=== PATIENT | female | born 1945 | race Caucasian/White ===

== ENCOUNTER 2022-03-13 13:02 | Inpatient (IN) | payer MEDICARE, SELFPAY ==
[2022-03-13] VITALS (13 sets, daily range): BP systolic 101–172; BP diastolic 55–98; PULSE 59–100; RESP 16–18; TEMP 36.7–37.2; O2SAT 86–100; BMI 34.3
--- NOTE | ~2022-03-13 | XR_ITS ---
XR ankle LT min 3V 03/13/2022 14:41 Indication: Post reduction film. Procedure: 4 views left ankle Comparison: 03/13/2022 Findings: Stable position to mildly displaced bimalleolar fracture. No significant alteration of alig nment allowing for differences of technique. Osteopenia. There is a degenerative calcaneal enthesophy te. Impression: 1: Stable alignment of bimalleolar fracture allowing for differences of technique. Reviewed, dictated and finalized at location A. Impression: 1: Stable alignment of bimalleolar fracture allowing for differences of techniq ue.
--- NOTE | ~2022-03-13 | XR_ITS ---
XR ankle LT min 3V DATE: 03/13/2022 13:11 INDICATION: Injury. Ankle deformity. TECHNIQUE: 3 more views COMPARISON: None FINDINGS: There are are transverse fractures of the medial malleolus and lateral malleolus, with appr oximate 3.5 mm lateral displacement at the fracture sites and associated lateral tibiotalar subluxati on. There is prominent widening of the tibiotalar joint space anteriorly. Plantar calcaneal enthesopathy. IMPRESSION: Bimalleolar fracture/lateral tibiotalar subluxation Reviewed, dictated and finalized at location A.
--- NOTE | ~2022-03-13 | XR_ITS ---
EXAMINATION: XR surgery orthopedic DATE: 03/16/2022 16:54 INDICATION: Left ankle fracture TECHNIQUE: 3 fluoroscopic images of the left ankle were obtained during procedure performed by Dr. Kelvin sarkar. Radiologist was not present for the imaging or procedure. The amount of fluoroscopy time used dur ing this procedure was 0.3 minutes. COMPARISON: 03/13/2022 FINDINGS: Interval open reduction internal fixation of the previous noted bimalleolar fracture at the left ankl e which is now in near anatomic alignment. The medial malleolar fractures fixed with a pair of cannul ated lag screws with washers. The lateral malleolar fracture is fixed with a lateral protocol plate a nd screws with overlying skin esequiel. No other fractures identified. Ankle mortise is congruent with normal joint space. IMPRESSION: 1. Near-anatomic alignment post internal fixation of a bimalleolar fracture of the left ankle. Reviewed, dictated and finalized at location B.
--- NOTE | ~2022-03-13 | CT_ITS ---
EXAMINATION: CT cervical spine wo con DATE: 03/13/2022 13:48 INDICATION: Patient fell today and struck posterior aspect of the head TECHNIQUE: Computed tomography (CT) of the cervical spine was performed without intravenous contrast. Automated exposure control and iterative reconstruction technique were employed. Exam dose: 387.93 mGy-cm total exam DLP. COMPARISON: None FINDINGS: C1 and C2 are normally aligned and the odontoid process is intact. No fracture or dislocati on or locked facet or prevertebral soft tissue swelling. There is minimal retrolisthesis at C3-4. There is 1.4 mm anterolisthesis at C5-6 and 2 mm anterolisthesis at C6-7. 1.4 mm anterolisthesis at C7-T1. There is moderately severe degenerative disc disease at C4-5 and moderate degenerative disc disease a t C5-6 and C6-7. There is degenerative change at the apophyseal joints throughout the cervical spine. There is uncovertebral joint spurring IMPRESSION: Cervical spondylosis No fracture or dislocation or locked facet Reviewed, dictated and finalized at Location A. Reviewed, dictated and finalized at location A.
--- NOTE | ~2022-03-13 | CT_ITS ---
EXAMINATION: CT brain wo con DATE: 03/13/2022 13:47 INDICATION: Patient fell and struck posterior aspect of head today TECHNIQUE: Computed tomography (CT) of the head was performed without intravenous contrast. The mA wa s adjusted according to patient size. Iterative reconstruction technique was employed. Exam dose: 60 5.33 mGy-cm total exam DLP. COMPARISON: None FINDINGS: There is moderately prominent central and cortical cerebral and cerebellar atrophy. Bilateral carotid siphon internal carotid artery left vertebral artery calcifications. There is nonsp ecific diminished attenuation of the cerebral white matter, likely due to chronic small vessel ischem ic changes. No intracranial mass lesion or hemorrhage or cerebrovascular accident is evident. No midline shift or mass effect effect. No subdural or epidural hematoma is noted. No fracture or bone destruction of the cranial vault. Mastoid air cells and included paranasal sinuses are unremarkable. IMPRESSION: No skull fracture or acute intracranial finding Cerebral atherosclerosis and chronic small vessel ischemic changes of the cerebral white matter Cerebral and cerebellar volume loss Reviewed, dictated and finalized at Location A. Reviewed, dictated and finalized at location A. IMPRESSION: No skull fracture or acute intracranial finding Cerebral atherosclerosis and chronic small vessel ischemic changes of the cereb ral white matter Cerebral and cerebellar volume loss
--- NOTE | ~2022-03-13 | XR_ITS ---
CORRECTED REPORT ORDER # CHANGED, TITLE CHANGE 03/15/22 PK XR SURGERY ORTHOPEDIC 03/13/2022 left ankle DATE: 03/14/2022 09:20 INDICATION: Bimalleolar ankle fracture TECHNIQUE: 2 spot C-arm images of the left ankle 1.8 seconds fluoroscopy time 0.10 mGy COMPARISON: 03/13/2022 left ankle FINDINGS: Again noted is mildly laterally displaced bimalleolar fracture and minimal lateral tibiotalar subluxation. IMPRESSION: Mildly laterally displaced bimalleolar fracture/minimal lateral tibiotalar subluxation Reviewed, dictated and finalized at Location A. Reviewed, dictated and finalized at location A. NEYT ROXIE
[2022-03-13 13:32] LABS: Basophils Absolute Auto 0.1 K/mm3 (0.0-0.1); Basophils Percent Auto 0.9 % (0.2-1.2); Eosinophils Absolute Auto 0.1 K/mm3 (0-0.3); Eosinophils Percent Auto 2.4 % (0-4.4); Hematocrit 37.2 % (37.0-47.0); Hemoglobin 12.2 g/dL (12.0-15.0); Immature Granulocyte Absolute 0.02 K/mm3 (0.00-0.031); Immature Granulocyte Percent A 0.3 % (0-0.5); Lymphocytes Absolute Auto 2.09 K/mm3 (0.9-3.2); Lymphocytes Percent Auto 36.3 % (18.3-44.2); Mean Corpuscular HGB Conc 32.8 g/dl (32-36); Mean Corpuscular Hemoglobin 29.8 pg (26-34); Mean Platelet Volume 10.6 fl (7.4-10.4); Monocytes Absolute Auto 0.5 K/mm3 (0.1-0.6); Monocytes Percent Auto 8.9 % (2.6-8.5); Neutrophils Absolute Auto 2.9 K/mm3 (1.3-6.7); Neutrophils Percent Auto 51.2 % (45.5-73.1); Platelet Count Result 160 k/mm3 (150-375); Red Blood Count 4.09 M/mm3 (4.2-5.4); Red Cell Distribution Width 12.9 % (11.5-14.5); White Blood Count 5.8 K/mm3 (4.5-10.0)
[2022-03-13 13:43] LABS: Prothrombin Time 12.7 Seconds (11.1-14.7)
[2022-03-13 13:44] LABS: Partial Thromboplastin Time 23.6 SECONDS (22.3-36.8)
[2022-03-13 13:45] LABS: Anion Gap 6 mmol/L (8-16); Blood Urea Nitrogen 25 mg/dL (7-17); Calcium 8.5 mg/dL (8.4-10.2); Carbon Dioxide 25 mmol/L (22-30); Chloride 108 mmol/L (98-107); Estimated CRCL calculation 45 ml/min; Estimated Glomerular Filt Rate 54; Glucose 106 mg/dL (65-110); Potassium 3.6 mmol/L (3.4-5.0); Sodium 139 mmol/L (137-145)
--- NOTE | 2022-03-13 14:08 | PC.NURSE ---
Pt prepared for moderate sedation. ETC02 on , ambu bag inflated and ready crash cart in room. Pt is on cardiac, respiratory, and NIBP cuff. Pt understands risks and benefits. Daughter, michi renteria, at bedside and understands procedure. All questions addressed.
[2022-03-13] MEDS: PROPOFOL IV EMULSION 200 MG/20 ML VIAL 50 MG IV PUSH (14:23)
[2022-03-13] MEDS: KETAMINE HCL (*CRX) 500 MG/10 ML VIAL 50 MG IV PUSH (14:23)
[2022-03-13] MEDS: MORPHINE SULFATE (*CRX) 4 MG/ML INJ IV PUSH (14:24)
--- NOTE | 2022-03-13 14:30 | ED.LOWEXIN ---
HPI - Extremity Injury (Lower) General Chief Complaint: Extremity Injury, Lower <Jazz Buchanan MD - Last Filed: 03/13/22 15:43> Stated Complaint: L ankle injury/deformity <Jazz Buchanan MD - Last Filed: 03/13/22 15:43> Time Seen by Provider: 03/13/22 13:04 <Jazz Buchanan MD - Last Filed: 03/13/22 15:43> History of Present Illness HPI Narrative: 77-year-old female presenting after she fell while at her daughter's house hanging curtains, her daughter tried to catch her but wasn't able to, she did also hit her head. No loss of consciousness. Denies any pain except her left ankle, states it drooped when she tried to lift it. <Jazz Buchanan MD - Last Filed: 03/13/22 15:43> Related Data Home Medications: Home Medications Medication Instructions Recorded Confirmed hydrochlorothiazide 25 mg tablet 25 tablet PO DAILY 03/13/22 03/13/22 lisinopril 5 mg tablet 5 tablet PO DAILY 03/13/22 03/13/22 metoprolol succinate 25 mg 25 tablet PO DAILY 03/13/22 03/13/22 tablet,extended release 24 hr <Jazz Buchanan MD - Last Filed: 03/13/22 15:43> Allergies/Adverse Reactions: Allergies Allergy/AdvReac Type Severity Reaction Status Date / Time shellfish derived Allergy Hives Verified 03/13/22 13:26 <Jazz Buchanan MD - Last Filed: 03/13/22 15:43> Review of Systems Review of Systems: CONST: No fever. HEENT: Head trauma C/V: No chest pain RESP: No cough GI: No vomiting BACK: No back pain M/S: Left ankle pain SKIN: No rash. NEURO: [No headache or focal numbness or weakness] PSYCH: [No depression] <Jazz Buchanan MD - Last Filed: 03/13/22 15:43> PMFSH Past Medical History Medical History: Medical History (Updated 03/13/22 @ 20:12 by Gloria Mac APRN) Hypertension <Jazz Buchanan MD - Last Filed: 03/13/22 15:43> Social History Social History: Social History (Updated 03/13/22 @ 15:40 by Jazz Buchanan MD) Smoking status: Never smoker Alcohol intake: never Substance use: never Spiritual care concerns: No <Jazz Buchanan MD - Last Filed: 03/13/22 15:43> Exam Narrative: EXAMINATION OF ORGAN SYSTEMS/BODY AREAS: Constitutional: Vital signs per nursing GENERAL:[No acute distress, non-toxic appearing.] HEAD: Contusion head EYES: EOMI, conjunctiva normal ENT: Hearing grossly intact LUNGS: Nonlabored breathing. HEART: [Regular rate and rhythm] ABD: [Soft], [nontender to palpation] EXT: Obvious deformity left ankle, neurovascularly intact SKIN: [No rashes or lesions.] NEURO: [Alert and oriented x 3.] PSYCH: Normal affect <Jazz Buchanan MD - Last Filed: 03/13/22 15:43> Course Vital Signs Vital signs: Vital Signs Temperature 98.1 F 03/13/22 12:59 Pulse Rate 68 03/13/22 12:59 Respiratory Rate 18 03/13/22 12:59 Blood Pressure 148/69 H 03/13/22 12:59 Pulse Oximetry 100 03/13/22 12:59 Oxygen Delivery Room Air 03/13/22 12:59 Temperature 98.4 F 03/13/22 20:18 Pulse Rate 100 03/13/22 20:18 Respiratory Rate 16 03/13/22 20:18 Blood Pressure 130/88 03/13/22 20:18 Pulse Oximetry 97 03/13/22 20:18 Oxygen Delivery Room Air 03/13/22 20:00 Oxygen Flow Rate 2 03/13/22 14:35 <Jazz Buchanan MD - Last Filed: 03/13/22 15:43> Vital Signs Temperature 98.1 F 03/13/22 12:59 Pulse Rate 68 03/13/22 12:59 Respiratory Rate 18 03/13/22 12:59 Blood Pressure 148/69 H 03/13/22 12:59 Pulse Oximetry 100 03/13/22 12:59 Oxygen Delivery Room Air 03/13/22 12:59 Temperature 98.4 F 03/13/22 20:18 Pulse Rate 100 03/13/22 20:18 Respiratory Rate 16 03/13/22 20:18 Blood Pressure 130/88 03/13/22 20:18 Pulse Oximetry 97 03/13/22 20:18 Oxygen Delivery Room Air 03/13/22 20:00 Oxygen Flow Rate 2 03/13/22 14:35 <Dejan Marley MD - Last Filed: 03/13/22 22:05> Procedures Orthopedic Fracture Reduction Fracture #1: Fracture Reduction date: 03/13/22 <Jazz Buchanan MD - Last File
--- NOTE | 2022-03-13 16:17 | PC.NURSE ---
This patient, Vika Duke, was admitted to Medical Room 254-01. Patient/family oriented to hospital policies and general routines including ID bracelet, bed and alarms, visiting hours, pain management, procedures, bathroom and other care routines, personal items, smoking policy, room service/diet, and visiting hours. Information on how to activate the Rapid Response Team has been discussed. Patient/Family are encouraged to report perceived risks to care and to ask questions if they do not understand what they are told or what they should do.
--- NOTE | 2022-03-13 19:57 | PM.IMCN ---
Assessment and Plan Assessment and plan (1) Ankle fracture, bimalleolar, closed: Code(s): S82.843A - Displaced bimalleolar fracture of unspecified lower leg, initial encounter for closed fracture Status: Acute Assessment and Plan: Patient did have reduction emergency room and OCL place. Orthopedic surgery is admitting patient and plans to take patient to the operating room early in the morning. Patient has good circulation noted by capillary refill less than 3 seconds. Will defer pain regimen and VTE prophylaxis to Orthopedic surgery. (2) Hypertension: Code(s): I10 - Essential (primary) hypertension Status: Acute Assessment and Plan: Will resume patient's home medications once verified home medication list and adjust medications accordingly for optimal blood pressure control. HPI Data of Consult Consult date: 03/13/22 Requesting Physician: Truman Banerjee MD Primary Care Provider: Oren Noriega, Consult Narrative Narrative: Vika Duke is a 77 year old female Who presented the emergency room after falling while helping her daughter Victor rate and having deformity to her left ankle. Patient states that she was assisting her daughter putting up cartons and was on a bed and was trying to walk across the bed and the patient's foot slipped and went between the head of the bed and the wall and the patient fell off the bed backwards and hit her head on the floor. Patient states that she thought her ankle hurts slightly and she went to lift her leg and her ankle then became deformity she knew she had broken it. Patient states she is having mild pain to her ankle. Patient denies any lightheadedness, dizziness, syncopal, near syncopal episodes, or palpitations prior to falling. Patient states that she simply slipped and fell. Patient denies any chest pain or shortness of breath. Patient has a known history of hypertension. Patient states she has been taking all of her home medications without any difficulty. Review of Systems Review of Systems: A 12 point review of systems was completed patient all pertinent positive and negative per HPI the remainder are unremarkable. [facility] Past Medical History Medical History (Updated 03/13/22 @ 20:12 by Gloria Mac APRN) Hypertension Social History Social History (Updated 03/13/22 @ 15:40 by Jazz Buchanan MD) Smoking status: Never smoker Alcohol intake: never Substance use: never Spiritual care concerns: No Meds Home Medications and Allergies Home Medications Medication Instructions Recorded Confirmed Type hydrochlorothiazide 25 mg tablet 25 tablet PO DAILY 03/13/22 03/13/22 History lisinopril 5 mg tablet 5 tablet PO DAILY 03/13/22 03/13/22 History metoprolol succinate 25 mg 25 tablet PO DAILY 03/13/22 03/13/22 History tablet,extended release 24 hr Allergies Allergy/AdvReac Type Severity Reaction Status Date / Time shellfish derived Allergy Hives Verified 03/13/22 13:26 Vital Signs Vital Signs - 24 hr 03/13/22 12:59 03/13/22 14:09 03/13/22 14:21 Temperature 36.7 C 36.8 C Pulse Rate 68 66 Pulse Rate [Monitor] 66 Respiratory Rate 18 18 18 Blood Pressure 148/69 H 139/60 Blood Pressure [Left Arm] Pulse Oximetry 100 100 100 Oxygen Delivery Room Air Room Air Oxygen Flow Rate 03/13/22 14:26 03/13/22 14:31 03/13/22 14:44 Temperature 37.2 C 36.8 C Pulse Rate 60 Pulse Rate [Monitor] 71 72 Respiratory Rate 16 18 18 Blood Pressure 151/98 H Blood Pressure [Left Arm] 143/55 H 101/80 Pulse Oximetry 86 L 100 99 Oxygen Delivery Nasal Cannula Nasal Cannula Oxygen Flow Rate 4 2 03/13/22 14:20 03/13/22 14:35 03/13/22 15:02 Temperature Pulse Rate 59 L Pulse Rate [Monitor] Respiratory Rate 18 18 18 Blood Pressure 167/69 H Blood Pressure [Left Arm] Pulse Oximetry 99 Oxygen Delivery Oxygen Flow Rate 2 03/13/22 15:40 03/13/22 17:54 [place]
[2022-03-14] VITALS (20 sets, daily range): BP systolic 100–148; BP diastolic 61–85; PULSE 92–133; RESP 16–20; TEMP 36.4–37.3; O2SAT 94–100
--- NOTE | 2022-03-14 06:48 | PM.IMHP ---
H&P: HPI History of Present Illness Date/Time: 03/14/22 06:48 Chief Complaint: Left ankle injury Narrative: 77-year-old female who slipped and fell off of a chair or bed yesterday. She suffered an unstable bimalleolar fracture. She was reduced and splinted, and then re-reduced and resplinted in the ER yesterday. She was admitted for further management of this issue. No other injuries with this occurrence. She is retired. She has a grandson that lives with her and is able to help her. Review of Systems Constitutional: Constitutional: Reports no additional constitutional complaints, Denies excessive sweating and Denies fatigue Eyes: Eyes: Reports no additional eye complaints ENT: Reports system reviewed and no additional complaints, except as documented Cardiovascular: Cardiovascular: Denies chest pain at rest and Denies dyspnea Respiratory: Respiratory: Reports no additional respiratory complaints and Denies dyspnea Gastrointestinal: Gastrointestinal: Reports no additional gastrointestinal complaints Musculoskeletal: Musculoskeletal: Reports as per HPI Integumentary/Breasts: Skin/Breast: Reports system reviewed and no additional complaints, except as docu Neurologic: Reports as per HPI Endocrine: Endocrine: Denies excessive sweating and Denies fatigue Hematologic/Lymphatic: Hematologic/Lymphatic: Denies easy bleeding and Denies easy bruising PMFSH Past Medical History Medical History (Updated 03/14/22 @ 06:52 by Truman Banerjee MD) Hypertension Surgical History Surgical History (Updated 03/14/22 @ 06:52 by Truman Banerjee MD) Ankle fracture, bimalleolar, closed left ankle ORIF March 14, 2022 History of Social History Social History (Updated 03/14/22 @ 06:53 by Truman Banerjee MD) Smoking status: Former smoker Alcohol intake: never Substance use: never Spiritual care concerns: No Meds Home Medications and Allergies Home Medications Medication Instructions Recorded Confirmed Type hydrochlorothiazide 25 mg tablet 25 tablet PO DAILY 03/13/22 03/13/22 History lisinopril 5 mg tablet 5 tablet PO DAILY 03/13/22 03/13/22 History metoprolol succinate 25 mg 25 tablet PO DAILY 03/13/22 03/13/22 History tablet,extended release 24 hr Allergies Allergy/AdvReac Type Severity Reaction Status Date / Time shellfish derived Allergy Hives Verified 03/13/22 13:26 Vital Signs Vital Signs - 24 hr 03/13/22 12:59 03/13/22 14:09 03/13/22 14:21 Temperature 98.1 F 98.2 F Pulse Rate 68 66 Pulse Rate [Monitor] 66 Respiratory Rate 18 18 18 Blood Pressure 148/69 H 139/60 Blood Pressure [Left Arm] Pulse Oximetry 100 100 100 Oxygen Delivery Room Air Room Air Oxygen Flow Rate 03/13/22 14:26 03/13/22 14:31 03/13/22 14:44 Temperature 98.9 F 98.2 F Pulse Rate 60 Pulse Rate [Monitor] 71 72 Respiratory Rate 16 18 18 Blood Pressure 151/98 H Blood Pressure [Left Arm] 143/55 H 101/80 Pulse Oximetry 86 L 100 99 Oxygen Delivery Nasal Cannula Nasal Cannula Oxygen Flow Rate 4 2 03/13/22 14:20 03/13/22 14:35 03/13/22 15:02 Temperature Pulse Rate 59 L Pulse Rate [Monitor] Respiratory Rate 18 18 18 Blood Pressure 167/69 H Blood Pressure [Left Arm] Pulse Oximetry 99 Oxygen Delivery Oxygen Flow Rate 2 03/13/22 15:40 03/13/22 17:54 03/13/22 20:00 Temperature Pulse Rate 61 61 Pulse Rate [Monitor] Respiratory Rate 16 16 Blood Pressure 172/65 H 113/55 L Blood Pressure [Left Arm] Pulse Oximetry 98 98 Oxygen Delivery Room Air Oxygen Flow Rate 03/13/22 20:18 Temperature 98.4 F Pulse Rate 100 Pulse Rate [Monitor] Respiratory Rate 16 Blood Pressure 130/88 Blood Pressure [Left Arm] Pulse Oximetry 97 Oxygen Delivery Oxygen Flow Rate Exam Const: General: alert and awake; No acute distress Orientation/consciousness: patient oriented x3 HENMT: Head: normal to inspection Ears: hearing grossly
--- NOTE | 2022-03-14 07:42 | ECG_ITS ---
Measurements Intervals [place] Rate: 129 P: SC: 0 QRS: 9 QRSD: 93 T: 0 QT: 277 QTc: 407 Interpretive Statements ATRIAL FIBRILLATION WITH RAPID VENTRICULAR RESPONSE EARLY PRECORDIAL R/S TRANSITION NONSPECIFIC ST & T-WAVE ABNORMALITY- DIFFUSE LEADS BASELINE ARTIFACT- I, III, AVL ABNORMAL ECG Electronically Signed On 03-14-2022 14:05:45 CDT by Max Malin D.O.
--- NOTE | 2022-03-14 08:02 | PCOTNOTE ---
Addendum entered by Nunu Vu, OT 03/14/22 12:20: suggested to begin services with OT/PT today. Per nursing, HOLD pt. for today due to elevated heart rate and abnormal rhythm Original Note: Pt. scheduled for surgery for unstable bimalleolar fracture tomorrow. Pt. unable to be seen today due to need for orthopedic surgery prior to evaluation.
--- NOTE | 2022-03-14 08:03 | PCPTNOTE ---
Patient scheduled for Ortho surgery 03/15/22. Will see once appropriate.
--- NOTE | 2022-03-14 08:11 | P.PNAN_ITS ---
Anes - Eval Final PreProcedure Day of Procedure 03/14/22 08:11 Patient weight: obese Heart: irregular rhythm and tachycardia Lungs: clear to auscultation Neurological: alert and oriented Last oral intake: >/= 8 hours Anesthetic plan: delay Other findings: Patient was found to be in new onset A fib RVR (120-150s), sx canceled Results Review: All pre-operative results and documents have been reviewed as part of the pre- operative evaluation. Informed Consent: The patient's anesthetic plan and its attendant risks and benefits were discussed with the patient/family/POA. Questions were solicited and answers provided to the satisfaction of the patient/family/POA.
--- NOTE | 2022-03-14 08:14 | SUR.OPER ---
During pre-op evaluation with anesthesia team an elevated heart rate and abnormal rhythm was noted on monitor. EKG ordered and Dr. Banerjee made aware. EKG showed new onset afib with rvr. Surgery cancelled. Patient had xrays done and additonal delta lite padding added to splint per Dr. Banerjee. No anesthesia received. Recovery nurse gave report to floor nurse. Patient returned to room.
--- NOTE | 2022-03-14 08:47 | P.OP_ITS ---
Procedure Note - Detailed Date of Procedure 03/14/22 Pre-op Diagnosis Left bimalleolar ankle fracture Post-op Diagnosis Same Procedure Performed Radiographic assessment and splint modification Surgeon Truman Banerjee MD [employer] Machine Operator Laney Franco Anesthesia None Description of Procedure The patient was identified and proper site identified. In the preoperative area she is noted to have an elevated heart rate. EKG was performed showing atrial fibrillation. No documented history so this is new onset with and will need to be worked up. We did jackman into the operating room leaving her on the patient bed to allow for examination of the ankle under fluoro. The reduction was noted to be satisfactory, much better than when had originally been achieved in the ER. The splint was removed some more padding could be added and then reapplied. Patient tolerated this without any difficulty. She was then taken back to recovery area in stable condition. Estimated Blood Loss 0 Urine Output 1,600 Complications No immediate complications Condition Stable Disposition PACU
[2022-03-14 09:02] LABS: Anion Gap 6 mmol/L (8-16); Blood Urea Nitrogen 23 mg/dL (7-17); Calcium 8.4 mg/dL (8.4-10.2); Carbon Dioxide 22 mmol/L (22-30); Chloride 109 mmol/L (98-107); Estimated CRCL calculation 50 ml/min; Estimated Glomerular Filt Rate > 60; Glucose 121 mg/dL (65-110); Magnesium 2.1 mg/dL (1.6-2.3); Potassium 3.7 mmol/L (3.4-5.0); Sodium 137 mmol/L (137-145)
[2022-03-14] MEDS: SODIUM CHLORIDE 0.9% IV 500 ML 250 ML IV CONT (09:29)
[2022-03-14] MEDS: METOPROLOL TARTRATE INJ 5 MG/5 ML VIAL IV PUSH (09:37)
[2022-03-14] MEDS: SENNA/DOCUSATE SODIUM TABLET 2 TAB PO ×2 (09:45→16:15)
[2022-03-14] MEDS: polyethylene glycoL 3350 17 GM POWD.PACK PO (09:45)
--- NOTE | 2022-03-14 12:18 | PCPTNOTE ---
Attempted PT evaluation, Per RN hold today due to Increase HR. Will follow.
[2022-03-14] MEDS: METOPROLOL TARTRATE 25 MG TABLET PO ×2 (12:26→20:11)
--- NOTE | 2022-03-14 13:20 | PC.NURSE ---
This patient, Vika Duke, was transferred to IMU on 03/14/22 at 1320. Personal belongings sent with patient. Report given to JOHN PAUL Ontiveros. Appropriate documentation sent with patient.
--- NOTE | 2022-03-14 14:01 | PM.IMPN ---
Progress Note: A&P Assessment and Plan (1) Fall: Code(s): W19.XXXA - Unspecified fall, initial encounter Status: Acute Assessment and Plan: Fell off a bed while hanging curtains. Twisted her ankle then hit her head. No LOC. Sustained ankle fracture Head CT no acute findings (2) Ankle fracture, bimalleolar, closed: Code(s): S82.843A - Displaced bimalleolar fracture of unspecified lower leg, initial encounter for closed fracture Status: Acute Assessment and Plan: Secondary to fall. Appreciate orthopedic surgery consultation Fracture has been reduced XR performed under fluorocopy showed mildly laterally displaced bimalleolar fracture Planning for surgical repair following resolution of Afib. Surgery possibly 03/16 Analgesics available as needed Management per orthopedic surgery (3) Atrial fibrillation with rapid ventricular response: Code(s): I48.91 - Unspecified atrial fibrillation Status: Acute Assessment and Plan: Patient found to be in Afib with RVR in OR Appreciate cardiology consultation Transitioned to IMU and started on diltiazem drip Metoprolol tartrate 25 mg BID Holding anticoagulation preoperatively. Chads2-Vasc score is 4 (age, female, HTN history). Will plan to initiate systemic anticoagulation postoperatively Monitor on telemetry Echo pending (4) Hypertension: Code(s): I10 - Essential (primary) hypertension Status: Acute Assessment and Plan: Blood pressures have been well controlled on low end of normal PO antihypertensives on hold Monitor BP trends Subjective Date/time seen: 03/14/22 14:01 Interval history: Date of service: 03/14/2022 Vika Duke is a 77-year-old female with a history of hypertension who is seen in follow-up for left ankle fracture. Today she went down for surgery but was found to be in AFib with RVR, therefore surgery was not started. She is feeling very well. She has no pain in her ankle at this time. She has been very comfortable. She states she is able to get up and pivot to the bedside commode with her good leg. She denies palpitations, shortness of breath, dizziness, lightheadedness, fatigue, or weakness. When asked if she has had any similar episodes to this she states in the past a couple of time she is felt her heart racing but she thought this was due to nerves. She also felt that this episode she had this morning while heading to the OR was due to nerves. She denies abdominal pain, fever, chills. Reports regular bowel movements and denies any urinary symptoms. Review of Systems Review of Systems: All systems reviewed & are unremarkable except as noted in HPI and below Exam Narrative: General: Well-nourished well-appearing 77-year-old female, sitting up in bed, comfortable, NARD Neuro: awake, alert and oriented x4, speech clear, no focal neuro deficits noted HEENMT: normocephalic, atraumatic, EOMI, sclerae anicteric Respiratory: clear to auscultation bilaterally, nonlabored breathing Cardio: tachycardic, irregularly irregular rhythm Abdomen: nondistended, normoactive bowel sounds, soft, nontender to palpation Extremities: LLE propped on pillow wrapped in split. Able to wiggle toes. Brisk capillary refill. Unable to palpate pulses due to splint. Trace edema of the visible forefoot. RLE no edema, erythema, or tenderness to palpation Skin: no rashes or lesions, warm and dry Psych: appropriate mood and affect, judgment and insight intact Objective Data Vital Signs Vital Signs: Vital Signs - 24 hr 03/13/22 14:09 03/13/22 14:21 03/13/22 14:26 Temperature 98.2 F 98.9 F Pulse Rate 66 Pulse Rate [Monitor] 66 71 Respiratory Rate 18 18 16 Blood Pressure 139/60 Blood Pressure [Left Arm] 143/55 H Pulse Oximetry 100 100 86 L Oxygen Delivery Room Air Nasal Cannula Oxygen Flow Rate 4 03/13/22 14:31 03/13/22 14:44 03/13/22 14:20 Temperature 98.2 F
[2022-03-14] MEDS: dilTIAZem 100 MG/100 ML 100 MG/100 ML BAG IV CONT (14:02)
[2022-03-14] MEDS: SODIUM CHLORIDE 0.9% IV 1,000 ML 125 ML IV CONT (14:06)
--- NOTE | 2022-03-14 14:26 | PM.CNCAR ---
Assessment and Plan Assessment and plan (1) Atrial fibrillation with rapid ventricular response: Code(s): I48.91 - Unspecified atrial fibrillation Status: Acute Assessment and Plan: Chronicity unknown. New diagnosis uncontrolled ventricular response currently asymptomatic. Blood pressure marginal intermittently improved with IV fluids. With peak surgery has requested be hold off on systemic anticoagulation as they intend to take her to the operating room if possible tomorrow morning. I discussed at great length pathophysiology, management strategies, concept of rate versus rhythm control, bleeding versus embolic stroke risk in need for systemic anticoagulation given her risk profile. BP permitting initiate diltiazem 5 milligrams/hour along with metoprolol 25 mg p.o. b.i.d.. Up titrate diltiazem infusion for heart rate control. Hold antihypertensives with lisinopril and hydrochlorothiazide. DVT prophylaxis. CHADS2 Vasc score 4, systemic anticoagulation advised. Discussed management options including heart rate versus rhythm control strategy. At this time rate control strategy preoperatively will need to be pursued to avoid systemic anticoagulation at this time. If sustained and or tachycardic ISAIAH guided cardioversion with systemic anticoagulation yet this will need to be coordinated with reviewed surgery postoperatively when full anticoagulation can be administered. All questions answered to patient and her daughter satisfaction. Patient verbalized understanding and agreed with plan of care. Patient will be transferred to IMU. -2D echocardiogram to assess LV size/function, valve pathology pulmonary pressures when heart rate better controlled. -TSH -Telemetry -monitor electrolytes closely. Statin stable, given additional 20 mEq p.o. x1. -systemic anticoagulation when okay with Orthopedic surgery. Xarelto 20 mg at bedtime or Eliquis 5 mg b.i.d. preferred. (2) Hypertension: Code(s): I10 - Essential (primary) hypertension Status: Acute Assessment and Plan: Relative hypotension earlier this morning status post IV fluids. Hold antihypertensives. Will need to monitor tolerance for rate 20 agents closely. (3) Fall: Code(s): W19.XXXA - Unspecified fall, initial encounter Status: Acute Assessment and Plan: As above resulting in bimalleolar fracture of the left ankle with recommendations for surgical repair by Orthopedic surgery. CT head without superficial hematoma, fracture or CVA or bleed. (4) Ankle fracture, bimalleolar, closed: Code(s): S82.843A - Displaced bimalleolar fracture of unspecified lower leg, initial encounter for closed fracture Status: Acute Assessment and Plan: Management per Orthopedic surgery. History of Present Illness History of Present Illness Consult date/time: Date of service: 03/14/22 14:26 Cardiology consultation at the request of Stella Owens of the [facility] service for opinion regarding atrial fibrillation with rapid ventricular response Requesting physician: Stella Owens PA-C Reason For Visit: Ankle fx Narrative: Patient is a very pleasant 77-year-old female with a past medical history significant for hypertension who was in her usual state of health when she was a cyst in her daughter continue place objects on the bed and while walking across the bed slipped between the wall and the bed causing her to fall backwards hitting her head on the floor. No loss of consciousness. Due to the deformity noted thereafter upon standing she presented for further evaluation found to have an unstable by malleolar fracture of the left ankle. Upon taking patient to the operating room is noted she was in atrial fibrillation with rapid ventricle response which is a new diagnosis. Her ankle was reduced but surgery was deferred for evaluation of her atrial fibrillation. Patient is relatively asymptomatic in this regard. She has has n
--- NOTE | 2022-03-14 15:04 | PC.NURSE ---
This patient, Vika Duke, was received from [[id number] ] on 03/14/22 at 1315. Report from Amisha COKER. Patient/family oriented to unit policies and routines
[2022-03-14 15:59] LABS: Thyroid Stimulating Hormone Reflex 0.382 uIU/mL (0.465-4.68)
[2022-03-15] VITALS (17 sets, daily range): BP systolic 93–129; BP diastolic 49–93; PULSE 66–136; RESP 16–20; TEMP 36.3–37.4; O2SAT 94–100
[2022-03-15] MEDS: dilTIAZem 100 MG/100 ML 100 MG/100 ML BAG IV CONT (05:34)
--- NOTE | 2022-03-15 08:15 | PCPTNOTE ---
Attempted PT evaluation, per RN hold therapy for today due to Increase HR at rest. Will follow.
--- NOTE | 2022-03-15 08:16 | PCOTNOTE ---
Attempted to see pt for OT evaluation. Per nursing, HOLD pt. for today as pt. continues to display elevated heart rate and abnormal rhythm
[2022-03-15] MEDS: METOPROLOL TARTRATE 25 MG TABLET PO ×2 (08:57→20:24)
[2022-03-15] MEDS: SENNA/DOCUSATE SODIUM TABLET 2 TAB PO (08:58)
[2022-03-15 09:12] LABS: Hematocrit 39.1 % (37.0-47.0); Hemoglobin 12.7 g/dL (12.0-15.0); Mean Corpuscular HGB Conc 32.5 g/dl (32-36); Mean Corpuscular Volume 92.4 fl (80-100); Mean Platelet Volume 10.8 fl (7.4-10.4); Platelet Count Result 148 k/mm3 (150-375); Red Blood Count 4.23 M/mm3 (4.2-5.4); Red Cell Distribution Width 13.3 % (11.5-14.5); White Blood Count 8.7 K/mm3 (4.5-10.0)
[2022-03-15 09:13] LABS: Anion Gap 6 mmol/L (8-16); Blood Urea Nitrogen 21 mg/dL (7-17); Calcium 8.2 mg/dL (8.4-10.2); Carbon Dioxide 25 mmol/L (22-30); Chloride 110 mmol/L (98-107); Estimated CRCL calculation 50 ml/min; Estimated Glomerular Filt Rate > 60; Glucose 117 mg/dL (65-110); Potassium 3.6 mmol/L (3.4-5.0); Sodium 141 mmol/L (137-145)
--- NOTE | 2022-03-15 09:18 | PM.PNCARD ---
Progress Note: A&P Assessment and Plan (1) Atrial fibrillation with rapid ventricular response: Code(s): I48.91 - Unspecified atrial fibrillation Status: Acute Assessment and Plan: Chronicity unknown. New diagnosis uncontrolled ventricular response currently asymptomatic. Blood pressure marginal intermittently improved with IV fluids. Currently not anticoagulated per orthopedic surgery. Plan to pursue rate control strategy preoperatively with possible ISAIAH guided DCCV postoperatively if necessary. Was initiated on diltiazem 5 milligrams/hour along with metoprolol 25 mg p.o. b.i.d. Adequate rate control at times but bursts of RVR with rate in the 120's-140's. Hesitant to up titrate diltiazem due to hypotension despite holding all other antihypertensives. BP rechecked, SBP 130 this a.m. Increase Diltiazem drip to 10mg/hr. Continue metoprolol 25mg b.i.d. Monitor BP very closely 2D echocardiogram to assess LV size/function, valve pathology pulmonary pressures when heart rate better controlled. TSH .382, T4 pending. Will order Thyroglobulin and antibody. Will defer further w/u and treatment to primary service. Monitor electrolytes closely Systemic s/c when okay with Orthopedic surgery in the form of either Xarelto 20mg at bedtime or Eliquis 5mg b.i.d. (2) Hypertension: Code(s): I10 - Essential (primary) hypertension Status: Acute Assessment and Plan: Relative hypotension earlier this morning status post IV fluids. Hold antihypertensives. Will need to monitor tolerance for rate 20 agents closely. (3) Fall: Code(s): W19.XXXA - Unspecified fall, initial encounter Status: Acute Assessment and Plan: As above resulting in bimalleolar fracture of the left ankle with recommendations for surgical repair by Orthopedic surgery. CT head without superficial hematoma, fracture or CVA or bleed. (4) Ankle fracture, bimalleolar, closed: Code(s): S82.843A - Displaced bimalleolar fracture of unspecified lower leg, initial encounter for closed fracture Status: Acute Assessment and Plan: Management per Orthopedic surgery. Subjective Date/time seen: 03/15/22 09:19 Cardiology follow up for atrial fibrillation Interval history: Feeling okay this morning. Some pain in ankle. No shortness of breath, chest pain, palpitations. Discussed plan of care at length with patient and daughter. Review of Systems Review of Systems: All systems reviewed & are unremarkable except as noted in HPI and below Constitutional: Constitutional: Reports as per HPI and Reports no additional constitutional complaints Eyes: Eyes: Reports as per HPI and Reports no additional eye complaints ENT: Reports system reviewed and no additional complaints, except as documented and Reports as per HPI Cardiovascular: Cardiovascular: Reports as per HPI and Reports no additional cardiovascular complaints Respiratory: Respiratory: Reports as per HPI and Reports no additional respiratory complaints Gastrointestinal: Gastrointestinal: Reports as per HPI and Reports no additional gastrointestinal complaints Genitourinary: Genitourinary: Reports as per HPI Musculoskeletal: Musculoskeletal: Reports no additional musculoskeletal complaints and Reports as per HPI Integumentary/Breasts: Skin/Breast: Reports system reviewed and no additional complaints, except as docu and Reports as per HPI Neurologic: Reports system reviewed and no additional complaints, except as documented and Reports as per HPI Psychiatric: Psychiatric: Reports no additional psychiatric complaints and Reports as per HPI Endocrine: Endocrine: Reports no additional endocrine complaints and Reports as per HPI Hematologic/Lymphatic: Hematologic/Lymphatic: Reports no additional hematologic/lymphatic complaints and Reports as per HPI Allergic/Immunologic: Allergic/Immunologic: Reports no additional allergic/immunologic complaints and Report
--- NOTE | 2022-03-15 11:24 | PM.IMPN ---
Progress Note: A&P Assessment and Plan (1) Fall: Code(s): W19.XXXA - Unspecified fall, initial encounter Status: Acute Assessment and Plan: Fell off a bed while hanging curtains. Twisted her ankle then hit her head. No LOC. Sustained ankle fracture Head CT no acute findings (2) Ankle fracture, bimalleolar, closed: Code(s): S82.843A - Displaced bimalleolar fracture of unspecified lower leg, initial encounter for closed fracture Status: Acute Assessment and Plan: Secondary to fall. Appreciate orthopedic surgery consultation Fracture has been reduced XR performed under fluoroscopy showed mildly laterally displaced bimalleolar fracture Planning for surgical repair following resolution of Afib. Possibly proceed with surgery tomorrow. Analgesics available as needed Management per orthopedic surgery (3) Atrial fibrillation with rapid ventricular response: Code(s): I48.91 - Unspecified atrial fibrillation Status: Acute Assessment and Plan: Patient found to be in Afib with RVR in OR Appreciate cardiology consultation Continue diltiazem drip, increased to 10 mg/hr Metoprolol tartrate 25 mg BID Holding anticoagulation preoperatively. Chads2-Vasc score is 4 (age, female, HTN history). Will plan to initiate systemic anticoagulation postoperatively Monitor on telemetry Echo pending TSH is slightly decreased, T4 pending (4) Hypertension: Code(s): I10 - Essential (primary) hypertension Status: Acute Assessment and Plan: Blood pressures have actually been somewhat soft. Last BP 100/57. Pt asymptomatic PO antihypertensives on hold Received 500 cc IV fluid bolus 03/14. Patient adequately rehydrated and tolerating PO intake Monitor BP closely while on diltiazem Subjective Date/time seen: 03/15/22 11:24 Interval history: Date of service: 03/15/2022 Vika Duke is a 77-year-old female with a history of hypertension who is seen in follow-up for left ankle fracture in atrial fibrillation with rapid ventricular response. She feels very well today. She has no ankle pain. denies palpitations. No shortness of breath. No dizziness or lightheadedness. Denies weakness. States she is her usual sassy self and could run laps in the parking lot. denies nausea or vomiting. Denies abdominal pain, fever, chills. no chest pain. No urinary symptoms. Review of Systems Review of Systems: All systems reviewed & are unremarkable except as noted in HPI and below Exam Narrative: General: Well-nourished well-appearing 77-year-old female, sitting up in bed, comfortable, NARD Neuro: awake, alert and oriented x4, speech clear, no focal neuro deficits noted HEENMT: normocephalic, atraumatic, EOMI, sclerae anicteric Respiratory: clear to auscultation bilaterally, nonlabored breathing Cardio: tachycardic, irregularly irregular rhythm Abdomen: nondistended, normoactive bowel sounds, soft, nontender to palpation Extremities: LLE propped on pillow wrapped in split extending to just below the knee. Able to wiggle toes. Brisk capillary refill. Unable to palpate pulses due to splint. Trace edema of the visible forefoot and toes. RLE no edema, erythema, or tenderness to palpation Skin: no rashes or lesions, warm and dry Psych: appropriate mood and affect, judgment and insight intact Objective Data Vital Signs Vital Signs: Vital Signs - 24 hr 03/14/22 12:00 03/14/22 12:26 03/14/22 12:00 Temperature Pulse Rate 126 H 121 H Respiratory Rate Blood Pressure 118/76 Pulse Oximetry Oxygen Delivery Fraction of Inspired Oxygen 03/14/22 13:22 03/14/22 14:02 03/14/22 16:03 Temperature 98.5 F 98.7 F Pulse Rate 102 H 105 H 96 Respiratory Rate 18 16 Blood Pressure 102/84 127/85 Pulse Oximetry 100 98 Oxygen Delivery Fraction of Inspired Oxygen 03/14/22 16:00 03/14/22 16:00 03/14/22 18:00 Temperature P
--- NOTE | 2022-03-15 12:01 | PM.PNORT ---
Progress Note: A&P Assessment and Plan (1) Ankle fracture, bimalleolar, closed: Code(s): S82.843A - Displaced bimalleolar fracture of unspecified lower leg, initial encounter for closed fracture Status: Acute (2) Atrial fibrillation with rapid ventricular response: Code(s): I48.91 - Unspecified atrial fibrillation Status: Acute Plan Awaiting discussion between Cardiology and Anesthesia. We have essentially two options from the orthopedic standpoint. First would be brief sedation to allow for a better reduction and splint application versus full ORIF. Potentially can do this tomorrow. Discussed with patient. Time Spent With Patient Time with patient: 15 - 25 minutes Subjective Subjective Date/Time Seen: 03/15/22 12:01 Interval history: This document created with [id number] technology and is subject to powdered sugar supervisor irregularities. 77-year-old female with a left bimalleolar ankle fracture. Prior to surgery she noted to have atrial fibrillation with RVR. She was moved to the IMU to work on rate control. The rate has been bouncing around a bit yet. Exam Const: General: cooperative, no acute distress and alert Nutritional Appearance: other Orientation/consciousness: patient oriented x3 Neuro: General: patient oriented x3 Cognition (Neuro): normal cognition Speech: normal speech Extrem: Other: Exam of left ankle shows intact sensation and good capillary refill to the toes. Calves negative. Psych: Appearance: grossly normal Mental Status: mental status grossly normal Objective Data Vital Signs Vital Signs: Vital Signs - 24 hr 03/14/22 12:26 03/14/22 13:22 03/14/22 14:02 Temperature 98.5 F Pulse Rate 126 H 102 H 105 H Respiratory Rate 18 Blood Pressure 102/84 Pulse Oximetry 100 Oxygen Delivery Fraction of Inspired Oxygen 03/14/22 16:03 03/14/22 16:00 03/14/22 16:00 Temperature 98.7 F Pulse Rate 96 112 H Respiratory Rate 16 Blood Pressure 127/85 Pulse Oximetry 98 Oxygen Delivery Room Air Fraction of Inspired Oxygen 03/14/22 18:00 03/14/22 19:58 03/14/22 20:11 Temperature 99.1 F Pulse Rate 115 H 129 H 104 H Respiratory Rate 20 Blood Pressure 148/61 H Pulse Oximetry 98 Oxygen Delivery Fraction of Inspired Oxygen 03/14/22 20:00 03/14/22 20:00 03/14/22 21:16 Temperature Pulse Rate 114 H 114 H 112 H Respiratory Rate 20 Blood Pressure Pulse Oximetry 98 Oxygen Delivery Room Air Fraction of Inspired Oxygen 03/14/22 23:05 03/14/22 22:50 03/14/22 23:52 Temperature 97.7 F Pulse Rate 93 92 96 Respiratory Rate 20 Blood Pressure 122/81 Pulse Oximetry 94 97 Oxygen Delivery Room Air Fraction of Inspired Oxygen 03/14/22 23:52 03/15/22 02:00 03/15/22 04:00 Temperature Pulse Rate 96 104 H 95 Respiratory Rate 20 Blood Pressure Pulse Oximetry 94 Oxygen Delivery Room Air Fraction of Inspired Oxygen 21 03/15/22 04:00 03/15/22 05:34 03/15/22 05:47 Temperature Pulse Rate 95 94 98 Respiratory Rate 20 Blood Pressure Pulse Oximetry 94 Oxygen Delivery Room Air Fraction of Inspired Oxygen 03/15/22 04:00 03/15/22 08:00 03/15/22 08:57 Temperature 97.4 F L 98.2 F Pulse Rate 100 136 H 124 H Respiratory Rate 20 19 Blood Pressure 93/70 L 100/57 L Pulse Oximetry 100 100 Oxygen Delivery Fraction of Inspired Oxygen 03/15/22 08:00 03/15/22 08:00 03/15/22 10:00 Temperature Pulse Rate 120 H 136 H 112 H Respiratory Rate 19 Blood Pressure Pulse Oximetry 100 Oxygen Delivery Room Air Fraction of Inspired Oxygen 03/15/22 11:59 Temperature 99.3 F Pulse Rate 106 H Respiratory Rate 18 Blood Pressure 108/86 Pulse Oximetry 98 Oxygen Delivery Fraction of Inspired Oxygen Intake/Output Intake/Output: Intake & Output 03/12/22 03/13/22 03/14/22 03/15/22 23:59 23:59 23:59 23:59 Intake Total 240 / 240 1590 / 1590
--- NOTE | 2022-03-15 14:34 | ECHO_ITS ---
Patient Info Name: Vika Duke Age: 77 years : 1945 Gender: Female Ht: 63 in Wt: 194 lbs BSA: 2.02 m2 HR: 98 bpm BP: 93 / 70 mmHg Heart Rhythm: Atrial Fibrillation Technical Quality: Fair Exam Date: 03/15/2022 7:32 AM Exam Location: [facility] Patient Status: Inpatient Admit Date: 03/14/2022 Staff Ordering Physician: Yohan Acosta MD Heat And Frost Insulator: Francesca Phelps RDCS Attending Provider: Truman Banerjee MD Referring Physician: Dave SWIFT; Exam Type: CA echo doppler color flow Study Info Indications - Afib with RVR Complete two-dimensional, color flow and Doppler transthoracic echocardiogram is performed. Summary 1. Complete two-dimensional, color flow and Doppler transthoracic echocardiogram is performed. 2. Suboptimal image quality. Normal LV size and wall thickness. Hyperdynamic LV systolic function, ejection fraction more than 70%. Indeterminate diastolic function. Mitral valve leaflets appear mildly thickened, trace MR. Aortic valve is not well visualized, appears sclerotic. No hemodynamically significant stenosis by Doppler. Mild TR, mild pulmonary hypertension, RVSP 45 mmHg. Left Ventricle Left ventricular chamber dimension is normal. Left ventricular systolic function is hyperdynamic, estimated at >70%. There is no increased left ventricular wall thickness. Right Ventricle Right ventricular chamber dimension is normal. Right ventricular systolic function is normal. Left Atria Left atrial chamber dimension is normal. Right Atria Right atrial chamber dimension is normal. Aortic Valve The aortic valve is not well visualized. There is mild aortic valve sclerosis. There is no aortic valve stenosis. Pulmonic Valve The pulmonic valve is normal. There is trace pulmonic regurgitation. Mitral Valve The mitral valve has thickened leaflets. There is trace mitral valve regurgitation. Tricuspid Valve The tricuspid valve leaflets are normal. There is mild tricuspid valve regurgitation. Mild pulmonary hypertension, estimated pulmonary arterial systolic pressure is 45 mmHg. Inferior Vena Cava Normal inferior vena cava with >50% collapse upon inspiration consistent with normal right atrial pressure, 10 mmHg. Aorta The aortic root size at the sinus of Valsalva is normal. Left Ventricular Outflow Tract Name Value Normal LVOT 2D LVOT Diameter 2.0 cm LVOT Doppler LVOT Peak Gradient 2 mmHg LVOT Mean Gradient 1 mmHg LVOT VTI 14 cm LVOT VTI/AV VTI Ratio 0.8 LVOT Stroke Volume 45 ml LVOT CO 3.3 l/min LVOT CI 1.7 l/min/m2 Pulmonic Valve Name Value Normal RVOT Doppler RVOT Peak Gradient
--- NOTE | 2022-03-15 15:51 | PM.PNORT ---
Progress Note: A&P Assessment and Plan (1) Ankle fracture, bimalleolar, closed: Code(s): S82.843A - Displaced bimalleolar fracture of unspecified lower leg, initial encounter for closed fracture Status: Acute (2) Atrial fibrillation with rapid ventricular response: Code(s): I48.91 - Unspecified atrial fibrillation Status: Acute Time Spent With Patient Time with patient: 15 - 25 minutes Subjective Subjective Date/Time Seen: 03/15/22 15:51 Interval history: This document created with [id number] technology and is subject to limehouse worker irregularities. 77-year-old female with unstable bimalleolar left ankle fracture. Cardiology events noted. Exam Extrem: General: normal to inspection and other Other: Exam of The left foot and ankle shows good capillary refill to the toes. Splint fitting well. Objective Data Vital Signs Vital Signs: Vital Signs - 24 hr 03/14/22 16:03 03/14/22 16:00 03/14/22 16:00 Temperature 98.7 F Pulse Rate 96 112 H Respiratory Rate 16 Blood Pressure 127/85 Pulse Oximetry 98 Oxygen Delivery Room Air Fraction of Inspired Oxygen 03/14/22 18:00 03/14/22 19:58 03/14/22 20:11 Temperature 99.1 F Pulse Rate 115 H 129 H 104 H Respiratory Rate 20 Blood Pressure 148/61 H Pulse Oximetry 98 Oxygen Delivery Fraction of Inspired Oxygen 03/14/22 20:00 03/14/22 20:00 03/14/22 21:16 Temperature Pulse Rate 114 H 114 H 112 H Respiratory Rate 20 Blood Pressure Pulse Oximetry 98 Oxygen Delivery Room Air Fraction of Inspired Oxygen 03/14/22 23:05 03/14/22 22:50 03/14/22 23:52 Temperature 97.7 F Pulse Rate 93 92 96 Respiratory Rate 20 Blood Pressure 122/81 Pulse Oximetry 94 97 Oxygen Delivery Room Air Fraction of Inspired Oxygen 03/14/22 23:52 03/15/22 02:00 03/15/22 04:00 Temperature Pulse Rate 96 104 H 95 Respiratory Rate 20 Blood Pressure Pulse Oximetry 94 Oxygen Delivery Room Air Fraction of Inspired Oxygen 03/15/22 04:00 03/15/22 05:34 03/15/22 05:47 Temperature Pulse Rate 95 94 98 Respiratory Rate 20 Blood Pressure Pulse Oximetry 94 Oxygen Delivery Room Air Fraction of Inspired Oxygen 03/15/22 04:00 03/15/22 08:00 03/15/22 08:57 Temperature 97.4 F L 98.2 F Pulse Rate 100 136 H 124 H Respiratory Rate 20 19 Blood Pressure 93/70 L 100/57 L Pulse Oximetry 100 100 Oxygen Delivery Fraction of Inspired Oxygen 03/15/22 08:00 03/15/22 08:00 03/15/22 10:00 Temperature Pulse Rate 120 H 136 H 112 H Respiratory Rate 19 Blood Pressure Pulse Oximetry 100 Oxygen Delivery Room Air Fraction of Inspired Oxygen 21 03/15/22 11:59 03/15/22 12:00 03/15/22 12:00 Temperature 99.3 F Pulse Rate 106 H 97 106 H Respiratory Rate 18 18 Blood Pressure 108/86 Pulse Oximetry 98 98 Oxygen Delivery Room Air Fraction of Inspired Oxygen Intake/Output Intake/Output: Intake & Output 03/12/22 03/13/22 03/14/22 03/15/22 23:59 23:59 23:59 23:59 Intake Total 240 / 240 1590 / 1590 250 / 250 Output Total 3600 / 3600 1000 / 1000 Balance 240 / 240 -2009 / -2009 -750 / -750 Meds/Results Medications: Active Medications Generic Name Dose Route Start Last Admin Trade Name Freq PRN Reason Stop Dose Admin Acetaminophen 650 mg 03/14/22 09:10 Acetaminophen 325 Mg Tablet PO Q6H PRN Pain Rated 1-3 Hydrocodone Bitart/Acetaminophen 1 tab 03/14/22 09:10 Hydrocodone/Acetaminophen (*Crx) 5-325 Mg Tablet PO Q3H PRN Pain Rated 4-6 Hydrocodone Bitart/Acetaminophen 2 tab 03/14/22 09:10 Hydrocodone/Acetaminophen (*Crx) 5-325 Mg Tablet PO Q6H PRN Pain Rated 7-10 Hydrochlorothiazide 25 mg 03/15/22 09:00 Hydrochlorothiazide 25 Mg Tablet PO DAILY YOAN Diltiazem HCl 100 mg in 100 mls @ 10 mls/hr 03/15/22 10:45 Cardizem 100 Mg/100 Ml IV CONT .Q10H YOAN
[2022-03-15 16:14] LABS: Total Triiodothyronine (T3) 1.51 NG/ML (0.97-1.69)
[2022-03-15] MEDS: dilTIAZem 100 MG/100 ML 100 MG/100 ML BAG 10 MG IV CONT (17:01)
--- NOTE | 2022-03-15 19:35 | ECG_ITS ---
Measurements Intervals [facility] Rate: 75 P: 65 MI: 145 QRS: -6 QRSD: 96 T: 7 QT: 397 QTc: 445 Interpretive Statements SINUS RHYTHM WITH SINUS ARRHYTHMIA LOW QRS VOLTAGE IN PRECORDIAL LEADS [QRS DEFLECTION < 1.0 mV IN CHEST LEADS] NONSPECIFIC ST & T-WAVE ABNORMALITY BORDERLINE ECG COMPARED TO ECG 03/14/2022 07:50:44 SINUS RHYTHM HAS REPLACED ATRIAL FIBRILLATION Electronically Signed On 03-16-2022 11:28:57 CDT by Yohan Acosta M.D.
[2022-03-16] VITALS (20 sets, daily range): BP systolic 104–150; BP diastolic 48–79; PULSE 61–93; RESP 10–20; TEMP 36.1–37.2; O2SAT 93–100
[2022-03-16 05:11] LABS: Anion Gap 3 mmol/L (8-16); Blood Urea Nitrogen 26 mg/dL (7-17); Calcium 7.7 mg/dL (8.4-10.2); Carbon Dioxide 24 mmol/L (22-30); Chloride 109 mmol/L (98-107); Estimated CRCL calculation 50 ml/min; Estimated Glomerular Filt Rate > 60; Glucose 111 mg/dL (65-110); Magnesium 2.1 mg/dL (1.6-2.3); Potassium 3.7 mmol/L (3.4-5.0); Sodium 136 mmol/L (137-145)
[2022-03-16] MEDS: METOPROLOL TARTRATE 25 MG TABLET PO ×2 (08:27→21:08)
--- NOTE | 2022-03-16 09:42 | PM.PNCARD ---
Progress Note: A&P Assessment and Plan (1) Atrial fibrillation with rapid ventricular response: Code(s): I48.91 - Unspecified atrial fibrillation Status: Acute Assessment and Plan: Chronicity unknown. New diagnosis uncontrolled ventricular response asymptomatic at presentation. Blood pressure marginal intermittently improved with IV fluids. Currently not anticoagulated in anticipation of orthopedic surgery. Diltiazem discontinued last night upon conversion to sinus rhythm after receiving IV amiodarone yesterday. Would like to increase metoprolol changing to Toprol XL 50 mg once daily upon discharge per patient request. Monitor BP very closely 2D echocardiogram Personally reviewed and discussed EF 70% no significant valve pathology, RVSP 45 mm Hg mild pulmonary hypertension. TSH .382, unlikely primary contributor to AFib onset Systemic A/C advised to begin when okay with Orthopedic surgery in the form of Xarelto 20mg qhs DVT prophylaxis. (2) Hypertension: Code(s): I10 - Essential (primary) hypertension Status: Acute Assessment and Plan: BP stable although relatively hypotensive as she has been maintained off antihypertensive therapy. continue monitor closely She will tolerate increase in metoprolol. (3) KASSANDRA (obstructive sleep apnea): Code(s): G47.33 - Obstructive sleep apnea (adult) (pediatric) Status: Acute Assessment and Plan: Apnea link quite abnormal AHI 21 suggestive of clinically significant obstructive sleep apnea. Outpatient evaluation and formal sleep study strongly advised. (4) Fall: Code(s): W19.XXXA - Unspecified fall, initial encounter Status: Acute Assessment and Plan: As above resulting in bimalleolar fracture of the left ankle with recommendations for surgical repair by Orthopedic surgery. CT head without superficial hematoma, fracture or CVA or bleed. (5) Ankle fracture, bimalleolar, closed: Code(s): S82.843A - Displaced bimalleolar fracture of unspecified lower leg, initial encounter for closed fracture Status: Acute Assessment and Plan: Management per Orthopedic surgery. Okay for OR per cardiology perspective if recommended by Orthopedic surgery. (6) Hypothyroidism: Code(s): E03.9 - Hypothyroidism, unspecified Status: Acute Assessment and Plan: management and workup per primary service. Mild reduction in TSH. Subjective Date/time seen: date of service:03/16/22 09:42 Follow-up for atrial fibrillation with rapid ventricular response. Patient reverted to sinus rhythm 5:30 p.m. last night after having received IV amiodarone yesterday. Diltiazem discontinued. Patient remains unaware of her atrial fibrillation or return to sinus rhythm. Patient feels well has no complaints. Anticipating OR if recommended by Orthopedic surgery. No shortness of breath, palpitation, chest pain. Apnea link performed AHI 21. Review of Systems Review of Systems: All systems reviewed & are unremarkable except as noted in HPI and below Constitutional: Constitutional: Reports as per HPI and Reports no additional constitutional complaints Eyes: Eyes: Reports as per HPI and Reports no additional eye complaints ENT: Reports system reviewed and no additional complaints, except as documented and Reports as per HPI Cardiovascular: Cardiovascular: Reports as per HPI and Reports no additional cardiovascular complaints Respiratory: Respiratory: Reports as per HPI and Reports no additional respiratory complaints Gastrointestinal: Gastrointestinal: Reports as per HPI and Reports no additional gastrointestinal complaints Genitourinary: Genitourinary: Reports as per HPI Musculoskeletal: Musculoskeletal: Reports no additional musculoskeletal complaints and Reports as per HPI Integumentary/Breasts: Skin/Breast: Reports system reviewed and no additional complaints, except as docu and Reports as per HPI Neuro
--- NOTE | 2022-03-16 09:51 | PM.IMPN ---
Progress Note: A&P Assessment and Plan (1) Fall: Code(s): W19.XXXA - Unspecified fall, initial encounter Status: Acute Assessment and Plan: Fell off a bed while hanging curtains. Twisted her ankle then hit her head. No LOC. Sustained ankle fracture Head CT no acute findings (2) Ankle fracture, bimalleolar, closed: Code(s): S82.843A - Displaced bimalleolar fracture of unspecified lower leg, initial encounter for closed fracture Status: Acute Assessment and Plan: Secondary to fall. Appreciate orthopedic surgery consultation Fracture has been reduced XR performed under fluoroscopy showed mildly laterally displaced bimalleolar fracture Planning for ORIF this afternoon. Postoperative wound care and DVT prophylaxis per Orthopedic surgery She will need postoperative PT/OT Analgesics available as needed Management per orthopedic surgery (3) Atrial fibrillation with rapid ventricular response: Code(s): I48.91 - Unspecified atrial fibrillation Status: Acute Assessment and Plan: Patient found to be in Afib with RVR when taken to the OR on 03/14 Appreciate cardiology consultation Patient has converted to sinus rhythm following diltiazem drip which has now been discontinued Continue metoprolol tartrate 25 mg BID Holding anticoagulation preoperatively. Chads2-Vasc score is 4 (age, female, HTN history). Will plan to initiate systemic anticoagulation postoperatively. Cardiology recommends Xarelto 20 mg qHS Monitor on telemetry Echo revealed hyperdynamic LV systolic function with EF >70% and indeterminate diastolic dysfunction, trace MR (4) Hypertension: Code(s): I10 - Essential (primary) hypertension Status: Acute Assessment and Plan: Blood pressures have been slightly soft. Last BP 117/55. Pt asymptomatic PO antihypertensives on hold Received 500 cc IV fluid bolus 03/14. Patient adequately rehydrated and tolerating PO intake (5) Abnormal TSH: Code(s): R79.89 - Other specified abnormal findings of blood chemistry Status: Acute Assessment and Plan: TSH slightly decreased at 0.382. Total T3 and free T4 within normal limits Thyroglobulin and free T3 pending She will need repeat reflex TSH as an outpatient Subjective Date/time seen: 03/16/22 09:51 Interval history: Date of service: 03/16/22 Vika Duke is a 77-year-old female with a history of hypertension who is seen in follow-up for left ankle fracture and atrial fibrillation with rapid ventricular response. She feels very well today. She has no pain in her ankle. She denies palpitations. No shortness of breath or chest pain. She had a bowel movement yesterday. Denies urinary symptoms. She is able to transfer from the bed to the commode independently. She will be having surgery on her ankle this afternoon. She denies dizziness, lightheadedness, weakness. She has no additional concerns at this time. Review of Systems Review of Systems: All systems reviewed & are unremarkable except as noted in HPI and below Exam Narrative: General: Well-nourished well-appearing 77-year-old female, sitting up in bed, comfortable, NARD Neuro: awake, alert and oriented x4, speech clear, no focal neuro deficits noted HEENMT: normocephalic, atraumatic, EOMI, sclerae anicteric Respiratory: clear to auscultation bilaterally, nonlabored breathing Cardio: Regular rate, regular rhythm Abdomen: nondistended, normoactive bowel sounds, soft, nontender to palpation Extremities: LLE propped on pillow wrapped in splint extending to just below the knee. Able to wiggle toes. Brisk capillary refill. Unable to palpate pulses due to splint. Trace edema of the visible forefoot and toes. RLE no edema, erythema, or tenderness to palpation Skin: no rashes or lesions, warm and dry Psych: appropriate mood and affect, judgment and insight intact Objective Data Vital Signs Vital Si
--- NOTE | 2022-03-16 14:05 | PC.NURSE ---
Addendum entered by Rashida Hassan RN 03/16/22 14:06: Pt to OR at 1340 Original Note: To OR per bed, IV saline locked. Report given to JOHN PAUL Gonzalez @ 1641.
--- NOTE | 2022-03-16 14:29 | WPDANESEPPF ---
Anes - Initial Pre Proc Eval Procedure: Operation Date: 03/14/22 07:30 Proposed Procedures p ORIF Ankle Fracture(Left) - Truman Banerjee MD Operation Date: 03/16/22 15:30 Proposed Procedures p Open Reduction Internal Fixation Left Ankle - Truman Banerjee MD Date/Time: 03/16/22 14:29 Surgeon: Truman Banerjee MD Pre Op Diagnosis: Ankle fx Patient Data Age: 77 Gender: F Height: 1.6 m Weight: 88 kg Last Vital Signs Temp 98.0 F 03/16/22 13:59 Pulse 68 03/16/22 13:59 Resp 20 03/16/22 13:59 BP 138/79 03/16/22 13:59 Pulse Ox 100 03/16/22 13:59 O2 Del Method Room Air 03/16/22 13:59 O2 Flow Rate 2 03/13/22 14:35 FiO2 21 03/16/22 04:00 Allergies Allergy/AdvReac Type Severity Reaction Status Date / Time shellfish derived Allergy Hives Verified 03/13/22 13:26 Home Medications Medication Instructions Recorded Confirmed Type hydrochlorothiazide 25 mg tablet 25 tablet PO DAILY 03/13/22 03/13/22 History lisinopril 5 mg tablet 5 tablet PO DAILY 03/13/22 03/13/22 History metoprolol succinate 25 mg 25 tablet PO DAILY 03/13/22 03/13/22 History tablet,extended release 24 hr Laboratory Tests 03/14/22 03/14/22 03/16/22 14:47 14:47 04:44 Sodium 136 mmol/L L mmol/L (137-145) Potassium 3.7 mmol/L mmol/L (3.4-5.0) Chloride 109 mmol/L H mmol/L (98-107) Carbon Dioxide 24 mmol/L mmol/L (22-30) Anion Gap 3 mmol/L L mmol/L (8-16) BUN 26 mg/dL H mg/dL (7-17) Creatinine 0.90 mg/dL mg/dL (0.7-1.0) Estim Creat Clear Calc 50 ml/min ml/min Estimated GFR > 60 (59 - ) Glucose 111 mg/dL H mg/dL (65-110) Calcium 7.7 mg/dL L mg/dL (8.4-10.2) Magnesium 2.1 mg/dL mg/dL (1.6-2.3) Free T4 1.40 ng/dL ng/dL (0.78-2.19) Total T3 1.51 NG/ML NG/ML (0.97-1.69) Patient hx anesthesia problems: none Family hx anesthesia problems: none Results Review: All pre-operative results and documents have been reviewed as part of the pre-operative evaluation. [facility] Past Medical History Medical History Hypertension Surgical History Surgical History Ankle fracture, bimalleolar, closed left ankle ORIF March 14, 2022 History of Family History Family History Other Acute myocardial infarction Social History Social History Smoking status: Former smoker Alcohol intake: never Substance use: never Spiritual care concerns: No Anes - Eval Final PreProcedure Day of Procedure 03/16/22 14:29 Patient weight: obese Heart: regular rate and rhythm (was in AF but converted medically with metoprolol and cardiazem; EF 70 per cent) Lungs: clear to auscultation Airway: Mallampati scale class II Neurological: alert and oriented Last oral intake: >/= 8 hours ASA classification: III Emergent: no Anesthetic plan: proceed Anesthesia type and monitoring: general LMA and standard monitoring Results Review: All pre-operative results and documents have been reviewed as part of the pre-operative evaluation. Informed Consent: The patient's anesthetic plan and its attendant risks and benefits were discussed with the patient/family/POA. Questions were solicited and answers provided to the satisfaction of the patient/family/POA.
--- NOTE | 2022-03-16 15:13 | WPDHPUPDATE1 ---
History and Physical Update Update Date/Time: 03/16/22 15:13 History and Physical has been reviewed, including an updated exam of the patient. There are NO changes in the patient's condition. Risks, benefits, and alternatives have been discussed and questions answered. Patient agrees to proceed with procedure.
[2022-03-16] MEDS: LACTATED RINGERS 1,000 ML 30 ML IV CONT (15:35)
[2022-03-16] MEDS: ceFAZolin 2 GM/D5W 50 ML 2 GM/50 ML BAG IVPB ×2 (15:44→23:55)
[2022-03-16] MEDS: CHLORHEXIDINE GLUCONATE 4% SOL 120 ML BTL 1 APPLIC TOPICAL (16:00)
--- NOTE | 2022-03-16 18:07 | PC.NURSE ---
Returned from OR per bed. Report received from JOHN PAUL Meadows @ 0134
[2022-03-16] MEDS: FAMOTIDINE 20 MG TABLET PO (21:09)
[2022-03-17] VITALS (9 sets, daily range): BP systolic 120–131; BP diastolic 50–79; PULSE 65–85; RESP 16–18; TEMP 36.1–37.1; O2SAT 96–100
[2022-03-17 04:54] LABS: Hematocrit 33.5 % (37.0-47.0); Hemoglobin 10.9 g/dL (12.0-15.0); Mean Corpuscular HGB Conc 32.5 g/dl (32-36); Mean Corpuscular Hemoglobin 29.8 pg (26-34); Mean Corpuscular Volume 91.5 fl (80-100); Mean Platelet Volume 10.9 fl (7.4-10.4); Platelet Count Result 136 k/mm3 (150-375); Red Blood Count 3.66 M/mm3 (4.2-5.4); Red Cell Distribution Width 12.9 % (11.5-14.5); White Blood Count 9.1 K/mm3 (4.5-10.0)
[2022-03-17 05:06] LABS: Anion Gap 6 mmol/L (8-16); Blood Urea Nitrogen 24 mg/dL (7-17); Calcium 7.9 mg/dL (8.4-10.2); Carbon Dioxide 23 mmol/L (22-30); Chloride 108 mmol/L (98-107); Estimated CRCL calculation 56 ml/min; Estimated Glomerular Filt Rate > 60; Glucose 133 mg/dL (65-110); Potassium 4.2 mmol/L (3.4-5.0); Sodium 137 mmol/L (137-145)
[2022-03-17] MEDS: polyethylene glycoL 3350 17 GM POWD.PACK PO (09:07)
[2022-03-17] MEDS: ceFAZolin 2 GM/D5W 50 ML 2 GM/50 ML BAG IVPB ×2 (09:07→17:59)
[2022-03-17] MEDS: SENNA/DOCUSATE SODIUM TABLET 2 TAB PO ×2 (09:07→17:59)
[2022-03-17] MEDS: FAMOTIDINE 20 MG TABLET PO ×2 (09:08→21:24)
[2022-03-17] MEDS: METOPROLOL TARTRATE 25 MG TABLET PO ×2 (09:08→21:23)
--- NOTE | 2022-03-17 09:08 | PM.IMPN ---
Progress Note: A&P Assessment and Plan (1) Fall: Code(s): W19.XXXA - Unspecified fall, initial encounter Status: Acute Assessment and Plan: Fell off a bed while hanging curtains. Twisted her ankle then hit her head. No LOC. Sustained ankle fracture Head CT no acute findings (2) Ankle fracture, bimalleolar, closed: Code(s): S82.843A - Displaced bimalleolar fracture of unspecified lower leg, initial encounter for closed fracture Status: Acute Assessment and Plan: Secondary to fall. Appreciate orthopedic surgery consultation Fracture has been reduced XR performed under fluoroscopy showed mildly laterally displaced bimalleolar fracture ORIF performed on 03/16/2022. Postoperative wound care and DVT prophylaxis per Orthopedic surgery She will need postoperative PT/OT Analgesics available as needed Management per orthopedic surgery (3) Atrial fibrillation with rapid ventricular response: Code(s): I48.91 - Unspecified atrial fibrillation Status: Acute Assessment and Plan: Patient found to be in Afib with RVR when taken to the OR on 03/14 Appreciate cardiology consultation Patient has converted to sinus rhythm following diltiazem drip which has now been discontinued Continue metoprolol tartrate 25 mg BID Holding anticoagulation preoperatively. Chads2-Vasc score is 4 (age, female, HTN history). Will plan to initiate systemic anticoagulation postoperatively. Cardiology recommends Xarelto 20 mg qHS Monitor on telemetry+ Patient will need follow-up with Cardiology as an outpatient setting for further evaluation of paroxysmal AFib and continue treatment. Echo revealed hyperdynamic LV systolic function with EF >70% and indeterminate diastolic dysfunction, trace MR (4) Hypertension: Code(s): I10 - Essential (primary) hypertension Status: Acute Assessment and Plan: Blood pressures have been slightly soft. Last BP 117/55. Pt asymptomatic PO antihypertensives on hold Received 500 cc IV fluid bolus 03/14. Patient adequately rehydrated and tolerating PO intake (5) Abnormal TSH: Code(s): R79.89 - Other specified abnormal findings of blood chemistry Status: Acute Assessment and Plan: TSH slightly decreased at 0.382. Total T3 and free T4 within normal limits Thyroglobulin and free T3 pending She will need repeat reflex TSH as an outpatient Subjective Date/time seen: 03/17/22 09:08 Interval history: Patient is very conversational this morning. She denies any acute pain to her ankle. She was able to eat breakfast without difficulty. Patient continues to be in sinus rhythm, continue oral medications per Cardiology. Patient will resume Xarelto when orthopedic is ready to resume this medication. Patient continues to work with physical therapy and occupational therapy. Review of Systems Review of Systems: All systems reviewed & are unremarkable except as noted in HPI and below Exam Narrative: General: Well-nourished well-appearing 77-year-old female, sitting up in bed, comfortable, NARD Neuro: awake, alert and oriented x4, speech clear, no focal neuro deficits noted HEENMT: normocephalic, atraumatic, EOMI, sclerae anicteric Respiratory: clear to auscultation bilaterally, nonlabored breathing Cardio: Regular rate, regular rhythm Abdomen: nondistended, normoactive bowel sounds, soft, nontender to palpation Extremities: LLE propped on pillow wrapped in splint extending to just below the knee. Able to wiggle toes. Brisk capillary refill. Unable to palpate pulses due to splint. Trace edema of the visible forefoot and toes. RLE no edema, erythema, or tenderness to palpation Skin: no rashes or lesions, warm and dry Psych: appropriate mood and affect, judgment and insight intact Objective Data Vital Signs Vital Signs: Vital Signs - 24 hr 03/16/22 10:00 03/16/22 12:00 03/16/22 13:59 Temperature 98.0 F Pulse R
--- NOTE | 2022-03-17 12:52 | PM.PNORT ---
Progress Note: A&P Assessment and Plan (1) Ankle fracture, bimalleolar, closed: Code(s): S82.843A - Displaced bimalleolar fracture of unspecified lower leg, initial encounter for closed fracture Status: Acute Plan Surgery discussed. Plan discharge home tomorrow if medically stable. Will need to follow up with us in two weeks. Going to be on Xarelto anticoagulation for AFib and that starts this evening. Appreciate the hospitalist and Cardiology input. Time Spent With Patient Time with patient: 15 - 25 minutes Subjective Subjective Date/Time Seen: 03/17/22 12:52 Interval history: This document created with [id number] technology and is subject to asset analyst irregularities. 77-year-old female postop day one ORIF left ankle fracture. Doing very well. Having no real pain in her left ankle. Not experiencing any cardiac symptoms. Review of Systems Constitutional: Constitutional: Reports as per HPI Eyes: Eyes: Reports no additional eye complaints ENT: Reports system reviewed and no additional complaints, except as documented Cardiovascular: Cardiovascular: Denies chest pain and Denies dyspnea on exertion Respiratory: Respiratory: Reports no additional respiratory complaints and Denies dyspnea on exertion Gastrointestinal: Gastrointestinal: Denies abdominal pain and Denies bloating Exam Const: General: cooperative, no acute distress and alert Nutritional Appearance: other Orientation/consciousness: patient oriented x3 Limitations: no limitations HENMT: Head: normal to inspection Chest: Chest palpation & inspection: normal inspection of the chest Resp: Effort & Inspection: normal respiratory effort and able to speak in complete sentences GI: Inspection: other Neuro: General: patient oriented x3 Cognition (Neuro): normal cognition Speech: normal speech Extrem: Other: Exam of the left lower extremity shows nicely fitting splint. Intact sensation to the toes. Brisk capillary refill to the toes. Calves negative. Psych: Appearance: grossly normal Mental Status: mental status grossly normal Radiology Reports: Comments: EXAMINATION: XR surgery orthopedic DATE: 03/16/2022 16:54 INDICATION: Left ankle fracture TECHNIQUE: 3 fluoroscopic images of the left ankle were obtained during procedure performed by Dr. Banerjee. Radiologist was not present for the imaging or procedure. The amount of fluoroscopy time used during this procedure was 0.3 minutes.? COMPARISON: 03/13/2022 FINDINGS: Interval open reduction internal fixation of the previous noted bimalleolar fracture at the left ankle which is now in near anatomic alignment. The medial malleolar fractures fixed with a pair of cannulated lag screws with washers. The lateral malleolar fracture is fixed with a lateral protocol plate and screws with overlying skin esequiel. No other fractures identified. Ankle mortise is congruent with normal joint space. IMPRESSION: 1. Near-anatomic alignment post internal fixation of a bimalleolar fracture of the left ankle. Reviewed, dictated and finalized at location B. Objective Data Vital Signs Vital Signs: Vital Signs - 24 hr 03/16/22 13:59 03/16/22 17:06 03/16/22 17:20 Temperature 98.0 F 98.9 F Pulse Rate 68 73 79 Respiratory Rate 20 11 L 10 L Blood Pressure 138/79 112/60 137/79 Pulse Oximetry 100 99 100 Oxygen Delivery Room Air Simple Face Mask Simple Face Mask Oxygen Flow Rate 6 6 Fraction of Inspired Oxygen 03/16/22 17:35 03/16/22 17:50 03/16/22 18:07 Temperature Pulse Rate 81 74 Respiratory Rate 15 12 Blood Pressure 150/76 H 136/71 Pulse Oximetry 100 98 98 Oxygen Delivery Room Air Nasal Cannula Nasal Cannula Oxygen Flow Rate 2 2 Fraction of Inspired Oxygen 03/16/22 18:30 03/16/22 18:15 03/16/22 18:30 Temperature 97 F L 97.5 F L Pulse Rat
[2022-03-17 15:53] LABS: Triiodothyronine T3 Free 2.9 pg/mL (2.3-4.2)
[2022-03-17] MEDS: RIVAROXABAN 20 MG TABLET PO (17:59)
[2022-03-18] VITALS: BP 134/49; PULSE 59; RESP 18; TEMP 36.4; O2SAT 97
[2022-03-18 04:00] VITALS: BP 123/63; PULSE 51; PULSE 57; RESP 20; TEMP 36.6; O2SAT 98
[2022-03-18 05:23] LABS: Thyroglobulin 24.6 ng/mL (2.8-40.9); Thyroglobulin Antibodies <1 IU/mL (<=1)
--- NOTE | 2022-03-18 07:49 | PCPTNOTE ---
Patient had surgery on 03/16/2022 and no orders received for PT/OT following surgery. All previous orders were cancelled by provider. PT will await further orders.
[2022-03-18 07:59] VITALS: BP 113/51; PULSE 60; RESP 20; TEMP 37.7; O2SAT 97
[2022-03-18 08:00] VITALS: PULSE 62
--- NOTE | 2022-03-18 08:15 | PM.IMPN ---
Progress Note: A&P Assessment and Plan (1) Fall: Code(s): W19.XXXA - Unspecified fall, initial encounter Status: Acute Assessment and Plan: Fell off a bed while hanging curtains. Twisted her ankle then hit her head. No LOC. Sustained ankle fracture Head CT no acute findings (2) Ankle fracture, bimalleolar, closed: Code(s): S82.843A - Displaced bimalleolar fracture of unspecified lower leg, initial encounter for closed fracture Status: Acute Assessment and Plan: Secondary to fall. Appreciate orthopedic surgery consultation Fracture has been reduced XR performed under fluoroscopy showed mildly laterally displaced bimalleolar fracture ORIF performed on 03/16/2022. Postoperative wound care and DVT prophylaxis per Orthopedic surgery She will need postoperative PT/OT Analgesics available as needed Management per orthopedic surgery (3) Atrial fibrillation with rapid ventricular response: Code(s): I48.91 - Unspecified atrial fibrillation Status: Acute Assessment and Plan: Patient found to be in Afib with RVR when taken to the OR on 03/14 Appreciate cardiology consultation Patient has converted to sinus rhythm following diltiazem drip which has now been discontinued Continue metoprolol tartrate 25 mg BID Holding anticoagulation preoperatively. Chads2-Vasc score is 4 (age, female, HTN history). Will plan to initiate systemic anticoagulation postoperatively. Cardiology recommends Xarelto 20 mg qHS Monitor on telemetry+ Patient will need follow-up with Cardiology as an outpatient setting for further evaluation of paroxysmal AFib and continue treatment. Echo revealed hyperdynamic LV systolic function with EF >70% and indeterminate diastolic dysfunction, trace MR (4) Hypertension: Code(s): I10 - Essential (primary) hypertension Status: Acute Assessment and Plan: Blood pressures have been slightly soft. Last BP 117/55. Pt asymptomatic PO antihypertensives on hold Received 500 cc IV fluid bolus 03/14. Patient adequately rehydrated and tolerating PO intake (5) Abnormal TSH: Code(s): R79.89 - Other specified abnormal findings of blood chemistry Status: Acute Assessment and Plan: TSH slightly decreased at 0.382. Total T3 and free T4 within normal limits Thyroglobulin and free T3 pending She will need repeat reflex TSH as an outpatient Subjective Date/time seen: 03/18/22 08:15 Interval history: Patient has been doing well. Pain is well controlled and HR is controlled with metoprolol. Suggest the patient follow up with Cardiology upon discharge. Patient appears stable from the medical stand-point. Review of Systems Review of Systems: All systems reviewed & are unremarkable except as noted in HPI and below Exam Narrative: General: Well-nourished well-appearing 77-year-old female, sitting up in bed, comfortable, NARD Neuro: awake, alert and oriented x4, speech clear, no focal neuro deficits noted HEENMT: normocephalic, atraumatic, EOMI, sclerae anicteric Respiratory: clear to auscultation bilaterally, nonlabored breathing Cardio: Regular rate, regular rhythm Abdomen: nondistended, normoactive bowel sounds, soft, nontender to palpation Extremities: LLE propped on pillow wrapped in splint extending to just below the knee. Able to wiggle toes. Brisk capillary refill. Unable to palpate pulses due to splint. Trace edema of the visible forefoot and toes. RLE no edema, erythema, or tenderness to palpation Skin: no rashes or lesions, warm and dry Psych: appropriate mood and affect, judgment and insight intact Objective Data Vital Signs Vital Signs: Vital Signs - 24 hr 03/17/22 09:08 03/17/22 12:00 03/17/22 12:00 Temperature 98.4 F Pulse Rate 78 69 65 Respiratory Rate 18 Blood Pressure 120/72 Pulse Oximetry 98 Oxygen Delivery 03/17/22 16:00 03/17/22 14:03 03/17/22 16:00 Temperature 9
[2022-03-18 08:38] VITALS: PULSE 65
[2022-03-18] MEDS: FAMOTIDINE 20 MG TABLET PO (08:38)
[2022-03-18] MEDS: METOPROLOL TARTRATE 25 MG TABLET PO (08:38)
--- NOTE | 2022-03-18 10:25 | PM.DS ---
DS: Admitting Diagnosis Discharge Date 03/18/2022 Admitting Diagnosis Left bimalleolar ankle fx, htn, A fib with RVR DS: Discharge Diagnosis Discharge Diagnosis (1) Ankle fracture, bimalleolar, closed: Code(s): S82.843A - Displaced bimalleolar fracture of unspecified lower leg, initial encounter for closed fracture Status: Acute Assessment and Plan: 77 year old female post op day 2 after orif of left ankle fracture. Overall doing very well. Not much pain. She will be given tramadol to take for break through pain while at home. She is on xarelto 20mg qhs from cardiology and this will be used for our DVT prohylaxis. She is to remain non weightbearing on the left lower extremity. Will plan to see her in 2 weeks for wound check and new xray. (2) Abnormal TSH: Code(s): R79.89 - Other specified abnormal findings of blood chemistry Status: Acute Assessment and Plan: TSH slightly decreased at 0.382.? Total T3 and free T4 within normal limits Thyroglobulin and free T3 pending She will need repeat reflex TSH as an outpatient (3) Atrial fibrillation with rapid ventricular response: Code(s): I48.91 - Unspecified atrial fibrillation Status: Acute Assessment and Plan: Patient found to be in Afib with RVR when taken to the OR on 03/14 Appreciate cardiology consultation Patient has converted to sinus rhythm following diltiazem drip which has now been discontinued Continue metoprolol tartrate 25 mg BID Cardiology recommends Xarelto 20 mg qHS Patient will need follow-up with Cardiology as an outpatient setting for further evaluation of paroxysmal AFib and continue treatment. Echo revealed hyperdynamic LV systolic function with EF >70% and indeterminate diastolic dysfunction, trace MR (4) Hypertension: Code(s): I10 - Essential (primary) hypertension Status: Acute Assessment and Plan: Blood pressures have been slightly soft. Last BP 117/55. Pt asymptomatic PO antihypertensives on hold Received 500 cc IV fluid bolus 03/14. Patient adequately rehydrated and tolerating PO intake DS: Summary Hospital Course Reason for hospitalization: fall, a fib RVR, observation after orif of left ankle fracture Hospital Course: Patient was admitted to the hospital after a fall while at home. She sustained a left ankle which was fixed with ORIF on 03/16/2022. She was found to be in a fib with RVR on 03/14/2022 which delayed her surgery. Cardiology was consulted and she was eventually converted with a diltiazem drip. She is now rate controlled with metoprolol 25 mg BID. She is also being seen by therapy for help with moving around with a walker and maintaining her weight bearing status. She is to be discharged home with follow up to cardiology, PCP, and ortho. Status at Discharge Functional status at discharge: uses cane/walker (non weight bearing left lower extremity) Overall status at discharge: patient is progressing back to baseline Time Spent with Patient Time attestation: Total time spent providing and/or coordinating discharge services: Time spent: Less than 30 minutes Exam Const: General: comfortable and no acute distress Eyes: General: appearance normal, both eyes and all related structures Resp: Effort & Inspection: normal respiratory effort Cardio: Rate: regular rate Rhythm: regular rhythm Skin: General skin exam: normal color Neuro: Sensory Exam: normal sensation Extrem: Other: Exam of the left lower extremity reveals an intact splint. No drainage noted. Capillary refill is less than 2 seconds. Calves negative. Psych: Mental Status: mental status grossly normal DS: Data Data Completed and Pending Labs on day of discharge: Labs from last 24 hours 03/15/22 03/14/22 10:34 14:44 Free T3 2.9 Thyroglobulin 24.6 Thyroglobulin Antibody <1 Procedures/Treatments: ORIF left bimalleolar ankle fx Discharge Plan Discharge Attending physician on discha
--- NOTE | 2022-03-23 12:15 | W.PM.PROC2 ---
Procedure Note - Detailed Date of Procedure 03/23/22 Pre-op Diagnosis Left bimalleolar Ankle fx Post-op Diagnosis Same Procedure Performed ORIF left bimalleolar ankle fracture Surgeon Truman Banerjee MD Anesthesia General and Regional Description of Procedure The patient was identified and proper site identified. In the preop area anesthesia team performed a left lower extremity block. She has taken the operating room and transferred to the OR table. After general anesthetic induction and intubation a nonsterile tourniquet was placed high on the left thigh. Left lower extremity was prepped and draped in usual sterile fashion. Extremity was exsanguinated and tourniquet inflated to 300 millimeters of mercury. Longitudinal incision was made over the distal fibula. Subcutaneous tissue sharply dissected down to the fracture site. It was cleared of debris reduced and then stabilized with a five hole lateral hook plate under fluoroscopic visualization to avoid joint penetration. This gave an anatomic reduction. 3-0 strata fix and esequiel. Next the medial side was accessed through a longitudinal incision over the medial malleolus. Subcutaneous tissue were sharply dissected protecting neurovascular structures. Fracture site was cleared of debris and reduced and stabilized with 24.0 cannulated screws under fluoroscopic visualization. Medial wound was irrigated. Skin edges were reapproximated with three 0 V lock and esequiel. Overall reduction hardware placement was assessed fluoroscopically and noted to be satisfactory. The wounds were dressed sterilely and then a well-padded stirrup type ankle splint was applied with the ankle in a neutral position. Tourniquet was released. Patient tolerated the procedure well. She was awakened, extubated and taken to recovery area in stable condition. There were no known intraoperative complications. She received perioperative antibiotics. Estimated Blood Loss 0 Urine Output 300 Pathology None sent Complications No immediate complications Condition Stable Disposition PACU
== END 2022-03-18 14:10 | disposition home health service (06) | DRG 494 ==
LOC: ANHED 15:32 → ANH2MED 15:42 → ANHIMU 03-14 21:03 → ANH2MED 03-21 10:18 → ANHIMU 03-21 10:18
PROVIDERS: Internal Medicine Cardiovascular Disease; Nurse Practitioner; Physician Assistant; Admitting Provider Orthopaedic Surgery; Emergency Provider Emergency Medicine; PCP Internal Medicine; Visit Provider Nurse Practitioner
PROC: 0QSK04Z Reposition Left Fibula with Internal Fixation Device, Open Approach (ICD-10-PCS; principal; 2022-03-16 15:30)
DX: S82.842A Displaced bimalleolar fracture of left lower leg, initial encounter for closed fracture (principal); W06.XXXA Fall from bed, initial encounter; Y93.E9 Activity, other interior property and clothing maintenance; I10 Essential (primary) hypertension; R09.02 Hypoxemia; I48.91 Unspecified atrial fibrillation; G47.33 Obstructive sleep apnea (adult) (pediatric); R79.89 Other specified abnormal findings of blood chemistry; Z79.899 Other long term (current) drug therapy
CPT/HCPCS: 36415; 70450; 72125; 73610; 80048; 83735; 84432; 84439; 84443; 84480; 84481; 85025; 85027; 85055; 85610; 85730; 86800; 86850; 86900; 86901; 93005; 93306; 94762; 96374; 96375; 97161; 97165; 99285; A9270; C1713; C1769; G0378; J0690; J1100; J1170; J2270; J2405; J2704; J3010; J7030; J7040; J7120

== ENCOUNTER 2022-05-13 11:02 | Outpatient (RCR) | payer MEDICARE, SELFPAY | END 2022-07-21 10:51 | disposition home or self-care (01) | LOC: ANHGOSHPT 11:02 | PROVIDERS: PCP Internal Medicine; Visit Provider Orthopaedic Surgery | DX: S82.843D Displaced bimalleolar fracture of unspecified lower leg, subsequent encounter for closed fracture with routine healing (principal) | CPT/HCPCS: 99199 ==

== ENCOUNTER 2022-07-20 13:30 | Outpatient (RCR) | payer MEDICARE, SELFPAY ==
--- NOTE | 2022-05-13 15:53 | PTOPEVAL ---
PHYSICAL THERAPY INITIAL EVALUATION. Thank you for referring Vika Duke to [facility].? The patient is scheduled to be seen for therapy? 2x/week for 4 weeks. Please review, sign, date and return this plan of care ALEKSANDR. I agree with and certify that the following plan of care is medically necessary. Referring Physician Date Attending Provider: Truman Banerjee MD *PT Outpatient Evaluation Start: 05/13/22 Evaluation Information Diagnosis L ankle fx s/p ORIF Onset 03/16 Subjective Information Pt states she fell and had Query Text:As Reported By Patient/ surgery on 03/16/22. Pt states Family she has been WBAT since 04/27 but she has not attempted this yet. Prior to the fall she states she was very active and did not use an AD. She had HH nursing why she was non weight bearing. Pain Assessment Self Report Pain Assessment Left Ankle(s) Reported Pain Level 0 Lowest Pain Intensity 0 Greatest Pain Intensity 0 Lower Extremity Range of Motion Left Ankle Dorsiflexion With Knee Extension -7 active Ankle Dorsiflexion With Knee Extension -5 passive Ankle Dorsiflexion With Knee Flexed -4 active Ankle Dorsiflexion With Knee Flexed 0 passive Ankle Eversion Range of Motion - Passive 5 Ankle Inversion Range of Motion - 15 Foot/Toe Range of Motion Comments R ankle dorsiflexion with knee bend active/passive: 10, 15deg R ankle dorsiflexion with knee straight active/passive: 0,10 deg R ankle passive inversion/ eversion: 15, 15 Lower Extremity Muscle Strength Testing Gross Lower Extremity Strength R ankle grossly 5/5 except plantarflexion L ankle grossly 4/5 except plantarflexion unable to single leg heel raise mango Palpation Assessment Palpation no tenderness reports. Skin is scaly and dry Gait Assessment Ambulation Assistive Devices Walker, Wheeled Weight Bearing Status - Left As Tolerated Weight Bearing Status - Right Full Maintains Weight Bearing Status Yes Ambulation Distance 100 Gait Pattern Antalgic Gait,Narrow Based Gait,Step-to Gait Gait Pattern Observed Decreased Stride Length - Left ,Decreased Stride Length - Right,Decreased Weight Shift -
--- NOTE | 2022-06-24 14:48 | PTOPPROG ---
Evaluation Information Assessment Status Progress Diagnosis L ankle fx s/p ORIF Onset 03/16 Subjective Information Pt states overall she is doing good. She ambulates into the clinic today with her wheeled walker. She has been limiting the amount of time she is spending in her wheelchair. Pt reports about 50% improvement in overall symptoms and function. Pt states exercises are going great at home. Pt states she was able to stand and make a meal last night for the first time. Assessment PT Clinical Summary Vika presents to therapy today for her progress report following 8 visits of skilled therapy to treat her L ankle fracture on 03/16/22. Today she demonstrates significantly improved gait speed, ankle strength, and ankle ROM. She continues to require a wheeled walker for ambulation but states she has taken 1-2 steps without it. Her L ankle still has decreased ROM and strength when compared to her uninvolved side. She also reports pain when descending stairs d/t ankle tightness. Continuation of skilled physical therapy services are indicated to address deficits noted above, to wean off walker, and to return to baseline function. Plan of Care Interventions Gait Training,Hot Pack/Cold Pack,Manual Therapy, Neuro Re-education,Patient/Caregiver Educati, Therapeutic Activities,Therapeutic Exercise PT Services Indicated Yes Treatment Frequency and continue 2x/wk for 4 wks Duration These treatments will address the objective and functional deficits as defined above. The patient will be advanced safely and appropriately in order for the patient to progress towards his/her prior level of function. Additional exercises will be introduced and as well as a comprehensive home exercise program upon discharge, if needed, ?to ensure carryover of functional gains achieved in the clinic. This treatment plan has been reviewed and agreement upon by the patient.
--- NOTE | 2022-07-20 14:25 | PTOPDC ---
Assessment and note entered by Belem Pride, PT, DPT Evaluation Information Assessment Status Discharge Diagnosis L ankle fx s/p ORIF Onset 03/16 Subjective Information Pt states this week has been the time to try new things. She did her own grocery shopping, drove her car, and was able to let her dogs out, all without an increase in pain. She states she woke up with no pain and no stiffness this morning after grocery shopping yesterday. Pt reports a 85% return to baseline function. Reported Pain Level Pain Score 0: Self Report Assessment PT Clinical Summary Vika presents to therapy today for her progress report following 15 visits of skilled therapy to treat her post/op L ankle fracture. Today she demonstrates near equal ankle ROM mango and near equal strength mango. She demonstrates below average times to complete the TUG as well as the 5xSTS, she also has a good gait speed. She does demonstrate increased gait deviations with increased gait speed, but when cued to slow down she has a normalized gait pattern. She has met or progressed well towards all of her therapy goals, the pt would like to be discharged at this time and continue progressing through daily activity. PT is agreeable with this POC. Plan of Care PT Services Indicated No Treatment Frequency and to be discharged Duration
== END 2022-07-21 10:51 | disposition home or self-care (01) ==
LOC: ANHGOSHPT 13:30
PROVIDERS: PCP Internal Medicine; Visit Provider Orthopaedic Surgery
DX: S82.843D Displaced bimalleolar fracture of unspecified lower leg, subsequent encounter for closed fracture with routine healing (principal)
CPT/HCPCS: 97110; 97112; 97116; 97140; 97161; 97530

== ENCOUNTER 2023-03-05 09:06 | Inpatient (IN) | payer MEDICARE, SELFPAY ==
[2023-03-05] VITALS (29 sets, daily range): BP systolic 102–176; BP diastolic 58–124; PULSE 79–138; RESP 15–31; TEMP 36.1–36.5; O2SAT 91–98; BMI 33.6
--- NOTE | ~2023-03-05 | XR_ITS ---
EXAMINATION: XR chest 2V DATE: 03/05/2023 09:45 INDICATION: Shortness of breath TECHNIQUE: PA and lateral views of the chest are obtained. COMPARISON: None available FINDINGS: There are airspace opacities of the mid and lower lung zones. There is a mild diffuse inter stitial pattern. There are small pleural effusions. No pneumothorax is identified. The cardiomediasti nal silhouette is normal. There is moderate thoracic spondylosis. Calcified atherosclerosis of the ao rta is noted. A left upper quadrant calcification likely relates to prior trauma or old granulomatous disease of the spleen. IMPRESSION: 1. Mild diffuse interstitial pattern which could reflect mild pulmonary edema. 2. Small pleural effusions and airspace opacities of the mid and lower lung zones, consistent with at electasis versus pneumonia. Reviewed, dictated and finalized at location A. IMPRESSION: 1. Mild diffuse interstitial pattern which could reflect mild pulmonary edema. 2. Small pleural effusions and airspace opacities of the mid and lower lung zon es, consistent with atelectasis versus pneumonia.
--- NOTE | ~2023-03-05 | CT_ITS ---
EXAMINATION: CTA chest PE protocol DATE: 03/05/2023 10:40 INDICATION: Shortness of breath TECHNIQUE: Computed tomography angiography (CTA) of the chest was performed with 100 mL Omnipaque-350 intravenous contrast timed to evaluate the pulmonary arteries. Coronal maximum intensity projection 3D-reconstructions were created by the technologist. The dose-length product (DLP) was 504.44 mGy-cm. Automated exposure control and iterative reconstruction technique were employed. COMPARISON: None. FINDINGS: The pulmonary arteries are well-opacified. No pulmonary embolism is identified. There are s mall pleural effusions. There is smooth interlobular septal thickening in the lungs. There are mild d ependent airspace opacities in the lungs. No pneumothorax is identified. The heart size is normal. Th ere is mild bilateral hilar lymphadenopathy, likely reactive. A rim calcification of the spleen likel y reflects prior trauma. There appears to be a parapelvic cyst of the right kidney. There is severe t horacic spondylosis. IMPRESSION: 1. No pulmonary embolus. 2. Moderate pulmonary edema. 3. Small pleural effusions. 4. Minimal airspace opacities of the lungs, likely combination of atelectasis and pulmonary edema. Reviewed, dictated and finalized at location A. IMPRESSION: 1. No pulmonary embolus. 2. Moderate pulmonary edema. 3. Small pleural effusions. 4. Minimal airspace opacities of the lungs, likely combination of atelectasis a nd pulmonary edema.
--- NOTE | 2023-03-05 09:09 | ECG_ITS ---
Measurements Intervals [place] Rate: 132 P: OK: 364 QRS: 14 QRSD: 83 T: -14 QT: 334 QTc: 496 Interpretive Statements ATRIAL FIBRILLATION WITH RAPID VENTRICULAR RESPONSE BORDERLINE ST-T WAVE ABNORMALITY- ANTEROLAT/INF LEADS BASELINE ARTIFACT- II, III, AVF, V3 ABNORMAL ECG COMPARED TO ECG 03/15/2022 18:49:56 ATRIAL FIBRILLATION NO PRESENT Electronically Signed On 03-05-2023 13:00:56 CDT by Max Malin D.O.
[2023-03-05 09:19] LABS: Basophils Absolute Auto 0.1 K/mm3 (0.0-0.1); Basophils Percent Auto 0.7 % (0.2-1.2); Eosinophils Absolute Auto 0.1 K/mm3 (0-0.3); Hematocrit 40.7 % (37.0-47.0); Hemoglobin 13.3 g/dL (12.0-15.0); Immature Granulocyte Absolute 0.02 K/mm3 (0.00-0.031); Immature Granulocyte Percent A 0.3 % (0-0.5); Lymphocytes Absolute Auto 2.18 K/mm3 (0.9-3.2); Lymphocytes Percent Auto 30.7 % (18.3-44.2); Mean Corpuscular HGB Conc 32.7 g/dl (32-36); Mean Corpuscular Hemoglobin 30.1 pg (26-34); Mean Corpuscular Volume 92.1 fl (80-100); Mean Platelet Volume 10.9 fl (7.4-10.4); Monocytes Absolute Auto 0.6 K/mm3 (0.1-0.6); Neutrophils Absolute Auto 4.2 K/mm3 (1.3-6.7); Neutrophils Percent Auto 59.3 % (45.5-73.1); Platelet Count Result 177 k/mm3 (150-375); Red Blood Count 4.42 M/mm3 (4.2-5.4); Red Cell Distribution Width 14.5 % (11.5-14.5); White Blood Count 7.1 K/mm3 (4.5-10.0)
[2023-03-05 09:29] LABS: Alanine Aminotransferase 37 U/L (6-35); Albumin Level 4.3 g/dL (3.5-5.1); Alkaline Phosphatase 75 U/L (38-126); Anion Gap 11 mmol/L (8-16); Aspartate Amino Transferase 36 U/L (14-36); Bilirubin,Total 0.9 mg/dL (0.2-1.3); Blood Urea Nitrogen 22 mg/dL (7-17); Calcium 8.7 mg/dL (8.4-10.2); Carbon Dioxide 23 mmol/L (22-30); Chloride 109 mmol/L (98-107); Estimated CRCL calculation 50 ml/min; Estimated Glomerular Filt Rate > 60; Glucose 112 mg/dL (65-110); Potassium 3.3 mmol/L (3.4-5.0); Sodium 143 mmol/L (137-145)
--- NOTE | 2023-03-05 09:36 | ED.SOB ---
HPI - SOB/Dyspnea General Chief Complaint: Shortness of Breath/Dyspnea Stated Complaint: sob Time Seen by Provider: 03/05/23 09:07 Source: patient, RN notes reviewed and old records reviewed Mode of arrival: wheelchair Limitations: no limitations History of Present Illness HPI Narrative: This is a 78 year old female with history of atrial fibrillation who presents for evaluation of shortness of breath for 4-5 days. Patient is states she developed shortness of breath on Monday and it has gradually worsened. She drove to help a friend that lives 4 hours away on Monday. Her friend noticed that her breathing was different, so they drove her back home this morning. She reports shortness of breath with exertion. She reports having midsternal chest heaviness on Monday but it resolved and hasn't returned. She reports intermittent sinus draining causing a cough. She denies fever, chills, nausea, vomiting. She denies leg swelling but she reports history of left ankle fracture last year. 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 She takes metoprolol 12.5 mg BID and Xarelto 20 mg daily. She took her medications at 5 am this morning. She denies feeling heart racing or beating irregular Related Data Home Medications Medication Instructions Recorded Confirmed metoprolol tartrate 25 mg tablet 12.5 mg PO Q12H 04/27/22 03/05/23 Allergies Allergy/AdvReac Type Severity Reaction Status Date / Time shellfish derived Allergy Hives Verified 03/05/23 09:14 Review of Systems Constitutional: Constitutional: Denies weakness ENT: Reports post nasal drip Cardiovascular: Cardiovascular: Reports chest pain, Denies syncope, Denies rapid heart rate, Denies irregular heart rhythm, Denies leg edema and Reports dyspnea Respiratory: Respiratory: Denies chest congestion, Reports cough, Denies hemoptysis, Denies excessive phlegm production, Reports dyspnea and Reports wheezing Gastrointestinal: Gastrointestinal: Denies abdominal pain, Denies hematochezia, Denies diarrhea and Denies vomiting Genitourinary: Genitourinary: Denies hematuria and Denies dysuria Musculoskeletal: Musculoskeletal: Denies joint swelling, Denies loss of height and Denies muscle weakness Neurologic: Denies syncope, Denies focal weakness and Denies weakness PMFSH Past Medical History Medical History (Updated 03/05/23 @ 20:08 by Kenzie Rosales MD) Chronic anticoagulation History of cervical cancer Hypertension Hypothyroidism Paroxysmal atrial fibrillation Surgical History Surgical History (Updated 03/05/23 @ 13:32 by Antonia Velasquez PA-C) History of History of open reduction and internal fixation (ORIF) procedure (03/16/22) Repair of left ankle fracture per Dr. Banerjee. History of partial hysterectomy Family History Family History Father Cancer Hypertension Mother Diabetes mellitus Hypertension Heart disease Sibling Heart disease Other Acute myocardial infarction Social History Social History (Updated 03/05/23 @ 13:32 by Antonia Velasquez PA-C) Social History: Surrogate medical decision maker: Code status: Smoking status: Former smoker Tobacco type: cigarettes Alcohol intake: former Substance use: never Lack of Transportation: No Lack of Food: Never True Current Housing: I Have Housing Concerned About Future Housing: No Difficulty Paying Gas/Electric Bills: No Difficulty Paying for Meds: No Currently Unemployed: No Education: High School Diploma/GED Difficulty w/ Childcare or Family Care: No Living arrangements: alone Additional living arrangements comments: [place]. Occupation/Education: retired Spiritual care concerns: No Exam Const: General: no acute distress and alert Nutritional Appearance: well nourished Orientation/consciousness: patient oriented x3 HENMT:
[2023-03-05 09:38] LABS: Magnesium 2.1 mg/dL (1.6-2.3)
[2023-03-05 09:45] LABS: INR 2.3; Partial Thromboplastin Time 40.3 SECONDS (22.3-36.8); Prothrombin Time 27.5 Seconds (11.1-14.7)
[2023-03-05] MEDS: dilTIAZem 100 MG/100 ML 100 MG/100 ML BAG 10 MG IV CONT ×2 (09:47→20:44)
[2023-03-05] MEDS: POTASSIUM CHLORIDE 20 MEQ TABLET 40 MEQ PO (09:48)
[2023-03-05] MEDS: dilTIAZem HCl INJ 25 MG/5 ML VIAL 10 MG IV PUSH (09:48)
[2023-03-05 09:50] LABS: NT Pro B Type Natriuretic Pept 3670 pg/mL (19.9-100); Troponin I < 0.012 ng/mL (0.000-0.034)
[2023-03-05 09:51] LABS: D Dimer 1.03 ug/mL (<0.48)
[2023-03-05 10:14] LABS: Thyroid Stimulating Hormone Reflex 0.973 uIU/mL (0.465-4.68)
[2023-03-05] MEDS: NITROGLYCERIN OINTMENT 1 INCH DOSE TRANSDERM (10:43)
[2023-03-05] MEDS: FUROSEMIDE INJ 40 MG/4 ML VIAL IV PUSH ×2 (10:44→20:52)
--- NOTE | 2023-03-05 13:12 | PM.IMHP ---
H&P: HPI History of Present Illness Date/Time: 03/05/23 13:45 Chief Complaint: Shortness of breath. Narrative: This is a very pleasant 78-year-old female with hypertension and paroxysmal atrial fibrillation who presented to the emergency department via private vehicle from home for evaluation of shortness of breath. Earlier this week she drove to visit a friend who lives 4 hours away to help her pack for an upcoming move. They were busy packing for couple of days and she was feeling okay until Monday when she developed a pressure-like sensation in the mid chest region. It was self-limiting but did last for upwards of 2 hours. The discomfort did not radiate and she denies associated symptoms with that however she did start feeling short of breath not long thereafter. The shortness of breath has gotten worse with lesser and lesser exertion and last night she told her friend that she needed to come back home as she thought she probably need to be seen by a doctor. They got home at around 04:00 this morning, she rested for several hours, and she came in for evaluation. She denies edema, orthopnea and paroxysmal nocturnal dyspnea. She also denies pleuritic pain, fever, chills, sweats, nausea, vomiting, and diarrhea. She has no sensations of racing heart or palpitations although she was in atrial fibrillation with rapid ventricular response on arrival today. Blood pressure has been as high as 176/124; she reports taking her morning medications. SpO2 has been in the mid to upper 90s on room air. Labs were significant for a D-dimer 1.03, troponin < 0.012, proBNP 3670, TSH 0.973, INR 2.3, and a potassium of 3.3. LFTs and CBC were unremarkable. EKG showed atrial fibrillation with rapid ventricular response and borderline ST T-wave abnormalities in the anterolateral/inferior leads. She was given a diltiazem bolus and was started on a diltiazem drip. She was also given furosemide 40 mg IV. She is being admitted in this setting for further treatment and evaluation of AFib/RVR and what appears to be new onset congestive heart failure. Review of Systems Review of Systems: Twelve systems were reviewed. No fever, chills, or sweats. She has had some mild sinus drainage which causes her to cough occasionally but it is not productive. She denies sick contacts. No calf pain or tenderness. No history of venous thromboembolism. Except as documented, all other systems were reviewed and are negative. [facility] Past Medical History Medical History (Updated 03/05/23 @ 22:06 by Antonia Velasquez PA-C) Chronic anticoagulation History of cervical cancer Hypertension Hypothyroidism Paroxysmal atrial fibrillation Surgical History Surgical History (Updated 03/05/23 @ 22:00 by Antonia Velasquez PA-C) History of History of colonoscopy with polypectomy History of open reduction and internal fixation (ORIF) procedure (03/16/22) Repair of left ankle fracture per Dr. Banerjee. History of partial hysterectomy For cervical cancer. Family History Family History Father Cancer Hypertension Mother Diabetes mellitus Hypertension Heart disease Sibling Heart disease Other Acute myocardial infarction Social History Social History (Updated 03/05/23 @ 22:01 by Antonia Velasquez PA-C) Social History: Surrogate medical decision maker: Alejandra Parish, daughter. Code status: Full code. Smoking status: Former smoker Tobacco type: cigarettes Alcohol intake: former Substance use: never Lack of Transportation: No Lack of Food: Never True Current Housing: I Have Housing Concerned About Future Housing: No Difficulty Paying Gas/Electric Bills: No Difficulty Paying for Meds: No Currently Unemployed: No Education: High School Diploma/GED Difficulty w/ Childcare or Family Care: No Living arrangements: alone Additional living arrangements comments: [place]. Occupation
--- NOTE | 2023-03-05 15:25 | ADMGEN ---
This patient, Vika Duke, was admitted to IMU Room 212-01. Patient/family oriented to hospital policies and general routines including ID bracelet, bed and alarms, visiting hours, pain management, procedures, bathroom and other care routines, personal items, smoking policy, room service/diet, and visiting hours. Information on how to activate the Rapid Response Team has been discussed. Patient/Family are encouraged to report perceived risks to care and to ask questions if they do not understand what they are told or what they should do.
[2023-03-05] MEDS: METOPROLOL TARTRATE 12.5 MG TABLET PO (22:25)
[2023-03-05] MEDS: RIVAROXABAN 20 MG TABLET PO (22:26)
[2023-03-06] VITALS (19 sets, daily range): BP systolic 97–139; BP diastolic 49–97; PULSE 61–116; RESP 16–20; TEMP 36.2–36.9; O2SAT 93–98
[2023-03-06 05:05] LABS: Basophils Percent Auto 0.6 % (0.2-1.2); Eosinophils Absolute Auto 0.2 K/mm3 (0-0.3); Eosinophils Percent Auto 3.3 % (0-4.4); Hematocrit 37.5 % (37.0-47.0); Hemoglobin 12.4 g/dL (12.0-15.0); Immature Granulocyte Absolute 0.02 K/mm3 (0.00-0.031); Immature Granulocyte Percent A 0.3 % (0-0.5); Lymphocytes Absolute Auto 1.97 K/mm3 (0.9-3.2); Lymphocytes Percent Auto 29.5 % (18.3-44.2); Mean Corpuscular HGB Conc 33.1 g/dl (32-36); Mean Corpuscular Hemoglobin 30.6 pg (26-34); Mean Corpuscular Volume 92.6 fl (80-100); Mean Platelet Volume 10.8 fl (7.4-10.4); Monocytes Absolute Auto 0.6 K/mm3 (0.1-0.6); Monocytes Percent Auto 9.1 % (2.6-8.5); Neutrophils Absolute Auto 3.8 K/mm3 (1.3-6.7); Neutrophils Percent Auto 57.2 % (45.5-73.1); Platelet Count Result 161 k/mm3 (150-375); Red Blood Count 4.05 M/mm3 (4.2-5.4); Red Cell Distribution Width 14.9 % (11.5-14.5); White Blood Count 6.7 K/mm3 (4.5-10.0)
[2023-03-06 05:24] LABS: Anion Gap 4 mmol/L (8-16); Blood Urea Nitrogen 21 mg/dL (7-17); Calcium 8.1 mg/dL (8.4-10.2); Carbon Dioxide 30 mmol/L (22-30); Chloride 105 mmol/L (98-107); Estimated CRCL calculation 40 ml/min; Estimated Glomerular Filt Rate 48; Glucose 103 mg/dL (65-110); Magnesium 2.1 mg/dL (1.6-2.3); Potassium 3.4 mmol/L (3.4-5.0); Sodium 139 mmol/L (137-145)
[2023-03-06] MEDS: dilTIAZem 100 MG/100 ML 100 MG/100 ML BAG 10 MG IV CONT (05:56)
[2023-03-06] MEDS: POTASSIUM CHLORIDE 20 MEQ TABLET.ER 40 MEQ PO (08:43)
[2023-03-06] MEDS: METOPROLOL TARTRATE 12.5 MG TABLET PO (08:43)
[2023-03-06] MEDS: FUROSEMIDE INJ 40 MG/4 ML VIAL IV PUSH ×2 (08:43→20:58)
--- NOTE | 2023-03-06 09:18 | ECHO_ITS ---
Patient Info Name: Vika Duke Age: 78 years : 1945 Gender: Female Ht: 63 in Wt: 189 lbs BSA: 1.99 m2 HR: 84 bpm BP: 128 / 50 mmHg Heart Rhythm: Atrial Fibrillation Technical Quality: Fair Exam Date: 03/06/2023 10:30 AM Exam Location: [facility] Pulmonary Exam Room: 212 Patient Status: Inpatient Admit Date: 03/05/2023 Staff Ordering Physician: Antonia Velasquez PA-C Advertising Photographer: Gisell Watts RDCS Attending Provider: Pasqulae Cage MD Referring Physician: Eva REYNOSO; Exam Type: CA echo doppler color flow Study Info Indications - afib rvr chf Complete two-dimensional, color flow and Doppler transthoracic echocardiogram is performed. Summary 1. Complete two-dimensional, color flow and Doppler transthoracic echocardiogram is performed. 2. Technically difficult study with limited views. 3. Left ventricular chamber dimension is normal. 4. Left ventricular systolic function is normal, estimated at 60-65%. 5. There is no increased left ventricular wall thickness. 6. The left ventricular diastolic function is indeterminate. 7. There is moderate mitral valve regurgitation. 8. There is moderate tricuspid valve regurgitation. 9. Mild pulmonary hypertension, estimated pulmonary arterial systolic pressure is 36 mmHg. Left Ventricle Left ventricular chamber dimension is normal. Left ventricular systolic function is normal, estimated at 60-65%. There is no increased left ventricular wall thickness. The left ventricular diastolic function is indeterminate. Technically difficult study with limited views. Right Ventricle Right ventricular chamber dimension is normal. Right ventricular systolic function is normal. Left Atria Left atrial chamber dimension is mildly enlarged. Right Atria Right atrial chamber dimension is mildly enlarged. Aortic Valve The aortic valve is probable trileaflet. There is no aortic valve stenosis. There is no aortic valve regurgitation. Pulmonic Valve The pulmonic valve is not well visualized. There is trace pulmonic regurgitation. Mitral Valve The mitral valve has normal leaflets. There is moderate mitral valve regurgitation. The mitral valve annulus is mildly calcified. Tricuspid Valve The tricuspid valve leaflets are normal. There is moderate tricuspid valve regurgitation. Mild pulmonary hypertension, estimated pulmonary arterial systolic pressure is 36 mmHg. Pericardium/Pleural The pericardium appears normal. There is no pericardial effusion. Inferior Vena Cava Normal inferior vena cava with >50% collapse upon inspiration consistent with normal right atrial pressure, 5 mmHg. Aorta The aortic root size at the sinus of Valsalva is normal. There is mild aortic atherosclerosis. Left Ventricular Outflow Tract Name Value Normal LVOT 2D LVOT Diameter 2.0 cm LVOT Doppler LVOT Peak Gradient 6 mmHg LVOT Mean Gradient 4 mmHg LVOT VTI 24 cm LVOT VTI/AV VTI Ratio 1.1 LVOT Stroke Volume 73 ml LVOT CO 17.0 l/min LVOT CI
--- NOTE | 2023-03-06 10:55 | PM.CNCAR ---
Assessment and Plan Assessment and plan (1) Congestive heart failure: Code(s): I50.9 - Heart failure, unspecified Status: Acute Assessment and Plan: New onset heart failure with preserved ejection fraction from 02/2022 echo. Repeat echo pending. Will review when available. Patient appears mildly volume overloaded at this time although improving clinically. Continue IV Lasix. Transition to oral regimen in the next 24 hours. Exacerbated secondary to AFib with RVR most likely. No evidence of acute myocardial ischemia or known underlying CAD, however, given associated chest pain can not exclude underlying CAD. Discussed ischemic evaluation on an outpatient basis. (2) Atrial fibrillation with rapid ventricular response: Code(s): I48.91 - Unspecified atrial fibrillation Status: Acute Assessment and Plan: Heart rate better controlled with IV diltiazem. Transition to oral regimen. We will increase oral metoprolol and down titrate diltiazem. Discussed multiple options to establish sinus rhythm and or heart rate control. Patient was very reluctant to consider elective cardioversion to restore sinus rhythm and she states she would only agree to that as a last resort. She wishes to pursue medications at this time. I advised my strong preference she restore sinus rhythm given her presentation with decompensated heart failure. All she agrees she did not commit necessarily. We discussed sotalol risks and benefits of the fact that she would require hospital admission for 5 total doses while loading monitoring QT interval. We discussed risks, benefits and alternatives including risk for ventricular arrhythmias such as torsades if QT prolonged. If she agrees will discontinue diltiazem and metoprolol and initiate sotalol 80 mg twice daily to begin this evening with subsequent EKGs after each dose per protocol. Continue Xarelto 20 mg at bedtime without interruption. If she does not agree to sotalol will increase metoprolol as much as tolerated although we discussed the likely benefit of antiarrhythmic therapy given her complicated presentation at this time. Patient indicates she previously tolerate AFib well while she was not aware of palpitations or elevated heart rate she did not feel well with complaints of shortness of breath, fatigue which progressed and now understands response secondary to AFib been associated heart failure. TSH stable 0.937. (3) KASSANDRA (obstructive sleep apnea): Code(s): G47.33 - Obstructive sleep apnea (adult) (pediatric) Status: Acute Assessment and Plan: Implored her to follow through with formal sleep study and CPAP management. Explained risk for decompensated heart failure, recurrent atrial fibrillation ring other complications untreated KASSANDRA. Patient verbalized understanding and agrees. (4) Hypertension: Qualifiers: Hypertension type: primary hypertension Qualified Code(s): I10 - Essential (primary) hypertension Code(s): I10 - Essential (primary) hypertension Status: Acute Assessment and Plan: BP reasonably controlled, hypertensive at presentation. Recommendations based on tolerance medications and control of AFib. 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 Monitor for bleeding. Follow H&H. (6) Hypokalemia: Code(s): E87.6 - Hypokalemia Status: Acute Assessment and Plan: She received 40 mEq potassium this morning with Lasix. Recheck BMP. Keep potassium around 4.0. History of Present Illness History of Present Illness Consult date/time: Date of service: 03/06/23 10:55 Requesting physician: Antonia Velasquez PA-C Consult reason: atrial fibrillation and congestive heart failure Reason For Visit: Afib w RVR, CHF with pulmonary Edema Narrative: Patient is a 78-year-old
[2023-03-06] MEDS: METOPROLOL TARTRATE 25 MG TABLET PO (14:21)
--- NOTE | 2023-03-06 15:49 | PM.IMPN ---
Progress Note: A&P Assessment and Plan (1) Atrial fibrillation with rapid ventricular response: Code(s): I48.91 - Unspecified atrial fibrillation Status: Acute Assessment and Plan: Unclear why she went into AFib/RVR. CTA of the chest was negative for pulmonary embolism. She had an episode of chest discomfort on Monday and perhaps she had a cardiac event. Apnea link in February 2022 showed an AHI of 21, suspected pathological breathing disorder. She may very well have sleep apnea and needs a formal outpatient polysomnogram. TSH is within normal limits. She is on metoprolol tartrate at home 12.5 mg b.i.d. for rate control and she is currently on a diltiazem drip with improvement in rate. rate control with diltiazem drip. Cardiology has been consulted and plan to initiate sotalol treatment If agreeable by the patient. currently being re-initiated with metoprolol (2) New onset of congestive heart failure: Code(s): I50.9 - Heart failure, unspecified Status: Acute Assessment and Plan: Patient appears to have new onset congestive heart with pulmonary edema and elevated proBNP. May be related to high output from above. Continue diuresis with furosemide 40 mg IV b.i.d.. Echocardiogram ordered. Cardiology consulted. well compensated currently. Due to AFib with RVR. Currently on IV Lasix may transition to oral (3) Hypokalemia: Code(s): E87.6 - Hypokalemia Status: Acute Assessment and Plan: Potassium will be replaced and monitored closely while diuresing. (4) Suspected sleep apnea: Code(s): R29.818 - Other symptoms and signs involving the nervous system Status: Acute Assessment and Plan: Apnea link in February 2022 showed an AHI of 21, suspicious for pathologic breathing breathing disorder. She will need a formal patient polysomnogram. (5) Chronic anticoagulation: Code(s): Z79.01 - custodial (current) use of anticoagulants Status: Acute Assessment and Plan: Continue rivaroxaban for stroke prophylaxis. (6) Hypertension: Code(s): I10 - Essential (primary) hypertension Status: Acute Assessment and Plan: Blood pressure was as high as 176/124 in the ED, in part due to anxiety from shortness of breath. It has improved with diuresis and on the Cardizem drip. Continue to monitor closely and consider initiation of other antihypertensives depending on how she trends. Subjective Date/time seen: 03/06/23 15:49 Interval history: no overnight events. Rate controlled on Cardizem drip. Cardiology has been consulted. No shortness of breath or chest pain. Review of Systems Review of Systems: All systems reviewed & are unremarkable except as noted in HPI and below Exam Narrative: General: Well-developed, nontoxic-appearing female sitting up in bed in no distress. HEENT: PERRL, EOMI. Sclera anicteric. Oral mucosa moist. Oropharynx clear. Neck: Supple. No JVD. Respiratory: Lungs are clear to auscultation bilaterally. No respiratory distress Cardiovascular: Irregularly irregular rate and rhythm. rate controlled Gastrointestinal: Abdomen is soft, nontender, and nondistended with positive bowel sounds. Skin: Warm and dry. No rash or lesions on limited exam. Extremities: No cyanosis or clubbing. Trace rusty ankle edema bilaterally. Radial and pedal pulses intact. No palpable knots or cords. Negative Starla sign bilaterally. Neurological: Alert. Cranial nerves 2-12 are grossly intact. No gross focal deficits to casual conversation. Psychiatric: Pleasant and cooperative with normal mood and affect. Judgment and insight intact. She is in good spirits. Objective Data Vital Signs Vital Signs: Vital Signs - 24 hr 03/05/23 16:00 03/05/23 16:00 03/05/23 16:00 Temperature Pulse Rate 100 108 H Respiratory Rate Blood Pressure Pulse Oximetry Oxygen Delivery Room Air 03/05/23 20:00 03/05/23 20:44
[2023-03-06] MEDS: RIVAROXABAN 20 MG TABLET PO (18:27)
[2023-03-06] MEDS: SOTALOL HCL 80 MG TABLET PO (20:59)
--- NOTE | 2023-03-06 23:00 | ECG_ITS ---
Measurements Intervals [place] Rate: 94 P: NE: 0 QRS: 0 QRSD: 93 T: -3 QT: 372 QTc: 466 Interpretive Statements ATRIAL FIBRILLATION NONSPECIFIC T-WAVE ABNORMALITY- ANTEROLAT/INF LEADS BASELINE ARTIFACT- II, III, AVF, V6 ABNORMAL ECG COMPARED TO ECG 03/05/2023 09:13:03 HEART RATE HAS DECREASED Electronically Signed On 03-07-2023 11:26:41 CDT by Max Malin D.O.
[2023-03-07] VITALS (18 sets, daily range): BP systolic 113–134; BP diastolic 52–90; PULSE 54–112; RESP 16–20; TEMP 36.2–36.6; O2SAT 94–100
[2023-03-07 05:02] LABS: Basophils Absolute Auto 0.1 K/mm3 (0.0-0.1); Basophils Percent Auto 0.9 % (0.2-1.2); Eosinophils Absolute Auto 0.3 K/mm3 (0-0.3); Eosinophils Percent Auto 3.6 % (0-4.4); Hemoglobin 13.2 g/dL (12.0-15.0); Immature Granulocyte Absolute 0.01 K/mm3 (0.00-0.031); Immature Granulocyte Percent A 0.1 % (0-0.5); Lymphocytes Absolute Auto 2.58 K/mm3 (0.9-3.2); Lymphocytes Percent Auto 34.8 % (18.3-44.2); Mean Corpuscular Hemoglobin 30.9 pg (26-34); Mean Corpuscular Volume 93.7 fl (80-100); Mean Platelet Volume 10.9 fl (7.4-10.4); Monocytes Absolute Auto 0.8 K/mm3 (0.1-0.6); Monocytes Percent Auto 10.2 % (2.6-8.5); Neutrophils Absolute Auto 3.7 K/mm3 (1.3-6.7); Neutrophils Percent Auto 50.4 % (45.5-73.1); Platelet Count Result 165 k/mm3 (150-375); Red Blood Count 4.27 M/mm3 (4.2-5.4); Red Cell Distribution Width 14.6 % (11.5-14.5); White Blood Count 7.4 K/mm3 (4.5-10.0)
[2023-03-07 05:27] LABS: Alanine Aminotransferase 30 U/L (6-35); Albumin Level 4.1 g/dL (3.5-5.1); Alkaline Phosphatase 58 U/L (38-126); Anion Gap 8 mmol/L (8-16); Aspartate Amino Transferase 36 U/L (14-36); Bilirubin,Total 0.9 mg/dL (0.2-1.3); Blood Urea Nitrogen 22 mg/dL (7-17); Calcium 8.4 mg/dL (8.4-10.2); Carbon Dioxide 26 mmol/L (22-30); Chloride 104 mmol/L (98-107); Estimated CRCL calculation 44 ml/min; Estimated Glomerular Filt Rate 54; Glucose 109 mg/dL (65-110); Magnesium 2.1 mg/dL (1.6-2.3); Potassium 3.9 mmol/L (3.4-5.0); Sodium 138 mmol/L (137-145)
[2023-03-07] MEDS: POTASSIUM CHLORIDE 20 MEQ TABLET.ER 40 MEQ PO (08:45)
[2023-03-07] MEDS: FUROSEMIDE INJ 40 MG/4 ML VIAL IV PUSH (08:45)
[2023-03-07] MEDS: SOTALOL HCL 80 MG TABLET PO ×2 (08:46→20:41)
--- NOTE | 2023-03-07 10:47 | ECG_ITS ---
Measurements Intervals [place] Rate: 94 P: [place]: 0 QRS: 0 QRSD: 92 T: -29 QT: 370 QTc: 465 Interpretive Statements ATRIAL FIBRILLATION NONSPECIFIC T-WAVE ABNORMALITY- ANTEROLAT/INF LEADS BASELINE ARTIFACT- I, III, AVL, AVF, V2 ABNORMAL ECG COMPARED TO ECG 03/06/2023 23:13:13 NO SIGNIFICANT CHANGES Electronically Signed On 03-07-2023 12:45:11 CDT by Max Malin D.O.
--- NOTE | 2023-03-07 12:22 | PM.PNCARD ---
Progress Note: A&P Assessment and Plan (1) New onset of congestive heart failure: Code(s): I50.9 - Heart failure, unspecified Status: Acute Assessment and Plan: New onset heart failure with preserved ejection fraction from 02/2022 echo. Exacerbated secondary to AFib with RVR most likely.? Repeat echo pending.? Will review when available. Stop IV Lasix and transition to PO. No evidence of acute myocardial ischemia or known underlying CAD, however, given associated chest pain can not exclude underlying CAD.? Discussed ischemic evaluation on an outpatient basis. (2) Atrial fibrillation with rapid ventricular response: Code(s): I48.91 - Unspecified atrial fibrillation Status: Acute Assessment and Plan: Sotalol started evening of 03/06. Received dose #2 this AM. Her fifth dose will be evening 03/08. Patient will remain in the hospital at least until 03/09. Check EKGs after each Sotalol dose. Thus far, QTc is acceptable. Continue Xarelto for anticoagulation. (3) KASSANDRA (obstructive sleep apnea): Code(s): G47.33 - Obstructive sleep apnea (adult) (pediatric) Status: Acute Assessment and Plan: Implored her to follow through with formal sleep study and CPAP management.? Explained risk for decompensated heart failure, recurrent atrial fibrillation ring other complications untreated KASSANDRA.? Patient verbalized understanding and agrees. (4) Hypertension: Qualifiers: Hypertension type: primary hypertension Qualified Code(s): I10 - Essential (primary) hypertension Code(s): I10 - Essential (primary) hypertension Status: Acute Assessment and Plan: BP reasonably controlled, hypertensive at presentation.? Recommendations based on tolerance medications and control of AFib. 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 Monitor for bleeding.? Follow H&H. (6) Hypokalemia: Code(s): E87.6 - Hypokalemia Status: Acute Assessment and Plan: Keep potassium around 4.0. Subjective Date/time seen: 03/07/23 12:22 Interval history: Reason for visit: Atrial fibrillation with RVR HPI: Patient is a 78-year-old female known to me who I follow in the office with a history of paroxysmal atrial fibrillation with 1 isolated episode documented February of 2022, history of hypertension, history of untreated KASSANDRA presents emergency department who states she was originally in her usual state of health when she had driven down several hours away to visit a friend and help them pack.? She states she was feeling well at her baseline with on Monday she began to experience some fatigue and mild shortness of breath along with intermittent episodes of a substernal upper epigastric heaviness which would last a few minutes and on 1 occasion lasted over an hour.? This stent resolved and she fell well.? She states over the ensuing to 3 days she began to feel progressively more short of breath and fatigued but decided she would return back home driven by her friend.? She states it was then noted by her grandson her heart rate was elevated she did not feel well at all she should go the emergency room around 4:00 a.m. this morning.? She was then found to be in AFib with RVR, hypertensive with systolic blood pressure 70s.? Troponin negative proBNP 3670 and she was mildly hypokalemic potassium 3.3.? She was then started on diltiazem infusion given IV Lasix in the ER.? She states she feels notably better but not quite to her baseline.? Heart rate 80s to 100 is in AFib she is on diltiazem 10 milligram/hour.? She has been compliant with Xarelto without any or eruption once she was previously on metoprolol tartrate 12.5 mg twice daily and has been compliant with her regimen.? She denies recent illnesses or significant lower extremity edema.? She denies near-syncope
--- NOTE | 2023-03-07 12:29 | PM.IMPN ---
Progress Note: A&P Assessment and Plan (1) Atrial fibrillation with rapid ventricular response: Code(s): I48.91 - Unspecified atrial fibrillation Status: Acute Assessment and Plan: Unclear why she went into AFib/RVR. CTA of the chest was negative for pulmonary embolism. She had an episode of chest discomfort on Monday and perhaps she had a cardiac event. Apnea link in February 2022 showed an AHI of 21, suspected pathological breathing disorder. She may very well have sleep apnea and needs a formal outpatient polysomnogram. TSH is within normal limits. She is on metoprolol tartrate at home 12.5 mg b.i.d. for rate control and she is currently on a diltiazem drip with improvement in rate. rate control with diltiazem drip. Cardiology has been consulted and started on sotalol load. (2) New onset of congestive heart failure: Code(s): I50.9 - Heart failure, unspecified Status: Acute Assessment and Plan: Patient appears to have new onset congestive heart with pulmonary edema and elevated proBNP. May be related to high output from above. Continue diuresis with furosemide 40 mg IV b.i.d.. Echocardiogram ordered and pending. Cardiology consulted. well compensated currently. Due to AFib with RVR. Currently on IV Lasix which has been transitioned to oral. (3) Hypokalemia: Code(s): E87.6 - Hypokalemia Status: Acute Assessment and Plan: Potassium will be replaced and monitored closely while diuresing. (4) Suspected sleep apnea: Code(s): R29.818 - Other symptoms and signs involving the nervous system Status: Acute Assessment and Plan: Apnea link in February 2022 showed an AHI of 21, suspicious for pathologic breathing breathing disorder. She will need a formal patient polysomnogram. (5) Chronic anticoagulation: Code(s): Z79.01 - FPC (current) use of anticoagulants Status: Acute Assessment and Plan: Continue rivaroxaban for stroke prophylaxis. (6) Hypertension: Qualifiers: Hypertension type: primary hypertension Qualified Code(s): I10 - Essential (primary) hypertension Code(s): I10 - Essential (primary) hypertension Status: Acute Assessment and Plan: Blood pressure was as high as 176/124 in the ED, in part due to anxiety from shortness of breath. It has improved with diuresis and on the Cardizem drip. Improved Subjective Date/time seen: 03/07/23 12:29 Interval history: no overnight events. Patient loaded with sotalol since last night. Telemetry reviewed. Remains on AFib. Denies any chest pain or shortness of breath Review of Systems Review of Systems: All systems reviewed & are unremarkable except as noted in HPI and below Exam Narrative: General: Well-developed, nontoxic-appearing female sitting up in bed in no distress. HEENT: PERRL, EOMI. Sclera anicteric. Oral mucosa moist. Neck: Supple. No JVD. Respiratory: Lungs are clear to auscultation bilaterally. No respiratory distress Cardiovascular: Irregularly irregular rate and rhythm. rate controlled Gastrointestinal: Abdomen is soft, nontender, and nondistended with positive bowel sounds. Skin: Warm and dry. No rash or lesions on limited exam. Extremities: No cyanosis or clubbing. Trace rusty ankle edema bilaterally. Radial and pedal pulses intact. No palpable knots or cords. Negative Starla sign bilaterally. Neurological: Alert. Cranial nerves 2-12 are grossly intact. No gross focal deficits to casual conversation. Psychiatric: Pleasant and cooperative with normal mood and affect. Judgment and insight intact. She is in good spirits. Objective Data Vital Signs Vital Signs: Vital Signs - 24 hr 03/06/23 14:21 03/06/23 16:00 03/06/23 14:00 Temperature 98.1 F Pulse Rate 70 61 72 Respiratory Rate 18 Blood Pressure 127/83 Pulse Oximetry 93 Oxygen Delivery 03/06/23 16:00 03/06/23 16:00 03/06/23 18:00 Tem
--- NOTE | 2023-03-07 14:34 | ECG_ITS ---
Measurements Intervals [place] Rate: 54 P: 70 AR: 162 QRS: -2 QRSD: 90 T: 1 QT: 435 QTc: 413 Interpretive Statements SINUS BRADYCARDIA NONSPECIFIC T-WAVE ABNORMALITY- ANT/INF LEADS BASELINE ARTIFACT- I, II, III, AVR, AVL, AVF, V3, V6 BORDERLINE ECG COMPARED TO ECG 03/07/2023 15:21:39 NO SIGNIFICANT CHANGES Electronically Signed On 03-08-2023 6:45:42 CDT by Max Malin D.O.
[2023-03-07] MEDS: RIVAROXABAN 20 MG TABLET PO (18:24)
--- NOTE | 2023-03-07 22:00 | ECG_ITS ---
Measurements Intervals [place] Rate: 57 P: 85 VA: 156 QRS: 0 QRSD: 90 T: -30 QT: 427 QTc: 416 Interpretive Statements SINUS BRADYCARDIA DELAYED PRECORDIAL R/S TRANSITION NONSPECIFIC T-WAVE ABNORMALITY- ANTEROLAT/INF LEADS BASELINE WANDER- I, II, AVR, AVF BORDERLINE ECG COMPARED TO ECG 03/07/2023 10:40:50 SINUS BRADYCARDIA NOW PRESENT Electronically Signed On 03-07-2023 15:29:04 CDT by Max Malin D.O.
[2023-03-08] VITALS (17 sets, daily range): BP systolic 126–145; BP diastolic 68–76; PULSE 46–72; RESP 18–20; TEMP 36.2–36.7; O2SAT 96–100
[2023-03-08 05:13] LABS: Basophils Absolute Auto 0.1 K/mm3 (0.0-0.1); Basophils Percent Auto 1.1 % (0.2-1.2); Eosinophils Absolute Auto 0.3 K/mm3 (0-0.3); Eosinophils Percent Auto 3.8 % (0-4.4); Hematocrit 39.8 % (37.0-47.0); Immature Granulocyte Absolute 0.02 K/mm3 (0.00-0.031); Immature Granulocyte Percent A 0.3 % (0-0.5); Lymphocytes Absolute Auto 2.34 K/mm3 (0.9-3.2); Lymphocytes Percent Auto 35.9 % (18.3-44.2); Mean Corpuscular HGB Conc 32.7 g/dl (32-36); Mean Corpuscular Hemoglobin 30.3 pg (26-34); Mean Corpuscular Volume 92.8 fl (80-100); Monocytes Absolute Auto 0.7 K/mm3 (0.1-0.6); Monocytes Percent Auto 10.3 % (2.6-8.5); Neutrophils Absolute Auto 3.2 K/mm3 (1.3-6.7); Neutrophils Percent Auto 48.6 % (45.5-73.1); Platelet Count Result 160 k/mm3 (150-375); Red Blood Count 4.29 M/mm3 (4.2-5.4); Red Cell Distribution Width 14.5 % (11.5-14.5); White Blood Count 6.5 K/mm3 (4.5-10.0)
[2023-03-08 05:27] LABS: Alanine Aminotransferase 27 U/L (6-35); Albumin Level 3.6 g/dL (3.5-5.1); Alkaline Phosphatase 57 U/L (38-126); Anion Gap 7 mmol/L (8-16); Aspartate Amino Transferase 29 U/L (14-36); Bilirubin,Total 0.8 mg/dL (0.2-1.3); Blood Urea Nitrogen 29 mg/dL (7-17); Calcium 8.5 mg/dL (8.4-10.2); Carbon Dioxide 28 mmol/L (22-30); Chloride 103 mmol/L (98-107); Estimated CRCL calculation 40 ml/min; Estimated Glomerular Filt Rate 48; Glucose 97 mg/dL (65-110); Magnesium 2.2 mg/dL (1.6-2.3); Potassium 3.7 mmol/L (3.4-5.0); Sodium 138 mmol/L (137-145)
[2023-03-08] MEDS: POTASSIUM CHLORIDE 20 MEQ TABLET.ER 40 MEQ PO (09:13)
[2023-03-08] MEDS: SOTALOL HCL 80 MG TABLET PO ×2 (09:14→20:56)
[2023-03-08] MEDS: FUROSEMIDE 40 MG TABLET PO (09:14)
--- NOTE | 2023-03-08 09:21 | P.CDI_ITS ---
CDI Query Clarification Request CHF noted on the assessment and plan. Elevated BNP on 03/05/23 lab work. Pulmonary edema noted on the 03/[address] chest [address] chest CT. Patient presented with shortness of breath. Patient receiving Lasix. Please specify type and acuity of heart failure if known. * Acute * Chronic * Acute on Chronic * Unknown * Systolic * Diastolic * Combined Systolic and Diastolic * Unknown <Dulce Ng RN - Last Filed: 03/08/23 09:25> Unknown severity of CHF CHF noted on the assessment and plan. Elevated BNP on 03/05/23 lab work. Pulmonary edema noted on the 03/[address] chest CT. Patient presented with shortness of breath. Patient receiving Lasix. Please specify type and acuity of heart failure if known. * Acute * Chronic * Acute on Chronic * Unknown * Systolic * Diastolic * Combined Systolic and Diastolic * Unknown <Stefan Pollack MD - Last Filed: 03/08/23 11:24>
--- NOTE | 2023-03-08 09:21 | WPDCDIQUERY2 ---
CDI Query Clarification Request CHF noted on the assessment and plan. Elevated BNP on 03/05/23 lab work. Pulmonary edema noted on the 03/05 chest xray and chest CT. Patient presented with shortness of breath. Patient receiving Lasix. Please specify type and acuity of heart failure if known. Acute Chronic Acute on Chronic Unknown Systolic Diastolic Combined Systolic and Diastolic Unknown <Dulce Ng RN - Last Filed: 03/08/23 09:25> Unknown severity of CHF CHF noted on the assessment and plan. Elevated BNP on 03/05/23 lab work. Pulmonary edema noted on the 03/05 chest xray and chest CT. Patient presented with shortness of breath. Patient receiving Lasix. Please specify type and acuity of heart failure if known. Acute Chronic Acute on Chronic Unknown Systolic Diastolic Combined Systolic and Diastolic Unknown <Stefan Pollack MD - Last Filed: 03/08/23 11:24>
--- NOTE | 2023-03-08 10:00 | ECG_ITS ---
Measurements Intervals [place] Rate: 57 P: 76 [place]: 163 QRS: -2 QRSD: 106 T: -47 QT: 442 QTc: 432 Interpretive Statements SINUS BRADYCARDIA WITH SINUS ARRHYTHMIA NONSPECIFIC T-WAVE ABNORMALITY- INFERIOR LEADS BASELINE WANDER- V2 BORDERLINE ECG COMPARED TO ECG 03/07/2023 22:33:19 SINUS ARRHYTHMIA NOW PRESENT Electronically Signed On 03-08-2023 11:05:40 CDT by Max Malin D.O.
--- NOTE | 2023-03-08 12:49 | PM.IMPN ---
Progress Note: A&P Assessment and Plan (1) Atrial fibrillation with rapid ventricular response: Code(s): I48.91 - Unspecified atrial fibrillation Status: Acute Assessment and Plan: controlled. TSH is within normal limits. Cardiology has been consulted and started on sotalol load. (2) New onset of congestive heart failure: Code(s): I50.9 - Heart failure, unspecified Status: Acute Assessment and Plan: Patient appears to have new onset congestive heart with pulmonary edema and elevated proBNP. May be related to high output from above. Continue diuresis with furosemide. well compensated. Echocardiogram suggests heart failure with preserved ejection fraction. Cardiology consulted. (3) Suspected sleep apnea: Code(s): R29.818 - Other symptoms and signs involving the nervous system Status: Acute Assessment and Plan: Apnea link in February 2022 showed an AHI of 21, suspicious for pathologic breathing breathing disorder. She will need a formal patient polysomnogram. (4) Chronic anticoagulation: Code(s): Z79.01 - half-way (current) use of anticoagulants Status: Acute Assessment and Plan: Continue rivaroxaban for stroke prophylaxis. (5) Hypertension: Qualifiers: Hypertension type: primary hypertension Qualified Code(s): I10 - Essential (primary) hypertension Code(s): I10 - Essential (primary) hypertension Status: Acute Assessment and Plan: Improved Subjective Date/time seen: 03/08/23 12:49 Interval history: patient asymptomatic at this time Review of Systems Review of Systems: All systems reviewed & are unremarkable except as noted in HPI and below Exam Narrative: General: Well-developed, nontoxic-appearing female sitting up in bed in no distress. HEENT: PERRL, EOMI. Sclera anicteric. Oral mucosa moist. Neck: Supple. No JVD. Respiratory: Lungs are clear to auscultation bilaterally. No respiratory distress Cardiovascular: Irregularly irregular rate and rhythm. rate controlled Gastrointestinal: Abdomen is soft, nontender, and nondistended with positive bowel sounds. Skin: Warm and dry. No rash or lesions on limited exam. Extremities: No cyanosis or clubbing. Trace rusty ankle edema bilaterally. Radial and pedal pulses intact. No palpable knots or cords. Negative Starla sign bilaterally. Neurological: Alert. Cranial nerves 2-12 are grossly intact. No gross focal deficits to casual conversation. Psychiatric: Pleasant and cooperative with normal mood and affect. Judgment and insight intact. She is in good spirits. Objective Data Vital Signs Vital Signs: Vital Signs - 24 hr 03/07/23 14:00 03/07/23 16:00 03/07/23 16:00 Temperature 97.8 F Pulse Rate 57 L 63 61 Respiratory Rate 18 Blood Pressure 131/88 Pulse Oximetry 100 Oxygen Delivery 03/07/23 18:00 03/07/23 18:00 03/07/23 19:48 Temperature 97.2 F L Pulse Rate 70 60 Respiratory Rate 20 Blood Pressure 117/52 L 131/69 Pulse Oximetry 98 Oxygen Delivery 03/07/23 20:41 03/07/23 23:07 03/07/23 20:00 Temperature 97.4 F L Pulse Rate 60 54 L Respiratory Rate 20 Blood Pressure 131/60 Pulse Oximetry 97 Oxygen Delivery Room Air 03/07/23 20:00 03/07/23 22:00 03/08/23 00:00 Temperature Pulse Rate 56 L 58 L 53 L Respiratory Rate Blood Pressure Pulse Oximetry Oxygen Delivery 03/08/23 00:00 03/08/23 02:00 03/08/23 04:00 Temperature Pulse Rate 52 L Respiratory Rate Blood Pressure Pulse Oximetry Oxygen Delivery Room Air Room Air 03/08/23 04:00 03/08/23 04:00 03/08/23 06:00 Temperature 97.5 F L Pulse Rate 46 L 46 L 54 L Respiratory Rate 20 Blood Pressure 145/68 H Pulse Oximetry 99 Oxygen Delivery 03/08/23 07:47 03/08/23 09:14 Temperature 97.5 F L Pulse Rate 55 L 61 Respiratory Rate 18 Blood Pressure 126/70 Pulse Oximetry 96 Oxy
--- NOTE | 2023-03-08 15:37 | PM.PNCARD ---
Progress Note: A&P Assessment and Plan (1) New onset of congestive heart failure: Code(s): I50.9 - Heart failure, unspecified Status: Acute Assessment and Plan: New onset heart failure with preserved ejection fraction from 02/2022 echo. Exacerbated secondary to AFib with RVR most likely.? Patient appears to be clinically euvolemic at this time. Monitor volume status. CHF counseling performed. EF preserved 60 65% moderate MR/TR. Continue furosemide for heart failure management. May transition to 20 mg daily prior to discharge tomorrow. No evidence of acute myocardial ischemia or known underlying CAD, however, given associated chest pain can not exclude underlying CAD.? Discussed ischemic evaluation on an outpatient basis. 03/07/2023 2D echo: Personally reviewed and discussed Summary ? 1. Complete two-dimensional, color flow and Doppler transthoracic echocardiogram is performed. ? 2. Technically difficult study with limited views. ? 3. Left ventricular chamber dimension is normal. ? 4. Left ventricular systolic function is normal, estimated at 60-65%. ? 5. There is no increased left ventricular wall thickness. ? 6. The left ventricular diastolic function is indeterminate. ? 7. There is moderate mitral valve regurgitation. ? 8. There is moderate tricuspid valve regurgitation. ? 9. Mild pulmonary hypertension, estimated pulmonary arterial systolic pressure is 36 mmHg. (2) Atrial fibrillation with rapid ventricular response: Code(s): I48.91 - Unspecified atrial fibrillation Status: Acute Assessment and Plan: Sotalol started evening of 03/06, last dose this evening. QT corrected interval acceptable thus far. Repeat ECG post sotalol dosing see evening. Her fifth dose will be evening 03/08. Anticipate discharge home tomorrow provided no new issues overnight. Check EKGs after each Sotalol dose. Thus far, QTc is acceptable. Continue Xarelto 20 mg at bedtime for anticoagulation for embolic stroke risk reduction. She will keep her follow-up appointment with me as scheduled March 22 as an outpatient. Continue telemetry and ECG monitoring to assess for sotalol toxicity while loading. Recommendation follow as clinically appropriate. (3) KASSANDRA (obstructive sleep apnea): Code(s): G47.33 - Obstructive sleep apnea (adult) (pediatric) Status: Acute Assessment and Plan: Formal sleep study as an outpatient for titration assessment for CPAP. Explained risk for decompensated heart failure, recurrent atrial fibrillation ring other complications untreated KASSANDRA.? Patient verbalized understanding and agrees. (4) Hypertension: Qualifiers: Hypertension type: primary hypertension Qualified Code(s): I10 - Essential (primary) hypertension Code(s): I10 - Essential (primary) hypertension Status: Acute Assessment and Plan: BP better controlled, hypertensive at presentation.? Recommendations based on tolerance medications and control of AFib. Continue sotalol 80 mg twice daily, Lasix. 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 Monitor for bleeding.? Follow H&H. Stable no acute issues. (6) Hypokalemia: Code(s): E87.6 - Hypokalemia Status: Acute Assessment and Plan: Keep potassium around 4.0. Stable no issues. Continue potassium chloride supplementation. If reduce Lasix to 20 mg daily prior to discharge will reduce potassium chloride to 20 mEq daily with a BMP in 2 weeks. Subjective Date/time seen: Date of service: 03/08/23 15:37 Interval history: Reason for visit: Atrial fibrillation with RVR, CHF Date of service 03/07: Sotalol initiated last night. Received dose #2 this morning. EKG last night and this morning with acceptable QTc. Still in atrial fibrillation this morning, but heart rates in the 100s. Patient states
--- NOTE | 2023-03-08 15:54 | PCCCNOTE ---
On 03/08/23, the student, [Mary Cline ], provided care and completed [facility] documentation on this patient. I have reviewed the student's documentation and agree with the findings.
[2023-03-08] MEDS: RIVAROXABAN 20 MG TABLET PO (17:32)
--- NOTE | 2023-03-08 22:33 | ECG_ITS ---
Measurements Intervals [place] Rate: 58 P: 76 [place]: 166 QRS: 1 QRSD: 86 T: 0 QT: 419 QTc: 413 Interpretive Statements SINUS BRADYCARDIA NONSPECIFIC T-WAVE ABNORMALITY- ANT/INF LEADS BASELINE ARTIFACT- I, II, III, AVR, AVL, AVF, V1-V6 BORDERLINE ECG COMPARED TO ECG 03/08/2023 10:43:41 NO SIGNIFICANT CHANGES Electronically Signed On 03-10-2023 12:25:53 CDT by Max Malin D.O.
[2023-03-09] VITALS (8 sets, daily range): BP systolic 119–141; BP diastolic 61–65; PULSE 49–70; RESP 18–30; TEMP 35.8–36.6; O2SAT 94–99
[2023-03-09] MEDS: SOTALOL HCL 80 MG TABLET PO (08:45)
[2023-03-09] MEDS: POTASSIUM CHLORIDE 20 MEQ TABLET.ER 40 MEQ PO (08:45)
[2023-03-09] MEDS: FUROSEMIDE 40 MG TABLET PO (08:45)
--- NOTE | 2023-03-09 10:13 | ECG_ITS ---
Measurements Intervals [place] Rate: 56 P: 36 [place]: 170 QRS: -8 QRSD: 85 T: -31 QT: 425 QTc: 410 Interpretive Statements SINUS BRADYCARDIA T WAVE ABNORMALITY IN INFERIOR LEADS- CONSIDER ISCHEMIA ABNORMAL ECG COMPARED TO ECG 03/08/2023 10:43:41 T-WAVE ABNORMALITY IS MORE PRONOUNCED Electronically Signed On 03-09-2023 10:55:22 CDT by Max Malin D.O.
--- NOTE | 2023-03-09 11:36 | PM.DS ---
DS: Admitting Diagnosis Discharge Date 03/09/2023 Admitting Diagnosis AFib with RVR CHF DS: Discharge Diagnosis Discharge Diagnosis (1) Congestive heart failure: Code(s): I50.9 - Heart failure, unspecified Status: Acute (2) Chronic anticoagulation: Code(s): Z79.01 - custodial (current) use of anticoagulants Status: Acute (3) Paroxysmal atrial fibrillation: Code(s): I48.0 - Paroxysmal atrial fibrillation Status: Acute DS: Summary Hospital Course Hospital Course: (1) New onset of congestive heart failure: New onset heart failure with preserved ejection fraction from 02/2022 echo. Exacerbated secondary to AFib with RVR most likely.? Patient appears to be clinically euvolemic at this time.? Monitor volume status.? CHF counseling performed. EF preserved 60 65% moderate MR/TR. Continue furosemide for heart failure management.? May transition to 20 mg daily prior to discharge. No evidence of acute myocardial ischemia or known underlying CAD, however, given associated chest pain can not exclude underlying CAD.? Discussed ischemic evaluation on an outpatient basis. 03/07/2023 2D echo:? Summary ? 1. Complete two-dimensional, color flow and Doppler transthoracic echocardiogram is performed. ? 2. Technically difficult study with limited views. ? 3. Left ventricular chamber dimension is normal. ? 4. Left ventricular systolic function is normal, estimated at 60-65%. ? 5. There is no increased left ventricular wall thickness. ? 6. The left ventricular diastolic function is indeterminate. ? 7. There is moderate mitral valve regurgitation. ? 8. There is moderate tricuspid valve regurgitation. ? 9. Mild pulmonary hypertension, estimated pulmonary arterial systolic pressure is 36 mmHg. (2) Atrial fibrillation with rapid ventricular response: Sotalol started evening of 03/06, last dose this evening.? QT corrected interval acceptable thus far.? Repeat ECG post sotalol dosing see evening. Her fifth dose will be evening 03/08. Anticipate discharge home tomorrow provided no new issues overnight. Check EKGs after each Sotalol dose. Thus far, QTc is acceptable. Continue Xarelto 20 mg at bedtime for anticoagulation for embolic stroke risk reduction. She will keep her follow-up appointment with Dr. Acosta, Cardiology, as scheduled March 22 as an outpatient. Continue telemetry and ECG monitoring to assess for sotalol toxicity while loading.? Recommendation follow as clinically appropriate. (3) KASSANDRA (obstructive sleep apnea): Formal sleep study as an outpatient for titration assessment for CPAP.? Explained risk for decompensated heart failure, recurrent atrial fibrillation ring other complications untreated KASSANDRA.? Patient verbalized understanding and agrees. (4) Hypertension: BP better controlled, hypertensive at presentation.? Recommendations based on tolerance medications and control of AFib.? Lasix. (5) Chronic anticoagulation: Continue Xarelto 20 mg at bedtime.? Monitor for bleeding.? Follow H&H.? Stable no acute issues. (6) Hypokalemia: Keep potassium around 4.0.? Stable no issues.? Continue potassium chloride supplementation.? If reduce Lasix to 20 mg daily prior to discharge will reduce potassium chloride to 20 mEq daily with a BMP in 2 weeks. Time Spent with Patient Time attestation: Total time spent providing and/or coordinating discharge services: Exam Narrative: General: Well-developed, nontoxic-appearing female sitting up in bed in no distress. HEENT: PERRL, EOMI. Sclera anicteric. Oral mucosa moist. Neck: Supple. No JVD. Respiratory: Lungs are clear to auscultation bilaterally. No respiratory distress Cardiovascular: Irregularly irregular rate and rhythm. rate controlled Gastrointestinal: Abdomen is soft, nontender, and nondistended with positive bowel sounds. Skin: Warm and dry. No rash or lesions on limited exam. Extremities: No cyanosis or clubbing. Trace rusty ankle edema bilaterally. Radial
--- NOTE | 2023-03-09 11:43 | PM.PNCARD ---
Progress Note: A&P Assessment and Plan (1) New onset of congestive heart failure: Code(s): I50.9 - Heart failure, unspecified <ALISON Romero - Last Filed: 03/09/23 11:50> Status: Acute <ALISON Romero - Last Filed: 03/09/23 11:50> Assessment and Plan: New onset heart failure with preserved ejection fraction from 02/2022 echo. Exacerbated secondary to AFib with RVR most likely.? Patient appears to be clinically euvolemic at this time. Monitor volume status. CHF counseling performed. EF preserved 60 65% moderate MR/TR. Continue furosemide - Transition to 20 mg daily at discharge. No evidence of acute myocardial ischemia or known underlying CAD, however, given associated chest pain can not exclude underlying CAD.? Discussed ischemic evaluation on an outpatient basis. 03/07/2023 2D echo: Personally reviewed and discussed Summary ? 1. Complete two-dimensional, color flow and Doppler transthoracic echocardiogram is performed. ? 2. Technically difficult study with limited views. ? 3. Left ventricular chamber dimension is normal. ? 4. Left ventricular systolic function is normal, estimated at 60-65%. ? 5. There is no increased left ventricular wall thickness. ? 6. The left ventricular diastolic function is indeterminate. ? 7. There is moderate mitral valve regurgitation. ? 8. There is moderate tricuspid valve regurgitation. ? 9. Mild pulmonary hypertension, estimated pulmonary arterial systolic pressure is 36 mmHg. <ALISON Romero - Last Filed: 03/09/23 11:50> (2) Atrial fibrillation with rapid ventricular response: Code(s): I48.91 - Unspecified atrial fibrillation <ALISON Romero - Last Filed: 03/09/23 11:50> Status: Acute <ALISON Romero - Last Filed: 03/09/23 11:50> Assessment and Plan: Sotalol started evening of 03/06, last dose yesterday evening. QT corrected interval acceptable thus far - 410msec this a.m. Continue Xarelto 20 mg at bedtime for anticoagulation for embolic stroke risk reduction. OK for discharge home today. She will keep her follow-up appointment with Dr. Acosta as scheduled March 22 as an outpatient. <ALISON Romero - Last Filed: 03/09/23 11:50> (3) KASSANDRA (obstructive sleep apnea): Code(s): G47.33 - Obstructive sleep apnea (adult) (pediatric) <ALISON Romero - Last Filed: 03/09/23 11:50> Status: Acute <ALISON Romero - Last Filed: 03/09/23 11:50> Assessment and Plan: Formal sleep study as an outpatient for titration assessment for CPAP. <ALISON Romero - Last Filed: 03/09/23 11:50> (4) Hypertension: Qualifiers: Hypertension type: primary hypertension Qualified Code(s): I10 - Essential (primary) hypertension <ALISON Romero - Last Filed: 03/09/23 11:50> Code(s): I10 - Essential (primary) hypertension <ALISON Romero - Last Filed: 03/09/23 11:50> Status: Acute <ALISON Romero - Last Filed: 03/09/23 11:50> Assessment and Plan: BP better controlled, hypertensive at presentation.? <ALISON Romero - Last Filed: 03/09/23 11:50> (5) Chronic anticoagulation: Code(s): Z79.01 - correction (current) use of anticoagulants <ALISON Romero - Last Filed: 03/09/23 11:50> Status: Acute <ALISON Romero - Last Filed: 03/09/23 11:50> Assessment and Plan: Continue Xarelto 20 mg at bedtime.? Monitor for bleeding.? <ALISON Romero - Last Filed: 03/09/23 11:50> (6) Hypokalemia: Code(s): E87.6 - Hypokalemia <ALISON Romero - Last Filed: 03/09/23 11:50> Status: Acute <ALISON Romero - Last Filed: 03/09/23 11:50> Assessment and Plan: Keep potassium around 4.0. Stable no issues. Continue potassium chloride supplementation. Reduce potassium chloride to 20 mEq daily with a BMP in 2 weeks. <ALISON Romero - L
--- NOTE | 2023-03-09 14:07 | PC.NURSE ---
1246 patient signed DC paperwork. All questions were answered at this time. IV taken out.
== END 2023-03-09 13:30 | disposition home or self-care (01) | DRG 308 ==
LOC: ANHED 13:24 → ANHIMU 14:08
PROVIDERS: Physician Assistant; Admitting Provider Internal Medicine; Emergency Provider General Practice; PCP Internal Medicine; Visit Provider Hospitalist
DX: I48.0 Paroxysmal atrial fibrillation (principal); I50.31 Acute diastolic (congestive) heart failure; I11.0 Hypertensive heart disease with heart failure; E03.9 Hypothyroidism, unspecified; E87.6 Hypokalemia; G47.33 Obstructive sleep apnea (adult) (pediatric); Z90.710 Acquired absence of both cervix and uterus; Z79.01 Long term (current) use of anticoagulants; Z85.41 Personal history of malignant neoplasm of cervix uteri; Z87.891 Personal history of nicotine dependence
CPT/HCPCS: 36415; 71046; 71275; 80048; 80053; 83735; 83880; 84443; 84484; 85025; 85380; 85610; 85730; 93005; 93306; 96365; 96366; 96375; 96376; 99285; A9270; G0378; J1940; Q9967

== ENCOUNTER 2023-03-16 15:49 | Outpatient (CLI) | payer MEDICARE, SELFPAY ==
[2023-03-16 16:38] LABS: Anion Gap 12 mmol/L (8-16); Blood Urea Nitrogen 28 mg/dL (7-17); Calcium 9.1 mg/dL (8.4-10.2); Carbon Dioxide 22 mmol/L (22-30); Chloride 106 mmol/L (98-107); Estimated Glomerular Filt Rate 44; Glucose 118 mg/dL (65-110); Potassium 4.6 mmol/L (3.4-5.0); Sodium 140 mmol/L (137-145)
== END 2023-03-16 15:50 | disposition home or self-care (01) ==
PROVIDERS: PCP Internal Medicine; Visit Provider Nurse Practitioner
DX: I50.9 Heart failure, unspecified (principal)
CPT/HCPCS: 36415; 80048

== ENCOUNTER 2023-04-20 13:35 | Inpatient (IN) | payer MEDICARE, SELFPAY ==
[2023-04-20] VITALS (74 sets, daily range): BP systolic 69–176; BP diastolic 38–142; PULSE 44–107; RESP 7–30; TEMP 35.8–37.9; O2SAT 54–100; BMI 30.9
--- NOTE | ~2023-04-20 | MR_ITS ---
MRI of the brain Clinical History: Confusion Technique: Axial and sagittal T1-weighted images were acquired. These were followed by axial T2-weigh abby, diffusion weighted, gradient, and FLAIR images. Findings: There is no acute infarct, intracranial hemorrhage, or mass lesion. There are moderate pr manager abrahan white matter changes in the periventricular white matter bilaterally. Ventricles and subarachnoid spaces are unremarkable. Orbits are unremarkable. Paranasal sinuses and m astoid air cells are clear. Major intracranial flow voids appear intact. Sagittal midline structures are intact. IMPRESSION: No acute infarct, intracranial hemorrhage or mass lesion. Moderate chronic microvascular ischemic changes. Reviewed, dictated and finalized at location M.
--- NOTE | ~2023-04-20 | XR_ITS ---
EXAMINATION: XR chest port-a-cath/central DATE: 04/20/2023 16:37 INDICATION: Central line placement. TECHNIQUE: A single frontal view of the chest was obtained. COMPARISON: Chest single view at 1:49 PM, chest CT 03/05/2023 FINDINGS: There is a diffuse interstitial pattern, consistent with mild pulmonary edema. No pleural e ffusion or pneumothorax. The heart size is normal. The endotracheal tube tip is 2.4 cm above the avni na. A left internal jugular central venous catheter is seen with tip in the superior vena cava. A chr onic peripherally calcified mass in the spleen most likely an old hematoma or old infection. The naso gastric tube tip is in the stomach. IMPRESSION: 1. Central line tip in superior vena cava. 2. Worsened mild pulmonary edema. Reviewed, dictated and finalized at location A.
--- NOTE | ~2023-04-20 | XR_ITS ---
Portable chest x-ray Comparison: 04/24/2023 Clinical History: Respiratory failure Findings: Endotracheal tube, NG tube, and left-sided central venous line are in satisfactory positio ns. There are small bilateral pleural effusions with mild pulmonary edema pattern. Cardiomediastinal silhouette is stable. Bones and soft tissues are unremarkable. Impression: Mild pulmonary edema with small bilateral pleural effusions. Support tubes, as above. Reviewed, dictated and finalized at location . Impression: Mild pulmonary edema with small bilateral pleural effusions. Support tubes, as above.
--- NOTE | ~2023-04-20 | XR_ITS ---
EXAMINATION: XR chest 1V portable DATE: 04/22/2023 06:13 INDICATION: Respiratory failure. TECHNIQUE: A single frontal view of the chest was obtained. COMPARISON: Chest single view 04/21/23, chest CT 03/05/2023 FINDINGS: There are small pleural effusions. There is a diffuse interstitial pattern in the lungs, co nsistent with pulmonary edema. There are airspace opacities in right lower lung zone and left mid and lower lung zones. No pneumothorax. Cardiomegaly is noted. The endotracheal tube tip is 2.0 cm above the alfredo. A left internal jugular central venous catheter is seen with tip in the superior vena cav a. The nasogastric tube tip is in the stomach. There is a right internal jugular pacer with lead in r ight ventricle. There is a peripherally calcified mass in the spleen, likely an old hematoma or old i nfection. IMPRESSION: 1. Mild pulmonary edema. 2. Airspace opacities in right lower lung zone and left mid and lower lung zones, consistent with ate lectasis versus pneumonia. 3. Stable small pleural effusions. 4. Cardiomegaly. Reviewed, dictated and finalized at location A. IMPRESSION: 1. Mild pulmonary edema. 2. Airspace opacities in right lower lung zone and left mid and lower lung zone s, consistent with atelectasis versus pneumonia. 3. Stable small pleural effusions. 4. Cardiomegaly.
--- NOTE | ~2023-04-20 | CT_ITS ---
EXAMINATION: CT brain wo con DATE: 04/20/2023 15:13 INDICATION: Cardiac arrest. Unresponsive. TECHNIQUE: Computed tomography (CT) of the head was performed without intravenous contrast. Sagittal and coronal reconstructions were performed. The mA was adjusted according to patient size. Iterative reconstruction technique was employed. The dose-length product was 756.67 mGy-cm. COMPARISON: head CT dated 03/13/22 FINDINGS: No acute intracranial hemorrhage, acute infarction or abnormal extra axial fluid collection. There is mild scattered white matter hypoattenuation consistent with chronic small vessel ischemic disease. S ymmetric prominence of the sulci consistent with mild to moderate age-appropriate diffuse cerebral vo lume loss. Ventricles are normal and symmetric. No mass/mass effect. Chronic opacification of a coupl e posterior right mastoid air cells. Changes of bilateral intraocular lens replacement. The orbits an d paranasal sinuses are normal. IMPRESSION: 1. No acute intracranial process. 2. Age-related changes including mild to moderate diffuse volume loss and mild scattered white matter hypoattenuation consistent with chronic small vessel ischemic disease. Reviewed, dictated and finalized at location L. IMPRESSION: 1. No acute intracranial process. 2. Age-related changes including mild to moderate diffuse volume loss and mild scattered white matter hypoattenuation consistent with chronic small vessel isc hemic disease.
--- NOTE | ~2023-04-20 | CT_ITS ---
EXAMINATION: CT abdomen pelvis wo con DATE: 04/23/2023 00:26 INDICATION: Decreased bowel sounds. Respiratory failure. TECHNIQUE: Computed tomography (CT) of the abdomen and pelvis was performed without intravenous contr ast. Automated exposure control and iterative reconstruction technique were employed. The dose-length product was 1354.65 mGy-cm. COMPARISON: Chest CT 03/05/2023 FINDINGS: The visualized portions of the lung bases demonstrate small pleural effusions. There is dep endent atelectasis bilaterally. There is smooth septal thickening in the lungs, consistent with pulmo nary edema. The heart size is normal. No pericardial effusion. There is a pacer wire in right ventric le. The nasogastric tube tip is in the stomach. The liver is normal. The gallbladder is distended, li deedee secondary to fasting. There is a 2.7 cm peripherally calcified mass in the spleen, likely an old hematoma or old infection. The pancreas and adrenal glands are normal. There is a 6.3 cm cyst in rig ht kidney. There are 5 stones in right kidney measuring up to 4 mm. There is a 10 mm hemorrhagic cyst of left kidney. There is calcified atherosclerosis of the aorta and many of the other arteries. Ther e is a small volume of ascites. A rectal tube is noted. There is a Hall catheter in expected positio n. The appendix is normal. There are no pathologically enlarged lymph nodes. There is severe thoracic and lumbar spondylosis. There is mild chronic height loss of multiple thoracic vertebral bodies. IMPRESSION: 1. Small pleural effusions. 2. Mild pulmonary edema. 3. Small volume of ascites. Reviewed, dictated and finalized at location A.
--- NOTE | ~2023-04-20 | XR_ITS ---
EXAMINATION: XR chest 1V portable DATE: 04/23/2023 05:34 INDICATION: Respiratory failure. TECHNIQUE: A single frontal view of the chest was obtained. COMPARISON: Chest single view 04/22/2023, CT abdomen and pelvis 04/23/2023 FINDINGS: There are small pleural effusions. There are airspace opacities in the mid and lower lung z ones. No pneumothorax. Cardiomegaly is noted. The endotracheal tube tip is 2.6 cm above the alfredo. T he nasogastric tube tip is beyond the inferior margin of the radiograph, but at least to the stomach. There is a right internal jugular pacer with tip in right ventricle. A rim-calcified mass in the spl een is likely an old hematoma or old infection. IMPRESSION: 1. Stable small pleural effusions. 2. Stable airspace opacities in the mid and lower lung zones, consistent with atelectasis or less lik oralia pneumonia. 3. Cardiomegaly. Reviewed, dictated and finalized at location A. IMPRESSION: 1. Stable small pleural effusions. 2. Stable airspace opacities in the mid and lower lung zones, consistent with a telectasis or less likely pneumonia. 3. Cardiomegaly.
--- NOTE | ~2023-04-20 | XR_ITS ---
EXAMINATION: XR abdomen NG/feed tube insert DATE: 04/20/2023 14:07 INDICATION: Nasogastric tube placement TECHNIQUE: A supine view of the abdomen and lower chest was obtained for evaluation of feeding tube placement. COMPARISON: Chest CT dated 03/05/2023 and chest radiograph dated 04/20/2023 FINDINGS: Endotracheal tube tip extends into the origin of the right mainstem bronchus. Nasogastric tube tip in proximal side port in the body of the stomach. Defibrillator pad lead projects over the right chest wall. 3.1 cm rim calcified splenic cyst projects over the left upper quadrant. No dilated loops of ga s-filled bowel in the visualized abdomen. Mild perihilar interstitial pattern consistent with mild pu lmonary edema. No pleural effusion or pneumothorax. Heart size is normal IMPRESSION: 1. Nasogastric tube in the stomach 2. Endotracheal tube tip in the right main stem bronchus Reviewed, dictated and finalized at location L.
--- NOTE | ~2023-04-20 | XR_ITS ---
Portable chest x-ray Comparison: 04/25/2023 Clinical History: Respiratory failure Findings: Endotracheal tube, NG tube, and left-sided central venous line are in satisfactory positio ns. There are small bilateral pleural effusions with mild to moderate pulmonary edema pattern. There is left lower lobe atelectasis. Cardiomediastinal silhouette is stable. Bones and soft tissues are u nremarkable. Impression: Mild to moderate pulmonary edema pattern with small bilateral pleural effusions and left lower lobe a telectasis. Support tubes, as above. Reviewed, dictated and finalized at location . Impression: Mild to moderate pulmonary edema pattern with small bilateral pleural effusions and left lower lobe atelectasis. Support tubes, as above.
--- NOTE | ~2023-04-20 | XR_ITS ---
EXAMINATION: XR chest ET placement DATE: 04/20/2023 14:07 INDICATION: Intubated. TECHNIQUE: A single frontal view of the chest was obtained. COMPARISON: Chest 2 views 03/05/2023, chest CT 03/05/2023 FINDINGS: There is a diffuse interstitial pattern, consistent mild pulmonary edema. There is no pneum onia, pleural effusion, of pneumothorax. The heart size is normal. The endotracheal tube tip is in th e right mainstem bronchus. The nasogastric tube tip is in the stomach. There is a peripherally calcif ied mass in the spleen, likely an old hematoma or old infection. IMPRESSION: 1. Endotracheal tube tip in the right mainstem bronchus. I called this result to Dr. Rosales. 2. Mild pulmonary edema. Reviewed, dictated and finalized at location A. IMPRESSION: 1. Endotracheal tube tip in the right mainstem bronchus. I called this result t o Dr. Rosales. 2. Mild pulmonary edema.
--- NOTE | ~2023-04-20 | XR_ITS ---
EXAMINATION: XR abdomen/kub 1V DATE: 04/26/2023 15:21 INDICATION: Nasogastric tube placement TECHNIQUE: A supine view of the abdomen was obtained. COMPARISON: CT dated 04/23/2023 FINDINGS: Nasogastric tube tip in proximal side port in the body the stomach. Gas within a few scattered nondil ated loops of bowel in the abdomen and visualized pelvis. Opacities at the bilateral lower lung zones consistent with small bilateral pleural effusions and associated atelectasis, pulmonary edema and/or pneumonia. Heart size is normal. Rim calcified splenic lesion at the left upper quadrant. Mild lumba r dextroscoliosis with moderate severe lumbar and lower thoracic spondylosis. IMPRESSION: 1. Nasogastric tube in the stomach. 2. Small bilateral pleural effusions with associated bibasilar atelectasis, pulmonary edema, pneumoni a or some combination thereof. Reviewed, dictated and finalized at location A. IMPRESSION: 1. Nasogastric tube in the stomach. 2. Small bilateral pleural effusions with associated bibasilar atelectasis, pul monary edema, pneumonia or some combination thereof.
--- NOTE | ~2023-04-20 | XR_ITS ---
Portable chest x-ray Comparison: 04/26/2023 Clinical History: Pulmonary edema Findings: NG tube and left-sided central venous line are in satisfactory positions. There are small bilateral pleural effusions with bibasilar atelectasis and mild pulmonary edema. Cardiomediastinal s ilhouette is stable. Bones and soft tissues are unremarkable. Impression: Small bilateral pleural effusions with bibasilar atelectasis and mild pulmonary edema. Support tubes, as above. Reviewed, dictated and finalized at location M. Impression: Small bilateral pleural effusions with bibasilar atelectasis and mild pulmonary edema. Support tubes, as above.
--- NOTE | ~2023-04-20 | XR_ITS ---
Portable chest x-ray Comparison: 04/20/2023 Clinical History: Status post cardiac arrest Findings: Endotracheal tube, NG tube, and left-sided central venous line are in satisfactory positio ns. Small left pleural effusion present with left basilar atelectasis. Probable mild central congesti ve change/pulmonary edema. Cardiomediastinal silhouette is stable. Bones and soft tissues are unrema rkable. Impression: Small left pleural effusion with left lower lobe atelectatic change. Mild central congestive change/pulmonary edema. Support tubes, as above. Reviewed, dictated and finalized at location . Impression: Small left pleural effusion with left lower lobe atelectatic change. Mild central congestive change/pulmonary edema. Support tubes, as above.
--- NOTE | ~2023-04-20 | XR_ITS ---
Portable chest x-ray Comparison: 04/23/2023 Clinical History: Respiratory failure Findings: Endotracheal tube, NG tube, and left-sided central venous line are in satisfactory positio ns. Small bilateral pleural effusions are present with mild to moderate pulmonary edema pattern. Car diomediastinal silhouette is stable. Bones and soft tissues are unremarkable. Impression: Small bilateral pleural effusions with mild to moderate pulmonary edema pattern. Support tubes, as above. Reviewed, dictated and finalized at location . Impression: Small bilateral pleural effusions with mild to moderate pulmonary edema pattern . Support tubes, as above.
--- NOTE | ~2023-04-20 | CT_ITS ---
EXAMINATION: CT brain wo con DATE: 04/23/2023 00:26 INDICATION: Mental status change. TECHNIQUE: Computed tomography (CT) of the head was performed without intravenous contrast. The mA wa s adjusted according to patient size. Iterative reconstruction technique was employed. The dose-lengt h product was 681.00 mGy-cm. COMPARISON: Head CT 04/20/2023, 03/13/2022 FINDINGS: There is a small old infarct in right cerebellum. There are scattered areas of low attenuat ion in the cerebral white matter, which is within normal limits for the patient's age. There is no in tracranial hemorrhage, acute infarction, or abnormal intracranial mass lesion. The ventricles are nor mal in size. There are likely changes of ocular lens replacement surgeries. The paranasal sinuses are clear. There are trace bilateral mastoid effusions. There is cerumen in right external auditory everett l. IMPRESSION: 1. Small old infarct in right cerebellum. Reviewed, dictated and finalized at location A.
--- NOTE | ~2023-04-20 | XR_ITS ---
MODIFIED ESOPHAGRAM HISTORY: Recent intubation. Difficulty swallowing. TECHNIQUE: Modified barium esophagram was performed by speech pathologist under radiologist fluorosco pic guidance. This was recorded on tape. The exam was reviewed on 05/02/2023 11:34 CDT. The DAP for this procedure was XXXXDAP#.#XXX Gycm2. Fluoroscopy time is . FINDINGS: Lateral projection of the cervical spine demonstrates normal alignment. There is excessiv e mastication time. Laryngeal penetration is identified with thin liquids. No definite aspiration see n. The remainder of the examination is unremarkable. IMPRESSION: 1: Trace laryngeal penetration with thin liquids without definite aspiration. 2: Please refer to speech pathologist report for additional detail. Reviewed, dictated and finalized at location A.
--- NOTE | 2023-04-20 13:41 | ECG_ITS ---
Measurements Intervals [place] Rate: 55 P: [place]: 0 QRS: 4 QRSD: 133 T: 0 QT: 307 QTc: 294 Interpretive Statements JUNCTIONAL RHYTHM RIGHT BUNDLE BRANCH BLOCK BASELINE WANDER- I, II, III, AVR, AVL, AVF, V1 ABNORMAL ECG COMPARED TO ECG 03/09/2023 10:46:29 JUNCTIONAL RHYTHM NOW PRESENT RIGHT BUNDLE-BRANCH BLOCK NOW PRESENT Electronically Signed On 04-20-2023 14:18:35 CDT by Max Malin D.O.
--- NOTE | 2023-04-20 14:01 | ED.CPR ---
HPI - CPR General Chief Complaint: Cardiac Arrest/CPR Stated Complaint: cardiac arrest Time Seen by Provider: 04/20/23 13:40 Source: family, EMS, RN notes reviewed and old records reviewed Mode of arrival: EMS Limitations: clinical condition History of Present Illness HPI narrative: This is a 78 year old female with history of CHF, atrial fibrillation who presents for evaluation after cardiac arrest. Patient's son states he heard a thud and he found his mother in law unresponsive and pulseless. He started CPR after calling 911. EMS found patient to be VFib arrest. Patient was shocked 3 times and received 3 dose of EPI. They report patient regained pulse just as they were about to given Amiodarone so patient had 150 mg IV infusion of Amiodarone in Route. She was intubated in the field. Daugher and son in law state patient has been doing well since leaving hospital in February. She was admitted during that visit for new onset afib and CHF. Related Data Home Medications Medication Instructions Recorded Confirmed sotalol 80 mg tablet 80 mg PO BID 04/20/23 04/20/23 Allergies Allergy/AdvReac Type Severity Reaction Status Date / Time shellfish derived Allergy Hives Verified 03/05/23 09:14 Review of Systems Review of Systems: ROS unobtainable: Yes unobtainable due to medical condition PMFSH Past Medical History Medical History Chronic anticoagulation History of cervical cancer Hypertension Hypothyroidism Paroxysmal atrial fibrillation Surgical History Surgical History History of History of colonoscopy with polypectomy History of open reduction and internal fixation (ORIF) procedure (03/16/22) Repair of left ankle fracture per Dr. Banerjee. History of partial hysterectomy For cervical cancer. Family History Family History Father Cancer Hypertension Mother Diabetes mellitus Hypertension Heart disease Sibling Heart disease Other Acute myocardial infarction Social History Social History Social History: Surrogate medical decision maker: Alejandra Parish, daughter. Code status: Full code. Smoking status: Former smoker Tobacco type: cigarettes Alcohol intake: former Substance use: never Lack of Transportation: No Lack of Food: Never True Current Housing: I Have Housing Concerned About Future Housing: No Difficulty Paying Gas/Electric Bills: No Difficulty Paying for Meds: No Currently Unemployed: No Education: High School Diploma/GED Difficulty w/ Childcare or Family Care: No Living arrangements: alone Additional living arrangements comments: [place]. Occupation/Education: retired Spiritual care concerns: No Exam Const: General: ill appearing Limitations: altered mental status Other: unresponsive HENMT: Head: normal to inspection Mouth: Yes Normal oral and palatal mucosa present and Yes lip normal Other: ETT in place 27 at teeth Eyes: Other: unable to assess EOMI, pupils 3 mm minimal reactive Neck: Neck: normal visual inspection Chest: Other: abrasion to mid chest likely from katie Resp: Auscultation: clear to auscultation bilaterally Other: assisted ventilations with BVM Cardio: Rate: bradycardic Rhythm: abnormal rhythm Heart sounds: Murmur heart sound present GI: GI Palp: Yes Soft to palpation, No Firmness to palpation present (GI), No Guarding due to palpation present (GI) and No Rigid due to palpation Auscultation: normal bowel sounds Skin: General skin exam: pallor Neuro: Other: unable to assess Extrem: General: no pedal edema Course Reevaluation(s) Reevaluation #1: Patient loss pulse and was in PEA. CPR started and epi x 2 given. Patient had ROSC. Date:
--- NOTE | 2023-04-20 14:13 | PC.NURSE ---
1402: No pulse at this time, CPR restarted, manually ventilation started. Code Blue called over head. 1407: ROSC obtained
[2023-04-20 14:22] LABS: Alveolar/Arterial O2 Gradient 497.4 mmHg; Base Excess ABG -4.7 mEq/l (+/-2.0); Carboxyhemoglobin 0.7 % THb (0-2.0); Fractional Inspired Oxygen 100 %; HCO3 ABG 20.5 mEq/l (22.0-26.0); Methemoglobin ABG 0.4 %THb (0-1.5); Oxygen Content ABG 20.3 %vol (16.0-22.0); Oxygen Saturation ABG 99.1 % (95.0-100.0); Oxyhemoglobin 97.5 % THb (90.0-100.0); PCO2 ABG 38.3 mmHg (35.0-45.0); PO2 ABG 177.3 mmHg (80.0-100.0); PO2 FiO2 Ratio Arterial Blood 1.77 %; Reduced Hemoglobin 1.4 %THb (0-5.0); Total Hemoglobin 14.6 g/dL (12.0-18.0); pH ABG 7.346 (7.350-7.450)
[2023-04-20 14:23] LABS: Device VENTILATOR; Site Drawn RIGHT BRACHIAL
[2023-04-20 14:25] LABS: Arterial Blood Gas PEEP 5 cmH2O; Arterial Blood Gas Tidal Volume 450 ml; Arterial Blood Gas Vent Mode CMV; Arterial Blood Gas Ventilator rate 14 /MIN
[2023-04-20] MEDS: NOREPINEPHRINE 8 MG/D5W 250 ML 8 MG/250 ML BAG 9.38 MG IV CONT (14:27)
[2023-04-20 14:35] LABS: Basophils Absolute Auto 0.1 K/mm3 (0.0-0.1); Basophils Percent Auto 0.6 % (0.2-1.2); Eosinophils Absolute Auto 0.2 K/mm3 (0-0.3); Eosinophils Percent Auto 1.1 % (0-4.4); Hematocrit 49.3 % (37.0-47.0); Hemoglobin 15.4 g/dL (12.0-15.0); Immature Granulocyte Absolute 0.63 K/mm3 (0.00-0.031); Immature Granulocyte Percent A 4.2 % (0-0.5); Lymphocytes Absolute Auto 5.23 K/mm3 (0.9-3.2); Lymphocytes Percent Auto 35.1 % (18.3-44.2); Mean Corpuscular HGB Conc 31.2 g/dl (32-36); Mean Corpuscular Volume 96.1 fl (80-100); Mean Platelet Volume 11.1 fl (7.4-10.4); Monocytes Absolute Auto 0.6 K/mm3 (0.1-0.6); Monocytes Percent Auto 4.1 % (2.6-8.5); Neutrophils Absolute Auto 8.2 K/mm3 (1.3-6.7); Neutrophils Percent Auto 54.9 % (45.5-73.1); Platelet Count Result 147 k/mm3 (150-375); Red Blood Count 5.13 M/mm3 (4.2-5.4); White Blood Count 14.9 K/mm3 (4.5-10.0)
[2023-04-20 14:45] LABS: Alanine Aminotransferase 354 U/L (6-35); Alkaline Phosphatase 98 U/L (38-126); Anion Gap 12 mmol/L (8-16); Aspartate Amino Transferase 497 U/L (14-36); Bilirubin,Total 1.1 mg/dL (0.2-1.3); Blood Urea Nitrogen 23 mg/dL (7-17); Calcium 8.6 mg/dL (8.4-10.2); Carbon Dioxide 19 mmol/L (22-30); Chloride 109 mmol/L (98-107); Estimated CRCL calculation 40 ml/min; Estimated Glomerular Filt Rate 44; Glucose 170 mg/dL (65-110); INR 1.7; Lipase 189 U/L (23-300); Magnesium 2.3 mg/dL (1.6-2.3); Potassium 4.1 mmol/L (3.4-5.0); Prothrombin Time 21.1 Seconds (11.1-14.7); Sodium 140 mmol/L (137-145)
[2023-04-20 14:46] LABS: Partial Thromboplastin Time 33.5 SECONDS (22.3-36.8)
[2023-04-20 14:48] LABS: Lactic Acid Reflex 5.8 mmol/L (0.7-2.0)
[2023-04-20] MEDS: fentaNYL CITRATE INJ (*CRX) 100 MCG/2 ML VIAL 50 MCG IV PUSH (14:49)
[2023-04-20 14:52] LABS: Glucose Point of Care 177 mg/dl (65-105)
[2023-04-20 15:10] LABS: NT Pro B Type Natriuretic Pept 1840 pg/mL (19.9-100); Troponin I 0.047 ng/mL (0.000-0.034)
--- NOTE | 2023-04-20 15:25 | PC.NURSE ---
Ice packs placed on pt at this time
[2023-04-20] MEDS: MIDAZOLAM HCL (*CRX) 2 MG/2 ML VIAL IV PUSH (15:28)
[2023-04-20] MEDS: LACTATED RINGERS 1,000 ML 999 ML IV CONT (15:29)
[2023-04-20 15:31] LABS: Appearance Urine Cloudy (Clear); Bacteria Urine 2+ /hpf; Bilirubin Urine Negative (Negative); Blood Urine 2+ (Negative); Color Urine Yellow (Yellow); Glucose Urine UA Trace mg/dL (Negative); Granular Casts Urine Present /lpf; Ketones Urine Trace mg/dL (Negative); Leukocyte Esterase Ur 1+ LEU/UL (Negative); Need Manual Microscopic Reviewed; Nitrate Urine Negative (Negative); Non Pathogenic Casts >20; Protein Urine 3+ mg/dL (Negative); RBC Urine 21-50 /hpf (0-2); Specific Grav Ur 1.021 (1.001-1.035); Squamous Epithelial Cell Urine Moderate /hpf (Few); WBC Urine 51-100 /hpf; pH Urine 5.5 (5.0-9.0)
[2023-04-20 15:35] LABS: Add Urine Microscopic? YES
--- NOTE | 2023-04-20 15:42 | ECG_ITS ---
Measurements Intervals [place] Rate: 26 P: 66 [place]: 145 QRS: -8 QRSD: 86 T: 267 QT: 592 QTc: 396 Interpretive Statements SINUS BRADYCARDIA WITH SECOND DEGREE AV BLOCK, TYPE II NONSPECIFIC ST & T-WAVE ABNORMALITY- DIFFUSE LEADS BASELINE ARTIFACT- AVR, AVL, AVF ABNORMAL ECG COMPARED TO ECG 04/20/2023 13:39:22 SECOND DEGREE AV BLOCK, TYPE II NOW PRESENT ST-T WAVE ABNORMALITY NOW PRESENT Electronically Signed On 04-20-2023 20:18:56 CDT by Max Malin D.O.
[2023-04-20] MEDS: PROPOFOL IV EMULSION 100 ML 2.63 MG IV CONT (15:49)
[2023-04-20] MEDS: SODIUM CHLORIDE 0.9% IV 1,000 ML 125 ML IV CONT (15:51)
--- NOTE | 2023-04-20 16:08 | ECG_ITS ---
Measurements Intervals [place] Rate: 101 P: [place]: 0 QRS: -37 QRSD: 168 T: 147 QT: 484 QTc: 629 Interpretive Statements ELECTRONIC VENTRICULAR PACEMAKER UNDERLYING PROBABLY ATRIAL TACHYCARDIA NO FURTHER INTERPRETATION IS POSSIBLE ABNORMAL ECG COMPARED TO ECG 04/21/2023 09:46:07 VENTRICULAR PACEMAKER NOW PRESENT UNDERLYING PROBABLY ATRIAL TACHYCARDIA NOW PRESENT Electronically Signed On 04-22-2023 16:28:58 CDT by Max Malin D.O.
--- NOTE | 2023-04-20 16:32 | PM.CNCAR ---
Assessment and Plan Assessment and plan (1) Cardiac arrest with ventricular fibrillation: Code(s): I46.9 - Cardiac arrest, cause unspecified; I49.01 - Ventricular fibrillation Status: Acute Assessment and Plan: Initial arresting rhythm VFIB per the EMS. Had 2 PEA arrests while in the ED. Unclear etiology at this time for her cardiac arrest. No reports of chest pain or other symptoms earlier today per the family. No ischemic changes on the EKG here in the ED. On Sotalol at home -- possibly prolonged QT resulting in Torsades?? Manually measured QT on the first EKG shows QT of 515msec. On tele, when patient first arrived and was hooked up to tele, manual measurements of QT about 600msec. QT on tele around 3PM then around 500msec. Second EKG with QT at 480msec. At this time, no emergent indication for cardiac catheterization. Will start hypothermia protocol. Heparin drip. Will hold off on additional doses of Amio given HR in the 60s. Obtain echo. Continue supportive care. (2) Shock: Code(s): R57.9 - Shock, unspecified Status: Acute Assessment and Plan: On Levophed. (3) Elevated troponin: Code(s): R77.8 - Other specified abnormalities of plasma proteins Status: Acute Assessment and Plan: Initial troponin of 0.047. Continue to trend. (4) Paroxysmal atrial fibrillation: Code(s): I48.0 - Paroxysmal atrial fibrillation Status: Acute Assessment and Plan: Currently in sinus rhythm. Hold Sotalol. Hold Xarelto. History of Present Illness History of Present Illness Consult date/time: 04/20/23 16:32 Requesting physician: Kenzie Rosales MD Consult reason: Other (Cardiac arrest) Reason For Visit: cardiac arrest Narrative: We are consulted for cardiac arrest. Patient unable to provide any history as she is intubated and nonresponsive, therefore, all history obtained from the patient's chart, medical team, and family at bedside. This is a 78 year old female who follows with Dr. Acosta in the clinic. She has atrial fibrillation, hypertension, history of untreated KASSANDRA. Patient started on Sotalol 80mg BID in February 2023 for atrial fibrillation and had converted to sinus rhythm with Sotalol. She followed up with Dr. Acosta in March and had been doing well at that time. Family reports she had been feeling fine without any symptoms and doing well. Patient's son-in-law heard a thud and found patient on the floor unresponsive and pulseless. He started CPR after calling 911. EMS found patient to be in VFIB. Patient was shocked 3 times and received 3 doses of Epi. Given Amiodarone 150mg x 1 en rouse. Intubated in the field. In the ER, she had PEA arrest x 2, received CPR for a few minutes each time. At the time of my evaluation, she is in sinus rhythm with heart rates in the 60s. Per the ER, with her initial arrest, it may have been 7-10 minutes before they obtained ROSC. Her initial EKG on arrival to the ED shows junctional rhythm with heart rate of 55bpm with RBBB. However, no ST elevations or ST depressions. Repeat EKG about 2 hours later shows sinus rhythm, no longer has RBBB, nonspecific STTW abnormality. CT Head without acute findings. Patient started on Levophed for hypotension. Review of Systems Review of Systems: ROS unobtainable: Yes unobtainable due to endotracheal tube and unobtainable due to medical condition PMFSH Past Medical History Medical History Chronic anticoagulation History of cervical cancer Hypertension Hypothyroidism Paroxysmal atrial fibrillation Surgical History Surgical History History of History of colonoscopy with polypectomy History of open reduction and internal fixation (ORIF) procedure (03/16/22) Repair of left ankle fracture per Dr. Banerjee. History of partial hysterectomy For cervical cancer. Family History Family History (Re
[2023-04-20] MEDS: PIPERACILLN/TAZ 3.375GM/NS50ML 3.375 GM/50 ML BAG IVPB ×2 (16:51→23:30)
[2023-04-20] MEDS: HEPARIN SOD/D5W 100 UNITS/ML 25,000 UNITS/250 ML BAG 8 UNITS IV CONT (16:52)
[2023-04-20] MEDS: HEPARIN SODIUM 5,000 UNITS/ML VIAL 4000 UNITS IV PUSH (16:58)
[2023-04-20 17:01] LABS: Lactic Acid Reflex 2.6 mmol/L (0.7-2.0)
[2023-04-20 17:09] LABS: Glucose Point of Care 140 mg/dl (65-105)
[2023-04-20 17:09] LABS: Amphetamine Screen Urine Negative (Negative); Barbiturate Screen Urine Negative (Negative); Benzodiazepines Screen Urine Positive (Negative); Cannabinoid Screen Urine Negative (Negative); Cocaine Screen Urine Negative (Negative); Methadone Screen Urine Negative (Negative); Opiate Screen Urine Negative (Negative); Phencyclidine Screen Urine Negative (Negative)
[2023-04-20 17:33] LABS: Reflex Lactic Acid Yes or No Add Lactic
--- NOTE | 2023-04-20 17:59 | ADMGEN ---
This patient, Vika Duke, was admitted to Intensive Care Unit-5. Patient/family oriented to hospital policies and general routines including ID bracelet, bed and alarms, visiting hours, pain management, procedures, bathroom and other care routines, personal items, smoking policy, room service/diet, and visiting hours. Information on how to activate the Rapid Response Team has been discussed. Patient/Family are encouraged to report perceived risks to care and to ask questions if they do not understand what they are told or what they should do.
[2023-04-20 18:20] LABS: Glucose Point of Care 183 mg/dl (65-105)
[2023-04-20 18:27] LABS: Hematocrit 39.4 % (37.0-47.0); Hemoglobin 12.7 g/dL (12.0-15.0)
[2023-04-20 18:37] LABS: Lactic Acid Reflex 2.3 mmol/L (0.7-2.0)
[2023-04-20 18:37] LABS: Alanine Aminotransferase 345 U/L (6-35); Albumin Level 3.3 g/dL (3.5-5.1); Alkaline Phosphatase 84 U/L (38-126); Anion Gap 5 mmol/L (8-16); Aspartate Amino Transferase 548 U/L (14-36); Blood Urea Nitrogen 27 mg/dL (7-17); Calcium 7.9 mg/dL (8.4-10.2); Carbon Dioxide 24 mmol/L (22-30); Chloride 109 mmol/L (98-107); Creatine Kinase 117 U/L (30-135); Estimated CRCL calculation 37 ml/min; Estimated Glomerular Filt Rate 40; Glucose 204 mg/dL (65-110); Magnesium 1.8 mg/dL (1.6-2.3); Potassium 4.2 mmol/L (3.4-5.0); Sodium 138 mmol/L (137-145)
[2023-04-20 18:44] LABS: INR 2.4; Prothrombin Time 27.7 Seconds (11.1-14.7)
[2023-04-20 18:53] LABS: Troponin I 0.491 ng/mL (0.000-0.034)
[2023-04-20 19:01] LABS: Partial Thromboplastin Time > 200.0 SECONDS (22.3-36.8)
[2023-04-20 19:01] LABS: Glucose Point of Care 172 mg/dl (65-105)
[2023-04-20 19:32] LABS: Alveolar/Arterial O2 Gradient 356.3 mmHg; Base Excess ABG -4.6 mEq/l (+/-2.0); Carboxyhemoglobin 0.3 % THb (0-2.0); Fractional Inspired Oxygen 100 %; HCO3 ABG 19.4 mEq/l (22.0-26.0); Methemoglobin ABG 0.4 %THb (0-1.5); Oxygen Content ABG 20.1 %vol (16.0-22.0); Oxygen Saturation ABG 99.7 % (95.0-100.0); Oxyhemoglobin 98.3 % THb (90.0-100.0); PCO2 ABG 32.8 mmHg (35.0-45.0); PO2 ABG 323.9 mmHg (80.0-100.0); PO2 FiO2 Ratio Arterial Blood 3.24 %
[2023-04-20 19:33] LABS: Device VENTILATOR; Modified Allen's Test Pass; Site Drawn RIGHT RADIAL
[2023-04-20 19:34] LABS: Arterial Blood Gas PEEP 5 cmH2O; Arterial Blood Gas Tidal Volume 450 ml; Arterial Blood Gas Vent Mode CMV; Arterial Blood Gas Ventilator rate 14 /MIN
[2023-04-20 20:17] LABS: Glucose Point of Care 162 mg/dl (65-105)
[2023-04-20] MEDS: PANTOPRAZOLE SODIUM IV 40 MG VIAL IV PUSH (20:35)
[2023-04-20] MEDS: levETIRAcetam 1000MG/NACL100ML 1,000 MG/100 ML BAG 400 MG IVPB (20:35)
[2023-04-20] MEDS: MINERAL OIL/WHITE PETROLATUM OINTMENT 1 APPLIC EACH EYE (20:35)
[2023-04-20] MEDS: MAGNESIUM SULF 1 GM/D5W 100 ML 1 GM/100 ML BAG IVPB (20:35)
[2023-04-20 21:45] LABS: Glucose Point of Care 166 mg/dl (65-105)
--- NOTE | 2023-04-20 22:05 | PM.IMHP ---
H&P: HPI History of Present Illness Date/Time: 04/20/232004 Chief Complaint: Cardiac arrest Narrative: This is a 78-year-old female patient who has a history of CHF and atrial fibrillation. The patient came to the emergency room after cardiac arrest. The patient's son heard a thud and he found his mother unresponsive and pulseless. He started CPR after calling 911. EMS found the patient to be in VFib arrest. The patient was shocked 3 times and received 3 doses of epi. The patient regained a pulse just as they were about to give amiodarone. Therefore the patient had 150 mg IV infusion of amiodarone and route. The patient was intubated in the field. Patient's last admission was here in February when she was diagnosed with new onset of AFib and congestive heart failure. The patient was coded in the emergency least 2 more times and her rhythm was PEa arrest for those 2 events.. The patient received CPR for few minutes each time. A central line was placed in the left IJ. the patient also had a fecal containment system placed in the emergency room. She had a Hall catheter placed. Her fecal containment system was draining dark brown stool. Radiology called and stated that the ET tube need to be pulled back 3 and respiratory therapy was notified of this and the ET tube reportedly was reposition. Cardiology was consulted as well as the front end software engineer. The patient had an IO in the left lower extremity which was later removed in ICU. The ER physician noted that she did speak with the family concerning the 3 code that the patient has gone through. Is reported that the family wanted to continue with the full code status. Her white count is 14.9. H and H was 15.4 and 49.3. Now 12.7 and 39.4. Creatinine 1.3. Blood sugar 172 and 166. Lactic was 5.8 now 2.3. AST is 548 and ALT is 345. Troponin 0.047 and 0.491. Cardiology was consulted and decided that an emergent cardiac catheterization was not necessary at this time. Her BNP is 1840. Her urine was positive for UTI. She was positive for benzodiazepines. The patient was given LR, fentanyl, Versed, Zosyn, normal saline, sodium bicarb, magnesium, Keppra, and heparin drip was started. The patient is being admitted to inpatient status on the date of service of 04/20/2023. Review of Systems Review of Systems: All systems reviewed & are unremarkable except as noted in HPI and below Constitutional: Constitutional: Reports as per HPI and Reports no additional constitutional complaints Eyes: Eyes: Reports as per HPI and Reports no additional eye complaints ENT: Reports system reviewed and no additional complaints, except as documented and Reports Normal hearing present Cardiovascular: Cardiovascular: Reports no additional cardiovascular complaints Respiratory: Respiratory: Reports no additional respiratory complaints and Reports no additional respiratory complaints Gastrointestinal: Gastrointestinal: Reports as per HPI and Reports no additional gastrointestinal complaints Musculoskeletal: Musculoskeletal: Reports no additional musculoskeletal complaints Integumentary/Breasts: Skin/Breast: Reports system reviewed and no additional complaints, except as docu and Reports as per HPI Neurologic: Reports system reviewed and no additional complaints, except as documented, Reports as per HPI and Reports Normal hearing present Psychiatric: Psychiatric: Reports no additional psychiatric complaints and Reports as per HPI Endocrine: Endocrine: Reports no additional endocrine complaints Hematologic/Lymphatic: Hematologic/Lymphatic: Reports no additional hematologic/lymphatic complaints Allergic/Immunologic: Allergic/Immunologic: Reports no additional allergic/immunologic complaints [facility] Past Medical History Medical History (Updated 04/20/23 @ 22:50 by Erinn Drake NP) Chronic anticoagulation History of cervical cancer Hypertension Hypothyroidism KASSANDRA (obstructive sleep apnea) Paroxysmal atrial fibr
[2023-04-20] MEDS: MIDAZOLAM 100MG/NS 100ML(*CRX) 100 MG/100 ML BAG IV CONT (22:09)
[2023-04-20] MEDS: CENTRAL LINE FLUSH 10 ML IV PUSH (22:10)
[2023-04-20] MEDS: HYDROCORTISONE SODIUM SUCCINATE 100 MG/2 ML VIAL IV PUSH (22:10)
[2023-04-20] MEDS: FENTANYL 2,500MCG/NS250ML(*CRX 2,500 MCG/250 ML BAG IV CONT (22:10)
[2023-04-20 22:31] LABS: Lactic Acid Reflex 3.4 mmol/L (0.7-2.0)
[2023-04-20 22:57] LABS: Troponin I 0.736 ng/mL (0.000-0.034)
[2023-04-21] VITALS (78 sets, daily range): BP systolic 94–159; BP diastolic 42–84; PULSE 34–103; RESP 11–18; TEMP 33.2–37.9; O2SAT 95–100; BMI 32.4
--- NOTE | 2023-04-21 00:15 | ECG_ITS ---
Measurements Intervals [place] Rate: 40 P: 16 WV: 150 QRS: -11 QRSD: 91 T: 268 QT: 487 QTc: 402 Interpretive Statements SLOW SINUS BRADYCARDIA BORDERLINE ST-T WAVE ABNORMALITY- DIFFUSE LEADS BASELINE WANDER- II, III ABNORMAL ECG COMPARED TO ECG 04/21/2023 03:41:56 NO SIGNIFICANT CHANGES Electronically Signed On 04-21-2023 9:58:13 CDT by Max Malin D.O.
[2023-04-21] MEDS: SODIUM CHLORIDE 0.9% IV 1,000 ML 125 ML IV CONT ×2 (00:26→05:33)
[2023-04-21] MEDS: SODIUM CHLORIDE 0.9% IV 500 ML IV CONT ×2 (00:26→04:30)
--- NOTE | 2023-04-21 00:27 | P.PCNBED_ITS ---
Procedures Arterial Line Arterial Line Date: 04/20/23 Arterial Line Time: 23:00 Discussed with the patient/family/POA, the placement of an arterial catheter, including its clinical necessity/indication and associated potential risks, benefits and alternatives.: Yes Patient Position: other Machine Heel Seat Fitter Prep: sterile gown, sterile gloves, mask and hat Site: left Site Prep: chlorhexidine and sterile drape Technique used: ultrasound-guided Size (Gauge): 20 Length: 12 cm Closure/Dressing: suture, transparent dressing and securement product Patient tolerated procedure: well Complications: other (Hematoma) Additional comments: The patient already had a hematoma present on her right radius where respiratory therapy had performed prior ABG. I tried to go proximal to this area to avoid hematoma and tried a right radial arterial approach. I got blood return on 2 attempts and the guidewire did feed but no blood return when guidewire was removed. There is a small area of hematoma after the 2nd attempt. Pressure dressing was applied. Pressure was held. Subsequently I transition to a left radial arterial approach with success after 1st attempt. Small hematoma insertion site. Standard technique used with arrow in line guidewire kit.
[2023-04-21 00:41] LABS: Glucose Point of Care 154 mg/dl (65-105)
[2023-04-21 00:41] LABS: Glucose Point of Care 154 mg/dl (65-105)
[2023-04-21 00:43] LABS: Hematocrit 37.4 % (37.0-47.0); Hemoglobin 12.3 g/dL (12.0-15.0)
[2023-04-21 00:56] LABS: Partial Thromboplastin Time 159.7 SECONDS (22.3-36.8)
[2023-04-21] MEDS: EPINEPHrine INJ 1 MG in DEXTROSE 5% IN WATER 250 ML 15.06 MG IV CONT (01:59)
[2023-04-21 02:34] LABS: Glucose Point of Care 159 mg/dl (65-105)
[2023-04-21 02:34] LABS: Glucose Point of Care 141 mg/dl (65-105)
[2023-04-21 02:54] LABS: IFOB Positive Control Positive; Immunochemical Fecal Occult Bl Positive (N)
[2023-04-21] MEDS: CISATRACURIUM BESYLATE 200 MG in DEXTROSE 5% 80 ML 7.82 ML IV CONT (03:06)
[2023-04-21 03:16] LABS: Glucose Point of Care 145 mg/dl (65-105)
--- NOTE | 2023-04-21 03:38 | ECG_ITS ---
Measurements Intervals [place] Rate: 39 P: 172 CT: 144 QRS: 196 QRSD: 96 T: -89 QT: 515 QTc: 419 Interpretive Statements SLOW SINUS BRADYCARDIA VENTRICULAR PREMATURE COMPLEXES BORDERLINE ST-T WAVE ABNORMALITY- ANTEROLATERAL LEADS BASELINE WANDER- I, II, III, AVR, AVL, AVF, V1-V6 ABNORMAL ECG COMPARED TO ECG 04/20/2023 15:50:13 SLOW SINUS BRADYCARDIA NOW PRESENT Electronically Signed On 04-21-2023 6:51:25 CDT by Max Malin D.O.
[2023-04-21 03:48] LABS: Basophils Percent Auto 0.2 % (0.2-1.2); Eosinophils Percent Auto 0.1 % (0-4.4); Hematocrit 37.6 % (37.0-47.0); Hemoglobin 12.2 g/dL (12.0-15.0); Immature Granulocyte Percent A 0.7 % (0-0.5); Lymphocytes Absolute Auto 1.58 K/mm3 (0.9-3.2); Lymphocytes Percent Auto 10.3 % (18.3-44.2); Mean Corpuscular HGB Conc 32.4 g/dl (32-36); Mean Corpuscular Hemoglobin 29.8 pg (26-34); Mean Corpuscular Volume 91.9 fl (80-100); Mean Platelet Volume 11.4 fl (7.4-10.4); Monocytes Absolute Auto 0.9 K/mm3 (0.1-0.6); Monocytes Percent Auto 5.7 % (2.6-8.5); Neutrophils Absolute Auto 12.8 K/mm3 (1.3-6.7); Platelet Count Result 151 k/mm3 (150-375); Red Blood Count 4.09 M/mm3 (4.2-5.4); White Blood Count 15.4 K/mm3 (4.5-10.0)
[2023-04-21 03:50] LABS: Hemoglobin A1C 5.7 % (<5.7)
[2023-04-21 03:53] LABS: Alanine Aminotransferase 289 U/L (6-35); Albumin Level 3.1 g/dL (3.5-5.1); Alkaline Phosphatase 67 U/L (38-126); Anion Gap 7 mmol/L (8-16); Aspartate Amino Transferase 348 U/L (14-36); Bilirubin,Total 1.1 mg/dL (0.2-1.3); Blood Urea Nitrogen 26 mg/dL (7-17); Calcium 7.2 mg/dL (8.4-10.2); Carbon Dioxide 20 mmol/L (22-30); Chloride 110 mmol/L (98-107); Creatine Kinase 262 U/L (30-135); Estimated CRCL calculation 43 ml/min; Estimated Glomerular Filt Rate 48; Glucose 210 mg/dL (65-110); INR 1.7; Magnesium 2.1 mg/dL (1.6-2.3); Potassium 4.4 mmol/L (3.4-5.0); Prothrombin Time 20.7 Seconds (11.1-14.7); Sodium 137 mmol/L (137-145)
[2023-04-21 03:56] LABS: Lactic Acid Reflex 1.8 mmol/L (0.7-2.0)
[2023-04-21 04:13] LABS: Phosphorus 4.6 mg/dL (2.5-4.5)
[2023-04-21 04:34] LABS: Glucose Point of Care 173 mg/dl (65-105)
[2023-04-21 04:46] LABS: Thyroid Stimulating Hormone Reflex 0.355 uIU/mL (0.465-4.68)
--- NOTE | 2023-04-21 05:00 | PM.EVENT ---
Event Note Event Note Event Note: The patient has been admitted for targeted temperature therapy following cardiac arrest home. The patient does respond to painful stimuli. Nursing staff called me to evaluate the patient as they were unsure if the patient was having shivering verses seizures verses posturing. I evaluated the patient the patient was noted to be having shivering and was withdrawing to painful stimuli. The patient was initially on sedation with propofol but this had been switched to fentanyl and Versed due to cardiac rhythm issues including bradycardia. The patient was also placed on Nimbex by the acute care nurse due to shivering. When the patient's temperature got down to 34.3 the patient was having frequent ectopy on telemetry and heart rate was in the upper 20s and low 30s. Patient was also having episodes of nonconducted beats noted multiple times. The patient is blood pressures had stabilized. Nursing staff again asked me to evaluate the patient. Patient's pupils were equal. The patient's blood pressure had improved and she is actually mildly hypertensive on 4 of Levophed and for of epinephrine. I gave orders to discontinue Levophed. Given the patient's profound bradycardia with heart rates in the 20s I did the given order to increase the patient's epinephrine but the patient became markedly hypertensive. Epinephrine was decreased back down to 4. I did contact the acute care nurse as as ordered about the patient's cardiac rhythm given the frequency of the ectopy. They targeted temperature therapy goal was down to 33?. Given the patient's ectopy is concerned that the patient very well may go into cardiac arrest as her other could episodes of cardiac arrest or due to PEA and asystole. The acute care nurse recommended to change the patient's goal temperature to 36?. Patient is still having episodes of ectopy but not to the same extent. We did discuss the potential placing the patient on dobutamine but this was not done as we were concerned that the patient may go into on stable ventricular rate. Electrolytes have been ordered the be monitored for a.m. labs. Blood pressure cuff and radial oral INR correlating. Patient's family was contacted and the family was updated as to the patient's condition by nursing staff folic acid called away to another patient's room. The patient's heart rate is remained for the most part in the upper 30s since these changes have been made. Nursing staff had inquires as to whether continue the patient's heparin drip as she is already on Xarelto at home. The patient's stool in the rectal to/fecal management device was positive for occult blood. However patient hemoglobin remains stable. Will continue heparin until morning and will defer whether not to continue the drip to the acute care nurse and for Cardiology. Overall the patient's labs are improving. AST ALT and alk-phos all coming down. Troponin is still mildly climbing from 0.047 up to 0.491 and 0.736. EKG was reviewed by my self and was relatively unchanged compared to prior. 65 minutes was spent in critical care activities in exclusion of procedures. Due to a high probability of clinically significant, life threatening deterioration, the patient required my highest level of preparedness to intervene emergently and I personally spent this critical care time directly and personally managing the patient. This critical care time included obtaining a history; examining the patient; pulse oximetry; ordering and review of studies; arranging urgent treatment with development of a management plan; evaluation of patient's response to treatment; frequent reassessment; and discussions with other providers. It was exclusive of separately billable procedures and treating other patients and teaching time. Please see Assessment and Plan section and the rest of the note for further information on patient assessment and treatment.
[2023-04-21 05:19] LABS: Alveolar/Arterial O2 Gradient 91.9 mmHg; Base Excess ABG -8.7 mEq/l (+/-2.0); Carboxyhemoglobin 0.3 % THb (0-2.0); Fractional Inspired Oxygen 50 %; HCO3 ABG 15.7 mEq/l (22.0-26.0); Methemoglobin ABG 0.5 %THb (0-1.5); Oxygen Content ABG 17.7 %vol (16.0-22.0); Oxygen Saturation ABG 99.5 % (95.0-100.0); Oxyhemoglobin 97.8 % THb (90.0-100.0); PCO2 ABG 29.6 mmHg (35.0-45.0); PO2 ABG 231.3 mmHg (80.0-100.0); PO2 FiO2 Ratio Arterial Blood 4.63 %; Reduced Hemoglobin 1.4 %THb (0-5.0); Total Hemoglobin 12.5 g/dL (12.0-18.0); pH ABG 7.343 (7.350-7.450)
[2023-04-21 05:21] LABS: Arterial Blood Gas Vent Mode CMV; Arterial Blood Gas Ventilator rate 14 /MIN; Device VENTILATOR; Modified Allen's Test Pass; Site Drawn ARTLINE
[2023-04-21 05:22] LABS: Arterial Blood Gas PEEP 5 cmH2O; Arterial Blood Gas Tidal Volume 450 ml
[2023-04-21] MEDS: PIPERACILLN/TAZ 3.375GM/NS50ML 3.375 GM/50 ML BAG IVPB ×4 (05:30→23:15)
[2023-04-21] MEDS: CENTRAL LINE FLUSH 10 ML IV PUSH ×4 (05:33→21:09)
[2023-04-21] MEDS: HYDROCORTISONE SODIUM SUCCINATE 100 MG/2 ML VIAL IV PUSH ×3 (05:35→21:01)
[2023-04-21 05:37] LABS: Glucose Point of Care 199 mg/dl (65-105)
[2023-04-21 05:59] LABS: Glucose Point of Care 181 mg/dl (65-105)
[2023-04-21 06:29] LABS: Free T4 Free Thyroxine Reflex 1.95 ng/dL (0.78-2.19)
[2023-04-21] MEDS: EPINEPHrine INJ 1 MG in DEXTROSE 5% IN WATER 250 ML 60.24 MG IV CONT (06:43)
[2023-04-21 07:00] LABS: Glucose Point of Care 212 mg/dl (65-105)
[2023-04-21 07:47] LABS: Partial Thromboplastin Time 78.4 SECONDS (22.3-36.8)
[2023-04-21 08:10] LABS: Glucose Point of Care 192 mg/dl (65-105)
[2023-04-21] MEDS: levETIRAcetam 500MG/NACL 100ML 500 MG/100 ML BAG 400 MG IVPB ×2 (08:10→21:01)
[2023-04-21] MEDS: PANTOPRAZOLE SODIUM IV 40 MG VIAL IV PUSH ×2 (08:11→21:01)
[2023-04-21] MEDS: MINERAL OIL/WHITE PETROLATUM OINTMENT 1 APPLIC EACH EYE ×2 (08:11→21:02)
--- NOTE | 2023-04-21 08:55 | WPDCNINT ---
Assessment and Plan Assessment and plan (1) Cardiac arrest: Code(s): I46.9 - Cardiac arrest, cause unspecified Status: Acute Assessment and Plan: Patient with initial VFib arrest at home upon arrival of the EMS, did she had PEA arrest x2 in the ER. Intubated in the field. Patient did receive amiodarone infusion Enroute to the hospital. - No ischemic changes on the EKG. -patient is on sotalol at home, this could be a arrhythmogenic event with possible prolonged QT resulting and torsades. As the 1st EKG showed QT of 515 milliseconds and a 2nd EKG with QT of 480 millisecond. A manual measurement of the QT by beck tender was about 600 milliseconds. -no clear indication for angiogram/cardiac catheterization at this time -continue hypothermia protocol -troponins mildly elevated -continue heparin infusion -continue Keppra (2) Acute respiratory failure: Code(s): J96.00 - Acute respiratory failure, unspecified whether with hypoxia or hypercapnia Status: Acute Assessment and Plan: Acute respiratory respiratory failure likely related to cardiac arrest -chest x-ray showed pulmonary edema -patient intubated in the field with a size 7 ET tube on 04/20/2023 -continue CMV mode of ventilation, peep of 5, 30% FiO2. -chest x-ray and ABGs reviewed -add bronchodilators -sedated with fentanyl and Versed infusion, -patient also on Nimbex infusion for shivering (3) Shock: Code(s): R57.9 - Shock, unspecified Status: Acute Assessment and Plan: Patient was in shock with low blood pressures, elevated lactic acid of 5.8. Patient did receive 2 L IV fluid bolus in the ER, repeat lactic acid is 1.8 this morning -patient was initially started on Levophed, was then bradycardic in the upper 20s and 30s so Levophed was switched to epinephrine -blood and urine cultures have been obtained, -patient currently on Zosyn (04/20) for possible aspiration pneumonia and UTI -maintain mean arterial pressures > 65 mmHg -patient was started on stress dose steroids 03/06/2023: Echocardiogram -showed EF of 60-65%, LV diastolic function is indeterminate, moderate mitral valve regurg, moderate tricuspid valve regurg, mild pulmonary hypertension with RVSP of 36 mmHg (4) Elevated LFTs: Code(s): R79.89 - Other specified abnormal findings of blood chemistry Status: Acute Assessment and Plan: Likely related to hypotension, shock -LFTs improving, will continue to monitor (5) Congestive heart failure: Code(s): I50.9 - Heart failure, unspecified Status: Acute Assessment and Plan: Chest x-ray shows pulmonary edema, could be related to arrhythmias causing pulmonary edema -currently on mechanical ventilator -patient also in shock on epinephrine infusion, will hold off any diuretics at this time -echocardiogram as above -cardiology following (6) Paroxysmal atrial fibrillation: Code(s): I48.0 - Paroxysmal atrial fibrillation Status: Acute Assessment and Plan: Patient has a history of paroxysmal AFib on sotalol and Xarelto at home, currently holding both these medications -patient currently sinus bradycardia -continue to monitor (7) UTI (urinary tract infection): Code(s): N39.0 - Urinary tract infection, site not specified Status: Acute Assessment and Plan: UA reflective of a UTI, cultures have been obtained, continue Zosyn (8) Hypertension: Qualifiers: Hypertension type: primary hypertension Qualified Code(s): I10 - Essential (primary) hypertension Code(s): I10 - Essential (primary) hypertension Status: Acute Assessment and Plan: Patient with history of essential hypertension (at home on Lasix and sotalol), currently in shock on epinephrine infusion -hold all antihypertensives (9) Hypothyroidism: Code(s): E03.9 - Hypothyroidism, unspecified Status: Acute Assessment and Plan: TSH level was low -p
[2023-04-21 09:10] LABS: Glucose Point of Care 227 mg/dl (65-105)
[2023-04-21 09:15] LABS: Total Triiodothyronine (T3) 0.69 NG/ML (0.97-1.69)
[2023-04-21 10:02] LABS: Glucose Point of Care 217 mg/dl (65-105)
[2023-04-21] MEDS: EPINEPHrine INJ 1 MG in DEXTROSE 5% IN WATER 250 ML 75.3 MG IV CONT (10:46)
[2023-04-21 10:55] LABS: Hematocrit 34.5 % (37.0-47.0); Hemoglobin 11.4 g/dL (12.0-15.0)
[2023-04-21] MEDS: INSULIN GLARGINE (*BKC) 100 UNITS/ML SUB-Q (10:56)
[2023-04-21 11:06] LABS: Lactic Acid Reflex 2.2 mmol/L (0.7-2.0)
[2023-04-21 11:16] LABS: Glucose Point of Care 194 mg/dl (65-105)
[2023-04-21 12:25] LABS: Glucose Point of Care 213 mg/dl (65-105)
[2023-04-21] MEDS: INSULIN ASPART (*BKC) 100 UNITS/ML SUB-Q (12:29)
[2023-04-21 13:52] LABS: Reflex Lactic Acid Yes or No Add Lactic
--- NOTE | 2023-04-21 14:01 | WPDPN ---
Progress Note: A&P Assessment and Plan (1) Cardiac arrest: Code(s): I46.9 - Cardiac arrest, cause unspecified Status: Acute Assessment and Plan: Hypothermic protocol initiated. The patient has a central line and an arterial line is planned as well. Cardiology has been consulted and heparin drip was started. Patient has elevated cardiac enzymes. Also the patient could possibly be septic from UTI. The building equipment inspector was consulted the patient was placed in the ICU. The patient had been coded x3. It was reported that the patient only coded for a brief moment while she was in the emergency room x2. The 1st code was initiated in the field. The patient is intubated and on a ventilator. Further recommendation per Cardiology and building equipment inspector. Her lactic is 3.4. The patient is currently on epinephrine drip. She is also on hydrocortisone drip. 04/21/2023 interval history: patient Ventricular fibrillation cardiac arrest at home, CPR was started and EMS was called and again in ER patient coded twice and had ROSC, patient was intubated and admitted into ICU, patient was started on Amiodorane, building equipment inspector suspect prolong qt interval may caused cardiac arrest, and patient will be seen by shrinking machine operator and further recommnentdation to follow. (2) Elevated troponin: Code(s): R77.8 - Other specified abnormalities of plasma proteins Status: Acute Assessment and Plan: An echo has been ordered. Cardiology has evaluated the patient. Initial troponin 0.047 and repeat was 0.491. Is reported that the patient was evaluated by Cardiology and it was felt that emergent cardiac catheterization was not necessary at this time. Patient is currently on heparin drip. The patient has dark stools and I ordered H&H every 6 hours with his stool for occult blood. (3) Congestive heart failure: Code(s): I50.9 - Heart failure, unspecified Status: Acute Assessment and Plan: Echo on 03/06/2023?1. Complete two-dimensional, color flow and Doppler transthoracic echocardiogram is performed. ? 2. Technically difficult study with limited views. ? 3. Left ventricular chamber dimension is normal. ? 4. Left ventricular systolic function is normal, estimated at 60-65%. ? 5. There is no increased left ventricular wall thickness. ? 6. The left ventricular diastolic function is indeterminate. ? 7. There is moderate mitral valve regurgitation. ? 8. There is moderate tricuspid valve regurgitation. ? 9. Mild pulmonary hypertension, estimated pulmonary arterial systolic pressure is 36 mmHg. (4) Hypothyroidism: Code(s): E03.9 - Hypothyroidism, unspecified Status: Acute Assessment and Plan: Check thyroid levels. (5) Paroxysmal atrial fibrillation: Code(s): I48.0 - Paroxysmal atrial fibrillation Status: Acute Assessment and Plan: The patient is currently on a heparin drip and the patient was found to be in sinus rhythm after she had coded the last time. (6) Hypertension: Qualifiers: Hypertension type: primary hypertension Qualified Code(s): I10 - Essential (primary) hypertension Code(s): I10 - Essential (primary) hypertension Status: Acute Assessment and Plan: The patient's blood pressure is 88/78. The patient is on a norepinephrine drip as well as hydrocortisone drip (7) Elevated blood sugar: Code(s): R73.9 - Hyperglycemia, unspecified Status: Acute Assessment and Plan: Continue with Accu-Cheks and check A1c. Sliding scale insulin. (8) UTI (urinary tract infection): Code(s): N39.0 - Urinary tract infection, site not specified Status: Acute Assessment and Plan: The patient was started on Zosyn. The patient may be septic. Blood pressure is soft although her heart rate is less than 60. She is afebrile. Blood cultures and urine cultures are pending Subjective Date/time seen: 04/21/23 14:01 Interval history: Cardia
--- NOTE | 2023-04-21 14:33 | PM.PNCARD ---
Progress Note: A&P Assessment and Plan (1) Prolonged QT interval: Code(s): R94.31 - Abnormal electrocardiogram [ECG] [EKG] Status: Acute Assessment and Plan: Telemetry and EKG this morning show significantly prolonged QT interval of 0.95 seconds up to 1 seconds. High risk for Torsades and cardiac arrest given the prolonged QT. Already on Epinephrine drip, which should help with the QT, however, given the bradycardia and significantly prolonged QT and high risk of recurrent cardiac arrest, will place temporary transvenous pacer to help shorten QT. Avoid QT prolonging medications if possible. (2) Cardiac arrest with ventricular fibrillation: Code(s): I46.9 - Cardiac arrest, cause unspecified; I49.01 - Ventricular fibrillation Status: Acute Assessment and Plan: Initial arresting rhythm VFIB per the EMS. Had 2 PEA arrests while in the ED. Unclear etiology at this time for her cardiac arrest. No reports of chest pain or other symptoms earlier today per the family. No ischemic changes on the EKG here in the ED. On Sotalol at home -- possibly prolonged QT resulting in Torsades?? Manually measured QT on the first EKG shows QT of 515msec. On tele, when patient first arrived and was hooked up to tele, manual measurements of QT about 600msec. QT on tele around 3PM then around 500msec. Second EKG with QT at 480msec. At this time, no emergent indication for cardiac catheterization. On Hypothermia protocol. Heparin drip. Obtain echo. Continue supportive care. (3) Shock: Code(s): R57.9 - Shock, unspecified Status: Acute Assessment and Plan: Continue pressor support as needed. (4) Elevated troponin: Code(s): R77.8 - Other specified abnormalities of plasma proteins Status: Acute Assessment and Plan: Troponin of 0.047, 0.491, 0.736. EKG without ischemic changes. Continue Heparin drip, echo pending. (5) Paroxysmal atrial fibrillation: Code(s): I48.0 - Paroxysmal atrial fibrillation Status: Acute Assessment and Plan: Currently in sinus bradycardia. Holding Sotalol and all rate controlling agents due to bradycardia, pressor requirement. Subjective Date/time seen: 04/21/23 14:33 Interval history: Reason For Visit: Cardiac arrest. HPI: We are consulted for cardiac arrest. Patient unable to provide any history as she is intubated and nonresponsive, therefore, all history obtained from the patient's chart, medical team, and family at bedside. This is a 78 year old female who follows with Dr. Acosta in the clinic. She has atrial fibrillation, hypertension, history of untreated KASSANDRA. Patient started on Sotalol 80mg BID in February 2023 for atrial fibrillation and had converted to sinus rhythm with Sotalol. She followed up with Dr. Acosta in March and had been doing well at that time. Family reports she had been feeling fine without any symptoms and doing well. Patient's son-in-law heard a thud and found patient on the floor unresponsive and pulseless. He started CPR after calling 911. EMS found patient to be in VFIB. Patient was shocked 3 times and received 3 doses of Epi. Given Amiodarone 150mg x 1 en rouse. Intubated in the field. In the ER, she had PEA arrest x 2, received CPR for a few minutes each time. At the time of my evaluation, she is in sinus rhythm with heart rates in the 60s. Per the ER, with her initial arrest, it may have been 7-10 minutes before they obtained ROSC. Her initial EKG on arrival to the ED shows junctional rhythm with heart rate of 55bpm with RBBB. However, no ST elevations or ST depressions. Repeat EKG about 2 hours later shows sinus rhythm, no longer has RBBB, nonspecific STTW abnormality. CT Head without acute findings. Patient started on Levophed for hypotension. Date of service 04/21/2023: Overnight events reviewed. Telemetry and EKG this morning show significantly prolonged QT interval. Review of Systems Review of Systems: ROS unobtainable: Yes u
--- NOTE | 2023-04-21 14:48 | P.PCNCC_ITS ---
Cardiac Cath Procedure Note Date of procedure:: 04/21/23 Performing physician:: CATHETERIZATION LABORATORY REPORT Procedure Date: 04/21/2023 Ict Business Development Manager: Ita Garner M.D., [facility]? Referring Physician: Ita Garner M.D. ? Anesthesia: IV sedation was not administered for this procedure. Pre-op Diagnosis: Significantly prolonged QT interval Post-op Diagnosis: Successful placement of temporary transvenous pacer via RIJ Procedure(s): 1. Ultrasound-guided access of the right femoral vein 2. Ultrasound-guided access of the right internal jugular vein 3. Placement of temporary transvenous pacer via RIJ Access Site: Right femoral vein Right internal jugular vein Brief History and Clinical Indications: Patient is a 78 year old female s/p cardiac arrest who is referred for temporary transvenous pacer for significantly prolonged QT interval. All risks, benefits and alternatives to temporary transvenous pacer was discussed at length with the patient's daughter. Risk of complications including but not limited to bleeding, infection, arrhythmia, blood loss, groin hematoma, emergency surgery, and even were discussed with the patient's daughter and all questions were answered. The patient's daughter understood and wished to proceed. Time out called, patient name, date of , medical record number, allergies, procedure performed, identify Ict Business Development Manager, patient and staff member concurred with accurate data, procedure carried on. Description of Procedure: Informed consent signed and placed in the chart. Patient transferred to laboratory inspector room. Prepped and draped in usual sterile fashion. 2% lidocaine injected subcutaneously in right groin area. Right femoral vein was accessed using micropuncture technique under ultrasound guidance. 6 FR sheath placed. Pacer catheter advanced but despite multiple attempts, could not obtain a satisfactory position in the RV. Therefore, we obtained RIJ access. Right IJ vein was accessed using micropuncture technique under ultrasound guidance. 6 FR sheath placed. Pacer catheter advanced and successfully placed in RV. Appropriate capture obtained. Pacer loses capture at 0.5mA. Both venous sheaths were sutured in place. ? Assessment: Successful placement of temporary transvenous pacer via RIJ. Pacing at 100bpm, with threshold set at 3mA. Post Operative Condition: Stable No significant blood loss Disposition: ICU Plan: Transfer back to the ICU. Obtain daily CXR to confirm position of pacer. ? Ita Garner M.D. Interventional Cardiology
[2023-04-21] MEDS: ALBUTEROL SULFATE NEB 2.5 MG/3 ML INH INHALATION ×2 (15:08→20:17)
[2023-04-21] MEDS: IPRATROPIUM BR 0.02% INH SOLN 0.5 MG/2.5 ML VIAL INHALATION ×2 (15:08→20:17)
[2023-04-21] MEDS: EPINEPHrine INJ 1 MG in DEXTROSE 5% IN WATER 250 ML 45.18 MG IV CONT (15:15)
[2023-04-21 15:35] LABS: Glucose Point of Care 187 mg/dl (65-105)
[2023-04-21 15:57] LABS: Lactic Acid 2.3 mmol/L (0.7-2.0)
[2023-04-21 16:10] LABS: INR 1.4; Partial Thromboplastin Time 35.9 SECONDS (22.3-36.8); Prothrombin Time 17.4 Seconds (11.1-14.7)
[2023-04-21 16:22] LABS: Glucose Point of Care 194 mg/dl (65-105)
--- NOTE | 2023-04-21 16:24 | ECG_ITS ---
Rate IA QRSd QT QTc P QRS T Severity 101 0 168 484 629 -37 147 No Severity Defined ELECTRONIC VENTRICULAR PACEMAKER UNDERLYING PROBABLY ATRIAL TACHYCARDIA NO FURTHER INTERPRETATION IS POSSIBLE ABNORMAL ECG Electronically Signed On 04-22-2023 16:28:58 CDT by Max Malin D.O. COMPARED TO ECG 04/21/2023 09:46:07 NO SIGNIFICANT CHANGES MTDD
[2023-04-21] MEDS: NOREPINEPHRINE 8 MG/D5W 250 ML 8 MG/250 ML BAG 9.38 MG IV CONT (17:05)
[2023-04-21 17:12] LABS: Glucose Point of Care 185 mg/dl (65-105)
[2023-04-21 17:28] LABS: Alveolar/Arterial O2 Gradient 119.1 mmHg; Fractional Inspired Oxygen 30 %; HCO3 ABG 18.7 mEq/l (22.0-26.0); Oxygen Saturation ABG 93.3 % (95.0-100.0); Oxyhemoglobin 91.6 % THb (90.0-100.0); PCO2 ABG 30.6 mmHg (35.0-45.0); PO2 ABG 65.5 mmHg (80.0-100.0); PO2 FiO2 Ratio Arterial Blood 2.18 %; Total Hemoglobin 11.6 g/dL (12.0-18.0); pH ABG 7.405 (7.350-7.450)
[2023-04-21 17:29] LABS: Site Drawn ARTLINE
[2023-04-21 17:30] LABS: Arterial Blood Gas PEEP 5 cmH2O; Arterial Blood Gas Vent Mode CMV; Arterial Blood Gas Ventilator rate 18 /MIN; Device VENTILATOR
[2023-04-21 17:31] LABS: Arterial Blood Gas Pressure Support 0 cmH2O; Arterial Blood Gas Tidal Volume 400 ml
[2023-04-21 18:39] LABS: Glucose Point of Care 151 mg/dl (65-105)
[2023-04-21] MEDS: SODIUM CHLORIDE 0.9% IV 1,000 ML 75 ML IV CONT (20:59)
[2023-04-21 21:22] LABS: Glucose Point of Care 170 mg/dl (65-105)
[2023-04-21 21:22] LABS: Glucose Point of Care 158 mg/dl (65-105)
[2023-04-21 22:35] LABS: Glucose Point of Care 148 mg/dl (65-105)
[2023-04-21 22:51] LABS: Lactic Acid Reflex 1.3 mmol/L (0.7-2.0)
[2023-04-21 23:24] LABS: Glucose Point of Care 137 mg/dl (65-105)
[2023-04-22] VITALS (57 sets, daily range): BP systolic 79–146; BP diastolic 46–88; PULSE 100–103; RESP 18–21; TEMP 34.9–37.4; O2SAT 96–100
--- NOTE | 2023-04-22 | ECHO_ITS ---
Patient Info Name: Vika Duke Age: 78 years : 1945 Gender: Female Ht: 66 in Wt: 193 lbs BSA: 2.05 m2 HR: 101 bpm BP: 157 / 73 mmHg Heart Rhythm: Indeterminant Technical Quality: Good Exam Date: 04/22/2023 8:55 AM Exam Location: [facility] Pulmonary Patient Status: Inpatient Admit Date: 04/20/2023 Staff Ordering Physician: Ita Garner MD ([email or web address]) Pleat Patternmaker: RONNA Attending Provider: Cathi Gracia MD Referring Physician: Pascual SHAFER; Exam Type: CA echo dop color flow w con Study Info Indications - cardiac arrest Complete two-dimensional, color flow and Doppler transthoracic echocardiogram is performed with contrast to opacify the left ventricle and to improve the deliniation of the left ventricle endocardial borders. Contrast/Agitated Saline Contrast/Ag. Saline: Definity Amount: 3.00 ml Summary 1. Normal left ventricular size with mild concentric hypertrophy. Moderate global hypokinesis, calculated ejection fraction 43%, visually 40-45%. Grade 2 diastolic dysfunction is present. Sigmoid hypertrophy. Abnormal septal motion secondary to pacing. 2. Right ventricular chamber dimension is mildly enlarged, with probable normal function.. 3. Left atrial chamber dimension is mildly enlarged. 4. Right atrial chamber dimension is mildly enlarged. 5. There is mild mitral valve regurgitation. 6. There is mild to moderate tricuspid valve regurgitation. 7. No pulmonary hypertension, estimated pulmonary arterial systolic pressure is 30 mmHg. 8. Ventricularly paced rhythm. 9. Somewhat technically difficult study; definity echo contrast used. Left Ventricle Left ventricular chamber dimension is normal. Left ventricular systolic function is moderately reduced, estimated at 40-45%. There is mildly increased left ventricular wall thickness. Left ventricular septal wall motion is abnormal with septal motion related to pacing. The left ventricular diastolic function is grade II diastolic dysfunction. Right Ventricle Right ventricular chamber dimension is mildly enlarged, with probable normal function.. Right ventricular systolic function is normal. Left Atria Left atrial chamber dimension is mildly enlarged. Right Atria Right atrial chamber dimension is mildly enlarged. Linear artifact in the right atrium suggestive of catheter(s), pacemaker lead(s), or ICD lead(s). Aortic Valve The aortic valve is trileaflet. There is no aortic valve sclerosis. There is no aortic valve stenosis. There is no aortic valve regurgitation. Pulmonic Valve The pulmonic valve is normal. There is no pulmonic valve stenosis. There is no pulmonic regurgitation. Mitral Valve The mitral valve has normal leaflets. There is no mitral valve stenosis. There is mild mitral valve regurgitation. Tricuspid Valve The tricuspid valve leaflets are normal. There is no significant tricuspid valve stenosis. There is mild to moderate tricuspid valve regurgitation. No pulmonary hypertension, estimated pulmonary arterial systolic pressure is 30 mmHg. Pericardium/Pleural The pericardium appears normal. There is no pericardial effusion. Inferior Vena Cava Normal inferior vena cava with >50% collapse upon inspiration consistent with Empty right atrial pressure, 10 mmHg. Aorta The aortic root size at the sinus of Valsalva is normal. The prox ascending aorta size is normal. Tricuspid Valve Name Value Normal ---
[2023-04-22] MEDS: FENTANYL 2,500MCG/NS250ML(*CRX 2,500 MCG/250 ML BAG 10 MCG IV CONT (00:13)
[2023-04-22 01:27] LABS: Glucose Point of Care 141 mg/dl (65-105)
[2023-04-22 01:27] LABS: Glucose Point of Care 140 mg/dl (65-105)
[2023-04-22 01:43] LABS: Partial Thromboplastin Time 41.4 SECONDS (22.3-36.8)
[2023-04-22] MEDS: IPRATROPIUM BR 0.02% INH SOLN 0.5 MG/2.5 ML VIAL INHALATION ×4 (01:58→20:30)
[2023-04-22] MEDS: ALBUTEROL SULFATE NEB 2.5 MG/3 ML INH INHALATION ×4 (01:58→20:30)
[2023-04-22 02:14] LABS: Glucose Point of Care 132 mg/dl (65-105)
[2023-04-22 02:15] LABS: Toxigenic C. Diff NEGATIVE (NEGATIVE)
[2023-04-22] MEDS: HEPARIN SODIUM 5,000 UNITS/ML VIAL 4000 UNITS IV PUSH (02:19)
[2023-04-22 03:17] LABS: Glucose Point of Care 134 mg/dl (65-105)
[2023-04-22 05:08] LABS: Glucose Point of Care 125 mg/dl (65-105)
[2023-04-22 05:23] LABS: Base Excess ABG -4.1 mEq/l (+/-2.0); Fractional Inspired Oxygen 30 %; HCO3 ABG 18.6 mEq/l (22.0-26.0); Oxygen Content ABG 15.5 %vol (16.0-22.0); Oxygen Saturation ABG 95.3 % (95.0-100.0); Oxyhemoglobin 93.4 % THb (90.0-100.0); PCO2 ABG 27.5 mmHg (35.0-45.0); PO2 ABG 71.4 mmHg (80.0-100.0); PO2 FiO2 Ratio Arterial Blood 2.38 %; Total Hemoglobin 11.8 g/dL (12.0-18.0); pH ABG 7.449 (7.350-7.450)
[2023-04-22 05:25] LABS: Site Drawn ARTLINE
[2023-04-22] MEDS: HYDROCORTISONE SODIUM SUCCINATE 100 MG/2 ML VIAL IV PUSH ×3 (05:25→21:29)
[2023-04-22] MEDS: PIPERACILLN/TAZ 3.375GM/NS50ML 3.375 GM/50 ML BAG IVPB ×4 (05:25→22:21)
[2023-04-22 05:26] LABS: Arterial Blood Gas PEEP 5 cmH2O; Arterial Blood Gas Tidal Volume 400 ml; Arterial Blood Gas Vent Mode CMV; Arterial Blood Gas Ventilator rate 18 /MIN; Basophils Percent Auto 0.1 % (0.2-1.2); Device VENTILATOR; Hemoglobin 10.6 g/dL (12.0-15.0); Immature Granulocyte Absolute 0.06 K/mm3 (0.00-0.031); Immature Granulocyte Percent A 0.5 % (0-0.5); Immature Platelet Fraction Pct 7.2 % (0.9-11.2); Lymphocytes Percent Auto 8.7 % (18.3-44.2); Mean Corpuscular HGB Conc 33.1 g/dl (32-36); Mean Corpuscular Hemoglobin 30.2 pg (26-34); Mean Corpuscular Volume 91.2 fl (80-100); Mean Platelet Volume 11.6 fl (7.4-10.4); Monocytes Absolute Auto 0.7 K/mm3 (0.1-0.6); Monocytes Percent Auto 5.6 % (2.6-8.5); Neutrophils Absolute Auto 9.8 K/mm3 (1.3-6.7); Neutrophils Percent Auto 85.1 % (45.5-73.1); Platelet Count Result 104 k/mm3 (150-375); Red Blood Count 3.51 M/mm3 (4.2-5.4); Red Cell Distribution Width 14.4 % (11.5-14.5); White Blood Count 11.5 K/mm3 (4.5-10.0)
[2023-04-22 05:32] LABS: Glucose Point of Care 118 mg/dl (65-105)
[2023-04-22 05:37] LABS: Lactic Acid Reflex 1.2 mmol/L (0.7-2.0)
[2023-04-22 05:38] LABS: Alanine Aminotransferase 173 U/L (6-35); Albumin Level 2.5 g/dL (3.5-5.1); Alkaline Phosphatase 56 U/L (38-126); Anion Gap 3 mmol/L (8-16); Aspartate Amino Transferase 85 U/L (14-36); Bilirubin,Total 0.7 mg/dL (0.2-1.3); Blood Urea Nitrogen 16 mg/dL (7-17); Calcium 7.2 mg/dL (8.4-10.2); Carbon Dioxide 20 mmol/L (22-30); Chloride 116 mmol/L (98-107); Creatine Kinase 101 U/L (30-135); Estimated CRCL calculation 53 ml/min; Estimated Glomerular Filt Rate > 60; Glucose 130 mg/dL (65-110); Magnesium 1.9 mg/dL (1.6-2.3); Phosphorus 2.8 mg/dL (2.5-4.5); Potassium 3.5 mmol/L (3.4-5.0); Sodium 139 mmol/L (137-145)
[2023-04-22] MEDS: CENTRAL LINE FLUSH 10 ML IV PUSH ×4 (06:21→22:14)
[2023-04-22 06:30] LABS: Glucose Point of Care 127 mg/dl (65-105)
[2023-04-22] MEDS: MIDAZOLAM 100MG/NS 100ML(*CRX) 100 MG/100 ML BAG IV CONT (06:48)
[2023-04-22 07:04] LABS: Glucose Point of Care 135 mg/dl (65-105)
[2023-04-22 08:22] LABS: Glucose Point of Care 113 mg/dl (65-105)
[2023-04-22] MEDS: PERFLUTREN LIPID MICROSPHERES 1.5 ML VIAL DILUTED TO 10 ML TOTAL VOLUME IV PUSH (08:50)
[2023-04-22] MEDS: KCL 40 MEQ/WATER 100 ML 100 ML 25 ML IVPB (09:30)
[2023-04-22] MEDS: levETIRAcetam 500MG/NACL 100ML 500 MG/100 ML BAG 400 MG IVPB ×2 (09:32→21:30)
[2023-04-22] MEDS: PANTOPRAZOLE SODIUM IV 40 MG VIAL IV PUSH ×2 (09:33→21:29)
[2023-04-22] MEDS: MINERAL OIL/WHITE PETROLATUM OINTMENT 1 APPLIC EACH EYE ×2 (09:36→22:11)
[2023-04-22 10:02] LABS: Glucose Point of Care 101 mg/dl (65-105)
[2023-04-22 10:06] LABS: Partial Thromboplastin Time 151.8 SECONDS (22.3-36.8)
[2023-04-22 10:19] LABS: Glucose Point of Care 112 mg/dl (65-105)
[2023-04-22 11:03] LABS: Glucose Point of Care 109 mg/dl (65-105)
[2023-04-22 11:28] LABS: Lactic Acid Reflex 1.6 mmol/L (0.7-2.0)
--- NOTE | 2023-04-22 11:43 | WPDINTPN ---
Progress Note: A&P Assessment and Plan (1) Cardiac arrest: Code(s): I46.9 - Cardiac arrest, cause unspecified Status: Acute Assessment and Plan: Patient with initial VFib arrest at home upon arrival of the EMS, did she had PEA arrest x2 in the ER. Intubated in the field. Patient did receive amiodarone infusion Enroute to the hospital. - No ischemic changes on the EKG. -patient is on sotalol at home, this could be a arrhythmogenic event with possible prolonged QT resulting and torsades. As the 1st EKG showed QT of 515 milliseconds and a 2nd EKG with QT of 480 millisecond. A manual measurement of the QT by knot bumper was about 600 milliseconds. -no clear indication for angiogram/cardiac catheterization at this time -04/21: Transvenous temporary pacemaker was inserted in the right IJ due to QTC prolongation and bradycardia, shock, decreased perfusion -patient on a target temperature management, currently in the rewarming phase -troponins mildly elevated, continue heparin infusion -continue Keppra for seizure prophylaxis (2) Acute respiratory failure: Code(s): J96.00 - Acute respiratory failure, unspecified whether with hypoxia or hypercapnia Status: Acute Assessment and Plan: Acute respiratory respiratory failure likely related to cardiac arrest -chest x-ray showed pulmonary edema -patient intubated in the field with a size 7 ET tube on 04/20/2023 -continue CMV mode of ventilation, peep of 5, 30% FiO2. -chest x-ray and ABGs reviewed -add bronchodilators -sedated with fentanyl and Versed infusion, once patient is we warmed will wean sedation to off, to evaluate mental status -off Nimbex since 04/21 (3) Shock: Code(s): R57.9 - Shock, unspecified Status: Acute Assessment and Plan: Patient was in shock with low blood pressures, elevated lactic acid of 5.8. Patient did receive 2 L IV fluid bolus in the ER, repeat lactic acid is 1.8 this morning -patient was initially started on Levophed, was then bradycardic in the upper 20s and 30s so Levophed was switched to epinephrine -post transvenous pacemaker placement, epinephrine was discontinued, patient was started on small dose of Levophed, will maintain MAP > 65 mmHg at all times for adequate end organ perfusion -04/20/2023: Blood and urine cultures are negative so far -patient currently on Zosyn (04/20) for possible aspiration pneumonia and UTI -continue stress dose steroids 03/06/2023: Echocardiogram -showed EF of 60-65%, LV diastolic function is indeterminate, moderate mitral valve regurg, moderate tricuspid valve regurg, mild pulmonary hypertension with RVSP of 36 mmHg 04/22/2023 Repeat echocardiogram: pending report (4) Elevated LFTs: Code(s): R79.89 - Other specified abnormal findings of blood chemistry Status: Acute Assessment and Plan: Likely related to hypotension, shock -LFTs improving, will continue to monitor (5) Congestive heart failure: Code(s): I50.9 - Heart failure, unspecified Status: Acute Assessment and Plan: Chest x-ray shows pulmonary edema, could be related to arrhythmias causing pulmonary edema -currently on mechanical ventilator -patient also in shock on vasopressors, will hold off diuretics at this time -echocardiogram as above -cardiology following (6) Paroxysmal atrial fibrillation: Code(s): I48.0 - Paroxysmal atrial fibrillation Status: Acute Assessment and Plan: Patient has a history of paroxysmal AFib on sotalol and Xarelto at home, currently holding both these medications -04/21: status post transfuse temporary pacemaker -continue to monitor (7) UTI (urinary tract infection): Code(s): N39.0 - Urinary tract infection, site not specified Status: Acute Assessment and Plan: UA reflective of a UTI, cultures negative, continue Zosyn (8) Hypertension: Qualifiers: Hypertension type: primary hypertension Qualified Code(
--- NOTE | 2023-04-22 12:16 | PM.PNCARD ---
Progress Note: A&P Assessment and Plan (1) Cardiac arrest with ventricular fibrillation: Code(s): I46.9 - Cardiac arrest, cause unspecified; I49.01 - Ventricular fibrillation Status: Acute Assessment and Plan: Initial arresting rhythm VFIB per the EMS. Had 2 PEA arrests while in the ED. Unclear etiology at this time for her cardiac arrest. No reports of chest pain or other symptoms earlier today per the family. No ischemic changes on the EKG here in the ED. Trop mildly elevated at 0.7, but ASC unlikely. On Sotalol at home -- possibly prolonged QT resulting in Torsades?? Exceptionally long QT interval noted this admission. EF of 43% noted global hypokinesis, likely a result of stunned myocardium from her arrest as her EF was normal recently, and hopefully will improve was. Not able to use any CHF meds at this time due to hypotension --Continue supportive care. --Follow neurologic status (2) Prolonged QT interval: Code(s): R94.31 - Abnormal electrocardiogram [ECG] [EKG] Status: Acute Assessment and Plan: Bradycardia and QT prolongation noted --placed temporary transvenous pacer to help shorten QT. --Avoid QT prolonging medications if possible. (3) Shock: Code(s): R57.9 - Shock, unspecified Status: Acute Assessment and Plan: Continue pressor support as needed. (4) Elevated troponin: Code(s): R77.8 - Other specified abnormalities of plasma proteins Status: Acute Assessment and Plan: Troponin of 0.047, 0.491, 0.736. EKG without ischemic changes. --Continue Heparin drip, --echo without focal wall motion abnormalities, so doubt ACS (5) Paroxysmal atrial fibrillation: Code(s): I48.0 - Paroxysmal atrial fibrillation Status: Acute Assessment and Plan: Currently in sinus bradycardia. Holding Sotalol and all rate controlling agents due to bradycardia, pressor requirement. --Cont Heparin drip for h/o PAF Subjective Date/time seen: 04/22/23 12:16 Interval history: Follow-up for VFib arrest, sinus bradycardia, exceptional QT prolongation, hypotension requiring pressors, temporary transvenous pacemaker due to exceptionally long QT interval, bradycardia and shock. History of paroxysmal atrial fibrillation, recently on sotalol. 04/21/2023: Temporary pacemaker placed, hypothermia protocol continues, heparin drip, on epinephrine. Date of service 04/22/2023: Hypothermia protocol has been completed and patient is being rewarmed. Remains on Levophed 5 mics. RN reports positive gag reflex, opened eyes to sternal rub. Still sedated with Versed and fentanyl Potassium 3.5. Telemetry: V-paced. Threshold checked: ventricular threshold 0.5, underlying sinus bradycardia. No significant arrhythmias overnight, some PVCs Echo: Moderate global hypokinesis, EF 43% Review of Systems Review of Systems: ROS obtained as above from patient's nurse and EMR ROS unobtainable: Yes unobtainable due to endotracheal tube, unobtainable due to medical condition and unobtainable due to mental status Exam Const: General: comfortable and uncomfortable Orientation/consciousness: oriented to person, patient oriented x3 and No confusion Other: Multiple tubes and lines, intubated sedated HENMT: Mouth: Yes moist mucous membranes Eyes: General: appearance normal, both eyes and all related structures Neck: Neck: supple Other: Right IJ line Resp: Effort & Inspection: normal respiratory effort Auscultation: clear to auscultation bilaterally Cardio: Rate: regular rate Rhythm: regular rhythm Heart sounds: no murmurs GI: Inspection: normal to inspection GI Palp: No abdominal tenderness Skin: General skin exam: normal color and no rashes or lesions noted Neuro: General: No oriented to person and confusion Other: Intubated and sedated Extrem: Right lower extremity: no edema Left lower extremity: no edema Psych: Ap
[2023-04-22 12:25] LABS: Glucose Point of Care 128 mg/dl (65-105)
[2023-04-22] MEDS: SODIUM CHLORIDE 0.9% IV 1,000 ML 75 ML IV CONT (12:54)
--- NOTE | 2023-04-22 15:59 | WPDPN ---
Progress Note: A&P Assessment and Plan (1) Cardiac arrest: Code(s): I46.9 - Cardiac arrest, cause unspecified Status: Acute Assessment and Plan: Hypothermic protocol initiated. The patient has a central line and an arterial line is planned as well. Cardiology has been consulted and heparin drip was started. Patient has elevated cardiac enzymes. Also the patient could possibly be septic from UTI. The manager medical was consulted the patient was placed in the ICU. The patient had been coded x3. It was reported that the patient only coded for a brief moment while she was in the emergency room x2. The 1st code was initiated in the field. The patient is intubated and on a ventilator. Further recommendation per Cardiology and manager medical. Her lactic is 3.4. The patient is currently on epinephrine drip. She is also on hydrocortisone drip. 04/22/2023 interval history: patient Ventricular fibrillation cardiac arrest at home, CPR was started and EMS was called and again in ER patient coded twice and had ROSC, patient was intubated and admitted into ICU, patient was started on Amiodorane, manager medical suspect prolong qt interval may caused cardiac arrest, and patient will be seen by pilot plant research technician and further recommnentdation to follow. patient remains hypotensive on low dose norepinephrine, plan is take patient off sedation tomorrow and monitor, will follow. (2) Elevated troponin: Code(s): R77.8 - Other specified abnormalities of plasma proteins Status: Acute Assessment and Plan: An echo has been ordered. Cardiology has evaluated the patient. Initial troponin 0.047 and repeat was 0.491. Is reported that the patient was evaluated by Cardiology and it was felt that emergent cardiac catheterization was not necessary at this time. Patient is currently on heparin drip. The patient has dark stools and I ordered H&H every 6 hours with his stool for occult blood. (3) Congestive heart failure: Code(s): I50.9 - Heart failure, unspecified Status: Acute Assessment and Plan: Echo on 03/06/2023?1. Complete two-dimensional, color flow and Doppler transthoracic echocardiogram is performed. ? 2. Technically difficult study with limited views. ? 3. Left ventricular chamber dimension is normal. ? 4. Left ventricular systolic function is normal, estimated at 60-65%. ? 5. There is no increased left ventricular wall thickness. ? 6. The left ventricular diastolic function is indeterminate. ? 7. There is moderate mitral valve regurgitation. ? 8. There is moderate tricuspid valve regurgitation. ? 9. Mild pulmonary hypertension, estimated pulmonary arterial systolic pressure is 36 mmHg. (4) Hypothyroidism: Code(s): E03.9 - Hypothyroidism, unspecified Status: Acute Assessment and Plan: Check thyroid levels. (5) Paroxysmal atrial fibrillation: Code(s): I48.0 - Paroxysmal atrial fibrillation Status: Acute Assessment and Plan: The patient is currently on a heparin drip and the patient was found to be in sinus rhythm after she had coded the last time. (6) Hypertension: Qualifiers: Hypertension type: primary hypertension Qualified Code(s): I10 - Essential (primary) hypertension Code(s): I10 - Essential (primary) hypertension Status: Acute Assessment and Plan: The patient's blood pressure is 88/78. The patient is on a norepinephrine drip as well as hydrocortisone drip (7) Elevated blood sugar: Code(s): R73.9 - Hyperglycemia, unspecified Status: Acute Assessment and Plan: Continue with Accu-Cheks and check A1c. Sliding scale insulin. (8) UTI (urinary tract infection): Code(s): N39.0 - Urinary tract infection, site not specified Status: Acute Assessment and Plan: The patient was started on Zosyn. The patient may be septic. Blood pressure is soft although her heart rate is less than 60. She is afebrile. B
[2023-04-22 17:16] LABS: Alveolar/Arterial O2 Gradient 106.7 mmHg; Base Excess ABG -5.5 mEq/l (+/-2.0); Fractional Inspired Oxygen 30 %; HCO3 ABG 18.7 mEq/l (22.0-26.0); Oxygen Content ABG 15.8 %vol (16.0-22.0); Oxygen Saturation ABG 93.6 % (95.0-100.0); Oxyhemoglobin 91.9 % THb (90.0-100.0); PCO2 ABG 32.7 mmHg (35.0-45.0); PO2 ABG 68.8 mmHg (80.0-100.0); PO2 FiO2 Ratio Arterial Blood 2.29 %; Total Hemoglobin 12.2 g/dL (12.0-18.0); pH ABG 7.376 (7.350-7.450)
[2023-04-22 17:18] LABS: Device VENTILATOR; Site Drawn LEFT RADIAL
[2023-04-22 17:19] LABS: Arterial Blood Gas PEEP 5 cmH2O; Arterial Blood Gas Tidal Volume 400 ml; Arterial Blood Gas Vent Mode CMV; Arterial Blood Gas Ventilator rate 18 /MIN
[2023-04-22 17:59] LABS: Partial Thromboplastin Time 55.5 SECONDS (22.3-36.8)
[2023-04-22] MEDS: HEPARIN SODIUM 5,000 UNITS/ML VIAL 3000 UNITS IV PUSH (18:06)
[2023-04-22 18:18] LABS: Glucose Point of Care 122 mg/dl (65-105)
--- NOTE | 2023-04-22 20:00 | PC.NURSE ---
sedation runnning at fentanyl 50 mcg/hr and versed at 1 mg/hr as reported by nitin RN. Not reflected as such in the EMar. Rate was not decreased by this RN.
[2023-04-23] VITALS (71 sets, daily range): BP systolic 86–160; BP diastolic 45–88; PULSE 99–142; RESP 14–29; TEMP 36.6–37.3; O2SAT 97–100
[2023-04-23] MEDS: HEPARIN SOD/D5W 100 UNITS/ML 25,000 UNITS/250 ML BAG 6 UNITS IV CONT (01:09)
[2023-04-23 01:24] LABS: Glucose Point of Care 138 mg/dl (65-105)
[2023-04-23 01:38] LABS: Partial Thromboplastin Time 79.1 SECONDS (22.3-36.8)
[2023-04-23] MEDS: IPRATROPIUM BR 0.02% INH SOLN 0.5 MG/2.5 ML VIAL INHALATION ×4 (02:22→20:14)
[2023-04-23] MEDS: ALBUTEROL SULFATE NEB 2.5 MG/3 ML INH INHALATION ×4 (02:23→20:14)
[2023-04-23] MEDS: SODIUM CHLORIDE 0.9% IV 1,000 ML 75 ML IV CONT ×2 (03:30→16:56)
[2023-04-23 05:13] LABS: Basophils Percent Auto 0.1 % (0.2-1.2); Hematocrit 33.4 % (37.0-47.0); Hemoglobin 10.7 g/dL (12.0-15.0); Immature Platelet Fraction Pct 7.6 % (0.9-11.2); Lymphocytes Absolute Auto 0.84 K/mm3 (0.9-3.2); Lymphocytes Percent Auto 8.7 % (18.3-44.2); Mean Corpuscular Hemoglobin 29.9 pg (26-34); Mean Corpuscular Volume 93.3 fl (80-100); Mean Platelet Volume 12.3 fl (7.4-10.4); Monocytes Absolute Auto 0.6 K/mm3 (0.1-0.6); Monocytes Percent Auto 5.9 % (2.6-8.5); Neutrophils Absolute Auto 8.2 K/mm3 (1.3-6.7); Neutrophils Percent Auto 84.3 % (45.5-73.1); Platelet Count Result 98 k/mm3 (150-375); Red Blood Count 3.58 M/mm3 (4.2-5.4); Red Cell Distribution Width 14.6 % (11.5-14.5); White Blood Count 9.7 K/mm3 (4.5-10.0)
[2023-04-23 05:22] LABS: Alveolar/Arterial O2 Gradient 78.7 mmHg; Fractional Inspired Oxygen 30 %; HCO3 ABG 18.6 mEq/l (22.0-26.0); Oxygen Content ABG 16.2 %vol (16.0-22.0); Oxygen Saturation ABG 97.7 % (95.0-100.0); Oxyhemoglobin 96.2 % THb (90.0-100.0); PCO2 ABG 30.2 mmHg (35.0-45.0); PO2 ABG 99.7 mmHg (80.0-100.0); PO2 FiO2 Ratio Arterial Blood 3.32 %; Total Hemoglobin 11.9 g/dL (12.0-18.0); pH ABG 7.407 (7.350-7.450)
[2023-04-23 05:27] LABS: Alanine Aminotransferase 120 U/L (6-35); Albumin Level 2.5 g/dL (3.5-5.1); Alkaline Phosphatase 52 U/L (38-126); Anion Gap 5 mmol/L (8-16); Aspartate Amino Transferase 50 U/L (14-36); Bilirubin,Total 0.8 mg/dL (0.2-1.3); Blood Urea Nitrogen 21 mg/dL (7-17); Calcium 7.4 mg/dL (8.4-10.2); Carbon Dioxide 17 mmol/L (22-30); Chloride 118 mmol/L (98-107); Estimated CRCL calculation 49 ml/min; Estimated Glomerular Filt Rate 54; Glucose 144 mg/dL (65-110); Phosphorus 2.7 mg/dL (2.5-4.5); Sodium 140 mmol/L (137-145)
[2023-04-23 05:27] LABS: Arterial Blood Gas PEEP 5 cmH2O; Arterial Blood Gas Vent Mode CMV; Arterial Blood Gas Ventilator rate 18 /MIN; Device VENTILATOR; Site Drawn ARTLINE
[2023-04-23 05:28] LABS: Arterial Blood Gas Tidal Volume 400 ml
[2023-04-23] MEDS: PIPERACILLN/TAZ 3.375GM/NS50ML 3.375 GM/50 ML BAG IVPB ×4 (05:46→23:30)
[2023-04-23] MEDS: HYDROCORTISONE SODIUM SUCCINATE 100 MG/2 ML VIAL IV PUSH (05:48)
[2023-04-23] MEDS: CENTRAL LINE FLUSH 10 ML IV PUSH ×4 (05:52→21:06)
--- NOTE | 2023-04-23 07:06 | P.PNCROSS_ITS ---
Event Note Event Note Event Note: 04/23/2023 somewhere around midnight nursing staff called to tell me that the p atient was having neurologic changes. The patient's eyes were deviated upward. The patient was still having pinpoint pupils which was seemed to be unchanged from recent. Prior to the nursing staff felt that the once patient's 1 pupil was slightly larger than the other but I did not appreciate this on exam. The patient's blood pressures have been fluctuating erratically for about an hour. There was concerned that the patient may be having some increased intracranial pressure. I sent the patient down for a stat CT of the brain. Stat CT demonstrated no acute changes. The patient is still have intact cough and gag reflex. But on exam patient had absent doll's eye. Patient's also was having increased abdominal distension and had decreased output from fecal management system. Nursing staff was concerned that there was an intra-abdominal process. I had already ordered a KUB for a.m. but since patient was going down for a stat CT of the head at when it and is CT of the abdomen pelvis for more complete information and to try to prevent from having an take the patient back down the CT scan if KUB was abnormal. Both CT scans were reviewed. Stat read read both as both negative for any process that required acute intervention. Results were discussed with Radiology. Assembly Line Machine Operator was updated as to over that events at the end of my shift. Care has been turned over. 30 minutes spent in critical care activities. Due to a high probability of clinically significant, life threatening deterioration, the patient required my highest level of preparedness to intervene emergently and I personally spent this critical care time directly and personally managing the patient. This critical care time included obtaining a history; examining the patient; pulse oximetry; ordering and review of studies; arranging urgent treatment with development of a management plan; evaluation of patient's response to treatment; frequent reassessment; and discussions with other providers. It was exclusive of separately billable procedures and treating other patients and teaching time. Please see Assessment and Plan section and the rest of the note for further information on patient assessment and treatment.
[2023-04-23] MEDS: MINERAL OIL/WHITE PETROLATUM OINTMENT 1 APPLIC EACH EYE ×2 (08:53→21:05)
[2023-04-23] MEDS: levETIRAcetam 500MG/NACL 100ML 500 MG/100 ML BAG 400 MG IVPB ×2 (08:53→21:05)
[2023-04-23] MEDS: PANTOPRAZOLE SODIUM IV 40 MG VIAL IV PUSH ×2 (08:53→21:05)
[2023-04-23 10:24] LABS: Partial Thromboplastin Time 51.7 SECONDS (22.3-36.8)
[2023-04-23] MEDS: FUROSEMIDE INJ 40 MG/4 ML VIAL 20 MG IV PUSH (11:04)
[2023-04-23] MEDS: HEPARIN SODIUM 5,000 UNITS/ML VIAL 4000 UNITS IV PUSH (11:10)
[2023-04-23 11:36] LABS: Glucose Point of Care 113 mg/dl (65-105)
--- NOTE | 2023-04-23 13:05 | WPDINTPN ---
Progress Note: A&P Assessment and Plan (1) Cardiac arrest: Code(s): I46.9 - Cardiac arrest, cause unspecified Status: Acute Assessment and Plan: Patient with initial VFib arrest at home upon arrival of the EMS, did she had PEA arrest x2 in the ER. Intubated in the field. Patient did receive amiodarone infusion Enroute to the hospital. - No ischemic changes on the EKG. -patient is on sotalol at home, this could be a arrhythmogenic event with possible prolonged QT resulting and torsades. As the 1st EKG showed QT of 515 milliseconds and a 2nd EKG with QT of 480 millisecond. A manual measurement of the QT by paper wrapping machine operator was about 600 milliseconds. -no clear indication for angiogram/cardiac catheterization at this time -04/21: Transvenous temporary pacemaker was inserted in the right IJ due to QTC prolongation and bradycardia, shock, decreased perfusion -status post target temperature management, rewarmed to normal body temperature on 04/22/2022 at approximately 12:00 noon -troponins mildly elevated, continue heparin infusion -continue Keppra for seizure prophylaxis (2) Acute respiratory failure: Code(s): J96.00 - Acute respiratory failure, unspecified whether with hypoxia or hypercapnia Status: Acute Assessment and Plan: Acute respiratory respiratory failure likely related to cardiac arrest -chest x-ray showed pulmonary edema -patient intubated in the field with a size 7 ET tube on 04/20/2023 -continue CMV mode of ventilation, peep of 5, 30% FiO2. -chest x-ray and ABGs reviewed -continue bronchodilators - off all sedation since 04/22 (3) Shock: Code(s): R57.9 - Shock, unspecified Status: Acute Assessment and Plan: Patient was in shock with low blood pressures, elevated lactic acid of 5.8. Patient did receive 2 L IV fluid bolus in the ER, repeat lactic acid is 1.8 this morning -patient was initially started on Levophed, was then bradycardic in the upper 20s and 30s so Levophed was switched to epinephrine -post transvenous pacemaker placement, epinephrine was discontinued, -OFF LEVOPHED , blood pressures have been stable -04/20/2023: Blood and urine cultures are negative so far -patient currently on Zosyn (04/20) for possible aspiration pneumonia and UTI -discontinue stress dose steroids since blood pressures have better and patient off vasopressor 03/06/2023: Echocardiogram -showed EF of 60-65%, LV diastolic function is indeterminate, moderate mitral valve regurg, moderate tricuspid valve regurg, mild pulmonary hypertension with RVSP of 36 mmHg 04/22/2023 Repeat echocardiogram: Moderate global hypokinesis, EF 40-45%, grade 2 diastolic dysfunction sigmoid hypertrophy, abnormal septal motion secondary to pacing, [id number] tricuspid valve regurg, mild mitral valve regurg, no pulmonary hypertension (4) Elevated LFTs: Code(s): R79.89 - Other specified abnormal findings of blood chemistry Status: Acute Assessment and Plan: Likely related to hypotension, shock -LFTs improving, will continue to monitor (5) Congestive heart failure: Code(s): I50.9 - Heart failure, unspecified Status: Acute Assessment and Plan: Chest x-ray shows pulmonary edema, could be related to arrhythmias causing pulmonary edema -currently on mechanical ventilator Patient off all pressors -echocardiogram as above -cardiology following -will give small dose of Lasix today (6) Paroxysmal atrial fibrillation: Code(s): I48.0 - Paroxysmal atrial fibrillation Status: Acute Assessment and Plan: Patient has a history of paroxysmal AFib on sotalol and Xarelto at home, currently holding both these medications -04/21: status post transfuse temporary pacemaker -continue heparin infusion -monitor closely (7) UTI (urinary tract infection): Code(s): N39.0 - Urinary tract infection, site not specified Status: Acute Assessment and Plan: UA refle
[2023-04-23] MEDS: PROPOFOL IV EMULSION 100 ML 2.79 MG IV CONT (14:12)
--- NOTE | 2023-04-23 14:31 | WPDPN ---
Progress Note: A&P Assessment and Plan (1) Cardiac arrest: Code(s): I46.9 - Cardiac arrest, cause unspecified Status: Acute Assessment and Plan: Hypothermic protocol initiated. The patient has a central line and an arterial line is planned as well. Cardiology has been consulted and heparin drip was started. Patient has elevated cardiac enzymes. Also the patient could possibly be septic from UTI. The vice president industrial relations was consulted the patient was placed in the ICU. The patient had been coded x3. It was reported that the patient only coded for a brief moment while she was in the emergency room x2. The 1st code was initiated in the field. The patient is intubated and on a ventilator. Further recommendation per Cardiology and vice president industrial relations. Her lactic is 3.4. The patient is currently on epinephrine drip. She is also on hydrocortisone drip. 04/23/2023 interval history: patient Ventricular fibrillation cardiac arrest at home, CPR was started and EMS was called and again in ER patient coded twice and had ROSC, patient was intubated and admitted into ICU, patient was started on Amiodorane, vice president industrial relations suspect prolong qt interval may caused cardiac arrest, and patient was seen by health administration teacher and Transvenous temporary pacemaker was inserted in the right IJ due to QTC prolongation and bradycardia, shock, decreased perfusion and will monitor further recommendation to follow. patient remains hypotensive on low dose norepinephrine, plan is take patient off sedation and not awake, and monitor, will follow. (2) Elevated troponin: Code(s): R77.8 - Other specified abnormalities of plasma proteins Status: Acute Assessment and Plan: An echo has been ordered. Cardiology has evaluated the patient. Initial troponin 0.047 and repeat was 0.491. Is reported that the patient was evaluated by Cardiology and it was felt that emergent cardiac catheterization was not necessary at this time. Patient is currently on heparin drip. The patient has dark stools and I ordered H&H every 6 hours with his stool for occult blood. (3) Congestive heart failure: Code(s): I50.9 - Heart failure, unspecified Status: Acute Assessment and Plan: Echo on 03/06/2023?1. Complete two-dimensional, color flow and Doppler transthoracic echocardiogram is performed. ? 2. Technically difficult study with limited views. ? 3. Left ventricular chamber dimension is normal. ? 4. Left ventricular systolic function is normal, estimated at 60-65%. ? 5. There is no increased left ventricular wall thickness. ? 6. The left ventricular diastolic function is indeterminate. ? 7. There is moderate mitral valve regurgitation. ? 8. There is moderate tricuspid valve regurgitation. ? 9. Mild pulmonary hypertension, estimated pulmonary arterial systolic pressure is 36 mmHg. (4) Hypothyroidism: Code(s): E03.9 - Hypothyroidism, unspecified Status: Acute Assessment and Plan: Check thyroid levels. (5) Paroxysmal atrial fibrillation: Code(s): I48.0 - Paroxysmal atrial fibrillation Status: Acute Assessment and Plan: The patient is currently on a heparin drip and the patient was found to be in sinus rhythm after she had coded the last time. (6) Hypertension: Qualifiers: Hypertension type: primary hypertension Qualified Code(s): I10 - Essential (primary) hypertension Code(s): I10 - Essential (primary) hypertension Status: Acute Assessment and Plan: The patient's blood pressure is 88/78. The patient is on a norepinephrine drip as well as hydrocortisone drip (7) Elevated blood sugar: Code(s): R73.9 - Hyperglycemia, unspecified Status: Acute Assessment and Plan: Continue with Accu-Cheks and check A1c. Sliding scale insulin. (8) UTI (urinary tract infection): Code(s): N39.0 - Urinary tract infection, site not specified Status: Acute Assessment and Plan
[2023-04-23] MEDS: METOPROLOL TARTRATE INJ 5 MG/5 ML VIAL IV PUSH ×2 (15:35→17:29)
--- NOTE | 2023-04-23 15:53 | WPDNEURCNPN ---
Consult date: 04/23/23 HPI: Vika Duke is a 78 year old female admitted to the hospital through the emergency room subsequent to cardiac arrest when her son heard of 3rd and final his mother unresponsive and pulseless requiring CPR after calling 911 EMS found the patient to be in VFib arrest she was shocked 3 times and received 3 doses of epinephrine. She regained a pulse just as they were about to give amiodarone. . He was intubated in the field. She had been admitted to this hospital in February with new onset of atrial fibrillation and congestive heart failure she was coded in the ER at least 2 times more she received CPR for 4 minutes each time central line was placed in the left internal jugular vein she was noted to have dark brown stool cardiologists were consulted patient did speak in the emergency room as per the physician patient's family wanted to continue the full code status patient remained under the supervision of the furniture repairer. Records have been reviewed. Neuro consultation has been obtained established in neurological status and the EEG has been ordered for tomorrow. [facility] Past Medical History Medical History (Updated 04/21/23 @ 14:37 by Ita Garner MD) Acute respiratory failure Chronic anticoagulation History of cervical cancer Hypertension Hypothyroidism KASSANDRA (obstructive sleep apnea) Paroxysmal atrial fibrillation Surgical History Surgical History History of History of colonoscopy with polypectomy History of open reduction and internal fixation (ORIF) procedure (03/16/22) Repair of left ankle fracture per Dr. Banerjee. History of partial hysterectomy For cervical cancer. Family History Family History Father Cancer Hypertension Mother Diabetes mellitus Hypertension Heart disease Sibling Heart disease Other Acute myocardial infarction Social History Social History (Updated 04/20/23 @ 22:38 by Erinn Drake NP) Social History: The patient is and retired. She is a former smoker. Surrogate medical decision maker: Alejandra Parish, daughter. Code status: Full code. Smoking status: Former smoker Tobacco type: cigarettes Alcohol intake: former Substance use: never Lack of Transportation: No Lack of Food: Never True Current Housing: I Have Housing Concerned About Future Housing: No Difficulty Paying Gas/Electric Bills: No Difficulty Paying for Meds: No Currently Unemployed: No Education: High School Diploma/GED Difficulty w/ Childcare or Family Care: No Living arrangements: alone Additional living arrangements comments: [place]. Occupation/Education: retired Spiritual care concerns: No Meds Home Medications and Allergies Home Medications Medication Instructions Recorded Confirmed Type rivaroxaban 20 mg tablet (Xarelto) 20 mg PO DAILY@1700 30 days #30 03/18/22 04/20/23 Rx tabs furosemide 20 mg tablet (Lasix) 20 mg PO DAILY #30 tabs 03/09/23 04/20/23 Rx potassium chloride 20 mEq 20 meq PO DAILY #30 tabs 03/09/23 04/20/23 Rx tablet,extended release sotalol 80 mg tablet 80 mg PO BID 04/20/23 04/20/23 History Allergies Allergy/AdvReac Type Severity Reaction Status Date / Time shellfish derived Allergy Hives Verified 03/05/23 09:14 Vital Signs Vital Signs - 24 hr 04/22/23 16:07 04/22/23 16:00 04/22/23 16:00 Temperature 36.7 C Pulse Rate 100 101 H Respiratory Rate 18 Blood Pressure 121/68 116/65 Pulse Oximetry 98 Oxygen Delivery Fraction of Inspired Oxygen 30 04/22/23 16:00 04/22/23 16:00 04/22/23 17:02 Temperature Pulse Rate 102 H 101 H Respiratory Rate Blood Pressure Pulse Oximetry 96 Oxygen Delivery Mechanical Ventilation Mechanical Ventilation Fraction of Inspired Oxygen 30 30 04/22/23 16:10 04/22/23 18:00 04/22/23 18:00 Temperature 37.1 C
[2023-04-23 17:34] LABS: Glucose Point of Care 136 mg/dl (65-105)
[2023-04-23 18:20] LABS: Triglycerides 132 mg/dL (<150)
[2023-04-23 18:47] LABS: Partial Thromboplastin Time 161.6 SECONDS (22.3-36.8)
--- NOTE | 2023-04-23 19:33 | PM.PNCARD ---
Progress Note: A&P Assessment and Plan (1) Cardiac arrest with ventricular fibrillation: Code(s): I46.9 - Cardiac arrest, cause unspecified; I49.01 - Ventricular fibrillation Status: Acute Assessment and Plan: Initial arresting rhythm VFIB per the EMS. Had 2 PEA arrests while in the ED. Unclear etiology at this time for her cardiac arrest. No reports of chest pain or other symptoms earlier today per the family. No ischemic changes on the EKG here in the ED. Trop mildly elevated at 0.7, but ASC unlikely. On Sotalol at home -- possibly prolonged QT resulting in Torsades?? Exceptionally long QT interval noted this admission. EF of 43% noted global hypokinesis, likely a result of stunned myocardium from her arrest as her EF was normal recently, and hopefully will improve was. Not able to use any CHF meds at this time due to hypotension --Continue supportive care. --Follow neurologic status (2) Prolonged QT interval: Code(s): R94.31 - Abnormal electrocardiogram [ECG] [EKG] Status: Acute Assessment and Plan: Bradycardia and QT prolongation noted --placed temporary transvenous pacer to help shorten QT. --Avoid QT prolonging medications if possible. (3) Shock: Code(s): R57.9 - Shock, unspecified Status: Acute Assessment and Plan: Improved, on minimal Levophed (4) Elevated troponin: Code(s): R77.8 - Other specified abnormalities of plasma proteins Status: Acute Assessment and Plan: Troponin of 0.047, 0.491, 0.736. EKG without ischemic changes. --Continue Heparin drip, --echo without focal wall motion abnormalities, so doubt ACS (5) Paroxysmal atrial fibrillation: Code(s): I48.0 - Paroxysmal atrial fibrillation Status: Acute Assessment and Plan: Has P AF, now in AFib RVR. History of bradycardia as well. Holding Sotalol due to VFib arrest and QT prolongation. --Cont Heparin drip for h/o PAF --continue p.r.n. IV metoprolol --try p.r.n. IV diltiazem --avoid amiodarone Subjective Date/time seen: 04/23/23 19:33 Interval history: Follow-up for VFib arrest, sinus bradycardia, exceptional QT prolongation, hypotension requiring pressors, temporary transvenous pacemaker due to exceptionally long QT interval, bradycardia and shock. History of paroxysmal atrial fibrillation, recently on sotalol. 04/21/2023: Temporary pacemaker placed, hypothermia protocol continues, heparin drip, on epinephrine. Date of service 04/22/2023: Hypothermia protocol has been completed and patient is being rewarmed. Remains on Levophed 5 mics. RN reports positive gag reflex, opened eyes to sternal rub. Still sedated with Versed and fentanyl Potassium 3.5. Telemetry: V-paced. Threshold checked: ventricular threshold 0.5, underlying sinus bradycardia. No significant arrhythmias overnight, some PVCs Echo: Moderate global hypokinesis, EF 43% Date of service 04/23/2023: Patient was hypertensive this morning, but then when and AFib RVR. Has been given 3 doses of IV beta-abelino, with heart rates improving somewhat from 130s now 115-120. However her blood pressures been soft and she is back on Levophed at 1 mics. She has a good gag and cough reflex, withdraws to pain in the right extremity per oceanographer physical. Review of Systems Review of Systems: ROS obtained as above from patient's nurse and EMR Exam Const: General: comfortable and confusion (Unresponsive) Orientation/consciousness: No oriented to person, No patient oriented x3 and No confusion Other: Multiple tubes and lines, intubated sedated HENMT: Mouth: Yes moist mucous membranes Eyes: General: appearance normal, both eyes and all related structures Neck: Neck: supple Other: Right IJ line Resp: Effort & Inspection: normal respiratory effort Auscultation: clear to auscultation bilaterally Cardio: Rate: regular rate Rhythm: regular rhythm Heart sounds: no mur
[2023-04-23] MEDS: dilTIAZem HCl INJ 25 MG/5 ML VIAL 5 MG IV PUSH ×2 (21:05→23:30)
[2023-04-24] VITALS (38 sets, daily range): BP systolic 106–167; BP diastolic 55–88; PULSE 92–142; RESP 18–24; TEMP 37.2–38.4; O2SAT 97–100
--- NOTE | 2023-04-24 | ECG_ITS ---
Measurements Intervals [place] Rate: 119 P: TX: 0 QRS: 8 QRSD: 91 T: 242 QT: 382 QTc: 539 Interpretive Statements ATRIAL FLUTTER/TACHYCARDIA WITH RAPID VENTRICULAR RESPONSE EARLY PRECORDIAL R/S TRANSITION ST-T WAVE ABNORMALITY IN ANTEROLAT/INF LEADS- CONSIDER ISCHEMIA ABNORMAL ECG COMPARED TO ECG 04/24/2023 04:04:39 ATRIAL FLUTTER/TACHYCARDIA NOW PRESENT Electronically Signed On 04-24-2023 13:33:39 CDT by Max Malin D.O.
[2023-04-24 00:58] LABS: Glucose Point of Care 137 mg/dl (65-105)
[2023-04-24] MEDS: dilTIAZem HCl INJ 25 MG/5 ML VIAL 5 MG IV PUSH ×3 (01:08→03:52)
[2023-04-24] MEDS: ALBUTEROL SULFATE NEB 2.5 MG/3 ML INH INHALATION ×4 (02:50→20:10)
[2023-04-24] MEDS: IPRATROPIUM BR 0.02% INH SOLN 0.5 MG/2.5 ML VIAL INHALATION ×4 (02:50→20:10)
[2023-04-24 03:09] LABS: Basophils Percent Auto 0.2 % (0.2-1.2); Eosinophils Absolute Auto 0.1 K/mm3 (0-0.3); Hematocrit 30.6 % (37.0-47.0); Immature Granulocyte Absolute 0.08 K/mm3 (0.00-0.031); Immature Granulocyte Percent A 0.8 % (0-0.5); Lymphocytes Absolute Auto 2.53 K/mm3 (0.9-3.2); Lymphocytes Percent Auto 26.3 % (18.3-44.2); Mean Corpuscular HGB Conc 32.7 g/dl (32-36); Mean Corpuscular Hemoglobin 30.5 pg (26-34); Mean Corpuscular Volume 93.3 fl (80-100); Monocytes Absolute Auto 0.7 K/mm3 (0.1-0.6); Monocytes Percent Auto 6.8 % (2.6-8.5); Neutrophils Absolute Auto 6.2 K/mm3 (1.3-6.7); Neutrophils Percent Auto 64.9 % (45.5-73.1); Nucleated Red Blood Cells Absolute Auto 0.1 K/mm3 (0.0-0.012); Nucleated Red Blood Cells Perc 1.1 % (0.0-0.2); Platelet Count Result 101 k/mm3 (150-375); Red Blood Count 3.28 M/mm3 (4.2-5.4); Red Cell Distribution Width 14.9 % (11.5-14.5); White Blood Count 9.6 K/mm3 (4.5-10.0)
[2023-04-24 03:21] LABS: Partial Thromboplastin Time 56.6 SECONDS (22.3-36.8)
[2023-04-24 03:22] LABS: Alanine Aminotransferase 145 U/L (6-35); Albumin Level 2.5 g/dL (3.5-5.1); Alkaline Phosphatase 57 U/L (38-126); Anion Gap 0 mmol/L (8-16); Aspartate Amino Transferase 122 U/L (14-36); Bilirubin,Total 1.1 mg/dL (0.2-1.3); Blood Urea Nitrogen 27 mg/dL (7-17); Calcium 7.2 mg/dL (8.4-10.2); Carbon Dioxide 24 mmol/L (22-30); Chloride 115 mmol/L (98-107); Estimated CRCL calculation 38 ml/min; Estimated Glomerular Filt Rate 40; Glucose 134 mg/dL (65-110); Magnesium 2.1 mg/dL (1.6-2.3); Sodium 139 mmol/L (137-145)
[2023-04-24] MEDS: HEPARIN SODIUM 5,000 UNITS/ML VIAL 3000 UNITS IV PUSH (03:29)
--- NOTE | 2023-04-24 03:50 | ECG_ITS ---
Measurements Intervals [place] Rate: 110 P: SD: 0 QRS: 3 QRSD: 94 T: 238 QT: 401 QTc: 543 Interpretive Statements ELECTRONIC VENTRICULAR PACEMAKER WITH INHIBITION UNDERLYING PROBABLY ATRIAL TACHYCARDIA/FLUTTER ST-T WAVE ABNORMALITY IN ANTEROLAT/INF LEADS- CONSIDER ISCHEMIA ABNORMAL ECG COMPARED TO ECG 04/21/2023 16:24:32 NO SIGNIFICANT CHANGES Electronically Signed On 04-24-2023 6:59:15 CDT by Max Malin D.O.
[2023-04-24] MEDS: SODIUM CHLORIDE 0.9% IV 1,000 ML 75 ML IV CONT (04:29)
[2023-04-24] MEDS: PIPERACILLN/TAZ 3.375GM/NS50ML 3.375 GM/50 ML BAG IVPB ×4 (04:29→23:45)
[2023-04-24] MEDS: dilTIAZem 100 MG/100 ML 100 MG/100 ML BAG IV CONT (04:40)
[2023-04-24 05:58] LABS: Glucose Point of Care 137 mg/dl (65-105)
[2023-04-24] MEDS: CENTRAL LINE FLUSH 10 ML IV PUSH ×4 (06:03→20:41)
[2023-04-24] MEDS: POTASSIUM CHLORIDE 20 MEQ PACKET (FOR LIQUID) 40 MEQ FEED TUBE (08:06)
[2023-04-24] MEDS: MINERAL OIL/WHITE PETROLATUM OINTMENT 1 APPLIC EACH EYE ×2 (08:06→20:40)
[2023-04-24] MEDS: PANTOPRAZOLE SODIUM IV 40 MG VIAL IV PUSH ×2 (08:06→20:39)
[2023-04-24] MEDS: KCL 40 MEQ/WATER 100 ML 100 ML 25 ML IVPB (08:06)
[2023-04-24] MEDS: levETIRAcetam 500MG/NACL 100ML 500 MG/100 ML BAG 400 MG IVPB ×2 (09:26→20:39)
--- NOTE | 2023-04-24 09:39 | WPDINTPN ---
Progress Note: A&P Assessment and Plan (1) Encephalopathy: Code(s): G93.40 - Encephalopathy, unspecified Status: Acute Assessment and Plan: Post cardiac arrest encephalopathy -status post target temperature management -[facility] Neurology evaluation -06/25: EEG - Abnormal record due to the absence of the normal background rhythm, during the presence of bihemispheric theta and delta activity, but without evidence of any paroxysmal focal or diffuse discharge.? These abnormalities are suggestive of organic or metabolic encephalopathy.? Clinical correlation recommended (2) Cardiac arrest: Code(s): I46.9 - Cardiac arrest, cause unspecified Status: Acute Assessment and Plan: Patient with initial VFib arrest at home upon arrival of the EMS, did she had PEA arrest x2 in the ER. Intubated in the field. Patient did receive amiodarone infusion Enroute to the hospital. - No ischemic changes on the EKG. -patient is on sotalol at home, this could be a arrhythmogenic event with possible prolonged QT resulting and torsades. As the 1st EKG showed QT of 515 milliseconds and a 2nd EKG with QT of 480 millisecond. A manual measurement of the QT by integrated specialist was about 600 milliseconds. -no clear indication for angiogram/cardiac catheterization at this time -04/21: Transvenous temporary pacemaker was inserted in the right IJ due to QTC prolongation and bradycardia, shock, decreased perfusion -status post target temperature management, rewarmed to normal body temperature on 04/22/2022 at approximately 12:00 noon -troponins mildly elevated, continue heparin infusion -continue Keppra for seizure prophylaxis -patient has been tachycardic, in AFib RVR, transvenous pacemaker setting decreased to 60 beats per minute from 100 beats per minute -patient does have underlying rhythm, will discuss further with Cardiology (3) Acute respiratory failure: Code(s): J96.00 - Acute respiratory failure, unspecified whether with hypoxia or hypercapnia Status: Acute Assessment and Plan: Acute respiratory respiratory failure likely related to cardiac arrest -chest x-ray showed pulmonary edema -patient intubated in the field with a size 7 ET tube on 04/20/2023 -continue CMV mode of ventilation, peep of 5, 30% FiO2. -chest x-ray and ABGs reviewed -continue bronchodilators -patient was off all sedation since 04/22/2023, had to be restarted on low-dose propofol as she was gagging on the ETT (4) Shock: Code(s): R57.9 - Shock, unspecified Status: Acute Assessment and Plan: Patient was in shock with low blood pressures, elevated lactic acid of 5.8. Patient did receive 2 L IV fluid bolus in the ER, repeat lactic acid is 1.8 this morning -patient was initially started on Levophed, was then bradycardic in the upper 20s and 30s so Levophed was switched to epinephrine -post transvenous pacemaker placement, epinephrine was discontinued, -OFF LEVOPHED , blood pressures have been stable -04/20/2023: Blood and urine cultures are negative so far -patient currently on Zosyn (04/20) for possible aspiration pneumonia and UTI for total of 7 days 03/06/2023: Echocardiogram -showed EF of 60-65%, LV diastolic function is indeterminate, moderate mitral valve regurg, moderate tricuspid valve regurg, mild pulmonary hypertension with RVSP of 36 mmHg 04/22/2023 Repeat echocardiogram: Moderate global hypokinesis, EF 40-45%, grade 2 diastolic dysfunction sigmoid hypertrophy, abnormal septal motion secondary to pacing, [id number] tricuspid valve regurg, mild mitral valve regurg, no pulmonary hypertension (5) Elevated LFTs: Code(s): R79.89 - Other specified abnormal findings of blood chemistry Status: Acute Assessment and Plan: Likely related to hypotension, shock -LFTs improving, will continue to monitor (6) Congestive heart failure: Code(s): I50.9 - Heart failure, unspecified Status: Acute
[2023-04-24 09:53] LABS: Partial Thromboplastin Time 89.2 SECONDS (22.3-36.8)
--- NOTE | 2023-04-24 10:50 | PCFNICU ---
ICU Rounding Note: Pt current nutrition is Vital AF 1.2 @ goal rate 60 ml/h with flushes 30 ml q 4 hours. Total: 1589 kcal, 99 g protein, 1070 ml free water. Nutrition recommendation: Add Prosource TF protein modular 1x per day to meet estimated protein needs. Total 1680 (~100% EER), 119 g protein (~94% estimated protein needs @ 1.4 g/kg), 1250 ml total free water. Last recorded weight is 92.8 kg. Bowel Motility: Liquid stools per FMS Labs Reviewed: Hgb 10.0, Hct 30.6, Alb 2.5, Na 134, K+ 3.0, eGFR 40, BUN 27, Cre 1.3, Glu 134, TRIG 132 Meds Noted: Propofol @ 2.79 ml/h+ 73 kcal. Protonix, zosyn, Keppra Skin: Abrasion Additional Notes: Mechanical ventilation day 4. Tolerating tube feeding well with residuals ~30 ml. Meeting estimated protein energy needs @100% EER with protein modular ordered. Monitoring plan of care, tolerance, labs, weights, stool patterns Follow daily in ICU rounds, reassess Monday and Monday.
--- NOTE | 2023-04-24 11:35 | WPDNEUROLOGY ---
Neurology EEG Report General Information Date of Study: 04/24/23 TEST eeg DIAGNOSIS anoxic brain injury CONDITION OF RECORDING unresponsive EEG NUMBER [id number] CLINICAL HISTORY patient is in ICU on a vented status post cardiac arrest and hypothermia. Sedation was turned off at the start of the tracing set up. EEG DESCRIPTION Old record consists of low to medium voltage 2 to 3 hertz per 2nd delta activity admixed with low-voltage to medium voltage 5 to 7 hertz per 2nd theta activity with poor agustina posterior gradient. Bilateral symmetrical sleep activity seen with symmetrical spindles. Non paroxysmal. Nonfocal. Nonlateralizing. IMPRESSION Abnormal record due to the absence of the normal background rhythm, during the presence of bihemispheric theta and delta activity, but without evidence of any paroxysmal focal or diffuse discharge. These abnormalities are suggestive of organic or metabolic encephalopathy. Clinical correlation recommended
[2023-04-24] MEDS: HEPARIN SOD/D5W 100 UNITS/ML 25,000 UNITS/250 ML BAG 8 UNITS IV CONT (11:39)
[2023-04-24 11:50] LABS: Glucose Point of Care 155 mg/dl (65-105)
--- NOTE | 2023-04-24 12:29 | WPDNEUROPN ---
Subjective Date/time seen: 04/24/23 12:29 Interval history: reviewed her EEG which is definitely abnormal with signs of bihemispheric cerebral dysfunction but there is no evidence of any seizures or electrical status epilepticus clinically patient is responding but minimally and the treatment will be continued as such. Objective Data Vital Signs Vital Signs: Vital Signs - 24 hr 04/23/23 14:12 04/23/23 14:26 04/23/23 14:30 Temperature Pulse Rate 126 H 129 H 130 H Respiratory Rate 21 H 20 Blood Pressure Pulse Oximetry 98 Oxygen Delivery Mechanical Ventilation Fraction of Inspired Oxygen 30 04/23/23 14:45 04/23/23 14:47 04/23/23 14:55 Temperature Pulse Rate 132 H 130 H 138 H Respiratory Rate 18 24 H 24 H Blood Pressure Pulse Oximetry Oxygen Delivery Fraction of Inspired Oxygen 04/23/23 14:00 04/23/23 12:30 04/23/23 12:45 Temperature 37.0 C 37.0 C Pulse Rate 135 H 101 H 101 H Respiratory Rate 14 15 Blood Pressure Pulse Oximetry 98 99 Oxygen Delivery Fraction of Inspired Oxygen 04/23/23 13:00 04/23/23 13:15 04/23/23 13:30 Temperature 37.0 C 37.0 C 36.9 C Pulse Rate 101 H 128 H 142 H Respiratory Rate 14 14 15 Blood Pressure Pulse Oximetry 100 98 99 Oxygen Delivery Fraction of Inspired Oxygen 04/23/23 13:45 04/23/23 14:00 04/23/23 14:15 Temperature 36.9 C 36.9 C 36.9 C Pulse Rate 130 H 132 H 134 H Respiratory Rate 16 20 19 Blood Pressure 120/61 Pulse Oximetry 99 98 98 Oxygen Delivery Fraction of Inspired Oxygen 04/23/23 14:30 04/23/23 14:45 04/23/23 15:00 Temperature 36.9 C 36.9 C 36.9 C Pulse Rate 132 H 135 H 132 H Respiratory Rate 18 14 18 Blood Pressure Pulse Oximetry 98 99 Oxygen Delivery Fraction of Inspired Oxygen 04/23/23 15:35 04/23/23 15:41 04/23/23 15:43 Temperature Pulse Rate 123 H 130 H Respiratory Rate Blood Pressure 89/50 L Pulse Oximetry Oxygen Delivery Fraction of Inspired Oxygen 30 04/23/23 15:56 04/23/23 16:00 04/23/23 16:00 Temperature Pulse Rate 117 H 121 H Respiratory Rate Blood Pressure 130/71 Pulse Oximetry Oxygen Delivery Mechanical Ventilation Fraction of Inspired Oxygen 30 04/23/23 15:15 04/23/23 15:30 04/23/23 15:45 Temperature 36.9 C 37.0 C 37.0 C Pulse Rate 129 H 135 H 120 H Respiratory Rate 16 18 18 Blood Pressure Pulse Oximetry 98 98 98 Oxygen Delivery Fraction of Inspired Oxygen 04/23/23 16:00 04/23/23 16:01 04/23/23 16:15 Temperature 36.9 C 36.9 C 36.9 C Pulse Rate 125 H 129 H 116 H Respiratory Rate 18 18 18 Blood Pressure 129/74 Pulse Oximetry 99 100 Oxygen Delivery Fraction of Inspired Oxygen 04/23/23 16:53 04/23/23 16:56 04/23/23 17:02 Temperature Pulse Rate 117 H 118 H 125 H Respiratory Rate 19 Blood Pressure 131/69 120/67 Pulse Oximetry Oxygen Delivery Fraction of Inspired Oxygen 04/23/23 17:06 04/23/23 17:29 04/23/23 17:52 Temperature Pulse Rate 114 H 125 H 117 H Respiratory Rate Blood Pressure 138/78 Pulse Oximetry 99 Oxygen Delivery Mechanical Ventilation Fraction of Inspired Oxygen 30 04/23/23 18:00 04/23/23 16:30 04/23/23 16:45 Temperature 37.0 C 37.1 C Pulse Rate 114 H 126 H 119 H Respiratory Rate 18 18 Blood Pressure Pulse Oximetry 99 100 Oxygen Delivery Fraction of Inspired Oxygen 04/23/23 17:00 04/23/23 17:15 04/23/23 17:30 Temperature 37.1 C 37.1 C 37.1 C Pulse Rate 120 H 121 H 126 H Respiratory Rate 18 18 19 Blood Pressure Pulse Oximetry 99 100 100 Oxygen Delivery Fraction of Inspired Oxygen 04/23/23 17:45 04/23/23 18:00 04/23/23 19:43 Temperature 37.2 C 37.2 C Pulse Rate 114 H 121 H 114 H Respiratory Rate 16 18 Blood Pressure 120/68 118/64 86/45 L Pulse Oximetry 100 99 Oxygen Delivery Fraction of Inspired Oxygen 04/23/23 19:55 04/23/23 20:00 04/23/23 20:00 Temperature 36.
--- NOTE | 2023-04-24 12:45 | PM.PNCARD ---
Progress Note: A&P Assessment and Plan (1) Prolonged QT interval: Code(s): R94.31 - Abnormal electrocardiogram [ECG] [EKG] Status: Acute (2) Cardiac arrest: Code(s): I46.9 - Cardiac arrest, cause unspecified Status: Acute Plan 78-year-old lady with paroxysmal atrial fibrillation admitted with rescued VF arrest suspicious situation for long QT interval related to sotalol. Torsade however was never demonstrated. Regardless she is now in atrial fibrillation with a heart rate between 110 and 120 and no longer requires a temporary transvenous pacing. Remove this today at the bedside. Will likely have to reintroduce rate control medication with metoprolol as we go forward. Will transition back to oral anticoagulation with Xarelto today as the patient is not anticipating any additional procedures at this time. Oren Pedro MD [facility] Subjective Date/time seen: Date of service: 04/24/23 12:45 Interval history: Follow-up visit in this 78-year-old woman with: History of paroxysmal atrial fibrillation, recent hospitalization for treatment involved conversion to sinus rhythm and treatment with sotalol. She is now admitted with VF arrest likely related to very long QT interval related to sotalol. This agent has been stopped. Temporary transvenous pacemaker was placed from the right IJ position on Monday. Patient is now in atrial fibrillation with a heart rate of 110-120 therefore does not require temporary pacing wire in place any longer. Exam Const: General: comfortable and uncomfortable; No confusion Orientation/consciousness: No oriented to person, No patient oriented x3 and No confusion Other: Multiple tubes and lines, intubated sedated HENMT: Mouth: Yes moist mucous membranes Other: OETT in place Eyes: General: appearance normal, both eyes and all related structures Neck: Neck: supple Other: Right IJ line Resp: Effort & Inspection: normal respiratory effort Auscultation: clear to auscultation bilaterally and crackles Other: On mechanical ventilation via OETT. Cardio: Rate: regular rate and bradycardic Rhythm: regular rhythm Heart sounds: no murmurs GI: Inspection: normal to inspection Skin: General skin exam: normal color and no rashes or lesions noted Neuro: General: No oriented to person, No patient oriented x3 and No confusion Other: Intubated and sedated Extrem: General: no edema Right lower extremity: no edema Left lower extremity: no edema Psych: Appearance: grossly normal Mental Status: mental status grossly normal Other: Unable to assess due to sedation Objective Data Vital Signs Vital Signs: Vital Signs - 24 hr 04/23/23 14:12 04/23/23 14:26 04/23/23 14:30 Temperature Pulse Rate 126 H 129 H 130 H Respiratory Rate 21 H 20 Blood Pressure Pulse Oximetry 98 Oxygen Delivery Mechanical Ventilation Fraction of Inspired Oxygen 30 04/23/23 14:45 04/23/23 14:47 04/23/23 14:55 Temperature Pulse Rate 132 H 130 H 138 H Respiratory Rate 18 24 H 24 H Blood Pressure Pulse Oximetry Oxygen Delivery Fraction of Inspired Oxygen 04/23/23 14:00 04/23/23 13:00 04/23/23 13:15 Temperature 37.0 C 37.0 C Pulse Rate 135 H 101 H 128 H Respiratory Rate 14 14 Blood Pressure Pulse Oximetry 100 98 Oxygen Delivery Fraction of Inspired Oxygen 04/23/23 13:30 04/23/23 13:45 04/23/23 14:00 Temperature 36.9 C 36.9 C 36.9 C Pulse Rate 142 H 130 H 132 H Respiratory Rate 15 16 20 Blood Pressure 120/61 Pulse Oximetry 99 99 98 Oxygen Delivery Fraction of Inspired Oxygen 04/23/23 14:15 04/23/23 14:30 04/23/23 14:45 Temperature 36.9 C 36.9 C 36.9 C Pulse Rate 134 H 132 H 135 H Respiratory Rate 19 18 14 Blood Pressure Pulse Oximetry 98 98 Oxygen Delivery Fraction of Inspired Oxygen 04/23/23 15:00 04/23/23 15:35 04/23/23 15:41 Temperature 36.9 C Pulse Rate 13
--- NOTE | 2023-04-24 15:16 | WPDPN ---
Progress Note: A&P Assessment and Plan (1) Cardiac arrest: Code(s): I46.9 - Cardiac arrest, cause unspecified Status: Acute Assessment and Plan: Hypothermic protocol initiated. The patient has a central line and an arterial line is planned as well. Cardiology has been consulted and heparin drip was started. Patient has elevated cardiac enzymes. Also the patient could possibly be septic from UTI. The periodontist was consulted the patient was placed in the ICU. The patient had been coded x3. It was reported that the patient only coded for a brief moment while she was in the emergency room x2. The 1st code was initiated in the field. The patient is intubated and on a ventilator. Further recommendation per Cardiology and periodontist. Her lactic is 3.4. The patient is currently on epinephrine drip. She is also on hydrocortisone drip. 04/24/2023 interval history: patient Ventricular fibrillation cardiac arrest at home, CPR was started and EMS was called and again in ER patient coded twice and had ROSC, patient was intubated and admitted into ICU, patient was started on Amiodorane, periodontist suspect prolong qt interval may caused cardiac arrest, and patient was seen by coater carbon paper and Transvenous temporary pacemaker was inserted in the right IJ due to QTC prolongation and bradycardia, shock, decreased perfusion and will monitor today patient is more responsive and follows instruction, seen by coater carbon paper removed temporary pacemaker as patient now in A Fib, RVR and on diltiazem drip, further recommendation to follow. and monitor, will follow. (2) Elevated troponin: Code(s): R77.8 - Other specified abnormalities of plasma proteins Status: Acute Assessment and Plan: An echo has been ordered. Cardiology has evaluated the patient. Initial troponin 0.047 and repeat was 0.491. Is reported that the patient was evaluated by Cardiology and it was felt that emergent cardiac catheterization was not necessary at this time. Patient is currently on heparin drip. The patient has dark stools and I ordered H&H every 6 hours with his stool for occult blood. (3) Congestive heart failure: Code(s): I50.9 - Heart failure, unspecified Status: Acute Assessment and Plan: Echo on 03/06/2023?1. Complete two-dimensional, color flow and Doppler transthoracic echocardiogram is performed. ? 2. Technically difficult study with limited views. ? 3. Left ventricular chamber dimension is normal. ? 4. Left ventricular systolic function is normal, estimated at 60-65%. ? 5. There is no increased left ventricular wall thickness. ? 6. The left ventricular diastolic function is indeterminate. ? 7. There is moderate mitral valve regurgitation. ? 8. There is moderate tricuspid valve regurgitation. ? 9. Mild pulmonary hypertension, estimated pulmonary arterial systolic pressure is 36 mmHg. (4) Hypothyroidism: Code(s): E03.9 - Hypothyroidism, unspecified Status: Acute Assessment and Plan: Check thyroid levels. (5) Paroxysmal atrial fibrillation: Code(s): I48.0 - Paroxysmal atrial fibrillation Status: Acute Assessment and Plan: The patient is currently on a heparin drip and the patient was found to be in sinus rhythm after she had coded the last time. (6) Hypertension: Qualifiers: Hypertension type: primary hypertension Qualified Code(s): I10 - Essential (primary) hypertension Code(s): I10 - Essential (primary) hypertension Status: Acute Assessment and Plan: The patient's blood pressure is 88/78. The patient is on a norepinephrine drip as well as hydrocortisone drip (7) Elevated blood sugar: Code(s): R73.9 - Hyperglycemia, unspecified Status: Acute Assessment and Plan: Continue with Accu-Cheks and check A1c. Sliding scale insulin. (8) UTI (urinary tract infection): Code(s): N39.0 - Urinary tract infection, site not speci
[2023-04-24] MEDS: dilTIAZem 100 MG/100 ML 100 MG/100 ML BAG 10 MG IV CONT (16:27)
[2023-04-24] MEDS: ACETAMINOPHEN ELIXIR 325 MG/10.15 ML UDC 650 MG PO (16:27)
[2023-04-24] MEDS: METOPROLOL SUCCINATE EXT REL 50 MG TABCR PO (16:28)
[2023-04-24 16:45] LABS: Glucose Point of Care 125 mg/dl (65-105)
[2023-04-24] MEDS: RIVAROXABAN 20 MG TABLET PO (20:39)
[2023-04-24] MEDS: PROPOFOL IV EMULSION 100 ML 2.79 MG IV CONT (21:12)
[2023-04-24] MEDS: dilTIAZem 100 MG/100 ML 100 MG/100 ML BAG 15 MG IV CONT (23:23)
[2023-04-24 23:59] LABS: Glucose Point of Care 146 mg/dl (65-105)
[2023-04-25] VITALS (46 sets, daily range): BP systolic 90–145; BP diastolic 49–78; PULSE 77–135; RESP 17–25; TEMP 36.9–37.9; O2SAT 96–100
[2023-04-25] MEDS: ALBUTEROL SULFATE NEB 2.5 MG/3 ML INH INHALATION ×4 (02:10→19:58)
[2023-04-25] MEDS: IPRATROPIUM BR 0.02% INH SOLN 0.5 MG/2.5 ML VIAL INHALATION ×4 (02:10→19:58)
[2023-04-25 04:43] LABS: Basophils Percent Auto 0.4 % (0.2-1.2); Eosinophils Absolute Auto 0.2 K/mm3 (0-0.3); Eosinophils Percent Auto 2.6 % (0-4.4); Hematocrit 29.2 % (37.0-47.0); Hemoglobin 9.6 g/dL (12.0-15.0); Immature Granulocyte Absolute 0.14 K/mm3 (0.00-0.031); Immature Granulocyte Percent A 1.8 % (0-0.5); Immature Platelet Fraction Pct 6.8 % (0.9-11.2); Lymphocytes Absolute Auto 2.05 K/mm3 (0.9-3.2); Mean Corpuscular HGB Conc 32.9 g/dl (32-36); Mean Corpuscular Hemoglobin 30.8 pg (26-34); Mean Corpuscular Volume 93.6 fl (80-100); Mean Platelet Volume 11.3 fl (7.4-10.4); Monocytes Absolute Auto 0.7 K/mm3 (0.1-0.6); Monocytes Percent Auto 9.6 % (2.6-8.5); Neutrophils Absolute Auto 4.4 K/mm3 (1.3-6.7); Neutrophils Percent Auto 58.6 % (45.5-73.1); Nucleated Red Blood Cells Absolute Auto 0.1 K/mm3 (0.0-0.012); Nucleated Red Blood Cells Perc 0.9 % (0.0-0.2); Platelet Count Result 92 k/mm3 (150-375); Red Blood Count 3.12 M/mm3 (4.2-5.4); Red Cell Distribution Width 15.4 % (11.5-14.5); White Blood Count 7.6 K/mm3 (4.5-10.0)
[2023-04-25] MEDS: PIPERACILLN/TAZ 3.375GM/NS50ML 3.375 GM/50 ML BAG IVPB ×4 (04:43→23:19)
[2023-04-25 04:44] LABS: Base Excess ABG -2.3 mEq/l (+/-2.0); Carboxyhemoglobin 0.3 % THb (0-2.0); Fractional Inspired Oxygen 30 %; HCO3 ABG 20.5 mEq/l (22.0-26.0); Methemoglobin ABG 0.4 %THb (0-1.5); Oxygen Content ABG 13.8 %vol (16.0-22.0); Oxygen Saturation ABG 94.8 % (95.0-100.0); Oxyhemoglobin 92.2 % THb (90.0-100.0); PCO2 ABG 28.5 mmHg (35.0-45.0); PO2 ABG 67.4 mmHg (80.0-100.0); PO2 FiO2 Ratio Arterial Blood 2.25 %; Reduced Hemoglobin 7.1 %THb (0-5.0); Total Hemoglobin 10.6 g/dL (12.0-18.0); pH ABG 7.474 (7.350-7.450)
[2023-04-25 04:45] LABS: Device VENTILATOR; Site Drawn ARTLINE
[2023-04-25 04:46] LABS: Arterial Blood Gas PEEP 5 cmH2O; Arterial Blood Gas Tidal Volume 400 ml; Arterial Blood Gas Vent Mode CMV; Arterial Blood Gas Ventilator rate 18 /MIN
[2023-04-25 04:54] LABS: Alanine Aminotransferase 152 U/L (6-35); Albumin Level 2.6 g/dL (3.5-5.1); Alkaline Phosphatase 64 U/L (38-126); Anion Gap -1 mmol/L (8-16); Aspartate Amino Transferase 75 U/L (14-36); Bilirubin,Total 1.1 mg/dL (0.2-1.3); Blood Urea Nitrogen 23 mg/dL (7-17); Calcium 7.5 mg/dL (8.4-10.2); Carbon Dioxide 24 mmol/L (22-30); Chloride 115 mmol/L (98-107); Estimated CRCL calculation 54 ml/min; Estimated Glomerular Filt Rate > 60; Glucose 143 mg/dL (65-110); Phosphorus 2.5 mg/dL (2.5-4.5); Potassium 3.3 mmol/L (3.4-5.0); Sodium 138 mmol/L (137-145)
[2023-04-25] MEDS: CENTRAL LINE FLUSH 10 ML IV PUSH ×4 (05:00→20:02)
[2023-04-25] MEDS: dilTIAZem 100 MG/100 ML 100 MG/100 ML BAG 15 MG IV CONT (05:59)
[2023-04-25 07:22] LABS: Triglycerides 119 mg/dL (<150)
[2023-04-25] MEDS: KCL 40 MEQ/WATER 100 ML 100 ML 25 ML IVPB (08:26)
[2023-04-25] MEDS: levETIRAcetam 500MG/NACL 100ML 500 MG/100 ML BAG 400 MG IVPB ×2 (08:26→20:01)
[2023-04-25] MEDS: METOPROLOL TARTRATE 50 MG TAB PO ×2 (08:27→12:20)
[2023-04-25] MEDS: PANTOPRAZOLE SODIUM IV 40 MG VIAL IV PUSH ×2 (08:27→20:02)
[2023-04-25] MEDS: MINERAL OIL/WHITE PETROLATUM OINTMENT 1 APPLIC EACH EYE ×2 (08:27→20:02)
[2023-04-25] MEDS: FUROSEMIDE INJ 40 MG/4 ML VIAL IV PUSH (08:51)
--- NOTE | 2023-04-25 10:01 | P.CDI_ITS ---
CDI Query Clarification Request Documented history of CHF. CHF noted in the assessment and plan. Lasix listed as a home medication. Pulmonary edema noted on the 04/25/23 Chest Xray. Elevated BNP on 04/20/23 lab work. Please specify type and acuity of heart failure if known. * Acute * Chronic * Acute on Chronic * Unknown * Systolic * Diastolic * Combined Systolic and Diastolic * Unknown <Dulce Ng RN - Last Filed: 04/25/23 10:05> Provider Comments unable to determine as her EF was 65% during cath and there was no mention of diastaltic dysfunction <Faith Meadows MD - Last Filed: 05/25/23 07:11>
--- NOTE | 2023-04-25 11:08 | PM.PNCARD ---
Progress Note: A&P Assessment and Plan (1) Cardiac arrest with ventricular fibrillation: Code(s): I46.9 - Cardiac arrest, cause unspecified; I49.01 - Ventricular fibrillation Status: Acute Assessment and Plan: Initial arresting rhythm VFIB per the EMS. Had 2 PEA arrests while in the ED. Unclear etiology at this time for her cardiac arrest. No reports of chest pain or other symptoms earlier today per the family. No ischemic changes on the EKG here in the ED. Trop mildly elevated at 0.7, but ASC unlikely. On Sotalol at home -- possibly prolonged QT resulting in Torsades?? Exceptionally long QT interval noted this admission. EF of 43% noted global hypokinesis, likely a result of stunned myocardium from her arrest as her EF was normal recently, and hopefully will improve. --Continue supportive care. --Follow neurologic status (2) Prolonged QT interval: Code(s): R94.31 - Abnormal electrocardiogram [ECG] [EKG] Status: Acute Assessment and Plan: Bradycardia and QT prolongation noted on 04/21 with heart rates in the 30s-40s with QT measuring out to 0.95 to 1 seconds. --Placed temporary transvenous pacer to help shorten QT. Temporary pacer removed 04/24 as patient went into atrial fibrillation with RVR and QT improved. --Continue to monitor closely --Avoid QT prolonging medications if possible. (3) Shock: Code(s): R57.9 - Shock, unspecified Status: Acute Assessment and Plan: Improved, no longer requiring pressors (4) Elevated troponin: Code(s): R77.8 - Other specified abnormalities of plasma proteins Status: Acute Assessment and Plan: Troponin of 0.047, 0.491, 0.736. EKG without ischemic changes. --Echo without focal wall motion abnormalities, so doubt ACS (5) Atrial fibrillation with rapid ventricular response: Code(s): I48.91 - Unspecified atrial fibrillation Status: Acute Assessment and Plan: Has PAF, now in AFib RVR. History of bradycardia as well. Holding Sotalol due to VFib arrest and QT prolongation. Metoprolol started, will increase for additional rate control. Wean off of Diltiazem drip as tolerated. Xarelto restarted 04/24. Plan Recommendations/plan discussed with the Financial Associate, Dr. Hernández. Subjective Date/time seen: 04/25/23 11:08 Interval history: HPI: We are consulted for cardiac arrest. Patient unable to provide any history as she is intubated and nonresponsive, therefore, all history obtained from the patient's chart, medical team, and family at bedside. This is a 78 year old female who follows with Dr. Acosta in the clinic. She has atrial fibrillation, hypertension, history of untreated KASSANDRA. Patient started on Sotalol 80mg BID in February 2023 for atrial fibrillation and had converted to sinus rhythm with Sotalol. She followed up with Dr. Acosta in March and had been doing well at that time. Family reports she had been feeling fine without any symptoms and doing well. Patient's son-in-law heard a thud and found patient on the floor unresponsive and pulseless. He started CPR after calling 911. EMS found patient to be in VFIB. Patient was shocked 3 times and received 3 doses of Epi. Given Amiodarone 150mg x 1 en rouse. Intubated in the field. In the ER, she had PEA arrest x 2, received CPR for a few minutes each time. At the time of my evaluation, she is in sinus rhythm with heart rates in the 60s. Per the ER, with her initial arrest, it may have been 7-10 minutes before they obtained ROSC. Her initial EKG on arrival to the ED shows junctional rhythm with heart rate of 55bpm with RBBB. However, no ST elevations or ST depressions. Repeat EKG about 2 hours later shows sinus rhythm, no longer has RBBB, nonspecific STTW abnormality. CT Head without acute findings. Patient started on Levophed for hypotension. Date of service 04/21/2023: Overnight events reviewed. Telemetry and EKG this morning show significantly prolonged QT interval of
--- NOTE | 2023-04-25 11:10 | PCNFU ---
Nutrition Follow-Up Complete: Inadequate energy intake related to increased protein energy needs from mechanical ventilation, NPO status as evidenced by need for full tube feeding Goal: Meet estimated protein energy needs Patient is progressing towards goal. We will continue current goal. Pt current nutrition is Vital AR 1.2 at 60 ml/hr. Last recorded weight is 93.2 kg. Bowel Motility:FMS Labs Reviewed:Glu 143, K 3.3, Alb 2.6 Meds Noted:Keppra, Zosyn Skin: WNL Additional Notes: Patient remains on mechanical vent and tube feedings of Vital AF 1.2 at 60 ml/hr with 1 protein modular of Prosource daily. Total Nutrition: 1664 kcals/119 gms protein/1250 ml water. Meeting 100% caloric needs and 96% protein needs. 30 ml water flush q 4 hours. Per nursing patient is following commands. Spontaneous breathing trial today. Agree with diet orders. Monitoring plan of care, tolerance, labs, weights, stool patterns Follow daily in ICU rounds, reassess Monday and Monday
--- NOTE | 2023-04-25 11:34 | WPDINTPN ---
Progress Note: A&P Assessment and Plan (1) Encephalopathy: Code(s): G93.40 - Encephalopathy, unspecified Status: Acute Assessment and Plan: Post cardiac arrest encephalopathy -status post target temperature management -appreciate Neurology evaluation -04/25:mental status improving daily, currently nodding to questions and following simple commands in all extremities -06/25: EEG - Abnormal record due to the absence of the normal background rhythm, during the presence of bihemispheric theta and delta activity, but without evidence of any paroxysmal focal or diffuse discharge.? These abnormalities are suggestive of organic or metabolic encephalopathy.? Clinical correlation recommended (2) Cardiac arrest: Code(s): I46.9 - Cardiac arrest, cause unspecified Status: Acute Assessment and Plan: Patient with initial VFib arrest at home upon arrival of the EMS, did she had PEA arrest x2 in the ER. Intubated in the field. Patient did receive amiodarone infusion Enroute to the hospital. - No ischemic changes on the EKG. -patient is on sotalol at home, this could be a arrhythmogenic event with possible prolonged QT resulting and torsades. As the 1st EKG showed QT of 515 milliseconds and a 2nd EKG with QT of 480 millisecond. A manual measurement of the QT by weekend caregiver was about 600 milliseconds. -no clear indication for angiogram/cardiac catheterization at this time -04/21: Transvenous temporary pacemaker was inserted in the right IJ due to QTC prolongation and bradycardia, shock, decreased perfusion -status post target temperature management, rewarmed to normal body temperature on 04/22/2022 at approximately 12:00 noon -troponins mildly elevated, continue heparin infusion -continue Keppra for seizure prophylaxis -patient has been tachycardic, in AFib RVR, -04/24: Patient had underlying rhythm once improved pacemaker was disconnected. Decreased pacemaker rate to 60. Discussed with Cardiology, transvenous pacemaker was removed by Cardiology -patient currently on Cardizem infusion which is being weaned, continue metoprolol 50 mg p.o. q.12 hours (3) Acute respiratory failure: Code(s): J96.00 - Acute respiratory failure, unspecified whether with hypoxia or hypercapnia Status: Acute Assessment and Plan: Acute respiratory respiratory failure likely related to cardiac arrest -chest x-ray showed pulmonary edema -patient intubated in the field with a size 7 ET tube on 04/20/2023 -continue CMV mode of ventilation, peep of 5, 30% FiO2. -chest x-ray and ABGs reviewed -continue bronchodilators -patient off sedation this morning: Mild pulmonary edema with small bilateral pleural effusions. -patient was given Lasix -placed on pressure support ventilation 10/5 with tolerated for couple of hours, she then was gagging on her ETT and had an episode of emesis, she was placed back on the mode of ventilation (4) Shock: Code(s): R57.9 - Shock, unspecified Status: Acute Assessment and Plan: RESOLVED Patient was in shock with low blood pressures, elevated lactic acid of 5.8. Patient did receive 2 L IV fluid bolus in the ER, repeat lactic acid is 1.8 this morning -patient was initially started on Levophed, was then bradycardic in the upper 20s and 30s so Levophed was switched to epinephrine -post transvenous pacemaker placement, epinephrine was discontinued, -OFF LEVOPHED , blood pressures have been stable -04/20/2023: Blood and urine cultures are negative so far -patient currently on Zosyn (04/20) for possible aspiration pneumonia and UTI for total of 7 days 03/06/2023: Echocardiogram -showed EF of 60-65%, LV diastolic function is indeterminate, moderate mitral valve regurg, moderate tricuspid valve regurg, mild pulmonary hypertension with RVSP of 36 mmHg 04/22/2023 Repeat echocardiogram: Moderate global hypokinesis, EF 40-45%, grade 2 diastolic dysfunction sigmoid hypertrophy, abnormal septal m
[2023-04-25] MEDS: METOCLOPRAMIDE HCL INJ 10 MG/2 ML VIAL IV PUSH ×2 (12:20→18:08)
[2023-04-25 13:39] LABS: Glucose Point of Care 157 mg/dl (65-105)
[2023-04-25] MEDS: RIVAROXABAN 20 MG TABLET PO (16:27)
[2023-04-25] MEDS: ACETAMINOPHEN ELIXIR 325 MG/10.15 ML UDC 650 MG PO (16:51)
--- NOTE | 2023-04-25 16:55 | PM.IMPN ---
Progress Note: A&P Assessment and Plan (1) Cardiac arrest: Code(s): I46.9 - Cardiac arrest, cause unspecified Status: Acute Assessment and Plan: Hypothermic protocol initiated. The patient has a central line and an arterial line is planned as well. Cardiology has been consulted and heparin drip was started. Patient has elevated cardiac enzymes. Also the patient could possibly be septic from UTI. The painter assistant was consulted the patient was placed in the ICU. The patient had been coded x3. It was reported that the patient only coded for a brief moment while she was in the emergency room x2. The 1st code was initiated in the field. The patient is intubated and on a ventilator. Further recommendation per Cardiology and painter assistant. Her lactic is 3.4. The patient is currently on epinephrine drip. She is also on hydrocortisone drip. 04/25/2023 interval history: patient Ventricular fibrillation cardiac arrest at home, CPR was started and EMS was called and again in ER patient coded twice and had ROSC, patient was intubated and admitted into ICU, patient was started on Amiodorane, painter assistant suspect prolong qt interval may caused cardiac arrest, and patient was seen by chain person and Transvenous temporary pacemaker was inserted in the right IJ due to QTC prolongation and bradycardia, shock, decreased perfusion and will monitor today again patient is more responsive and follows instruction, on 04/24 seen by chain person removed temporary pacemaker as patient now in A Fib, RVR and on diltiazem drip, seen by chain person added metoprolol and plan is to wean patient off the drip, today patient had vomiting concern for aspiration, further recommendation to follow. and monitor, will follow. (2) Elevated troponin: Code(s): R77.8 - Other specified abnormalities of plasma proteins Status: Acute Assessment and Plan: An echo has been ordered. Cardiology has evaluated the patient. Initial troponin 0.047 and repeat was 0.491. Is reported that the patient was evaluated by Cardiology and it was felt that emergent cardiac catheterization was not necessary at this time. Patient is currently on heparin drip. The patient has dark stools and I ordered H&H every 6 hours with his stool for occult blood. (3) Congestive heart failure: Code(s): I50.9 - Heart failure, unspecified Status: Acute Assessment and Plan: Echo on 03/06/2023?1. Complete two-dimensional, color flow and Doppler transthoracic echocardiogram is performed. ? 2. Technically difficult study with limited views. ? 3. Left ventricular chamber dimension is normal. ? 4. Left ventricular systolic function is normal, estimated at 60-65%. ? 5. There is no increased left ventricular wall thickness. ? 6. The left ventricular diastolic function is indeterminate. ? 7. There is moderate mitral valve regurgitation. ? 8. There is moderate tricuspid valve regurgitation. ? 9. Mild pulmonary hypertension, estimated pulmonary arterial systolic pressure is 36 mmHg. (4) Hypothyroidism: Code(s): E03.9 - Hypothyroidism, unspecified Status: Acute Assessment and Plan: Check thyroid levels. (5) Paroxysmal atrial fibrillation: Code(s): I48.0 - Paroxysmal atrial fibrillation Status: Acute Assessment and Plan: The patient is currently on a heparin drip and the patient was found to be in sinus rhythm after she had coded the last time. (6) Hypertension: Qualifiers: Hypertension type: primary hypertension Qualified Code(s): I10 - Essential (primary) hypertension Code(s): I10 - Essential (primary) hypertension Status: Acute Assessment and Plan: The patient's blood pressure is 88/78. The patient is on a norepinephrine drip as well as hydrocortisone drip (7) Elevated blood sugar: Code(s): R73.9 - Hyperglycemia, unspecified Status: Acute Assessment and Plan: Continue with Acc
[2023-04-25 18:34] LABS: Glucose Point of Care 133 mg/dl (65-105)
[2023-04-25] MEDS: dilTIAZem 100 MG/100 ML 100 MG/100 ML BAG IV CONT (19:48)
[2023-04-25] MEDS: PROPOFOL IV EMULSION 100 ML 8.36 MG IV CONT (19:49)
[2023-04-25] MEDS: METOPROLOL TARTRATE 50 MG TAB 100 MG PO (20:02)
[2023-04-25 23:31] LABS: Glucose Point of Care 122 mg/dl (65-105)
[2023-04-26] VITALS (34 sets, daily range): BP systolic 105–147; BP diastolic 58–82; PULSE 93–130; RESP 16–24; TEMP 37.6–38.1; O2SAT 95–100
[2023-04-26] MEDS: METOCLOPRAMIDE HCL INJ 10 MG/2 ML VIAL IV PUSH ×2 (00:16→06:01)
[2023-04-26] MEDS: IPRATROPIUM BR 0.02% INH SOLN 0.5 MG/2.5 ML VIAL INHALATION ×3 (02:14→14:05)
[2023-04-26] MEDS: ALBUTEROL SULFATE NEB 2.5 MG/3 ML INH INHALATION ×3 (02:14→14:05)
[2023-04-26 05:13] LABS: Alveolar/Arterial O2 Gradient 115.3 mmHg; Base Excess ABG 3.6 mEq/l (+/-2.0); Carboxyhemoglobin 0.3 % THb (0-2.0); Fractional Inspired Oxygen 30 %; HCO3 ABG 25.4 mEq/l (22.0-26.0); Methemoglobin ABG 0.4 %THb (0-1.5); Oxygen Saturation ABG 95.3 % (95.0-100.0); Oxyhemoglobin 92.9 % THb (90.0-100.0); PCO2 ABG 28.9 mmHg (35.0-45.0); PO2 ABG 64.6 mmHg (80.0-100.0); PO2 FiO2 Ratio Arterial Blood 2.15 %; Reduced Hemoglobin 6.4 %THb (0-5.0); Total Hemoglobin 10.7 g/dL (12.0-18.0)
[2023-04-26 05:15] LABS: Device VENTILATOR; Modified Allen's Test Pass; Site Drawn ARTLINE; pH ABG 7.561 (7.350-7.450)
[2023-04-26 05:16] LABS: Arterial Blood Gas PEEP 5 cmH2O; Arterial Blood Gas Tidal Volume 400 ml; Arterial Blood Gas Vent Mode CMV; Arterial Blood Gas Ventilator rate 18 /MIN
[2023-04-26] MEDS: PROPOFOL IV EMULSION 100 ML 5.57 MG IV CONT (05:44)
[2023-04-26] MEDS: PIPERACILLN/TAZ 3.375GM/NS50ML 3.375 GM/50 ML BAG IVPB ×4 (05:44→23:45)
[2023-04-26] MEDS: CENTRAL LINE FLUSH 10 ML IV PUSH ×3 (05:45→21:00)
[2023-04-26 05:50] LABS: Basophils Percent Auto 0.3 % (0.2-1.2); Eosinophils Absolute Auto 0.3 K/mm3 (0-0.3); Eosinophils Percent Auto 3.1 % (0-4.4); Hemoglobin 9.3 g/dL (12.0-15.0); Immature Granulocyte Absolute 0.18 K/mm3 (0.00-0.031); Immature Granulocyte Percent A 2.1 % (0-0.5); Immature Platelet Fraction Pct 7.3 % (0.9-11.2); Lymphocytes Percent Auto 24.2 % (18.3-44.2); Mean Corpuscular HGB Conc 32.1 g/dl (32-36); Mean Corpuscular Hemoglobin 29.8 pg (26-34); Mean Corpuscular Volume 92.9 fl (80-100); Mean Platelet Volume 11.3 fl (7.4-10.4); Monocytes Absolute Auto 0.9 K/mm3 (0.1-0.6); Monocytes Percent Auto 10.1 % (2.6-8.5); Neutrophils Absolute Auto 5.2 K/mm3 (1.3-6.7); Neutrophils Percent Auto 60.2 % (45.5-73.1); Nucleated Red Blood Cells Absolute Auto 0.1 K/mm3 (0.0-0.012); Nucleated Red Blood Cells Perc 1.2 % (0.0-0.2); Platelet Count Result 103 k/mm3 (150-375); Red Blood Count 3.12 M/mm3 (4.2-5.4); Red Cell Distribution Width 15.6 % (11.5-14.5); White Blood Count 8.7 K/mm3 (4.5-10.0)
[2023-04-26 05:57] LABS: Alanine Aminotransferase 114 U/L (6-35); Albumin Level 2.6 g/dL (3.5-5.1); Alkaline Phosphatase 66 U/L (38-126); Anion Gap 0 mmol/L (8-16); Aspartate Amino Transferase 52 U/L (14-36); Bilirubin,Total 0.7 mg/dL (0.2-1.3); Blood Urea Nitrogen 23 mg/dL (7-17); Calcium 7.5 mg/dL (8.4-10.2); Carbon Dioxide 27 mmol/L (22-30); Chloride 109 mmol/L (98-107); Estimated CRCL calculation 54 ml/min; Estimated Glomerular Filt Rate > 60; Glucose 126 mg/dL (65-110); Magnesium 1.9 mg/dL (1.6-2.3); Phosphorus 3.3 mg/dL (2.5-4.5); Potassium 3.3 mmol/L (3.4-5.0); Sodium 136 mmol/L (137-145)
[2023-04-26] MEDS: KCL 40 MEQ/WATER 100 ML 100 ML 25 ML IVPB (08:48)
[2023-04-26] MEDS: FUROSEMIDE INJ 40 MG/4 ML VIAL IV PUSH (08:48)
[2023-04-26] MEDS: POTASSIUM CHLORIDE 20 MEQ PACKET (FOR LIQUID) 40 MEQ FEED TUBE (08:48)
[2023-04-26] MEDS: PANTOPRAZOLE SODIUM IV 40 MG VIAL IV PUSH ×2 (08:48→20:58)
[2023-04-26] MEDS: MINERAL OIL/WHITE PETROLATUM OINTMENT 1 APPLIC EACH EYE (08:49)
--- NOTE | 2023-04-26 08:50 | PC.NURSE ---
MD Dr. Hernández at bedside. Instructed to pause propofol gtt, per MD orders, for sedation vacation/ spont. breathing trial. RN paused propofol gtt at 0826.
[2023-04-26] MEDS: METOPROLOL TARTRATE 50 MG TAB 100 MG PO ×2 (09:12→20:59)
[2023-04-26] MEDS: levETIRAcetam 500MG/NACL 100ML 500 MG/100 ML BAG 400 MG IVPB ×2 (09:29→21:12)
--- NOTE | 2023-04-26 11:33 | WPDNEUROPN ---
Subjective Date/time seen: 04/26/23 11:33 Interval history: status post cardiopulmonary arrest, EEG was definitely abnormal with bihemispheric slow activity compatible with the bihemispheric dysfunction without any paroxysmal discharge. Clinically patient remains unresponsive to the verbal stimuli on physical stimuli she moved her lower extremity and grimaces the face but does not follow the verbal commands appropriately treatment will be continued as such Objective Data Vital Signs Vital Signs: Vital Signs - 24 hr 04/25/23 12:20 04/25/23 13:10 04/25/23 13:10 Temperature Pulse Rate 105 H 102 H 102 H Respiratory Rate 18 Blood Pressure Pulse Oximetry 98 Oxygen Delivery Mechanical Ventilation Fraction of Inspired Oxygen 30 04/25/23 13:20 04/25/23 13:25 04/25/23 13:42 Temperature Pulse Rate 97 77 88 Respiratory Rate 18 Blood Pressure 100/54 L 95/49 L Pulse Oximetry Oxygen Delivery Fraction of Inspired Oxygen 04/25/23 12:00 04/25/23 12:00 04/25/23 14:00 Temperature 37.0 C 37.2 C Pulse Rate 107 H 92 Respiratory Rate 18 18 Blood Pressure 135/68 102/53 L Pulse Oximetry 98 98 Oxygen Delivery Fraction of Inspired Oxygen 30 04/25/23 12:00 04/25/23 14:00 04/25/23 12:00 Temperature Pulse Rate 111 H 92 Respiratory Rate Blood Pressure Pulse Oximetry 98 Oxygen Delivery Mechanical Ventilation Fraction of Inspired Oxygen 30 04/25/23 16:00 04/25/23 16:42 04/25/23 16:00 Temperature Pulse Rate 105 H 113 H 107 H Respiratory Rate 22 H Blood Pressure Pulse Oximetry 98 Oxygen Delivery Mechanical Ventilation Fraction of Inspired Oxygen 30 04/25/23 16:00 04/25/23 16:00 04/25/23 16:00 Temperature 37.7 C H Pulse Rate 127 H Respiratory Rate 18 Blood Pressure 129/58 L Pulse Oximetry 98 98 Oxygen Delivery Mechanical Ventilation Fraction of Inspired Oxygen 30 30 04/25/23 18:11 04/25/23 18:00 04/25/23 18:00 Temperature 37.7 C H Pulse Rate 124 H 121 H 121 H Respiratory Rate 18 Blood Pressure 141/67 H 145/65 H Pulse Oximetry 97 Oxygen Delivery Fraction of Inspired Oxygen 04/25/23 19:48 04/25/23 19:49 04/25/23 20:02 Temperature Pulse Rate 114 H 107 H 120 H Respiratory Rate 19 Blood Pressure 134/61 Pulse Oximetry Oxygen Delivery Fraction of Inspired Oxygen 04/25/23 19:58 04/25/23 19:59 04/25/23 20:11 Temperature Pulse Rate 107 H 110 H 105 H Respiratory Rate 19 18 Blood Pressure Pulse Oximetry 98 Oxygen Delivery Mechanical Ventilation Fraction of Inspired Oxygen 30 04/25/23 21:00 04/25/23 20:00 04/25/23 20:00 Temperature Pulse Rate 96 96 Respiratory Rate 18 Blood Pressure 90/50 L Pulse Oximetry 98 Oxygen Delivery Mechanical Ventilation Fraction of Inspired Oxygen 30 30 04/25/23 21:31 04/25/23 20:00 04/25/23 21:00 Temperature 37.9 C H Pulse Rate 90 111 H 92 Respiratory Rate 18 18 18 Blood Pressure 131/62 103/52 L Pulse Oximetry 98 98 Oxygen Delivery Fraction of Inspired Oxygen 04/25/23 20:00 04/25/23 22:00 04/25/23 22:00 Temperature 37.9 C H Pulse Rate 106 H 96 95 Respiratory Rate 17 Blood Pressure 98/52 L Pulse Oximetry 98 Oxygen Delivery Fraction of Inspired Oxygen 04/25/23 22:22 04/25/23 23:00 04/25/23 23:00 Temperature Pulse Rate 120 H 98 128 H Respiratory Rate 25 H Blood Pressure Pulse Oximetry 100 Oxygen Delivery Mechanical Ventilation Fraction of Inspired Oxygen 30 04/26/23 00:00 04/26/23 00:00 04/26/23 00:00 Temperature 38.0 C H Pulse Rate 109 H 107 H Respiratory Rate 19 19 Blood Pressure 147/82 H Pulse Oximetry 99 99 Oxygen Delivery Mechanical Ventilation Fraction of Inspired Oxygen 30 30 04/26/23 00:00 04/26/23 02:00 04/26/23 02:00 Temperature 38.1 C H Pulse Rate 106 H 105 H 98 Respiratory Rate 18 Blood Pressure 131/60 Pulse Oximetry
--- NOTE | 2023-04-26 11:33 | PM.PNCARD ---
Progress Note: A&P Assessment and Plan (1) Cardiac arrest with ventricular fibrillation: Code(s): I46.9 - Cardiac arrest, cause unspecified; I49.01 - Ventricular fibrillation Status: Acute Assessment and Plan: Initial arresting rhythm VFIB per the EMS. Had 2 PEA arrests while in the ED. Unclear etiology at this time for her cardiac arrest. No reports of chest pain or other symptoms earlier today per the family. No ischemic changes on the EKG here in the ED. Trop mildly elevated at 0.7, but ASC unlikely. On Sotalol at home -- possibly prolonged QT resulting in Torsades?? Exceptionally long QT interval noted this admission. EF of 43% noted global hypokinesis, likely a result of stunned myocardium from her arrest as her EF was normal recently, and hopefully will improve. --Continue supportive care. --Follow neurologic status (2) Prolonged QT interval: Code(s): R94.31 - Abnormal electrocardiogram [ECG] [EKG] Status: Acute Assessment and Plan: Bradycardia and QT prolongation noted on 04/21 with heart rates in the 30s-40s with QT measuring out to 0.95 to 1 seconds. --Placed temporary transvenous pacer to help shorten QT. Temporary pacer removed 04/24 as patient went into atrial fibrillation with RVR and QT improved. --Continue to monitor closely --Avoid QT prolonging medications if possible. (3) Shock: Code(s): R57.9 - Shock, unspecified Status: Acute Assessment and Plan: Improved, no longer requiring pressors (4) Elevated troponin: Code(s): R77.8 - Other specified abnormalities of plasma proteins Status: Acute Assessment and Plan: Troponin of 0.047, 0.491, 0.736. EKG without ischemic changes. --Echo without focal wall motion abnormalities, so doubt ACS (5) Atrial fibrillation with rapid ventricular response: Code(s): I48.91 - Unspecified atrial fibrillation Status: Acute Assessment and Plan: Has PAF, now in AFib RVR. History of bradycardia as well. Holding Sotalol due to VFib arrest and QT prolongation. Metoprolol started, increased to 100mg BID for additional rate control. Still with intermittent RVR, will give a dose of Digoxin today. Xarelto restarted 04/24. Plan Recommendations/plan discussed with the Intelligence Senior Sergeant, Dr. Hernández. Subjective Date/time seen: 04/26/23 11:33 Interval history: HPI: We are consulted for cardiac arrest. Patient unable to provide any history as she is intubated and nonresponsive, therefore, all history obtained from the patient's chart, medical team, and family at bedside. This is a 78 year old female who follows with Dr. Acosta in the clinic. She has atrial fibrillation, hypertension, history of untreated KASSANDRA. Patient started on Sotalol 80mg BID in February 2023 for atrial fibrillation and had converted to sinus rhythm with Sotalol. She followed up with Dr. Acosta in March and had been doing well at that time. Family reports she had been feeling fine without any symptoms and doing well. Patient's son-in-law heard a thud and found patient on the floor unresponsive and pulseless. He started CPR after calling 911. EMS found patient to be in VFIB. Patient was shocked 3 times and received 3 doses of Epi. Given Amiodarone 150mg x 1 en rouse. Intubated in the field. In the ER, she had PEA arrest x 2, received CPR for a few minutes each time. At the time of my evaluation, she is in sinus rhythm with heart rates in the 60s. Per the ER, with her initial arrest, it may have been 7-10 minutes before they obtained ROSC. Her initial EKG on arrival to the ED shows junctional rhythm with heart rate of 55bpm with RBBB. However, no ST elevations or ST depressions. Repeat EKG about 2 hours later shows sinus rhythm, no longer has RBBB, nonspecific STTW abnormality. CT Head without acute findings. Patient started on Levophed for hypotension. Date of service 04/21/2023: Overnight events reviewed. Telemetry and EKG this morning show signifi
--- NOTE | 2023-04-26 11:35 | PCFNICU ---
ICU Rounding Note: Pt current nutrition is Vital AF 1.2 at 60 ml/hr Last recorded weight is 90.4 kg. Bowel Motility:FMS Labs Reviewed:Glu 126, BUN 23, Alb 2.6 Meds Noted:Protonix, Keppra, Zosyn,Lopressor Skin: WNL Additional Notes: Patient remains on mechanical vent and tube feedings of Vital AF 1.2 at 60 ml/hr. Protein Modular of Prosource once daily. Flush 30 ml q 4 hours. Tolerating tubefeedings per nursing. Breathing trail today. Agree with diet orders. Following daily in ICU rounds and reassessing every Monday and Monday.
--- NOTE | 2023-04-26 11:48 | WPDINTPN ---
Progress Note: A&P Assessment and Plan (1) Encephalopathy: Code(s): G93.40 - Encephalopathy, unspecified Status: Acute Assessment and Plan: Post cardiac arrest encephalopathy -status post target temperature management -appreciate Neurology evaluation -04/25:mental status improving daily, currently nodding to questions and following simple commands in all extremities -06/25: EEG - Abnormal record due to the absence of the normal background rhythm, during the presence of bihemispheric theta and delta activity, but without evidence of any paroxysmal focal or diffuse discharge.? These abnormalities are suggestive of organic or metabolic encephalopathy.? Clinical correlation recommended (2) Cardiac arrest: Code(s): I46.9 - Cardiac arrest, cause unspecified Status: Acute Assessment and Plan: Patient with initial VFib arrest at home upon arrival of the EMS, did she had PEA arrest x2 in the ER. Intubated in the field. Patient did receive amiodarone infusion Enroute to the hospital. - No ischemic changes on the EKG. -patient is on sotalol at home, this could be a arrhythmogenic event with possible prolonged QT resulting and torsades. As the 1st EKG showed QT of 515 milliseconds and a 2nd EKG with QT of 480 millisecond. A manual measurement of the QT by resist coater developer was about 600 milliseconds. -no clear indication for angiogram/cardiac catheterization at this time -04/21: Transvenous temporary pacemaker was inserted in the right IJ due to QTC prolongation and bradycardia, shock, decreased perfusion -status post target temperature management, rewarmed to normal body temperature on 04/22/2022 at approximately 12:00 noon -troponins mildly elevated, continue heparin infusion -continue Keppra for seizure prophylaxis -patient has been tachycardic, in AFib RVR, -04/24: Patient had underlying rhythm once improved pacemaker was disconnected. Decreased pacemaker rate to 60. Discussed with Cardiology, transvenous pacemaker was removed by Cardiology -patient currently on Cardizem infusion which is being weaned, -continue metoprolol per Cardiology (3) Acute respiratory failure: Code(s): J96.00 - Acute respiratory failure, unspecified whether with hypoxia or hypercapnia Status: Acute Assessment and Plan: Acute respiratory respiratory failure likely related to cardiac arrest -chest x-ray showed pulmonary edema -patient intubated in the field with a size 7 ET tube on 04/20/2023 -continue CMV mode of ventilation, peep of 5, 30% FiO2. -chest x-ray and ABGs reviewed -continue bronchodilators -patient off sedation this morning: Mild pulmonary edema with small bilateral pleural effusions. -04/25: Patient diuresed well, -will repeat diuresis again today -04/26: Patient on SBT, will obtain ABGs and evaluate for extubation (4) Shock: Code(s): R57.9 - Shock, unspecified Status: Acute Assessment and Plan: RESOLVED Patient was in shock with low blood pressures, elevated lactic acid of 5.8. Patient did receive 2 L IV fluid bolus in the ER, repeat lactic acid is 1.8 this morning -patient was initially started on Levophed, was then bradycardic in the upper 20s and 30s so Levophed was switched to epinephrine -post transvenous pacemaker placement, epinephrine was discontinued, -OFF LEVOPHED , blood pressures have been stable -04/20/2023: Blood and urine cultures are negative so far -patient currently on Zosyn (04/20) for possible aspiration pneumonia and UTI for total of 7 days 03/06/2023: Echocardiogram -showed EF of 60-65%, LV diastolic function is indeterminate, moderate mitral valve regurg, moderate tricuspid valve regurg, mild pulmonary hypertension with RVSP of 36 mmHg 04/22/2023 Repeat echocardiogram: Moderate global hypokinesis, EF 40-45%, grade 2 diastolic dysfunction sigmoid hypertrophy, abnormal septal motion secondary to pacing, [id number] tricuspid valve regurg, mild mitral
[2023-04-26 11:49] LABS: Alveolar/Arterial O2 Gradient 110.5 mmHg; Base Excess ABG 0.2 mEq/l (+/-2.0); Carboxyhemoglobin 0.3 % THb (0-2.0); Fractional Inspired Oxygen 30 %; HCO3 ABG 22.1 mEq/l (22.0-26.0); Methemoglobin ABG 0.5 %THb (0-1.5); Oxygen Content ABG 15.4 %vol (16.0-22.0); Oxygen Saturation ABG 95.8 % (95.0-100.0); Oxyhemoglobin 93.5 % THb (90.0-100.0); PO2 ABG 70.5 mmHg (80.0-100.0); PO2 FiO2 Ratio Arterial Blood 2.35 %; Reduced Hemoglobin 5.7 %THb (0-5.0); Total Hemoglobin 11.7 g/dL (12.0-18.0)
[2023-04-26 11:51] LABS: Device VENTILATOR; Site Drawn ARTLINE; pH ABG 7.516 (7.350-7.450)
[2023-04-26 11:52] LABS: Arterial Blood Gas PEEP 5 cmH2O; Arterial Blood Gas Pressure Support 8 cmH2O; Arterial Blood Gas Vent Mode SPONTANEOUS
[2023-04-26 12:20] LABS: Glucose Point of Care 146 mg/dl (65-105)
[2023-04-26] MEDS: DIGOXIN INJ 250 MCG/ML 2 ML AMP (*BKC) IV PUSH (12:30)
[2023-04-26] MEDS: ONDANSETRON INJ 4 MG/2 ML VIAL IV PUSH ×2 (13:50→20:59)
--- NOTE | 2023-04-26 15:44 | WPDPN ---
Progress Note: A&P Assessment and Plan (1) Cardiac arrest: Code(s): I46.9 - Cardiac arrest, cause unspecified Status: Acute Assessment and Plan: Hypothermic protocol initiated. The patient has a central line and an arterial line is planned as well. Cardiology has been consulted and heparin drip was started. Patient has elevated cardiac enzymes. Also the patient could possibly be septic from UTI. The assistant elementary teacher was consulted the patient was placed in the ICU. The patient had been coded x3. It was reported that the patient only coded for a brief moment while she was in the emergency room x2. The 1st code was initiated in the field. The patient is intubated and on a ventilator. Further recommendation per Cardiology and assistant elementary teacher. Her lactic is 3.4. The patient is currently on epinephrine drip. She is also on hydrocortisone drip. 04/26/2023 interval history: patient Ventricular fibrillation cardiac arrest at home, CPR was started and EMS was called and again in ER patient coded twice and had ROSC, patient was intubated and admitted into ICU, patient was started on Amiodorane, assistant elementary teacher suspect prolong qt interval may caused cardiac arrest, and patient was seen by dietary aide teacher and Transvenous temporary pacemaker was inserted in the right IJ due to QTC prolongation and bradycardia, shock, decreased perfusion and will monitor today again patient is more responsive and follows instruction, on 04/24 seen by dietary aide teacher removed temporary pacemaker as patient now in A Fib, RVR and on diltiazem drip is off, seen by dietary aide teacher added metoprolol and, today patient was extubated, however still weak and somnolent, today again patient had vomiting concern for aspiration, further recommendation to follow. and monitor, will follow. (2) Elevated troponin: Code(s): R77.8 - Other specified abnormalities of plasma proteins Status: Acute Assessment and Plan: An echo has been ordered. Cardiology has evaluated the patient. Initial troponin 0.047 and repeat was 0.491. Is reported that the patient was evaluated by Cardiology and it was felt that emergent cardiac catheterization was not necessary at this time. Patient is currently on heparin drip. The patient has dark stools and I ordered H&H every 6 hours with his stool for occult blood. (3) Congestive heart failure: Code(s): I50.9 - Heart failure, unspecified Status: Acute Assessment and Plan: Echo on 03/06/2023?1. Complete two-dimensional, color flow and Doppler transthoracic echocardiogram is performed. ? 2. Technically difficult study with limited views. ? 3. Left ventricular chamber dimension is normal. ? 4. Left ventricular systolic function is normal, estimated at 60-65%. ? 5. There is no increased left ventricular wall thickness. ? 6. The left ventricular diastolic function is indeterminate. ? 7. There is moderate mitral valve regurgitation. ? 8. There is moderate tricuspid valve regurgitation. ? 9. Mild pulmonary hypertension, estimated pulmonary arterial systolic pressure is 36 mmHg. (4) Hypothyroidism: Code(s): E03.9 - Hypothyroidism, unspecified Status: Acute Assessment and Plan: Check thyroid levels. (5) Paroxysmal atrial fibrillation: Code(s): I48.0 - Paroxysmal atrial fibrillation Status: Acute Assessment and Plan: The patient is currently on a heparin drip and the patient was found to be in sinus rhythm after she had coded the last time. (6) Hypertension: Qualifiers: Hypertension type: primary hypertension Qualified Code(s): I10 - Essential (primary) hypertension Code(s): I10 - Essential (primary) hypertension Status: Acute Assessment and Plan: The patient's blood pressure is 88/78. The patient is on a norepinephrine drip as well as hydrocortisone drip (7) Elevated blood sugar: Code(s): R73.9 - Hyperglycemia, unspecified Status: Acute
[2023-04-26] MEDS: METOPROLOL TARTRATE INJ 5 MG/5 ML VIAL IV PUSH (15:46)
[2023-04-26 19:09] LABS: Glucose Point of Care 115 mg/dl (65-105)
[2023-04-26] MEDS: ACETAMINOPHEN ELIXIR 325 MG/10.15 ML UDC 650 MG PO (21:00)
[2023-04-26 23:35] LABS: Glucose Point of Care 112 mg/dl (65-105)
[2023-04-27] VITALS (26 sets, daily range): BP systolic 115–154; BP diastolic 64–102; PULSE 91–125; RESP 15–26; TEMP 37–37.9; O2SAT 91–96
[2023-04-27] MEDS: ALBUTEROL SULFATE NEB 2.5 MG/3 ML INH INHALATION ×4 (01:47→20:12)
[2023-04-27] MEDS: IPRATROPIUM BR 0.02% INH SOLN 0.5 MG/2.5 ML VIAL INHALATION ×4 (01:47→20:11)
[2023-04-27] MEDS: PIPERACILLN/TAZ 3.375GM/NS50ML 3.375 GM/50 ML BAG IVPB ×4 (04:55→22:24)
[2023-04-27] MEDS: CENTRAL LINE FLUSH 10 ML IV PUSH ×4 (04:56→21:39)
[2023-04-27 05:12] LABS: Basophils Percent Auto 0.5 % (0.2-1.2); Eosinophils Absolute Auto 0.4 K/mm3 (0-0.3); Eosinophils Percent Auto 4.9 % (0-4.4); Hematocrit 30.9 % (37.0-47.0); Hemoglobin 9.8 g/dL (12.0-15.0); Immature Granulocyte Absolute 0.14 K/mm3 (0.00-0.031); Immature Granulocyte Percent A 1.7 % (0-0.5); Immature Platelet Fraction Pct 7.6 % (0.9-11.2); Lymphocytes Absolute Auto 1.81 K/mm3 (0.9-3.2); Lymphocytes Percent Auto 21.7 % (18.3-44.2); Mean Corpuscular HGB Conc 31.7 g/dl (32-36); Mean Corpuscular Hemoglobin 30.9 pg (26-34); Mean Corpuscular Volume 97.5 fl (80-100); Mean Platelet Volume 11.6 fl (7.4-10.4); Monocytes Absolute Auto 0.7 K/mm3 (0.1-0.6); Monocytes Percent Auto 8.7 % (2.6-8.5); Neutrophils Absolute Auto 5.2 K/mm3 (1.3-6.7); Neutrophils Percent Auto 62.5 % (45.5-73.1); Nucleated Red Blood Cells Perc 0.2 % (0.0-0.2); Platelet Count Result 118 k/mm3 (150-375); Red Blood Count 3.17 M/mm3 (4.2-5.4); Red Cell Distribution Width 15.6 % (11.5-14.5); White Blood Count 8.4 K/mm3 (4.5-10.0)
[2023-04-27 05:25] LABS: Alanine Aminotransferase 102 U/L (6-35); Albumin Level 2.9 g/dL (3.5-5.1); Alkaline Phosphatase 69 U/L (38-126); Anion Gap 4 mmol/L (8-16); Aspartate Amino Transferase 50 U/L (14-36); Bilirubin,Total 0.9 mg/dL (0.2-1.3); Blood Urea Nitrogen 22 mg/dL (7-17); Calcium 7.8 mg/dL (8.4-10.2); Carbon Dioxide 29 mmol/L (22-30); Chloride 107 mmol/L (98-107); Estimated CRCL calculation 53 ml/min; Estimated Glomerular Filt Rate > 60; Glucose 94 mg/dL (65-110); Magnesium 2.1 mg/dL (1.6-2.3); Phosphorus 3.8 mg/dL (2.5-4.5); Potassium 3.6 mmol/L (3.4-5.0); Sodium 140 mmol/L (137-145)
[2023-04-27] MEDS: DIGOXIN 250 MCG TABLET PO (08:28)
[2023-04-27] MEDS: KCL 40 MEQ/WATER 100 ML 100 ML 25 ML IVPB (08:28)
[2023-04-27] MEDS: PANTOPRAZOLE SODIUM IV 40 MG VIAL IV PUSH ×2 (08:29→20:19)
[2023-04-27] MEDS: levETIRAcetam 500MG/NACL 100ML 500 MG/100 ML BAG 400 MG IVPB ×2 (08:29→20:19)
[2023-04-27] MEDS: METOPROLOL TARTRATE 50 MG TAB 100 MG PO ×2 (08:29→20:19)
[2023-04-27] MEDS: MINERAL OIL/WHITE PETROLATUM OINTMENT 1 APPLIC EACH EYE (08:29)
--- NOTE | 2023-04-27 09:34 | WPDINTPN ---
Progress Note: A&P Assessment and Plan (1) Encephalopathy: Code(s): G93.40 - Encephalopathy, unspecified Status: Acute Assessment and Plan: Post cardiac arrest encephalopathy -status post target temperature management -appreciate Neurology evaluation -04/25:mental status improving daily, currently nodding to questions and following simple commands in all extremities -04/27: Patient answers yes and no to questions, continues to follow simple commands -06/25: EEG - Abnormal record due to the absence of the normal background rhythm, during the presence of bihemispheric theta and delta activity, but without evidence of any paroxysmal focal or diffuse discharge.? These abnormalities are suggestive of organic or metabolic encephalopathy.? Clinical correlation recommended (2) Cardiac arrest: Code(s): I46.9 - Cardiac arrest, cause unspecified Status: Acute Assessment and Plan: Patient with initial VFib arrest at home upon arrival of the EMS, did she had PEA arrest x2 in the ER. Intubated in the field. Patient did receive amiodarone infusion Enroute to the hospital. - No ischemic changes on the EKG. -patient is on sotalol at home, this could be a arrhythmogenic event with possible prolonged QT resulting and torsades. As the 1st EKG showed QT of 515 milliseconds and a 2nd EKG with QT of 480 millisecond. A manual measurement of the QT by silica mixer operator was about 600 milliseconds. -no clear indication for angiogram/cardiac catheterization at this time -04/21: Transvenous temporary pacemaker was inserted in the right IJ due to QTC prolongation and bradycardia, shock, decreased perfusion -status post target temperature management, rewarmed to normal body temperature on 04/22/2022 at approximately 12:00 noon -troponins mildly elevated, continue heparin infusion -continue Keppra for seizure prophylaxis -patient has been tachycardic, in AFib RVR, -04/24: Patient had underlying rhythm once improved pacemaker was disconnected. Decreased pacemaker rate to 60. Discussed with Cardiology, transvenous pacemaker was removed by Cardiology -04/26: Cardizem was discontinued -continue metoprolol per Cardiology -continue diuresis (3) Acute respiratory failure: Code(s): J96.00 - Acute respiratory failure, unspecified whether with hypoxia or hypercapnia Status: Acute Assessment and Plan: Acute respiratory respiratory failure likely related to cardiac arrest -chest x-ray showed pulmonary edema -patient intubated in the field with a size 7 ET tube on 04/20/2023 -04/26: Extubate -remains on 2 L nasal cannula -continue bronchodilators (4) Shock: Code(s): R57.9 - Shock, unspecified Status: Acute Assessment and Plan: RESOLVED Patient was in shock with low blood pressures, elevated lactic acid of 5.8. Patient did receive 2 L IV fluid bolus in the ER, repeat lactic acid is 1.8 this morning -patient was initially started on Levophed, was then bradycardic in the upper 20s and 30s so Levophed was switched to epinephrine -post transvenous pacemaker placement, epinephrine was discontinued, -OFF LEVOPHED , blood pressures have been stable -04/20/2023: Blood and urine cultures are negative so far -patient currently on Zosyn (04/20) for possible aspiration pneumonia and UTI for total of 7 days 03/06/2023: Echocardiogram -showed EF of 60-65%, LV diastolic function is indeterminate, moderate mitral valve regurg, moderate tricuspid valve regurg, mild pulmonary hypertension with RVSP of 36 mmHg 04/22/2023 Repeat echocardiogram: Moderate global hypokinesis, EF 40-45%, grade 2 diastolic dysfunction sigmoid hypertrophy, abnormal septal motion secondary to pacing, [id number] tricuspid valve regurg, mild mitral valve regurg, no pulmonary hypertension (5) Elevated LFTs: Code(s): R79.89 - Other specified abnormal findings of blood chemistry Status: Acute Assessment and Plan: Likely re
[2023-04-27 11:04] LABS: Glucose Point of Care 95 mg/dl (65-105)
--- NOTE | 2023-04-27 11:18 | PM.PNCARD ---
Progress Note: A&P Assessment and Plan (1) Cardiac arrest with ventricular fibrillation: Code(s): I46.9 - Cardiac arrest, cause unspecified; I49.01 - Ventricular fibrillation Status: Acute Assessment and Plan: Initial arresting rhythm VFIB per the EMS. Had 2 PEA arrests while in the ED. Unclear etiology at this time for her cardiac arrest. No reports of chest pain or other symptoms per the family. No ischemic changes on the EKG in the ED. Trop mildly elevated at 0.7, but ASC unlikely. On Sotalol at home -- possibly prolonged QT resulting in Torsades?? Exceptionally long QT interval noted this admission. EF of 43% noted global hypokinesis, likely a result of stunned myocardium from her arrest as her EF was normal recently, and hopefully will improve. --Continue supportive care. --Follow neurologic status --Stopped her Xarelto as she will eventually need cardiac catheterization for ischemic evaluation whenever she recovers prior to hospital discharge. Anticipate cath maybe on 05/01. --Given VFIB arrest, will need to be discharged with Life Vest. Life Vest ordered. Outpatient EP follow up for consideration of ICD given VFIB arrest. Will arrange visit with Dr. Bonilla. (2) Prolonged QT interval: Code(s): R94.31 - Abnormal electrocardiogram [ECG] [EKG] Status: Acute Assessment and Plan: Bradycardia and QT prolongation noted on 04/21 with heart rates in the 30s-40s with QT measuring out to 0.95 to 1 seconds. --Placed temporary transvenous pacer to help shorten QT. Temporary pacer removed 04/24 as patient went into atrial fibrillation with RVR and QT improved. --Continue to monitor closely --Avoid QT prolonging medications if possible. (3) Shock: Code(s): R57.9 - Shock, unspecified Status: Acute Assessment and Plan: Improved, no longer requiring pressors (4) Elevated troponin: Code(s): R77.8 - Other specified abnormalities of plasma proteins Status: Acute Assessment and Plan: Troponin of 0.047, 0.491, 0.736. EKG without ischemic changes. --Echo without focal wall motion abnormalities, so doubt ACS (5) Atrial fibrillation with rapid ventricular response: Code(s): I48.91 - Unspecified atrial fibrillation Status: Acute Assessment and Plan: Has PAF, now in AFib RVR. History of bradycardia as well. Holding Sotalol due to VFib arrest and QT prolongation. Avoid other antiarrhythmic drugs for same reason. Metoprolol started, increased to 100mg BID for additional rate control. Still with intermittent RVR, given IV dose of Digoxin 04/26. Oral Digoxin started 04/27. Patient now with rate controlled atrial fibrillation. Will need to check Digoxin level in a week. Xarelto on hold for cardiac cath, will need to resume after cardiac cath. Outpatient EP follow up for her long-term management of atrial fibrillation, along with consideration of ICD given VFIB arrest. Plan Recommendations/plan discussed with the Mold Repair Technician, Dr. Hernández. Subjective Date/time seen: 04/27/23 11:18 Interval history: HPI: We are consulted for cardiac arrest. Patient unable to provide any history as she is intubated and nonresponsive, therefore, all history obtained from the patient's chart, medical team, and family at bedside. This is a 78 year old female who follows with Dr. Acosta in the clinic. She has atrial fibrillation, hypertension, history of untreated KASSANDRA. Patient started on Sotalol 80mg BID in February 2023 for atrial fibrillation and had converted to sinus rhythm with Sotalol. She followed up with Dr. Acosta in March and had been doing well at that time. Family reports she had been feeling fine without any symptoms and doing well. Patient's son-in-law heard a thud and found patient on the floor unresponsive and pulseless. He started CPR after calling 911. EMS found patient to be in VFIB. Patient was shocked 3 times and received 3 doses of Epi. Given Amiodarone 150mg x 1 en
--- NOTE | 2023-04-27 11:25 | PCOTNOTE ---
Attempted OT eval, patient with MD. Will check back later.
--- NOTE | 2023-04-27 11:33 | PCFNICU ---
ICU Rounding Note: Pt current nutrition is NPO. Last recorded weight is 90.1 kg. Bowel Motility:FMS Labs Reviewed:BUN 22, K 2.9,Hgb 9.8,Hct 30.9 Meds Noted:Lopressor, Zosyn, Protonix Skin: WNL Additional Notes: Patient extubated on 04/26. Plans for Speech Evaluation today. If diet order is not advance recommend tube feedings of Jevity 1.2 goal rate at 60 ml/hr. Follow daily in ICU rounds, reassess Monday and Monday.
--- NOTE | 2023-04-27 13:33 | PCSTNOTE ---
Please refer to the Bedside Swallow Evaluation in the EMR. Please note, silent aspiration cannot be ruled out at bedside.
--- NOTE | 2023-04-27 13:36 | PCSTNOTE ---
Modified Barium Swallow will be completed Monday in the morning.
[2023-04-27] MEDS: FUROSEMIDE INJ 40 MG/4 ML VIAL IV PUSH (14:48)
--- NOTE | 2023-04-27 16:12 | WPDPN ---
Progress Note: A&P Assessment and Plan (1) Cardiac arrest: Code(s): I46.9 - Cardiac arrest, cause unspecified Status: Acute Assessment and Plan: Hypothermic protocol initiated. The patient has a central line and an arterial line is planned as well. Cardiology has been consulted and heparin drip was started. Patient has elevated cardiac enzymes. Also the patient could possibly be septic from UTI. The resource forester was consulted the patient was placed in the ICU. The patient had been coded x3. It was reported that the patient only coded for a brief moment while she was in the emergency room x2. The 1st code was initiated in the field. The patient is intubated and on a ventilator. Further recommendation per Cardiology and resource forester. Her lactic is 3.4. The patient is currently on epinephrine drip. She is also on hydrocortisone drip. 04/27/2023 interval history: patient Ventricular fibrillation cardiac arrest at home, CPR was started and EMS was called and again in ER patient coded twice and had ROSC, patient was intubated and admitted into ICU, patient was started on Amiodorane, resource forester suspect prolong qt interval may caused cardiac arrest, and patient was seen by robotic technician and Transvenous temporary pacemaker was inserted in the right IJ due to QTC prolongation and bradycardia, shock, decreased perfusion and will monitor today again patient is more responsive and follows instruction, on 04/24 seen by robotic technician removed temporary pacemaker as patient now in A Fib, RVR and on diltiazem drip is off, seen by robotic technician added metoprolol and, on 04/26 patient was extubated, and remain on N/C, however still weak and somnolent, today again patient had vomiting concern for aspiration, however chest x-ray does not show any pneumonia, discuss with resource forester, will monitor patient one more day in ICU and possible transfer to IMU tomorrow, further recommendation to follow. and monitor, will follow. (2) Elevated troponin: Code(s): R77.8 - Other specified abnormalities of plasma proteins Status: Acute Assessment and Plan: An echo has been ordered. Cardiology has evaluated the patient. Initial troponin 0.047 and repeat was 0.491. Is reported that the patient was evaluated by Cardiology and it was felt that emergent cardiac catheterization was not necessary at this time. Patient is currently on heparin drip. The patient has dark stools and I ordered H&H every 6 hours with his stool for occult blood. (3) Congestive heart failure: Code(s): I50.9 - Heart failure, unspecified Status: Acute Assessment and Plan: Echo on 03/06/2023?1. Complete two-dimensional, color flow and Doppler transthoracic echocardiogram is performed. ? 2. Technically difficult study with limited views. ? 3. Left ventricular chamber dimension is normal. ? 4. Left ventricular systolic function is normal, estimated at 60-65%. ? 5. There is no increased left ventricular wall thickness. ? 6. The left ventricular diastolic function is indeterminate. ? 7. There is moderate mitral valve regurgitation. ? 8. There is moderate tricuspid valve regurgitation. ? 9. Mild pulmonary hypertension, estimated pulmonary arterial systolic pressure is 36 mmHg. (4) Hypothyroidism: Code(s): E03.9 - Hypothyroidism, unspecified Status: Acute Assessment and Plan: Check thyroid levels. (5) Paroxysmal atrial fibrillation: Code(s): I48.0 - Paroxysmal atrial fibrillation Status: Acute Assessment and Plan: The patient is currently on a heparin drip and the patient was found to be in sinus rhythm after she had coded the last time. (6) Hypertension: Qualifiers: Hypertension type: primary hypertension Qualified Code(s): I10 - Essential (primary) hypertension Code(s): I10 - Essential (primary) hypertension Status: Acute Assessment and Plan: The patient's blood pressure is 88/78.
--- NOTE | 2023-04-27 17:00 | PCPTNOTE ---
On 04/27/23, the student, PARK Kenny, provided care and completed [facility] documentation on this patient. I have reviewed the student's documentation and agree with the findings.
[2023-04-27 17:02] LABS: Glucose Point of Care 109 mg/dl (65-105)
[2023-04-27] MEDS: ACETAMINOPHEN ELIXIR 325 MG/10.15 ML UDC 650 MG PO (20:19)
[2023-04-28] VITALS (25 sets, daily range): BP systolic 112–168; BP diastolic 68–96; PULSE 72–120; RESP 14–24; TEMP 36.4–37.5; O2SAT 92–99
[2023-04-28 00:18] LABS: Glucose Point of Care 98 mg/dl (65-105)
[2023-04-28] MEDS: IPRATROPIUM BR 0.02% INH SOLN 0.5 MG/2.5 ML VIAL INHALATION ×4 (02:03→20:48)
[2023-04-28] MEDS: ALBUTEROL SULFATE NEB 2.5 MG/3 ML INH INHALATION ×4 (02:03→20:48)
[2023-04-28] MEDS: CENTRAL LINE FLUSH 10 ML IV PUSH ×4 (05:08→20:31)
[2023-04-28 05:10] LABS: Glucose Point of Care 88 mg/dl (65-105)
--- NOTE | 2023-04-28 09:11 | WPDINTPN ---
Progress Note: A&P Assessment and Plan (1) Encephalopathy: Code(s): G93.40 - Encephalopathy, unspecified Status: Acute Assessment and Plan: Post cardiac arrest encephalopathy -status post target temperature management -appreciate Neurology evaluation - mental status has improved, patient still has word-finding difficulty -06/25: EEG - Abnormal record due to the absence of the normal background rhythm, during the presence of bihemispheric theta and delta activity, but without evidence of any paroxysmal focal or diffuse discharge.? These abnormalities are suggestive of organic or metabolic encephalopathy.? Clinical correlation recommended (2) Cardiac arrest: Code(s): I46.9 - Cardiac arrest, cause unspecified Status: Acute Assessment and Plan: Patient with initial VFib arrest at home upon arrival of the EMS, did she had PEA arrest x2 in the ER. Intubated in the field. Patient did receive amiodarone infusion Enroute to the hospital. - No ischemic changes on the EKG. -patient is on sotalol at home, this could be a arrhythmogenic event with possible prolonged QT resulting and torsades. As the 1st EKG showed QT of 515 milliseconds and a 2nd EKG with QT of 480 millisecond. A manual measurement of the QT by pharmacy operations specialist was about 600 milliseconds. -no clear indication for angiogram/cardiac catheterization at this time -04/21: Transvenous temporary pacemaker was inserted in the right IJ due to QTC prolongation and bradycardia, shock, decreased perfusion -status post target temperature management, rewarmed to normal body temperature on 04/22/2022 at approximately 12:00 noon -troponins mildly elevated, continue heparin infusion -continue Keppra for seizure prophylaxis -patient has been tachycardic, in AFib RVR, -04/24: Patient had underlying rhythm once improved pacemaker was disconnected. Decreased pacemaker rate to 60. Discussed with Cardiology, transvenous pacemaker was removed by Cardiology -04/26: Cardizem was discontinued -continue metoprolol per Cardiology -patient has been diuresed well current will add low-dose diuresis per NG tube (3) Acute respiratory failure: Code(s): J96.00 - Acute respiratory failure, unspecified whether with hypoxia or hypercapnia Status: Acute Assessment and Plan: Acute respiratory respiratory failure likely related to cardiac arrest -chest x-ray showed pulmonary edema -patient intubated in the field with a size 7 ET tube on 04/20/2023 -04/26: Extubate -remains on 2 L nasal cannula -continue bronchodilators (4) Shock: Code(s): R57.9 - Shock, unspecified Status: Acute Assessment and Plan: RESOLVED Patient was in shock with low blood pressures, elevated lactic acid of 5.8. Patient did receive 2 L IV fluid bolus in the ER, repeat lactic acid is 1.8 this morning -patient was initially started on Levophed, was then bradycardic in the upper 20s and 30s so Levophed was switched to epinephrine -post transvenous pacemaker placement, epinephrine was discontinued, -OFF LEVOPHED , blood pressures have been stable -04/20/2023: Blood and urine cultures are negative so far -patient currently on Zosyn (04/20) for possible aspiration pneumonia and UTI for total of 7 days 03/06/2023: Echocardiogram -showed EF of 60-65%, LV diastolic function is indeterminate, moderate mitral valve regurg, moderate tricuspid valve regurg, mild pulmonary hypertension with RVSP of 36 mmHg 04/22/2023 Repeat echocardiogram: Moderate global hypokinesis, EF 40-45%, grade 2 diastolic dysfunction sigmoid hypertrophy, abnormal septal motion secondary to pacing, [id number] tricuspid valve regurg, mild mitral valve regurg, no pulmonary hypertension (5) Elevated LFTs: Code(s): R79.89 - Other specified abnormal findings of blood chemistry Status: Acute Assessment and Plan: Likely related to hypotension, shock -LFTs improving, will continue to monitor (
[2023-04-28] MEDS: levETIRAcetam 500MG/NACL 100ML 500 MG/100 ML BAG 400 MG IVPB ×2 (09:12→20:27)
[2023-04-28] MEDS: DIGOXIN 250 MCG TABLET PO (09:13)
[2023-04-28] MEDS: METOPROLOL TARTRATE 50 MG TAB 100 MG PO ×2 (09:13→20:31)
[2023-04-28] MEDS: PANTOPRAZOLE SODIUM IV 40 MG VIAL IV PUSH ×2 (09:13→20:24)
--- NOTE | 2023-04-28 09:51 | PM.PNCARD ---
Progress Note: A&P Assessment and Plan (1) Cardiac arrest with ventricular fibrillation: Code(s): I46.9 - Cardiac arrest, cause unspecified; I49.01 - Ventricular fibrillation Status: Acute Assessment and Plan: Initial arresting rhythm VFIB per the EMS. Had 2 PEA arrests while in the ED. Unclear etiology at this time for her cardiac arrest. No reports of chest pain or other symptoms per the family. No ischemic changes on the EKG in the ED. Trop mildly elevated at 0.7, but ASC unlikely. Etiology of VF arrest unclear, possibly prolonged QT resulting in Torsades?? Exceptionally long QT interval noted this admission. EF of 43% noted global hypokinesis, likely a result of stunned myocardium from her arrest as her EF was normal recently, and hopefully will improve. --Continue supportive care. --Follow neurologic status --Stopped her Xarelto as she will eventually need cardiac catheterization for ischemic evaluation whenever she recovers prior to hospital discharge. Anticipate cath 05/01. --Given VFIB arrest, will need to be discharged with Life Vest. Life Vest ordered. Outpatient EP follow up for consideration of ICD given VFIB arrest. Will arrange visit with Dr. Bonilla. (2) Prolonged QT interval: Code(s): R94.31 - Abnormal electrocardiogram [ECG] [EKG] Status: Acute Assessment and Plan: Bradycardia and QT prolongation noted on 04/21 with heart rates in the 30s-40s with QT measuring out to 0.95 to 1 seconds. --Placed temporary transvenous pacer to help shorten QT. Temporary pacer removed 04/24 as patient went into atrial fibrillation with RVR and QT improved. NSR now. --Continue to monitor closely --Avoid QT prolonging medications if possible. (3) Shock: Code(s): R57.9 - Shock, unspecified Status: Acute Assessment and Plan: Improved, no longer requiring pressors (4) Elevated troponin: Code(s): R77.8 - Other specified abnormalities of plasma proteins Status: Acute Assessment and Plan: Troponin of 0.047, 0.491, 0.736. EKG without ischemic changes. --Echo without focal wall motion abnormalities, so doubt ACS (5) Atrial fibrillation with rapid ventricular response: Code(s): I48.91 - Unspecified atrial fibrillation Status: Acute Assessment and Plan: Has PAF, now in AFib RVR. History of bradycardia as well. Sotalol has been discontinued. Avoid other antiarrhythmic drugs to avoid QT prolongation. Metoprolol started, increased to 100mg BID for additional rate control. On Digoxin as well. Now in NSR. Will need a Dig level on 05/04 Xarelto on hold for cardiac cath, will need to resume after cardiac cath. Outpatient EP follow up for her long-term management of atrial fibrillation, along with consideration of ICD given VFIB arrest. Subjective Date/time seen: 04/28/23 09:51 Interval history: HPI: We are consulted for cardiac arrest. Patient unable to provide any history as she is intubated and nonresponsive, therefore, all history obtained from the patient's chart, medical team, and family at bedside. This is a 78 year old female who follows with Dr. Acosta in the clinic. She has atrial fibrillation, hypertension, history of untreated KASSANDRA. Patient started on Sotalol 80mg BID in February 2023 for atrial fibrillation and had converted to sinus rhythm with Sotalol. She followed up with Dr. Acosta in March and had been doing well at that time. Family reports she had been feeling fine without any symptoms and doing well. Patient's son-in-law heard a thud and found patient on the floor unresponsive and pulseless. He started CPR after calling 911. EMS found patient to be in VFIB. Patient was shocked 3 times and received 3 doses of Epi. Given Amiodarone 150mg x 1 en rouse. Intubated in the field. In the ER, she had PEA arrest x 2, received CPR for a few minutes each time. At the time of my evaluation, she is in sinus rhythm with heart rates in the 60s. Per the ER, with
[2023-04-28 10:10] LABS: Basophils Percent Auto 0.4 % (0.2-1.2); Eosinophils Absolute Auto 0.3 K/mm3 (0-0.3); Eosinophils Percent Auto 3.5 % (0-4.4); Hematocrit 30.3 % (37.0-47.0); Hemoglobin 9.4 g/dL (12.0-15.0); Immature Granulocyte Absolute 0.09 K/mm3 (0.00-0.031); Immature Platelet Fraction Pct 6.9 % (0.9-11.2); Lymphocytes Absolute Auto 1.47 K/mm3 (0.9-3.2); Lymphocytes Percent Auto 16.2 % (18.3-44.2); Mean Corpuscular Hemoglobin 29.7 pg (26-34); Mean Corpuscular Volume 95.9 fl (80-100); Mean Platelet Volume 11.4 fl (7.4-10.4); Monocytes Absolute Auto 0.7 K/mm3 (0.1-0.6); Monocytes Percent Auto 7.6 % (2.6-8.5); Neutrophils Absolute Auto 6.5 K/mm3 (1.3-6.7); Neutrophils Percent Auto 71.3 % (45.5-73.1); Nucleated Red Blood Cells Perc 0.2 % (0.0-0.2); Platelet Count Result 136 k/mm3 (150-375); Red Blood Count 3.16 M/mm3 (4.2-5.4); Red Cell Distribution Width 15.2 % (11.5-14.5); White Blood Count 9.1 K/mm3 (4.5-10.0)
[2023-04-28 10:12] LABS: Alanine Aminotransferase 85 U/L (6-35); Albumin Level 3.1 g/dL (3.5-5.1); Alkaline Phosphatase 76 U/L (38-126); Anion Gap 3 mmol/L (8-16); Aspartate Amino Transferase 46 U/L (14-36); Bilirubin,Total 0.9 mg/dL (0.2-1.3); Blood Urea Nitrogen 20 mg/dL (7-17); Calcium 7.9 mg/dL (8.4-10.2); Carbon Dioxide 33 mmol/L (22-30); Chloride 102 mmol/L (98-107); Estimated CRCL calculation 52 ml/min; Estimated Glomerular Filt Rate > 60; Glucose 92 mg/dL (65-110); Magnesium 2.1 mg/dL (1.6-2.3); Phosphorus 3.7 mg/dL (2.5-4.5); Potassium 3.3 mmol/L (3.4-5.0); Sodium 138 mmol/L (137-145)
--- NOTE | 2023-04-28 11:37 | PCNFU ---
Nutrition Follow-Up Complete: Inadequate energy intake related to increased protein energy needs from mechanical ventilation, NPO status as evidenced by need for full tube feeding Goal: Meet estimated protein energy needs We will continue current goal. Pt current nutrition is NPO. Last recorded weight is 86 kg. Bowel Motility:+BM reported 04/26 Labs Reviewed:BUN 22, K 2.9,Hct 30.9,Hgb 9.8 Meds Noted:Lopressor, Keppra, Protonix Skin: WNL Additional Notes: Patient is extubated. Plans for MBS today. Will continue to monitor for diet or changes. Monitoring plan of care, tolerance, labs, weights, stool patterns Follow daily in ICU rounds, reassess every 3 days.
--- NOTE | 2023-04-28 12:02 | PCSTNOTE ---
A Modified Barium Swallow (MBS) study was attempted but NOT completed as patient refused all consistencies from therapist and from resident in diagnostic radiology. Patient was observed to say both no and stop when attempts were made to offer thin liquid per cup and per straw, water from cup with a small amount of liquid contrast medium, crackers, fruit pieces, and pudding mixture. Attempt at testing was terminated when three staff could not convince patient to take any of 6 different items. May remain NPO and will try MBS again in the next several days, most likely Monday. Please re-order when patient is better able to participate.
[2023-04-28 12:18] LABS: Glucose Point of Care 92 mg/dl (65-105)
[2023-04-28] MEDS: POTASSIUM CHLORIDE 20 MEQ PACKET (FOR LIQUID) 40 MEQ FEED TUBE (13:47)
[2023-04-28] MEDS: KCL 40 MEQ/WATER 100 ML 100 ML 25 ML IVPB (13:47)
[2023-04-28] MEDS: ENOXAPARIN 100 MG/ML SYRINGE 85 MG SUB-Q ×2 (13:47→20:18)
[2023-04-28] MEDS: FUROSEMIDE 20 MG TABLET PO (13:48)
--- NOTE | 2023-04-28 15:16 | WPDPN ---
Progress Note: A&P Assessment and Plan (1) Cardiac arrest: Code(s): I46.9 - Cardiac arrest, cause unspecified Status: Acute Assessment and Plan: Hypothermic protocol initiated. The patient has a central line and an arterial line is planned as well. Cardiology has been consulted and heparin drip was started. Patient has elevated cardiac enzymes. Also the patient could possibly be septic from UTI. The health care marketing specialist was consulted the patient was placed in the ICU. The patient had been coded x3. It was reported that the patient only coded for a brief moment while she was in the emergency room x2. The 1st code was initiated in the field. The patient is intubated and on a ventilator. Further recommendation per Cardiology and health care marketing specialist. Her lactic is 3.4. The patient is currently on epinephrine drip. She is also on hydrocortisone drip. 04/28/2023 interval history: patient Ventricular fibrillation cardiac arrest at home, CPR was started and EMS was called and again in ER patient coded twice and had ROSC, patient was intubated and admitted into ICU, patient was started on Amiodorane, health care marketing specialist suspect prolong qt interval may caused cardiac arrest, and patient was seen by outside upholsterer and Transvenous temporary pacemaker was inserted in the right IJ due to QTC prolongation and bradycardia, shock, decreased perfusion and will monitor today again patient is more responsive and follows instruction, on 04/24 seen by outside upholsterer removed temporary pacemaker as patient now in A Fib, RVR and on diltiazem drip is off, seen by outside upholsterer added metoprolol and, on 04/26 patient was extubated, and remain on N/C, however still weak and somnolent, today again patient had vomiting concern for aspiration, however chest x-ray does not show any pneumonia, on 04/27 discussed with health care marketing specialist, monitor patient one more day in ICU and possible transfer to IMU today, patient remains clinically stable, seen by outside upholsterer as patient had Vfib cardiac arrest, further recommendation to follow. and monitor, will follow. (2) Elevated troponin: Code(s): R77.8 - Other specified abnormalities of plasma proteins Status: Acute Assessment and Plan: An echo has been ordered. Cardiology has evaluated the patient. Initial troponin 0.047 and repeat was 0.491. Is reported that the patient was evaluated by Cardiology and it was felt that emergent cardiac catheterization was not necessary at this time. Patient is currently on heparin drip. The patient has dark stools and I ordered H&H every 6 hours with his stool for occult blood. (3) Congestive heart failure: Code(s): I50.9 - Heart failure, unspecified Status: Acute Assessment and Plan: Echo on 03/06/2023?1. Complete two-dimensional, color flow and Doppler transthoracic echocardiogram is performed. ? 2. Technically difficult study with limited views. ? 3. Left ventricular chamber dimension is normal. ? 4. Left ventricular systolic function is normal, estimated at 60-65%. ? 5. There is no increased left ventricular wall thickness. ? 6. The left ventricular diastolic function is indeterminate. ? 7. There is moderate mitral valve regurgitation. ? 8. There is moderate tricuspid valve regurgitation. ? 9. Mild pulmonary hypertension, estimated pulmonary arterial systolic pressure is 36 mmHg. (4) Hypothyroidism: Code(s): E03.9 - Hypothyroidism, unspecified Status: Acute Assessment and Plan: Check thyroid levels. (5) Paroxysmal atrial fibrillation: Code(s): I48.0 - Paroxysmal atrial fibrillation Status: Acute Assessment and Plan: The patient is currently on a heparin drip and the patient was found to be in sinus rhythm after she had coded the last time. (6) Hypertension: Qualifiers: Hypertension type: primary hypertension Qualified Code(s): I10 - Essential (primary) hypertension Code(s): I10 - Essential (primary) hypertens
[2023-04-28] MEDS: hydrALAZINE HCL 20 MG/ML VIAL 10 MG IV PUSH (16:49)
[2023-04-28 17:09] LABS: Glucose Point of Care 87 mg/dl (65-105)
[2023-04-29] VITALS (26 sets, daily range): BP systolic 149–176; BP diastolic 51–74; PULSE 71–119; RESP 16–20; TEMP 35.7–36.9; O2SAT 94–98
[2023-04-29 00:07] LABS: Glucose Point of Care 87 mg/dl (65-105)
[2023-04-29] MEDS: CENTRAL LINE FLUSH 10 ML IV PUSH ×4 (05:12→21:11)
[2023-04-29] MEDS: CENTRAL LINE FLUSH 20 ML IV PUSH (05:12)
[2023-04-29 05:36] LABS: Basophils Percent Auto 0.4 % (0.2-1.2); Eosinophils Absolute Auto 0.3 K/mm3 (0-0.3); Eosinophils Percent Auto 3.4 % (0-4.4); Hematocrit 28.3 % (37.0-47.0); Hemoglobin 9.2 g/dL (12.0-15.0); Immature Granulocyte Percent A 1.2 % (0-0.5); Immature Platelet Fraction Pct 6.1 % (0.9-11.2); Lymphocytes Absolute Auto 1.41 K/mm3 (0.9-3.2); Lymphocytes Percent Auto 17.6 % (18.3-44.2); Mean Corpuscular HGB Conc 32.5 g/dl (32-36); Mean Corpuscular Hemoglobin 31.1 pg (26-34); Mean Corpuscular Volume 95.6 fl (80-100); Mean Platelet Volume 11.1 fl (7.4-10.4); Monocytes Absolute Auto 0.6 K/mm3 (0.1-0.6); Monocytes Percent Auto 7.5 % (2.6-8.5); Neutrophils Absolute Auto 5.6 K/mm3 (1.3-6.7); Neutrophils Percent Auto 69.9 % (45.5-73.1); Platelet Count Result 148 k/mm3 (150-375); Red Blood Count 2.96 M/mm3 (4.2-5.4); Red Cell Distribution Width 15.4 % (11.5-14.5)
[2023-04-29 05:39] LABS: Alanine Aminotransferase 74 U/L (6-35); Albumin Level 3.2 g/dL (3.5-5.1); Alkaline Phosphatase 75 U/L (38-126); Anion Gap 4 mmol/L (8-16); Aspartate Amino Transferase 47 U/L (14-36); Bilirubin,Total 0.9 mg/dL (0.2-1.3); Blood Urea Nitrogen 21 mg/dL (7-17); Carbon Dioxide 33 mmol/L (22-30); Chloride 102 mmol/L (98-107); Estimated CRCL calculation 56 ml/min; Estimated Glomerular Filt Rate > 60; Glucose 85 mg/dL (65-110); Magnesium 2.3 mg/dL (1.6-2.3); Phosphorus 3.7 mg/dL (2.5-4.5); Potassium 3.8 mmol/L (3.4-5.0); Sodium 139 mmol/L (137-145)
[2023-04-29] MEDS: ALBUTEROL SULFATE NEB 2.5 MG/3 ML INH INHALATION ×3 (08:28→20:37)
[2023-04-29] MEDS: IPRATROPIUM BR 0.02% INH SOLN 0.5 MG/2.5 ML VIAL INHALATION ×3 (08:29→20:37)
--- NOTE | 2023-04-29 08:39 | PM.PNCARD ---
Progress Note: A&P Assessment and Plan (1) Prolonged QT interval: Code(s): R94.31 - Abnormal electrocardiogram [ECG] [EKG] Status: Acute (2) Cardiac arrest: Code(s): I46.9 - Cardiac arrest, cause unspecified Status: Acute (3) Encephalopathy: Code(s): G93.40 - Encephalopathy, unspecified Status: Acute Plan 78-year-old lady with out of hospital arrest suspicious for long QT interval related to sotalol use. She obviously is off of that drug is maintaining sinus rhythm for the last couple of days without any medical therapy. She has been found to have low ejection fraction now and plans are in place for eventual discharge with a LifeVest and also for catheterization prior to discharge. Was anticipating doing that procedure on Monday05/01/2023. This may or may not be accomplished as there are many other in patients are more critical and will require angiography and other procedures on Monday. Will have to make that decision on Monday to see how all of these procedures go. No other specific recommendations today. Oren Pedro MD [facility] Subjective Date/time seen: Date of service: 04/29/23 08:39 Interval history: HPI: We are consulted for cardiac arrest. Patient unable to provide any history as she is intubated and nonresponsive, therefore, all history obtained from the patient's chart, medical team, and family at bedside. This is a 78 year old female who follows with Dr. Acosta in the clinic. She has atrial fibrillation, hypertension, history of untreated KASSANDRA. Patient started on Sotalol 80mg BID in February 2023 for atrial fibrillation and had converted to sinus rhythm with Sotalol. She followed up with Dr. Acosta in March and had been doing well at that time. Family reports she had been feeling fine without any symptoms and doing well. Patient's son-in-law heard a thud and found patient on the floor unresponsive and pulseless. He started CPR after calling 911. EMS found patient to be in VFIB. Patient was shocked 3 times and received 3 doses of Epi. Given Amiodarone 150mg x 1 en rouse. Intubated in the field. In the ER, she had PEA arrest x 2, received CPR for a few minutes each time. At the time of my evaluation, she is in sinus rhythm with heart rates in the 60s. Per the ER, with her initial arrest, it may have been 7-10 minutes before they obtained ROSC. Her initial EKG on arrival to the ED shows junctional rhythm with heart rate of 55bpm with RBBB. However, no ST elevations or ST depressions. Repeat EKG about 2 hours later shows sinus rhythm, no longer has RBBB, nonspecific STTW abnormality. CT Head without acute findings. Patient started on Levophed for hypotension. Date of service 04/21/2023: Overnight events reviewed. Telemetry and EKG this morning show significantly prolonged QT interval of 0.95 to 1 seconds. Temporary pacemaker placed, hypothermia protocol continues, heparin drip, on epinephrine. Date of service 04/22/2023: Hypothermia protocol has been completed and patient is being rewarmed. Remains on Levophed 5 mics. RN reports positive gag reflex, opened eyes to sternal rub. Still sedated with Versed and Fentanyl. Potassium 3.5. Telemetry: V-paced. Threshold checked: ventricular threshold 0.5, underlying sinus bradycardia. No significant arrhythmias overnight, some PVCs. Echo: Moderate global hypokinesis, EF 43% Date of service 04/23/2023: Patient was hypertensive this morning, but then when and AFib RVR. Has been given 3 doses of IV beta-abelino, with heart rates improving somewhat from 130s now 115-120. However her blood pressures been soft and she is back on Levophed at 1 mics. She has a good gag and cough reflex, withdraws to pain in the right extremity per bleach analyst. Date of service 04/24/2023: History of paroxysmal atrial fibrillation, recent hospitalization for treatment involved conversion to sinus rhythm and treatment with sotalol.? She is now admitted with VF arrest likely related
[2023-04-29] MEDS: DIGOXIN 250 MCG TABLET PO (09:01)
[2023-04-29] MEDS: levETIRAcetam 500MG/NACL 100ML 500 MG/100 ML BAG 400 MG IVPB ×2 (09:01→21:10)
[2023-04-29] MEDS: ENOXAPARIN 100 MG/ML SYRINGE 85 MG SUB-Q ×2 (09:01→21:10)
[2023-04-29] MEDS: PANTOPRAZOLE SODIUM IV 40 MG VIAL IV PUSH ×2 (09:01→21:10)
[2023-04-29] MEDS: FUROSEMIDE 20 MG TABLET PO (09:01)
[2023-04-29] MEDS: METOPROLOL TARTRATE 50 MG TAB 100 MG PO ×2 (09:02→21:10)
--- NOTE | 2023-04-29 10:08 | ECG_ITS ---
Measurements Intervals [place] Rate: 72 P: 59 CO: 169 QRS: 0 QRSD: 96 T: -73 QT: 422 QTc: 462 Interpretive Statements SINUS RHYTHM ST-T WAVE ABNORMALITY IN ANTEROLAT/INF LEADS- CONSIDER ISCHEMIA ABNORMAL ECG COMPARED TO ECG 04/24/2023 04:23:04 SINUS RHYTHM NOW PRESENT Electronically Signed On 04-29-2023 18:18:02 CDT by Max Malin D.O.
--- NOTE | 2023-04-29 10:50 | PM.IMPN ---
Progress Note: A&P Assessment and Plan (1) Cardiac arrest: Code(s): I46.9 - Cardiac arrest, cause unspecified Status: Acute Assessment and Plan: Hypothermic protocol initiated. The patient has a central line and an arterial line is planned as well. Cardiology has been consulted and heparin drip was started. Patient has elevated cardiac enzymes. Also the patient could possibly be septic from UTI. The telepathist was consulted the patient was placed in the ICU. The patient had been coded x3. It was reported that the patient only coded for a brief moment while she was in the emergency room x2. The 1st code was initiated in the field. The patient is intubated and on a ventilator. Further recommendation per Cardiology and telepathist. Her lactic is 3.4. The patient is currently on epinephrine drip. She is also on hydrocortisone drip. 04/28/2023 interval history: patient Ventricular fibrillation cardiac arrest at home, CPR was started and EMS was called and again in ER patient coded twice and had ROSC, patient was intubated and admitted into ICU, patient was started on Amiodorane, telepathist suspect prolong qt interval may caused cardiac arrest, and patient was seen by clothing pattern preparer and Transvenous temporary pacemaker was inserted in the right IJ due to QTC prolongation and bradycardia, shock, decreased perfusion and will monitor today again patient is more responsive and follows instruction, on 04/24 seen by clothing pattern preparer removed temporary pacemaker as patient now in A Fib, RVR and on diltiazem drip is off, seen by clothing pattern preparer added metoprolol and, on 04/26 patient was extubated, and remain on N/C, however still weak and somnolent, today again patient had vomiting concern for aspiration, however chest x-ray does not show any pneumonia, on 04/27 discussed with telepathist, monitor patient one more day in ICU and possible transfer to IMU today, patient remains clinically stable, seen by clothing pattern preparer as patient had Vfib cardiac arrest, further recommendation to follow. and monitor, will follow. (2) Elevated troponin: Code(s): R77.8 - Other specified abnormalities of plasma proteins Status: Acute Assessment and Plan: An echo has been ordered. Cardiology has evaluated the patient. Initial troponin 0.047 and repeat was 0.491. Is reported that the patient was evaluated by Cardiology and it was felt that emergent cardiac catheterization was not necessary at this time. Patient is currently on heparin drip. The patient has dark stools and I ordered H&H every 6 hours with his stool for occult blood. (3) Congestive heart failure: Code(s): I50.9 - Heart failure, unspecified Status: Acute Assessment and Plan: Echo on 03/06/2023?1. Complete two-dimensional, color flow and Doppler transthoracic echocardiogram is performed. ? 2. Technically difficult study with limited views. ? 3. Left ventricular chamber dimension is normal. ? 4. Left ventricular systolic function is normal, estimated at 60-65%. ? 5. There is no increased left ventricular wall thickness. ? 6. The left ventricular diastolic function is indeterminate. ? 7. There is moderate mitral valve regurgitation. ? 8. There is moderate tricuspid valve regurgitation. ? 9. Mild pulmonary hypertension, estimated pulmonary arterial systolic pressure is 36 mmHg. (4) Hypothyroidism: Code(s): E03.9 - Hypothyroidism, unspecified Status: Acute Assessment and Plan: Check thyroid levels. (5) Paroxysmal atrial fibrillation: Code(s): I48.0 - Paroxysmal atrial fibrillation Status: Acute Assessment and Plan: The patient is currently on a heparin drip and the patient was found to be in sinus rhythm after she had coded the last time. (6) Hypertension: Qualifiers: Hypertension type: primary hypertension Qualified Code(s): I10 - Essential (primary) hypertension Code(s): I10 - Essential (primary) hypertens
[2023-04-29 12:00] LABS: Glucose Point of Care 81 mg/dl (65-105)
[2023-04-29] MEDS: hydrALAZINE HCL 20 MG/ML VIAL 10 MG IV PUSH (17:02)
[2023-04-29 18:25] LABS: Glucose Point of Care 80 mg/dl (65-105)
[2023-04-29 23:00] LABS: Glucose Point of Care 77 mg/dl (65-105)
[2023-04-30] VITALS (27 sets, daily range): BP systolic 146–169; BP diastolic 61–88; PULSE 18–133; RESP 16–20; TEMP 36.2–37.6; O2SAT 95–100
[2023-04-30] MEDS: METOPROLOL TARTRATE INJ 5 MG/5 ML VIAL IV PUSH ×4 (00:11→17:37)
[2023-04-30] MEDS: IPRATROPIUM BR 0.02% INH SOLN 0.5 MG/2.5 ML VIAL INHALATION ×4 (02:44→19:16)
[2023-04-30] MEDS: ALBUTEROL SULFATE NEB 2.5 MG/3 ML INH INHALATION ×4 (02:45→19:16)
[2023-04-30] MEDS: CENTRAL LINE FLUSH 20 ML IV PUSH (05:27)
[2023-04-30] MEDS: CENTRAL LINE FLUSH 10 ML IV PUSH ×4 (05:27→20:34)
[2023-04-30] MEDS: hydrALAZINE HCL 20 MG/ML VIAL 10 MG IV PUSH (05:28)
[2023-04-30 05:54] LABS: Basophils Percent Auto 0.5 % (0.2-1.2); Eosinophils Absolute Auto 0.2 K/mm3 (0-0.3); Hematocrit 31.2 % (37.0-47.0); Immature Granulocyte Absolute 0.06 K/mm3 (0.00-0.031); Immature Granulocyte Percent A 0.7 % (0-0.5); Lymphocytes Absolute Auto 1.49 K/mm3 (0.9-3.2); Lymphocytes Percent Auto 18.4 % (18.3-44.2); Mean Corpuscular HGB Conc 32.1 g/dl (32-36); Mean Corpuscular Hemoglobin 30.5 pg (26-34); Mean Corpuscular Volume 95.1 fl (80-100); Mean Platelet Volume 10.4 fl (7.4-10.4); Monocytes Absolute Auto 0.6 K/mm3 (0.1-0.6); Monocytes Percent Auto 7.7 % (2.6-8.5); Neutrophils Absolute Auto 5.7 K/mm3 (1.3-6.7); Neutrophils Percent Auto 69.7 % (45.5-73.1); Platelet Count Result 152 k/mm3 (150-375); Red Blood Count 3.28 M/mm3 (4.2-5.4); Red Cell Distribution Width 15.4 % (11.5-14.5); White Blood Count 8.1 K/mm3 (4.5-10.0)
[2023-04-30 06:05] LABS: Alanine Aminotransferase 62 U/L (6-35); Albumin Level 3.4 g/dL (3.5-5.1); Alkaline Phosphatase 100 U/L (38-126); Anion Gap 8 mmol/L (8-16); Aspartate Amino Transferase 40 U/L (14-36); Blood Urea Nitrogen 20 mg/dL (7-17); Calcium 8.1 mg/dL (8.4-10.2); Carbon Dioxide 27 mmol/L (22-30); Chloride 104 mmol/L (98-107); Estimated CRCL calculation 56 ml/min; Estimated Glomerular Filt Rate > 60; Glucose 80 mg/dL (65-110); Magnesium 2.2 mg/dL (1.6-2.3); Potassium 3.6 mmol/L (3.4-5.0); Sodium 139 mmol/L (137-145)
--- NOTE | 2023-04-30 09:18 | PM.PNCARD ---
Progress Note: A&P Assessment and Plan (1) Prolonged QT interval: Code(s): R94.31 - Abnormal electrocardiogram [ECG] [EKG] Status: Acute (2) Cardiac arrest: Code(s): I46.9 - Cardiac arrest, cause unspecified Status: Acute Plan 78-year-old woman with: History of paroxysmal atrial fibrillation admitted originally with cardiac arrest in very long QT interval suspicious for complication of sotalol treatment. She has been extubated now for several days and is on the floor. She is neurologically responsive but incoherent. Because of low ejection fraction catheterization has been recommended and is anticipated for tomorrow if time permits. I will discontinue Lovenox in anticipation of this. LifeVest is being arranged. Oren Pedro MD [facility] Subjective Date/time seen: Date of service: 04/30/23 09:18 Interval history: HPI: We are consulted for cardiac arrest. Patient unable to provide any history as she is intubated and nonresponsive, therefore, all history obtained from the patient's chart, medical team, and family at bedside. This is a 78 year old female who follows with Dr. Acosta in the clinic. She has atrial fibrillation, hypertension, history of untreated KASSANDRA. Patient started on Sotalol 80mg BID in February 2023 for atrial fibrillation and had converted to sinus rhythm with Sotalol. She followed up with Dr. Acosta in March and had been doing well at that time. Family reports she had been feeling fine without any symptoms and doing well. Patient's son-in-law heard a thud and found patient on the floor unresponsive and pulseless. He started CPR after calling 911. EMS found patient to be in VFIB. Patient was shocked 3 times and received 3 doses of Epi. Given Amiodarone 150mg x 1 en rouse. Intubated in the field. In the ER, she had PEA arrest x 2, received CPR for a few minutes each time. At the time of my evaluation, she is in sinus rhythm with heart rates in the 60s. Per the ER, with her initial arrest, it may have been 7-10 minutes before they obtained ROSC. Her initial EKG on arrival to the ED shows junctional rhythm with heart rate of 55bpm with RBBB. However, no ST elevations or ST depressions. Repeat EKG about 2 hours later shows sinus rhythm, no longer has RBBB, nonspecific STTW abnormality. CT Head without acute findings. Patient started on Levophed for hypotension. Date of service 04/21/2023: Overnight events reviewed. Telemetry and EKG this morning show significantly prolonged QT interval of 0.95 to 1 seconds. Temporary pacemaker placed, hypothermia protocol continues, heparin drip, on epinephrine. Date of service 04/22/2023: Hypothermia protocol has been completed and patient is being rewarmed. Remains on Levophed 5 mics. RN reports positive gag reflex, opened eyes to sternal rub. Still sedated with Versed and Fentanyl. Potassium 3.5. Telemetry: V-paced. Threshold checked: ventricular threshold 0.5, underlying sinus bradycardia. No significant arrhythmias overnight, some PVCs. Echo: Moderate global hypokinesis, EF 43% Date of service 04/23/2023: Patient was hypertensive this morning, but then when and AFib RVR. Has been given 3 doses of IV beta-abelino, with heart rates improving somewhat from 130s now 115-120. However her blood pressures been soft and she is back on Levophed at 1 mics. She has a good gag and cough reflex, withdraws to pain in the right extremity per paint roller assembler. Date of service 04/24/2023: History of paroxysmal atrial fibrillation, recent hospitalization for treatment involved conversion to sinus rhythm and treatment with sotalol.? She is now admitted with VF arrest likely related to very long QT interval related to sotalol.? This agent has been stopped.? Temporary transvenous pacemaker was placed from the right IJ position on Monday.? Patient is now in atrial fibrillation with a heart rate of 110-120 therefore does not require temporary pacing wire in place any longer. Date of service
[2023-04-30] MEDS: levETIRAcetam 500MG/NACL 100ML 500 MG/100 ML BAG 400 MG IVPB ×2 (09:32→20:13)
[2023-04-30] MEDS: METOPROLOL TARTRATE 50 MG TAB 100 MG PO ×2 (09:32→20:12)
[2023-04-30] MEDS: FUROSEMIDE 20 MG TABLET PO (09:32)
[2023-04-30] MEDS: PANTOPRAZOLE SODIUM IV 40 MG VIAL IV PUSH ×2 (09:32→20:13)
[2023-04-30] MEDS: DIGOXIN 250 MCG TABLET PO (09:32)
--- NOTE | 2023-04-30 12:17 | PM.IMPN ---
Progress Note: A&P Assessment and Plan (1) Cardiac arrest: Code(s): I46.9 - Cardiac arrest, cause unspecified Status: Acute (2) Elevated troponin: Code(s): R77.8 - Other specified abnormalities of plasma proteins Status: Acute (3) Congestive heart failure: Code(s): I50.9 - Heart failure, unspecified Status: Acute (4) Hypothyroidism: Code(s): E03.9 - Hypothyroidism, unspecified Status: Acute (5) Paroxysmal atrial fibrillation: Code(s): I48.0 - Paroxysmal atrial fibrillation Status: Acute (6) Hypertension: Qualifiers: Hypertension type: primary hypertension Qualified Code(s): I10 - Essential (primary) hypertension Code(s): I10 - Essential (primary) hypertension Status: Acute (7) Elevated blood sugar: Code(s): R73.9 - Hyperglycemia, unspecified Status: Acute (8) UTI (urinary tract infection): Code(s): N39.0 - Urinary tract infection, site not specified Status: Acute Plan 04/30/2023: Patient presented with ventricular fibrillation cardiac arrest at home CPR was started patient coded twice with PEA arrest x2 in the ER intubated and admitted to ICU. Suspected due to long QT interval related to sotalol use. QT was prolonged at 5:15 a.m. millisecond on 1st EKG. Patient was started on amiodarone. Hypothermia protocol was also initiated. Was also hypotensive needing vasopressor. Echo with EF 43% moderate global hypokinesis. Consulted campaign advisor transvenous temporary pacemaker was inserted due to QT prolongation and bradycardia shock and decreased perfusion. Temporary cap pacemaker discontinued on 04/24/2023. Went into AFib with RVR. Treated with diltiazem drip now on metoprolol. Extubated 04/26/2023. Transferred to IMU. History of atrial fibrillation hypertension and untreated obstructive sleep apnea. Presented in February of 2023 with atrial fibrillation for which sotalol was started. Cardiology planned to do cardiac catheterization in a.m. Encephalopathy related to post cardiac arrest. Neurology has seen. Eeg with abnormal record due to absence of normal background rhythm during the presence of by a hemispheric theta and delta activity but without evidence of any proximal focal or diffuse discharge. These abnormalities are suggestive of organic are metabolic encephalopathy. She has been started on Keppra. Acute respiratory failure likely related to cardiac arrest chest x-ray with pulmonary edema. Now extubated to nasal cannula. Elevated LFTs due to hypotension/shock. Xarelto stopped on 04/26/2023 for possible cardiac catheterization on Monday05/01/2023 UTI treated with Zosyn. Urine culture negative blood cultures x2 was negative Hypothyroidism with low TSH not on any levothyroxine at home Diet NPO except meds through NG. Need swallow evaluation Anemia chronic no signs of bleeding. Occult blood was positive in stool Mild thrombocytopenia slowly improving On enoxaparin 85 mg subQ b.i.d. Subjective Date/time seen: 04/30/23 12:17 Interval history: Hypothermic protocol initiated. The patient has a central line and an arterial line is planned as well. Cardiology has been consulted and heparin drip was started. Patient has elevated cardiac enzymes. Also the patient could possibly be septic from UTI. The direct casting operator was consulted the patient was placed in the ICU. The patient had been coded x3. It was reported that the patient only coded for a brief moment while she was in the emergency room x2. The 1st code was initiated in the field. The patient is intubated and on a ventilator. Further recommendation per Cardiology and direct casting operator. Her lactic is 3.4. The patient is currently on epinephrine drip. She is also on hydrocortisone drip. 04/28/2023 interval history: patient Ventricular fibrillation cardiac arrest at home, CPR was started and EMS was called and again in ER patient coded twice and had ROSC, patient
[2023-04-30 16:16] LABS: Glucose Point of Care 86 mg/dl (65-105)
[2023-04-30 17:44] LABS: Glucose Point of Care 93 mg/dl (65-105)
[2023-04-30 23:00] LABS: Glucose Point of Care 95 mg/dl (65-105)
[2023-05-01] VITALS (38 sets, daily range): BP systolic 135–181; BP diastolic 41–88; PULSE 62–109; RESP 16–24; TEMP 36.2–36.9; O2SAT 90–98
[2023-05-01] MEDS: ALBUTEROL SULFATE NEB 2.5 MG/3 ML INH INHALATION ×4 (01:38→20:24)
[2023-05-01] MEDS: IPRATROPIUM BR 0.02% INH SOLN 0.5 MG/2.5 ML VIAL INHALATION ×4 (01:38→20:24)
[2023-05-01 04:48] LABS: Basophils Absolute Auto 0.1 K/mm3 (0.0-0.1); Basophils Percent Auto 0.7 % (0.2-1.2); Eosinophils Absolute Auto 0.2 K/mm3 (0-0.3); Hematocrit 31.3 % (37.0-47.0); Hemoglobin 9.9 g/dL (12.0-15.0); Immature Granulocyte Absolute 0.05 K/mm3 (0.00-0.031); Immature Granulocyte Percent A 0.7 % (0-0.5); Lymphocytes Absolute Auto 1.79 K/mm3 (0.9-3.2); Lymphocytes Percent Auto 23.3 % (18.3-44.2); Mean Corpuscular HGB Conc 31.6 g/dl (32-36); Mean Corpuscular Hemoglobin 30.5 pg (26-34); Mean Corpuscular Volume 96.3 fl (80-100); Mean Platelet Volume 9.8 fl (7.4-10.4); Monocytes Absolute Auto 0.6 K/mm3 (0.1-0.6); Monocytes Percent Auto 7.8 % (2.6-8.5); Neutrophils Percent Auto 64.5 % (45.5-73.1); Platelet Count Result 159 k/mm3 (150-375); Red Blood Count 3.25 M/mm3 (4.2-5.4); Red Cell Distribution Width 15.3 % (11.5-14.5); White Blood Count 7.7 K/mm3 (4.5-10.0)
[2023-05-01 05:07] LABS: Alanine Aminotransferase 51 U/L (6-35); Albumin Level 3.2 g/dL (3.5-5.1); Alkaline Phosphatase 100 U/L (38-126); Anion Gap 8 mmol/L (8-16); Aspartate Amino Transferase 37 U/L (14-36); Bilirubin,Total 0.8 mg/dL (0.2-1.3); Blood Urea Nitrogen 22 mg/dL (7-17); Carbon Dioxide 26 mmol/L (22-30); Chloride 105 mmol/L (98-107); Estimated CRCL calculation 50 ml/min; Estimated Glomerular Filt Rate > 60; Glucose 92 mg/dL (65-110); Magnesium 2.1 mg/dL (1.6-2.3); Potassium 3.4 mmol/L (3.4-5.0); Sodium 139 mmol/L (137-145)
[2023-05-01] MEDS: CENTRAL LINE FLUSH 10 ML IV PUSH ×3 (06:04→18:15)
[2023-05-01] MEDS: DIGOXIN 250 MCG TABLET PO (08:31)
[2023-05-01] MEDS: METOPROLOL TARTRATE 50 MG TAB 100 MG PO ×2 (08:31→21:39)
[2023-05-01] MEDS: PANTOPRAZOLE SODIUM IV 40 MG VIAL IV PUSH ×2 (08:32→21:01)
[2023-05-01] MEDS: FUROSEMIDE 20 MG TABLET PO (08:32)
[2023-05-01] MEDS: levETIRAcetam 500MG/NACL 100ML 500 MG/100 ML BAG 400 MG IVPB ×2 (09:02→20:58)
[2023-05-01] MEDS: predniSONE 20 MG TABLET 40 MG PO (09:30)
--- NOTE | 2023-05-01 10:02 | PCSTNOTE ---
Modified Barium Swallow on hold until tomorrow as it is expected she will be having a procedure today; it is tentatively scheduled for tomorrow morning.
[2023-05-01 11:50] LABS: Glucose Point of Care 130 mg/dl (65-105)
--- NOTE | 2023-05-01 11:58 | PCNFU ---
Nutrition Follow-Up Complete: Inadequate energy intake related to NPO status as evidenced by diet order Goal:Meet estimated needs Pt is not meeting goal. Remains NPO x 5 days now Pt current nutrition is NPO. Nutrition recommendation: ELECTRONICS PARTS SALES REPRESENTATIVE eval and diet order as soon as medically appropriate Last recorded weight is 82 kg. Bowel Motility: + BM 04/28 Labs Reviewed: Hgb:9.9, HCT:31.3, Alb:3.2, BUN:22 Meds Noted: lasix, novolog, zofran, protonix Skin: no skin issues noted Additional Notes: Pt remains NPO, awaiting a ELECTRONICS PARTS SALES REPRESENTATIVE evaluation for swallow function. Hopefully will be performed today or tomorrow. Advance diet per ELECTRONICS PARTS SALES REPRESENTATIVE recommendations, add supplements as needed. Monitoring plan of care, tolerance, labs, weights, stool patterns Follow up in 1 day.
--- NOTE | 2023-05-01 14:55 | PC.NURSE ---
Pt's visitor to the nurses station to inform staffing Pt has pulled out a tube from her nose. RN entered room to find NG removed by pt. Dr. Cage notified that pt had pulled out NG. New order to leave NG out and proceed with MBS tomorrow.
--- NOTE | 2023-05-01 15:09 | PC.NURSE ---
Pt to yard laborer via bed for cardiac cath.
--- NOTE | 2023-05-01 15:11 | WPDMODSED ---
Moderate Sedation Note-Pt Data Patient Data Diagnosis: left ventricular systolic dysfunction status post cardiac arrest with long QT interval Present Complaint: no specific complaints, patient remains encephalopathic following cardiac arrest Procedure to be performed/Plan: left heart catheterization Allergies Allergy/AdvReac Type Severity Reaction Status Date / Time shellfish derived Allergy Hives Verified 03/05/23 09:14 Home Medications Medication Instructions Recorded Confirmed Type rivaroxaban 20 mg tablet (Xarelto) 20 mg PO DAILY@1700 30 days #30 03/18/22 04/20/23 Rx tabs furosemide 20 mg tablet (Lasix) 20 mg PO DAILY #30 tabs 03/09/23 04/20/23 Rx potassium chloride 20 mEq 20 meq PO DAILY #30 tabs 03/09/23 04/20/23 Rx tablet,extended release sotalol 80 mg tablet 80 mg PO BID 04/20/23 04/20/23 History Current Medications: Active Medications Acetaminophen (Acetaminophen Elixir 325 Mg/10.15 Ml Udc) 650 mg PO Q6H PRN PRN Reason: Mild Pain (1-3) or Fever Last Admin: 04/27/23 20:19 Dose: 650 mg Albuterol (Albuterol Sulfate Neb 2.5 Mg/3 Ml Inh) 2.5 mg INHALATION Q6HRT [facility] Last Admin: 05/01/23 14:07 Dose: 2.5 mg Dextrose (Dextrose 50% 25 Gm/50 Ml Syringe) 12.5 gm IV PUSH PRN PRN; Protocol PRN Reason: Hypoglycemia Digoxin (Digoxin 250 Mcg Tablet) 250 mcg PO QAM [facility] Last Admin: 05/01/23 08:31 Dose: 250 mcg Furosemide (Furosemide 20 Mg Tablet) 20 mg PO DAILY [facility] Last Admin: 05/01/23 08:32 Dose: 20 mg Glucagon (Glucagon For Inj 1 Mg Vial) 1 mg IM PRN PRN; Protocol PRN Reason: Hypoglycemia Glucose (Glucose Oral Gel 15 Gm Of Glucse In 37.5 Gm Tube) 15 gm PO PRN PRN; Protocol PRN Reason: Hypoglycemia Hydralazine HCl (Hydralazine Hcl 20 Mg/Ml Vial) 10 mg IV PUSH Q6H PRN PRN Reason: Blood Pressure - High Last Admin: 04/30/23 05:28 Dose: 10 mg Levetiracetam (Keppra Iv) 500 mg in 100 mls @ 400 mls/hr IVPB Q12HR [facility] Last Infusion: 05/01/23 09:56 Dose: Infused Dextrose (Dextrose 5% 1,000 Ml) 1,000 mls @ 100 mls/hr IVPB PRN PRN; Protocol PRN Reason: Hypoglycemia Insulin Aspart (Insulin Aspart (*Bkc) 100 Units/Ml) 2 - 5 units SUB-Q Q6HR YOAN; Protocol Last Admin: 05/01/23 11:51 Dose: Not Given Ipratropium Felt (Ipratropium Br 0.02% Inh Soln 0.5 Mg/2.5 Ml Vial) 0.5 mg INHALATION Q6HRT YOAN Last Admin: 05/01/23 14:07 Dose: 0.5 mg Metoprolol Tartrate (Metoprolol Tartrate Inj 5 Mg/5 Ml Vial) 5 mg IV PUSH Q1H PRN PRN Reason: for HR > 115 Last Admin: 04/30/23 17:37 Dose: 5 mg Metoprolol Tartrate (Metoprolol Tartrate 50 Mg Tab) 100 mg PO Q12HR YOAN Last Admin: 05/01/23 08:31 Dose: 100 mg Ondansetron HCl (Ondansetron Inj 4 Mg/2 Ml Vial) 4 mg IV PUSH Q6H PRN PRN Reason: Nausea And Vomiting Last Admin: 04/26/23 20:59 Dose: 4 mg Pantoprazole Sodium (Pantoprazole Sodium Iv 40 Mg Vial) 40 mg IV PUSH Q12HR YOAN Last Admin: 05/01/23 08:32 Dose: 40 mg Sodium Chloride (Central Line Flush) 20 ml IV PUSH PRN PRN PRN Reason: after blood draws Last Admin: 04/30/23 05:27 Dose: 20 ml Sodium Chloride (Central Line Flush) 10 ml IV PUSH DAILY@1800 YOAN Last Admin: 04/30/23 17:37 Dose: 10 ml Sodium Chloride (Central Line Flush) 10 ml IV PUSH Q8HR [facility] Last Admin: 05/01/23 14:55 Dose: 10 ml Sedation/Anesthesia: No previous sedation/anesthesia problems (including family history). [facility] Past Medical History Medical History (Updated 04/24/23 @ 11:46 by Ron Hernández MD) Acute respiratory failure Chronic anticoagulation History of cervical cancer Hypertension Hypothyroidism KASSANDRA (obstructive sleep apnea) Paroxysmal atrial fibrillation Surgical History Surgical History History of History of colonoscopy with polypectomy History of open reduction and internal fixation (ORIF) procedure (03/16/22) Repair of left ankle fracture per Dr. Banerjee. History of partial hysterectomy For cerv
--- NOTE | 2023-05-01 15:13 | PM.IMPN ---
Progress Note: A&P Assessment and Plan (1) Cardiac arrest: Code(s): I46.9 - Cardiac arrest, cause unspecified Status: Acute (2) Elevated troponin: Code(s): R77.8 - Other specified abnormalities of plasma proteins Status: Acute (3) Congestive heart failure: Code(s): I50.9 - Heart failure, unspecified Status: Acute (4) Hypothyroidism: Code(s): E03.9 - Hypothyroidism, unspecified Status: Acute (5) Paroxysmal atrial fibrillation: Code(s): I48.0 - Paroxysmal atrial fibrillation Status: Acute (6) Hypertension: Qualifiers: Hypertension type: primary hypertension Qualified Code(s): I10 - Essential (primary) hypertension Code(s): I10 - Essential (primary) hypertension Status: Acute (7) Elevated blood sugar: Code(s): R73.9 - Hyperglycemia, unspecified Status: Acute (8) UTI (urinary tract infection): Code(s): N39.0 - Urinary tract infection, site not specified Status: Acute Plan 05/01/2023: Patient presented with ventricular fibrillation cardiac arrest at home CPR was started patient coded twice with PEA arrest x2 in the ER intubated and admitted to ICU. Suspected due to long QT interval related to sotalol use. QT was prolonged at 5:15 a.m. millisecond on 1st EKG. Patient was started on amiodarone. Hypothermia protocol was also initiated. Was also hypotensive needing vasopressor. Echo with EF 43% moderate global hypokinesis. Consulted medicaid biller transvenous temporary pacemaker was inserted due to QT prolongation and bradycardia shock and decreased perfusion. Temporary cap pacemaker discontinued on 04/24/2023. Went into AFib with RVR. Treated with diltiazem drip now on metoprolol. Extubated 04/26/2023. Transferred to IMU. History of atrial fibrillation hypertension and untreated obstructive sleep apnea. Presented in February of 2023 with atrial fibrillation for which sotalol was started. Cardiology planned to do cardiac catheterization in a.m. Encephalopathy related to post cardiac arrest. Neurology has seen. Eeg with abnormal record due to absence of normal background rhythm during the presence of by a hemispheric theta and delta activity but without evidence of any proximal focal or diffuse discharge. These abnormalities are suggestive of organic are metabolic encephalopathy. She has been started on Keppra. Acute respiratory failure likely related to cardiac arrest chest x-ray with pulmonary edema. Now extubated to nasal cannula. Elevated LFTs due to hypotension/shock. Xarelto stopped on 04/26/2023 for possible cardiac catheterization plan today UTI treated with Zosyn. Urine culture negative blood cultures x2 was negative Hypothyroidism with low TSH not on any levothyroxine at home Diet NPO except meds through NG. Need swallow evaluation which is planned today however postponed till tomorrow due to cardiac catheterization planned. NG accidentally out. Will wait until swallow evaluation if she has ready for oral intake. Anemia chronic no signs of bleeding. Occult blood was positive in stool Mild thrombocytopenia slowly improving On enoxaparin 85 mg subQ b.i.d. Subjective Date/time seen: 05/01/23 15:13 Interval history: Hypothermic protocol initiated. The patient has a central line and an arterial line is planned as well. Cardiology has been consulted and heparin drip was started. Patient has elevated cardiac enzymes. Also the patient could possibly be septic from UTI. The director emergency was consulted the patient was placed in the ICU. The patient had been coded x3. It was reported that the patient only coded for a brief moment while she was in the emergency room x2. The 1st code was initiated in the field. The patient is intubated and on a ventilator. Further recommendation per Cardiology and director emergency. Her lactic is 3.4. The patient is currently on epinephrine drip. She is also on hydrocortisone drip.
--- NOTE | 2023-05-01 16:11 | WPDCARDPROC ---
Cardiac Cath Procedure Note Date of procedure:: 05/01/23 Performing physician:: Oren Pedro MD Indication:: status post out of hospital VF arrest, long QT interval suspect medication related, LV systolic dysfunction Brief clinical history:: this is a 78-year-old lady with a history of atrial fibrillation. She entered the hospital with cardiac arrest and following this had very long QT interval. She had been taking sotalol. This drug has been stopped. She has now recovered and has been extubated. Left ventricular function on echo immediately after the event was very poor. Catheterization has now been recommended to rule out ischemic disease. Procedure Procedure performed:: Coronary angiography left ventriculography Sedation/Medication given:: no sedation case start time 3:55 p.m. case end time 4:07 p.m. sedation provided by Do Gonzalez RN Access site:: right femoral artery Estimated blood loss:: 20 cc Procedure note:: patient was brought to the cardiac catheterization lab in the postabsorptive state femoral triangle was prepared and draped in usual fashion. Because the patient is encephalopathic I chose not to give her any additional sedation prior to angiography. 1% lidocaine was infiltrated into the femoral puncture site and using the modified Seldinger technique the femoral artery was accessed and a 5 [place] vascular sheath was placed. After this I used a 5 [place] FL4 catheter to engage and inject the left coronary artery in multiple projections. Right coronary artery was engaged and injected using JR4 catheter in orthogonal projections. The left ventricle was then engaged using a 5 [place] angled pigtail catheter where hemodynamics were documented and left ventriculogram was performed in the VARMA projection. Procedure was then terminated the patient was taken to the holding area for manual sheath removal as the puncture location was not suitable for an Angio-Seal. Procedure was well tolerated and uncomplicated. Findings:: Hemodynamics: Central aortic pressure is 184 over 75 left ventricle 184/0 end-diastolic is 10 there is no systolic gradient on pullback across the aortic valve. Left ventricle: The LV is normal in size all segments contract appropriately there is normal contractility with no wall motion abnormalities and global ejection fraction of 65%. The left main coronary artery is largeand nicely patent the left anterior descending is a moderate caliber artery extending down to around apex the LAD and its branches are smooth and angiographically normal in appearance. The circumflex is a medium caliber artery giving rise to marginal branches. After 1st marginal branch there is very mild 40-50% stenosis in the trunk of the circumflex there are no other lesions noted this is not a flow-limiting lesion. The right coronary artery is very large in caliber and dominant to the posterior circulation it is angiographically unremarkable. Conclusion:: 1. Right coronary dominant circulation with no angiographic evidence of coronary disease. Modest mid circumflex stenosis is not flow-limiting 2. normal left ventricular systolic function ejection fraction 65% there has been very nice recovery in LV function following recovery from out of hospital arrest. Oren Pedro MD FACC
[2023-05-01] MEDS: hydrALAZINE HCL 20 MG/ML VIAL 10 MG IV PUSH (16:45)
--- NOTE | 2023-05-01 17:41 | PC.NURSE ---
Pt returned from labeler via bed. No issues noted. Knee immobilizer in place. Right groin (sheath site) clean, dry, and intact with stat seal and Tegaderm. Pedal pulses palpable. REVIEW TRAINER RN to finish pt recovery in room.
[2023-05-01] MEDS: SODIUM CHLORIDE 0.9% IV 1,000 ML 125 ML IV CONT (17:45)
[2023-05-01 18:34] LABS: Glucose Point of Care 124 mg/dl (65-105)
[2023-05-02] VITALS (21 sets, daily range): BP systolic 128–171; BP diastolic 38–55; PULSE 62–80; RESP 14–20; TEMP 36.1–36.6; O2SAT 90–100
[2023-05-02 00:17] LABS: Glucose Point of Care 104 mg/dl (65-105)
[2023-05-02] MEDS: ALBUTEROL SULFATE NEB 2.5 MG/3 ML INH INHALATION ×4 (01:07→19:16)
[2023-05-02] MEDS: IPRATROPIUM BR 0.02% INH SOLN 0.5 MG/2.5 ML VIAL INHALATION ×4 (01:07→19:16)
[2023-05-02 05:46] LABS: Basophils Percent Auto 0.3 % (0.2-1.2); Eosinophils Absolute Auto 0.1 K/mm3 (0-0.3); Eosinophils Percent Auto 1.2 % (0-4.4); Hematocrit 29.1 % (37.0-47.0); Hemoglobin 9.3 g/dL (12.0-15.0); Immature Granulocyte Absolute 0.06 K/mm3 (0.00-0.031); Immature Granulocyte Percent A 0.7 % (0-0.5); Lymphocytes Absolute Auto 1.28 K/mm3 (0.9-3.2); Lymphocytes Percent Auto 14.9 % (18.3-44.2); Mean Corpuscular Hemoglobin 30.2 pg (26-34); Mean Corpuscular Volume 94.5 fl (80-100); Mean Platelet Volume 9.7 fl (7.4-10.4); Monocytes Absolute Auto 0.8 K/mm3 (0.1-0.6); Monocytes Percent Auto 8.7 % (2.6-8.5); Neutrophils Absolute Auto 6.4 K/mm3 (1.3-6.7); Neutrophils Percent Auto 74.2 % (45.5-73.1); Platelet Count Result 163 k/mm3 (150-375); Red Blood Count 3.08 M/mm3 (4.2-5.4); Red Cell Distribution Width 15.6 % (11.5-14.5); White Blood Count 8.6 K/mm3 (4.5-10.0)
[2023-05-02 05:55] LABS: Alanine Aminotransferase 56 U/L (6-35); Albumin Level 3.3 g/dL (3.5-5.1); Alkaline Phosphatase 117 U/L (38-126); Anion Gap 7 mmol/L (8-16); Aspartate Amino Transferase 45 U/L (14-36); Bilirubin,Total 0.9 mg/dL (0.2-1.3); Blood Urea Nitrogen 23 mg/dL (7-17); Carbon Dioxide 25 mmol/L (22-30); Chloride 109 mmol/L (98-107); Estimated CRCL calculation 49 ml/min; Estimated Glomerular Filt Rate > 60; Glucose 93 mg/dL (65-110); Potassium 3.1 mmol/L (3.4-5.0); Sodium 141 mmol/L (137-145)
[2023-05-02] MEDS: CENTRAL LINE FLUSH 10 ML IV PUSH ×5 (06:07→20:49)
[2023-05-02] MEDS: PANTOPRAZOLE SODIUM IV 40 MG VIAL IV PUSH ×2 (08:06→20:48)
[2023-05-02] MEDS: levETIRAcetam 500MG/NACL 100ML 500 MG/100 ML BAG 400 MG IVPB ×2 (08:06→20:48)
--- NOTE | 2023-05-02 10:14 | PCSTNOTE ---
Please refer to the Modified Barium Swallow Evaluation in the EMR.
[2023-05-02] MEDS: DIGOXIN 250 MCG TABLET PO (10:26)
[2023-05-02] MEDS: METOPROLOL TARTRATE 50 MG TAB 100 MG PO ×2 (10:27→20:48)
[2023-05-02] MEDS: FUROSEMIDE 20 MG TABLET PO (10:27)
[2023-05-02] MEDS: POTASSIUM CHLORIDE INJ 40 MEQ in SODIUM CHLORIDE 0.9% IV 500 ML 130 MEQ IVPB (10:37)
--- NOTE | 2023-05-02 11:38 | PCNFU ---
Nutrition Follow-Up Complete: Inadequate energy intake related to NPO status as evidenced by diet order Goal:Meet estimated needs Pt current nutrition is to advance to mince and moist level 5, thin liquids. Nutrition recommendation: Add Ensure compact BID Last recorded weight is 69.3 kg. Bowel Motility: +BM 05/01 Labs Reviewed: Hgb:9.9, HCT:31.3, Alb:3.2, BUN:22 Meds Noted: lasix, novolog, zofran, protonix Skin: no skin issues noted Additional Notes: MBS completed this morning. DAYCARE DIRECTOR recommendation for minced and moist level 5, regular liquids for diet order. Add Ensure compact BID. To start today. Monitoring plan of care, tolerance, labs, weights, stool patterns Follow up in 3 days.
[2023-05-02 11:51] LABS: Glucose Point of Care 99 mg/dl (65-105)
--- NOTE | 2023-05-02 15:15 | PM.IMPN ---
Progress Note: A&P Assessment and Plan (1) Cardiac arrest: Code(s): I46.9 - Cardiac arrest, cause unspecified Status: Acute (2) Elevated troponin: Code(s): R77.8 - Other specified abnormalities of plasma proteins Status: Acute (3) Congestive heart failure: Code(s): I50.9 - Heart failure, unspecified Status: Acute (4) Hypothyroidism: Code(s): E03.9 - Hypothyroidism, unspecified Status: Acute (5) Paroxysmal atrial fibrillation: Code(s): I48.0 - Paroxysmal atrial fibrillation Status: Acute (6) Hypertension: Qualifiers: Hypertension type: primary hypertension Qualified Code(s): I10 - Essential (primary) hypertension Code(s): I10 - Essential (primary) hypertension Status: Acute (7) Elevated blood sugar: Code(s): R73.9 - Hyperglycemia, unspecified Status: Acute (8) UTI (urinary tract infection): Code(s): N39.0 - Urinary tract infection, site not specified Status: Acute Plan 05/02/2023: Patient presented with ventricular fibrillation cardiac arrest at home CPR was started patient coded twice with PEA arrest x2 in the ER intubated and admitted to ICU. Suspected due to long QT interval related to sotalol use. QT was prolonged at 5:15 a.m. millisecond on 1st EKG. Patient was started on amiodarone. Hypothermia protocol was also initiated. Was also hypotensive needing vasopressor. Echo with EF 43% moderate global hypokinesis. Consulted mink farmer transvenous temporary pacemaker was inserted due to QT prolongation and bradycardia shock and decreased perfusion. Temporary cap pacemaker discontinued on 04/24/2023. Went into AFib with RVR. Treated with diltiazem drip now on metoprolol. Extubated 04/26/2023. Transferred to IMU. History of atrial fibrillation hypertension and untreated obstructive sleep apnea. Presented in February of 2023 with atrial fibrillation for which sotalol was started. His status post cardiac catheterization on 05/01/2023: Mild 40-50% stenosis in truncal circumflex which is not flow limiting. Otherwise unremarkable. Restart Xarelto. Needs a life vest at discharge Encephalopathy related to post cardiac arrest. Neurology has seen. Eeg with abnormal record due to absence of normal background rhythm during the presence of by a hemispheric theta and delta activity but without evidence of any proximal focal or diffuse discharge. These abnormalities are suggestive of organic are metabolic encephalopathy. She has been started on Keppra. Acute respiratory failure likely related to cardiac arrest chest x-ray with pulmonary edema. Now extubated to nasal cannula. Elevated LFTs due to hypotension/shock. Xarelto stopped on 04/26/2023 UTI treated with Zosyn. Urine culture negative blood cultures x2 was negative Hypothyroidism with low TSH not on any levothyroxine at home Diet swallow evaluation 05/02/2023 with MBS side did well. Started on a diet dysphagia diet Anemia chronic no signs of bleeding. Occult blood was positive in stool Mild thrombocytopenia slowly improving Subjective Date/time seen: 05/02/23 15:15 Interval history: Hypothermic protocol initiated. The patient has a central line and an arterial line is planned as well. Cardiology has been consulted and heparin drip was started. Patient has elevated cardiac enzymes. Also the patient could possibly be septic from UTI. The calculating machine mechanic was consulted the patient was placed in the ICU. The patient had been coded x3. It was reported that the patient only coded for a brief moment while she was in the emergency room x2. The 1st code was initiated in the field. The patient is intubated and on a ventilator. Further recommendation per Cardiology and calculating machine mechanic. Her lactic is 3.4. The patient is currently on epinephrine drip. She is also on hydrocortisone drip. 04/28/2023 interval history: patient Ventricular fibrillation cardiac arrest at home, GAETANO
[2023-05-02 17:13] LABS: Glucose Point of Care 85 mg/dl (65-105)
[2023-05-02] MEDS: RIVAROXABAN 20 MG TABLET PO (17:13)
[2023-05-02] MEDS: hydrALAZINE HCL 20 MG/ML VIAL 10 MG IV PUSH (17:32)
--- NOTE | 2023-05-02 18:35 | PC.NURSE ---
This patient, Vika Duke, was transferred to [[id number] ] on 05/02/23 at 1835. Personal belongings sent with patient. Report given to [JOHN PAUL Brewer @ 1800 ]. Appropriate documentation sent with patient. Family at bedside and aware of transfer.
[2023-05-02 21:14] LABS: Glucose Point of Care 124 mg/dl (65-105)
[2023-05-02 21:23] LABS: Glucose Point of Care 105 mg/dl (65-105)
[2023-05-03] VITALS (19 sets, daily range): BP systolic 122–163; BP diastolic 41–102; PULSE 65–135; RESP 17–18; TEMP 36.7–37.1; O2SAT 92–100
[2023-05-03] MEDS: IPRATROPIUM BR 0.02% INH SOLN 0.5 MG/2.5 ML VIAL INHALATION ×3 (01:37→21:00)
[2023-05-03] MEDS: ALBUTEROL SULFATE NEB 2.5 MG/3 ML INH INHALATION ×3 (01:37→21:00)
[2023-05-03] MEDS: CENTRAL LINE FLUSH 10 ML IV PUSH ×3 (05:38→18:58)
[2023-05-03 05:58] LABS: Basophils Absolute Auto 0.1 K/mm3 (0.0-0.1); Basophils Percent Auto 0.7 % (0.2-1.2); Eosinophils Absolute Auto 0.2 K/mm3 (0-0.3); Eosinophils Percent Auto 3.2 % (0-4.4); Hematocrit 28.9 % (37.0-47.0); Hemoglobin 9.3 g/dL (12.0-15.0); Immature Granulocyte Absolute 0.03 K/mm3 (0.00-0.031); Immature Granulocyte Percent A 0.4 % (0-0.5); Lymphocytes Percent Auto 19.5 % (18.3-44.2); Mean Corpuscular HGB Conc 32.2 g/dl (32-36); Mean Corpuscular Hemoglobin 30.1 pg (26-34); Mean Corpuscular Volume 93.5 fl (80-100); Mean Platelet Volume 10.4 fl (7.4-10.4); Monocytes Absolute Auto 0.6 K/mm3 (0.1-0.6); Monocytes Percent Auto 7.8 % (2.6-8.5); Neutrophils Absolute Auto 4.9 K/mm3 (1.3-6.7); Neutrophils Percent Auto 68.4 % (45.5-73.1); Platelet Count Result 165 k/mm3 (150-375); Red Blood Count 3.09 M/mm3 (4.2-5.4); Red Cell Distribution Width 15.9 % (11.5-14.5); White Blood Count 7.2 K/mm3 (4.5-10.0)
[2023-05-03 06:12] LABS: Alanine Aminotransferase 51 U/L (6-35); Albumin Level 3.3 g/dL (3.5-5.1); Alkaline Phosphatase 129 U/L (38-126); Anion Gap 5 mmol/L (8-16); Aspartate Amino Transferase 38 U/L (14-36); Bilirubin,Total 1.1 mg/dL (0.2-1.3); Blood Urea Nitrogen 22 mg/dL (7-17); Carbon Dioxide 27 mmol/L (22-30); Chloride 109 mmol/L (98-107); Estimated CRCL calculation 44 ml/min; Estimated Glomerular Filt Rate > 60; Glucose 96 mg/dL (65-110); Magnesium 1.9 mg/dL (1.6-2.3); Sodium 141 mmol/L (137-145)
[2023-05-03 08:41] LABS: Glucose Point of Care 101 mg/dl (65-105)
[2023-05-03] MEDS: METOPROLOL TARTRATE 50 MG TAB 100 MG PO ×2 (09:56→21:00)
[2023-05-03] MEDS: DIGOXIN 250 MCG TABLET PO (09:56)
[2023-05-03] MEDS: FUROSEMIDE 20 MG TABLET PO (09:56)
[2023-05-03] MEDS: levETIRAcetam 500MG/NACL 100ML 500 MG/100 ML BAG 400 MG IVPB ×2 (09:57→21:00)
[2023-05-03] MEDS: PANTOPRAZOLE SODIUM IV 40 MG VIAL IV PUSH (09:57)
[2023-05-03 12:19] LABS: Glucose Point of Care 105 mg/dl (65-105)
--- NOTE | 2023-05-03 13:56 | PM.IMPN ---
Progress Note: A&P Assessment and Plan (1) Cardiac arrest: Code(s): I46.9 - Cardiac arrest, cause unspecified Status: Acute Assessment and Plan: Patient presented with ventricular fibrillation cardiac arrest at home CPR was started patient coded twice with PEA arrest x2 in the ER intubated and admitted to ICU. Suspected due to long QT interval related to sotalol use. QT was prolonged at 5:15 a.m. millisecond on 1st EKG. Patient was started on amiodarone. Hypothermia protocol was also initiated. Was also hypotensive needing vasopressor. Echo with EF 43% moderate global hypokinesis. Consulted kick press setter transvenous temporary pacemaker was inserted due to QT prolongation and bradycardia shock and decreased perfusion. Temporary cap pacemaker discontinued on 04/24/2023. Went into AFib with RVR. Treated with diltiazem drip now on metoprolol. Extubated 04/26/2023. Transferred to IMU. Once the IMU patient remained clinically stable Cardiology continues to follow. Diet swallow evaluation 05/02/2023 with MBS side did well. Started on a diet dysphagia diet. Patient underwent cardiac catheterization on 05/01/2023. Plan is for patient to discharge to rehab facility. (2) Paroxysmal atrial fibrillation: Code(s): I48.0 - Paroxysmal atrial fibrillation Status: Acute Assessment and Plan: History of atrial fibrillation hypertension. Presented in February of 2023 with atrial fibrillation for which sotalol was started. Is status post cardiac catheterization on 05/01/2023: Mild 40-50% stenosis in truncal circumflex which is not flow limiting. Otherwise unremarkable. Restart Xarelto. Needs a life vest at discharge. (3) Acute metabolic encephalopathy: Code(s): G93.41 - Metabolic encephalopathy Status: Acute Assessment and Plan: Encephalopathy related to post cardiac arrest. Neurology has seen. Eeg with abnormal record due to absence of normal background rhythm during the presence of by a hemispheric theta and delta activity but without evidence of any proximal focal or diffuse discharge. These abnormalities are suggestive of organic are metabolic encephalopathy. She has been started on Keppra. MRI ordered per family's request and negative for acute cause of Encephalopathy. Encephalopathy most likely due to cardiac arrest. (4) Congestive heart failure: Code(s): I50.9 - Heart failure, unspecified Status: Chronic (5) Hypertension: Qualifiers: Hypertension type: primary hypertension Qualified Code(s): I10 - Essential (primary) hypertension Code(s): I10 - Essential (primary) hypertension Status: Chronic Assessment and Plan: Monitor blood pressures. (6) UTI (urinary tract infection): Code(s): N39.0 - Urinary tract infection, site not specified Status: Resolved Assessment and Plan: UTI treated with Zosyn. Urine culture negative blood cultures x2 was negative. Treatment completed. (7) Hypothyroidism: Code(s): E03.9 - Hypothyroidism, unspecified Status: Acute Assessment and Plan: Patient found to have a low TSH and total T3 with a normal T4. Advised she follow-up with her primary care as an outpatient for repeat labs in approximately 6 weeks. Plan Acute respiratory failure likely related to cardiac arrest chest x-ray with pulmonary edema. Now extubated to nasal cannula and then eventually weaned to room air. Elevated LFTs due to hypotension/shock. Mild thrombocytopenia slowly improving Subjective Date/time seen: 05/03/23 13:56 Interval history: Patient is sitting up in bed and is pleasant. she is able to state that she has [facility] but she gets mixed up when asking her about the year, president and or season. She also gets confused about when her birthday was not told me that it was in December. She seems to have difficulty finding her words as well. Most of her encephalo
[2023-05-03] MEDS: POTASSIUM CHLORIDE 20 MEQ PACKET (FOR LIQUID) 60 MEQ PO (14:54)
--- NOTE | 2023-05-03 15:02 | PM.PNCARD ---
Progress Note: A&P Assessment and Plan (1) Cardiac arrest with ventricular fibrillation: Code(s): I46.9 - Cardiac arrest, cause unspecified; I49.01 - Ventricular fibrillation Status: Acute Assessment and Plan: Initial arresting rhythm VFIB per the EMS. Had 2 PEA arrests while in the ED. Unclear etiology at this time for her cardiac arrest. No reports of chest pain or other symptoms per the family. No ischemic changes on the EKG in the ED. Trop mildly elevated at 0.7, but ASC unlikely. Etiology of VF arrest unclear, possibly prolonged QT resulting in Torsades?? Exceptionally long QT interval noted this admission. EF of 43% noted global hypokinesis, likely a result of stunned myocardium from her arrest as her EF was normal recently, and hopefully will improve. --Now extubated and on the floor. --Cardiac catheterization 05/01/2023 shows: Mild nonobstructive coronary artery disease. LV gram shows LVEF 65% without wall motion abnormality --Given VFIB arrest, will need to be discharged with Life Vest. Life Vest ordered. Outpatient EP follow up for consideration of ICD given VFIB arrest. Will arrange visit with Dr. Bonilla. (2) Prolonged QT interval: Code(s): R94.31 - Abnormal electrocardiogram [ECG] [EKG] Status: Acute Assessment and Plan: Bradycardia and QT prolongation noted on 04/21 with heart rates in the 30s-40s with QT measuring out to 0.95 to 1 seconds. --Placed temporary transvenous pacer to help shorten QT. Temporary pacer removed 04/24 as patient went into atrial fibrillation with RVR and QT improved. NSR now. --Continue to monitor closely --Avoid QT prolonging medications if possible. (3) Elevated troponin: Code(s): R77.8 - Other specified abnormalities of plasma proteins Status: Acute Assessment and Plan: Troponin of 0.047, 0.491, 0.736. EKG without ischemic changes. --Echo without focal wall motion abnormalities, so doubt ACS --Cardiac catheterization 05/01 with non-obstructive CAD. (4) Atrial fibrillation with rapid ventricular response: Code(s): I48.91 - Unspecified atrial fibrillation Status: Acute Assessment and Plan: Has PAF. Sotalol has been discontinued. Avoid other antiarrhythmic drugs to avoid QT prolongation. Metoprolol increased to 100mg BID for additional rate control as patient was in RVR earlier in hospital course. Started Digoxin as well for additional rate control. Now has intermittent atrial fibrillation, but remains rate controlled when in atrial fibrillation. Digoxin level ordered for 05/04. Outpatient EP follow up for her long-term management of atrial fibrillation, along with consideration of ICD given VFIB arrest. Subjective Date/time seen: 05/03/23 15:02 Interval history: HPI: We are consulted for cardiac arrest. Patient unable to provide any history as she is intubated and nonresponsive, therefore, all history obtained from the patient's chart, medical team, and family at bedside. This is a 78 year old female who follows with Dr. Acosta in the clinic. She has atrial fibrillation, hypertension, history of untreated KASSANDRA. Patient started on Sotalol 80mg BID in February 2023 for atrial fibrillation and had converted to sinus rhythm with Sotalol. She followed up with Dr. Acosta in March and had been doing well at that time. Family reports she had been feeling fine without any symptoms and doing well. Patient's son-in-law heard a thud and found patient on the floor unresponsive and pulseless. He started CPR after calling 911. EMS found patient to be in VFIB. Patient was shocked 3 times and received 3 doses of Epi. Given Amiodarone 150mg x 1 en rouse. Intubated in the field. In the ER, she had PEA arrest x 2, received CPR for a few minutes each time. At the time of my evaluation, she is in sinus rhythm with heart rates in the 60s. Per the ER, with her initial arrest, it may have been 7-10 minutes before they obtained ROSC. Her initial EKG on arri
[2023-05-03 17:06] LABS: Glucose Point of Care 95 mg/dl (65-105)
--- NOTE | 2023-05-03 18:53 | PCCCNOTE ---
Late entry: Called by bedside RN to meet with patient and family for POA paperwork. Met with patient and daughter Alejandra in room 254. Patient provides full name and month and day of her birthday and year with cueing. Patient is able to identify her daughter Alejandra and that she wants Alejandra to be her healthcare POA. Alejandra has a notary in the room. Healthcare POA paperwork completed and notarized. Copy placed on the chart and original given to patient and daughter.
[2023-05-03] MEDS: RIVAROXABAN 20 MG TABLET PO (19:15)
[2023-05-03 19:47] LABS: Glucose Point of Care 143 mg/dl (65-105)
[2023-05-04] VITALS (21 sets, daily range): BP systolic 112–141; BP diastolic 64–84; PULSE 68–96; RESP 16–20; TEMP 36.4–37.1; O2SAT 92–99
[2023-05-04] MEDS: PANTOPRAZOLE SODIUM IV 40 MG VIAL IV PUSH (00:06)
[2023-05-04] MEDS: CENTRAL LINE FLUSH 10 ML IV PUSH (00:06)
[2023-05-04] MEDS: ALBUTEROL SULFATE NEB 2.5 MG/3 ML INH INHALATION ×4 (03:27→19:53)
[2023-05-04] MEDS: IPRATROPIUM BR 0.02% INH SOLN 0.5 MG/2.5 ML VIAL INHALATION ×4 (03:27→19:53)
[2023-05-04 05:07] LABS: Hematocrit 35.6 % (37.0-47.0); Hemoglobin 11.6 g/dL (12.0-15.0); Mean Corpuscular HGB Conc 32.6 g/dl (32-36); Mean Corpuscular Hemoglobin 30.3 pg (26-34); Mean Platelet Volume 10.3 fl (7.4-10.4); Platelet Count Result 217 k/mm3 (150-375); Red Blood Count 3.83 M/mm3 (4.2-5.4); Red Cell Distribution Width 15.9 % (11.5-14.5); White Blood Count 9.3 K/mm3 (4.5-10.0)
[2023-05-04 05:22] LABS: Alanine Aminotransferase 48 U/L (6-35); Albumin Level 3.4 g/dL (3.5-5.1); Alkaline Phosphatase 155 U/L (38-126); Anion Gap 7 mmol/L (8-16); Aspartate Amino Transferase 38 U/L (14-36); Bilirubin,Total 1.1 mg/dL (0.2-1.3); Blood Urea Nitrogen 22 mg/dL (7-17); Calcium 8.2 mg/dL (8.4-10.2); Carbon Dioxide 25 mmol/L (22-30); Chloride 108 mmol/L (98-107); Estimated CRCL calculation 40 ml/min; Estimated Glomerular Filt Rate 54; Glucose 114 mg/dL (65-110); Magnesium 1.9 mg/dL (1.6-2.3); Potassium 3.5 mmol/L (3.4-5.0); Sodium 140 mmol/L (137-145)
[2023-05-04 05:33] LABS: Digoxin 1.1 ng/mL (0.8-2.0)
[2023-05-04 08:27] LABS: Glucose Point of Care 109 mg/dl (65-105)
[2023-05-04] MEDS: PANTOPRAZOLE 40 MG TABLET PO ×2 (09:20→20:54)
[2023-05-04] MEDS: DIGOXIN 250 MCG TABLET PO (09:20)
[2023-05-04] MEDS: levETIRAcetam 500 MG TABLET PO ×2 (09:20→20:53)
[2023-05-04] MEDS: METOPROLOL TARTRATE 50 MG TAB 100 MG PO ×2 (09:20→20:53)
[2023-05-04] MEDS: FUROSEMIDE 20 MG TABLET PO (09:20)
--- NOTE | 2023-05-04 09:44 | PM.PNCARD ---
Progress Note: A&P Assessment and Plan (1) Cardiac arrest with ventricular fibrillation: Code(s): I46.9 - Cardiac arrest, cause unspecified; I49.01 - Ventricular fibrillation Status: Acute Assessment and Plan: Initial arresting rhythm VFIB per the EMS. Had 2 PEA arrests while in the ED. Unclear etiology at this time for her cardiac arrest. No reports of chest pain or other symptoms per the family. No ischemic changes on the EKG in the ED. Trop mildly elevated at 0.7, but ASC unlikely. Etiology of VF arrest unclear, possibly prolonged QT resulting in Torsades?? Exceptionally long QT interval noted this admission. EF of 43% noted global hypokinesis, likely a result of stunned myocardium from her arrest as her EF was normal recently, and hopefully will improve. --Now extubated and on the floor. --Cardiac catheterization 05/01/2023 shows: Mild nonobstructive coronary artery disease. LV gram shows LVEF 65% without wall motion abnormality --Given VFIB arrest, will need to be discharged with Life Vest. Life Vest ordered, awaiting placement. Outpatient EP follow up for consideration of ICD given VFIB arrest. Will arrange visit with Dr. Bonilla. (2) Prolonged QT interval: Code(s): R94.31 - Abnormal electrocardiogram [ECG] [EKG] Status: Acute Assessment and Plan: Bradycardia and QT prolongation noted on 04/21 with heart rates in the 30s-40s with QT measuring out to 0.95 to 1 seconds. --Placed temporary transvenous pacer to help shorten QT. Temporary pacer removed 04/24 as patient went into atrial fibrillation with RVR and QT improved. converted to NSR but in AF now. --Continue to monitor closely --Avoid QT prolonging medications if possible. (3) Elevated troponin: Code(s): R77.8 - Other specified abnormalities of plasma proteins Status: Acute Assessment and Plan: Troponin of 0.047, 0.491, 0.736. EKG without ischemic changes. --Echo without focal wall motion abnormalities, so doubt ACS --Cardiac catheterization 05/01 with non-obstructive CAD. (4) Atrial fibrillation with rapid ventricular response: Code(s): I48.91 - Unspecified atrial fibrillation Status: Acute Assessment and Plan: Has PAF. Sotalol has been discontinued. Avoid other antiarrhythmic drugs to avoid QT prolongation. Metoprolol increased to 100mg BID for additional rate control as patient was in RVR earlier in hospital course. Started Digoxin as well for additional rate control. Now has intermittent atrial fibrillation, but remains rate controlled when in atrial fibrillation. Outpatient EP follow up for her long-term management of atrial fibrillation, along with consideration of ICD given VFIB arrest. Subjective Date/time seen: 05/04/23 09:44 Interval history: HPI: We are consulted for cardiac arrest. Patient unable to provide any history as she is intubated and nonresponsive, therefore, all history obtained from the patient's chart, medical team, and family at bedside. This is a 78 year old female who follows with Dr. Acosta in the clinic. She has atrial fibrillation, hypertension, history of untreated KASSANDRA. Patient started on Sotalol 80mg BID in February 2023 for atrial fibrillation and had converted to sinus rhythm with Sotalol. She followed up with Dr. Acosta in March and had been doing well at that time. Family reports she had been feeling fine without any symptoms and doing well. Patient's son-in-law heard a thud and found patient on the floor unresponsive and pulseless. He started CPR after calling 911. EMS found patient to be in VFIB. Patient was shocked 3 times and received 3 doses of Epi. Given Amiodarone 150mg x 1 en rouse. Intubated in the field. In the ER, she had PEA arrest x 2, received CPR for a few minutes each time. At the time of my evaluation, she is in sinus rhythm with heart rates in the 60s. Per the ER, with her initial arrest, it may have been 7-10 minutes before they obtained ROSC. Her initial EKG
[2023-05-04 12:35] LABS: Glucose Point of Care 192 mg/dl (65-105)
--- NOTE | 2023-05-04 14:37 | PCPTNOTE ---
Patient refused treatment this session due to wanting to stay in bed and sleep. Pt educated on benefits of getting up and out of bed. Will continue per PT plan of care.
--- NOTE | 2023-05-04 15:43 | PM.IMPN ---
Progress Note: A&P Assessment and Plan (1) Cardiac arrest: Code(s): I46.9 - Cardiac arrest, cause unspecified Status: Acute Assessment and Plan: Patient presented with ventricular fibrillation cardiac arrest at home CPR was started patient coded twice with PEA arrest x2 in the ER intubated and admitted to ICU. Suspected due to long QT interval related to sotalol use. QT was prolonged at 5:15 a.m. millisecond on 1st EKG. Patient was started on amiodarone. Hypothermia protocol was also initiated. Was also hypotensive needing vasopressor. Echo with EF 43% moderate global hypokinesis. Consulted bottle assembler transvenous temporary pacemaker was inserted due to QT prolongation and bradycardia shock and decreased perfusion. Temporary cap pacemaker discontinued on 04/24/2023. Went into AFib with RVR. Treated with diltiazem drip now on metoprolol. Extubated 04/26/2023. Transferred to IMU. Once the IMU patient remained clinically stable Cardiology continues to follow. Diet swallow evaluation 05/02/2023 with [facility] side did well. Started on a diet dysphagia diet. Patient underwent cardiac catheterization on 05/01/2023. Plan is for patient to discharge to rehab facility. (2) Paroxysmal atrial fibrillation: Code(s): I48.0 - Paroxysmal atrial fibrillation Status: Acute Assessment and Plan: History of atrial fibrillation hypertension. Presented in February of 2023 with atrial fibrillation for which sotalol was started. Is status post cardiac catheterization on 05/01/2023: Mild 40-50% stenosis in truncal circumflex which is not flow limiting. Otherwise unremarkable. Restart Xarelto. Needs a life vest at discharge. (3) Acute metabolic encephalopathy: Code(s): G93.41 - Metabolic encephalopathy Status: Acute Assessment and Plan: Encephalopathy related to post cardiac arrest. Neurology has seen. Eeg with abnormal record due to absence of normal background rhythm during the presence of by a hemispheric theta and delta activity but without evidence of any proximal focal or diffuse discharge. These abnormalities are suggestive of organic are metabolic encephalopathy. She has been started on Keppra. MRI ordered per family's request and negative for acute cause of Encephalopathy. Encephalopathy most likely due to cardiac arrest. (4) Congestive heart failure: Code(s): I50.9 - Heart failure, unspecified Status: Chronic (5) Hypertension: Qualifiers: Hypertension type: primary hypertension Qualified Code(s): I10 - Essential (primary) hypertension Code(s): I10 - Essential (primary) hypertension Status: Chronic Assessment and Plan: Monitor blood pressures. (6) UTI (urinary tract infection): Code(s): N39.0 - Urinary tract infection, site not specified Status: Resolved Assessment and Plan: UTI treated with Zosyn. Urine culture negative blood cultures x2 was negative. Treatment completed. (7) Hypothyroidism: Code(s): E03.9 - Hypothyroidism, unspecified Status: Acute Assessment and Plan: Patient found to have a low TSH and total T3 with a normal T4. Advised she follow-up with her primary care as an outpatient for repeat labs in approximately 6 weeks. Plan Acute respiratory failure likely related to cardiac arrest chest x-ray with pulmonary edema. Now extubated to nasal cannula and then eventually weaned to room air. Elevated LFTs due to hypotension/shock. Mild thrombocytopenia slowly improving Subjective Date/time seen: 05/04/23 15:43 Interval history: The plan is for patient to discharge tomorrow. Patient is pleasantly confused. She is able to answer some of my questions. Patient has no new complaints and is doing well. She continues work with PT and OT. Plan for discharge tomorrow after LifeVest is fitted. Review of Systems Review of Systems: All systems reviewed & are unremarka
[2023-05-04] MEDS: RIVAROXABAN 20 MG TABLET PO (16:50)
[2023-05-04 17:34] LABS: Glucose Point of Care 112 mg/dl (65-105)
[2023-05-05] VITALS (8 sets, daily range): BP systolic 127; BP diastolic 69; PULSE 68–85; RESP 16–18; TEMP 36.9; O2SAT 95
--- NOTE | 2023-05-05 05:54 | PCRCNOTE ---
Pt refused 020 TX
[2023-05-05 07:47] LABS: Alanine Aminotransferase 39 U/L (6-35); Albumin Level 3.1 g/dL (3.5-5.1); Alkaline Phosphatase 143 U/L (38-126); Anion Gap 11 mmol/L (8-16); Aspartate Amino Transferase 30 U/L (14-36); Blood Urea Nitrogen 23 mg/dL (7-17); Calcium 8.1 mg/dL (8.4-10.2); Carbon Dioxide 23 mmol/L (22-30); Chloride 107 mmol/L (98-107); Estimated CRCL calculation 44 ml/min; Estimated Glomerular Filt Rate > 60; Glucose 110 mg/dL (65-110); Potassium 2.9 mmol/L (3.4-5.0); Sodium 141 mmol/L (137-145)
[2023-05-05] MEDS: ALBUTEROL SULFATE NEB 2.5 MG/3 ML INH INHALATION ×2 (08:12→13:16)
[2023-05-05] MEDS: IPRATROPIUM BR 0.02% INH SOLN 0.5 MG/2.5 ML VIAL INHALATION ×2 (08:12→13:16)
[2023-05-05 08:32] LABS: Glucose Point of Care 103 mg/dl (65-105)
[2023-05-05] MEDS: DIGOXIN 250 MCG TABLET PO (09:17)
[2023-05-05] MEDS: METOPROLOL TARTRATE 50 MG TAB 100 MG PO (09:18)
[2023-05-05] MEDS: FUROSEMIDE 20 MG TABLET PO (09:18)
[2023-05-05] MEDS: POTASSIUM CHLORIDE 20 MEQ PACKET (FOR LIQUID) 80 MEQ PO (09:21)
[2023-05-05] MEDS: levETIRAcetam 500 MG TABLET PO (09:21)
[2023-05-05] MEDS: PANTOPRAZOLE 40 MG TABLET PO (09:21)
[2023-05-05 09:25] LABS: Basophils Absolute Auto 0.1 K/mm3 (0.0-0.1); Basophils Percent Auto 0.8 % (0.2-1.2); Eosinophils Absolute Auto 0.3 K/mm3 (0-0.3); Eosinophils Percent Auto 4.1 % (0-4.4); Hematocrit 36.7 % (37.0-47.0); Hemoglobin 11.5 g/dL (12.0-15.0); Immature Granulocyte Absolute 0.03 K/mm3 (0.00-0.031); Immature Granulocyte Percent A 0.4 % (0-0.5); Lymphocytes Absolute Auto 1.75 K/mm3 (0.9-3.2); Mean Corpuscular HGB Conc 31.3 g/dl (32-36); Mean Corpuscular Hemoglobin 29.9 pg (26-34); Mean Corpuscular Volume 95.3 fl (80-100); Mean Platelet Volume 11.9 fl (7.4-10.4); Monocytes Absolute Auto 0.6 K/mm3 (0.1-0.6); Monocytes Percent Auto 7.5 % (2.6-8.5); Neutrophils Absolute Auto 4.9 K/mm3 (1.3-6.7); Neutrophils Percent Auto 64.2 % (45.5-73.1); Platelet Count Result 212 k/mm3 (150-375); Red Blood Count 3.85 M/mm3 (4.2-5.4); Red Cell Distribution Width 16.1 % (11.5-14.5); White Blood Count 7.6 K/mm3 (4.5-10.0)
[2023-05-05 12:16] LABS: Potassium 3.6 mmol/L (3.4-5.0)
[2023-05-05 12:17] LABS: Glucose Point of Care 147 mg/dl (65-105)
--- NOTE | 2023-05-05 12:24 | PM.DS ---
DS: Admitting Diagnosis Discharge Date 05/05/23 Admitting Diagnosis Cardiac arrest DS: Discharge Diagnosis Discharge Diagnosis (1) Cardiac arrest: Code(s): I46.9 - Cardiac arrest, cause unspecified Status: Acute Assessment and Plan: Patient presented with ventricular fibrillation cardiac arrest at home CPR was started patient coded twice with PEA arrest x2 in the ER intubated and admitted to ICU. Suspected due to long QT interval related to sotalol use. QT was prolonged at 5:15 a.m. millisecond on 1st EKG. Patient was started on amiodarone. Hypothermia protocol was also initiated. Was also hypotensive needing vasopressor. Echo with EF 43% moderate global hypokinesis. Consulted primary care md transvenous temporary pacemaker was inserted due to QT prolongation and bradycardia shock and decreased perfusion. Temporary cap pacemaker discontinued on 04/24/2023. Went into AFib with RVR. Treated with diltiazem drip now on metoprolol. Extubated 04/26/2023. Transferred to IMU. Once the IMU patient remained clinically stable Cardiology continues to follow. Diet swallow evaluation 05/02/2023 with [facility] side did well. Started on a diet dysphagia diet. Patient underwent cardiac catheterization on 05/01/2023. Plan is for patient to discharge to rehab facility. (2) Paroxysmal atrial fibrillation: Code(s): I48.0 - Paroxysmal atrial fibrillation Status: Acute Assessment and Plan: History of atrial fibrillation hypertension. Presented in February of 2023 with atrial fibrillation for which sotalol was started. Is status post cardiac catheterization on 05/01/2023: Mild 40-50% stenosis in truncal circumflex which is not flow limiting. Otherwise unremarkable. Restart Xarelto. Needs a life vest at discharge. (3) Acute metabolic encephalopathy: Code(s): G93.41 - Metabolic encephalopathy Status: Acute Assessment and Plan: Encephalopathy related to post cardiac arrest. Neurology has seen. Eeg with abnormal record due to absence of normal background rhythm during the presence of by a hemispheric theta and delta activity but without evidence of any proximal focal or diffuse discharge. These abnormalities are suggestive of organic are metabolic encephalopathy. She has been started on Keppra. MRI ordered per family's request and negative for acute cause of Encephalopathy. Encephalopathy most likely due to cardiac arrest. (4) Congestive heart failure: Code(s): I50.9 - Heart failure, unspecified Status: Chronic (5) Hypertension: Qualifiers: Hypertension type: primary hypertension Qualified Code(s): I10 - Essential (primary) hypertension Code(s): I10 - Essential (primary) hypertension Status: Chronic Assessment and Plan: Monitor blood pressures. (6) UTI (urinary tract infection): Code(s): N39.0 - Urinary tract infection, site not specified Status: Resolved Assessment and Plan: UTI treated with Zosyn. Urine culture negative blood cultures x2 was negative. Treatment completed. (7) Hypothyroidism: Code(s): E03.9 - Hypothyroidism, unspecified Status: Acute Assessment and Plan: Patient found to have a low TSH and total T3 with a normal T4. Advised she follow-up with her primary care as an outpatient for repeat labs in approximately 6 weeks. Plan Acute respiratory failure likely related to cardiac arrest chest x-ray with pulmonary edema. Now extubated to nasal cannula and then eventually weaned to room air. Elevated LFTs due to hypotension/shock. Mild thrombocytopenia slowly improving DS: Summary Hospital Course Hospital Course: this is a 78-year-old female with a history of CHF and AFib. Patient admitted to the ED after cardiac arrest. He was shocked 3 times and received 3 doses of epi and at that time she regained a pulse. She received a 150 mg IV infusion of amiodarone while in route to
[2023-05-05 16:59] LABS: Glucose Point of Care 128 mg/dl (65-105)
== END 2023-05-05 17:49 | DRG 286 ==
LOC: ANHED 13:42 → ANHICU 17:02 → ANHIMU 04-28 18:20 → ANH2MED 05-02 19:01
PROVIDERS: Internal Medicine; Nurse Practitioner; Specialist; Admitting Provider Hospitalist; Emergency Provider General Practice; PCP Internal Medicine; Visit Provider Internal Medicine Critical Care Medicine
PROC: 5A1223Z Performance of Cardiac Pacing, Continuous (ICD-10-PCS; CPT 33210; principal; 2023-04-21 13:00)
PROC: 4A023N7 Measurement of Cardiac Sampling and Pressure, Left Heart, Percutaneous Approach (ICD-10-PCS; CPT 93452; principal; 2023-05-01 14:30)
DX: I49.01 Ventricular fibrillation (principal); G93.41 Metabolic encephalopathy; J96.00 Acute respiratory failure, unspecified whether with hypoxia or hypercapnia; J69.0 Pneumonitis due to inhalation of food and vomit; R57.0 Cardiogenic shock; N39.0 Urinary tract infection, site not specified; L76.32 Postprocedural hematoma of skin and subcutaneous tissue following other procedure; N17.9 Acute kidney failure, unspecified; G93.49 Other encephalopathy; Y84.7 Blood-sampling as the cause of abnormal reaction of the patient, or of later complication, without mention of misadventure at the time of the procedure; I46.9 Cardiac arrest, cause unspecified; I45.81 Long QT syndrome; T44.7X5A Adverse effect of beta-adrenoreceptor antagonists, initial encounter; I48.0 Paroxysmal atrial fibrillation; I11.0 Hypertensive heart disease with heart failure; I50.9 Heart failure, unspecified; E03.9 Hypothyroidism, unspecified; R77.8 Other specified abnormalities of plasma proteins; D69.6 Thrombocytopenia, unspecified; G47.33 Obstructive sleep apnea (adult) (pediatric); R73.9 Hyperglycemia, unspecified; Z79.01 Long term (current) use of anticoagulants; Z85.41 Personal history of malignant neoplasm of cervix uteri; Z90.711 Acquired absence of uterus with remaining cervical stump; Z87.891 Personal history of nicotine dependence
CPT/HCPCS: 33210; 36415; 36556; 36600; 51702; 70450; 70551; 71045; 74018; 74176; 80053; 80162; 80307; 81001; 82274; 82375; 82550; 82805; 82948; 83036; 83050; 83605; 83690; 83735; 83880; 84100; 84132; 84439; 84443; 84478; 84480; 84484; 85014; 85018; 85025; 85027; 85055; 85610; 85730; 87040; 87086; 87493; 92610; 92611; 92950; 93005; 93458; 94003; 94640; 95816; 96374; 96375; 97110; 97116; 97162; 97166; 97530; 97535; 99291; A9270; C1751; C1887; C1894; C8929; C9113; J0171; J0360; J1160; J1644; J1650; J1720; J1815; J1940; J1953; J2250; J2405; J2543; J2704; J2765; J3010; J3475; J3480; J7030; J7040; J7060; J7120; J7512; Q9957

== ENCOUNTER 2023-05-07 16:36 | Observation (INO) | payer MEDICARE, SELFPAY ==
--- NOTE | ~2023-05-07 | CT_ITS ---
EXAMINATION: CT cervical spine wo con DATE: 05/07/2023 18:09 INDICATION: Fall. TECHNIQUE: Computed tomography (CT) of the cervical spine was performed without intravenous contrast. Automated exposure control and iterative reconstruction technique were employed. Exam dose: 444.38 mGy-cm total exam DLP. COMPARISON: None FINDINGS: There is mild degenerative disc disease at C3-4. There is moderately severe degenerative di sc disease at C4-5. There is moderate degenerative disc disease at C5-6 and C6-7 with 1 mm anterolisthesis and 1.8 mm ant erolisthesis, respectively. The 1.3 mm anterolisthesis at C7-T1. Severe degenerative disc disease at T1-2 and moderately severe degenerative disc disease and minimal anterolisthesis at T2-3. Degenerative changes apophyseal joints. Uncovertebral joint spurring is noted, primarily at C4-5. C1 and C2 are normally aligned and the odontoid process is intact. No fracture or dislocation or lock ed facet or prevertebral soft tissue swelling is detected. IMPRESSION: Prominent cervical spondylosis; no fracture or dislocation Reviewed, dictated and finalized at [facility]. Reviewed, dictated and finalized at [facility].
--- NOTE | ~2023-05-07 | CT_ITS ---
EXAMINATION: CT brain wo con DATE: 05/07/2023 18:09 INDICATION: Fall. Dementia. TECHNIQUE: Computed tomography (CT) of the head was performed without intravenous contrast. The mA wa s adjusted according to patient size. Iterative reconstruction technique was employed. Exam dose: 60 5.33 mGy-cm total exam DLP. COMPARISON: 05/03/2023 MRI brain/brainstem 04/23/2023 CT brain FINDINGS: Bilateral carotid siphon internal carotid artery calcifications. There is nonspecific dimin ished attenuation cerebral white matter, likely due to chronic small vessel ischemic changes. No intracranial mass lesion or hemorrhage or cerebrovascular accident is noted. No midline shift or m ass effect. No subdural or epidural hematoma. Moderately prominent central and cortical cerebral and cerebellar atrophy. The mastoid air cells and included paranasal sinuses are unremarkable. No fracture or bone destruction of the cranial vault. IMPRESSION: No acute intracranial finding or skull fracture Reviewed, dictated and finalized at [facility]. Reviewed, dictated and finalized at [facility].
--- NOTE | ~2023-05-07 | CT_ITS ---
EXAMINATION: CT thoracic spine wo con DATE: 05/07/2023 18:10 INDICATION: Fall. TECHNIQUE: Computed tomography (CT) of the thoracic spine was performed without intravenous contrast. Automated exposure control and iterative reconstruction technique were employed. Exam dose: 906.20 mGy-cm total exam DLP. COMPARISON: None FINDINGS: Moderate degenerative disease and mild interstitial/noted C5 C6-7 and C7-T1. There is severe degenerative disc disease at T1-2 and T2-3 with slight anterolisthesis at T2-3 and T3 -4. There is prominent degenerative disease throughout the remainder of the thoracic spine with spurr ing as well. No fracture or dislocation or bone destruction is noted otherwise. Bibasilar pulmonary infiltrate, atelectasis and/or scarring is partially visualized centimeters addit ional mild pleural effusions.. IMPRESSION: Degenerative changes of the thoracic spine; no fracture, dislocation or bone destruction Reviewed, dictated and finalized at [facility]. Reviewed, dictated and finalized at [facility]. IMPRESSION: Degenerative changes of the thoracic spine; no fracture, dislocati on or bone destruction
[2023-05-07 16:38] VITALS: BP 163/86; PULSE 70; RESP 15; TEMP 37; O2SAT 97
--- NOTE | 2023-05-07 16:52 | PC.NURSE ---
life vest alarming upon arrival to check vest, prmompts followed on monitor. [employer] contacted regarding life vest, states working properly and to contact regarding future problems.
[2023-05-07 17:04] VITALS: RESP 18; O2SAT 98
--- NOTE | 2023-05-07 17:24 | ED.FALL ---
HPI - Fall General Chief Complaint: Fall <EUGENIO Moe Last Filed: 05/08/23 01:40> Stated Complaint: unwitnessed glf <EUGENIO Moe Last Filed: 05/08/23 01:40> Time Seen by Provider: 05/07/23 16:55 <EUGENIO Moe Last Filed: 05/08/23 01:40> Source: patient and old records reviewed <EUGENIO Moe Last Filed: 05/08/23 01:40> Mode of arrival: EMS <EUGENIO Moe Last Filed: 05/08/23 01:40> Limitations: dementia <EUGENIO Moe Last Filed: 05/08/23 01:40> History of Present Illness HPI Narrative: Patient is a 78 y/o female, with PMH of CHF, HTN, AFIB, prolonged QT, who presents to the ED via EMS with report of a fall. Patient is a resident of [facility]. Per [place] report, patient had an unwitnessed ground level fall. Patient appeared to be at her baseline per family after the fall, but was then sent here for further evaluation. Patient does not think she hit her head. She is unable to tell me how the fall occurred. Thinks she tripped and fell. She denies any acute complaints. Denies chest pain, difficulty breathing, abdominal pain, nausea, vomiting, dizziness, lightheadedness, headache, neck pain. Per patient's records, patient was brought into the ED on 04/20 with acute Vfib cardiac arrest. Was thought to be r/t prolonged QT r/t sotalol. Discharged on 05/05 with LifeVest. LifeVest beeping and nonfunctioning upon arrival. [employer] company contacted. <EUGENIO Moe Last Filed: 05/08/23 01:40> Related Data Home Medications: Home Medications Medication Instructions Recorded Confirmed Citroma 296 ml PO DAILY PRN Constipation 05/08/23 05/08/23 Milk of Magnesia 30 ml PO DAILY PRN Constipation 05/08/23 05/08/23 <Taylor Dinh PA-C - Last Filed: 05/08/23 01:40> Allergies/Adverse Reactions: Allergies Allergy/AdvReac Type Severity Reaction Status Date / Time shellfish derived Allergy Hives Verified 03/05/23 09:14 <Taylor Dinh PA-C - Last Filed: 05/08/23 01:40> Review of Systems Review of Systems: CONSTITUTIONAL: Denies fever, chills, or sweats. EYES: Denies visual changes. CARDIOVASCULAR: Denies chest pain. RESPIRATORY: Denies dyspnea. GASTROINTESTINAL: Denies abdominal pain, nausea, vomiting. MUSCULOSKELETAL: Denies back pain, neck pain, or myalgia. NEUROLOGIC: See HPI. <EUGENIO Moe Last Filed: 05/08/23 01:40> All systems reviewed & are unremarkable except as noted in HPI and below <Taylor Dinh PA-C - Last Filed: 05/08/23 01:40> [facility] Past Medical History Medical History: Medical History Acute respiratory failure Chronic anticoagulation History of cervical cancer Hypertension Hypothyroidism KASSANDRA (obstructive sleep apnea) Paroxysmal atrial fibrillation <Taylor Dinh PA-C - Last Filed: 05/08/23 01:40> Surgical History Surgical History: Surgical History History of History of colonoscopy with polypectomy History of open reduction and internal fixation (ORIF) procedure (03/16/22) Repair of left ankle fracture per Dr. Banerjee. History of partial hysterectomy For cervical cancer. <Taylor Dinh PA-C - Last Filed: 05/08/23 01:40> Family History Family History: Family History Father Cancer Hypertension Mother Diabetes mellitus Hypertension Heart disease Sibling Heart disease Other Acute myocardial infarction <Taylor Dinh PA-C - Last Filed: 05/08/23 01:40> Social History Social History: Social History Social History: The patient is and retired. She is a former smoker. Surrogate medical decision m
--- NOTE | 2023-05-07 17:26 | ECG_ITS ---
Measurements Intervals [place] Rate: 74 P: 62 [place]: 174 QRS: 5 QRSD: 97 T: -86 QT: 382 QTc: 426 Interpretive Statements SINUS RHYTHM ST-T WAVE ABNORMALITY IN ANTEROLAT/INF LEADS- CONSIDER ISCHEMIA ABNORMAL ECG COMPARED TO ECG 04/29/2023 11:02:01 NO SIGNIFICANT CHANGES Electronically Signed On 05-07-2023 21:13:08 CDT by Max Malin D.O.
[2023-05-07 17:58] LABS: Basophils Percent Auto 0.5 % (0.2-1.2); Eosinophils Absolute Auto 0.2 K/mm3 (0-0.3); Eosinophils Percent Auto 3.1 % (0-4.4); Hematocrit 35.1 % (37.0-47.0); Hemoglobin 11.2 g/dL (12.0-15.0); Immature Granulocyte Absolute 0.04 K/mm3 (0.00-0.031); Immature Granulocyte Percent A 0.5 % (0-0.5); Lymphocytes Absolute Auto 1.41 K/mm3 (0.9-3.2); Lymphocytes Percent Auto 18.1 % (18.3-44.2); Mean Corpuscular HGB Conc 31.9 g/dl (32-36); Mean Corpuscular Hemoglobin 30.4 pg (26-34); Mean Corpuscular Volume 95.1 fl (80-100); Mean Platelet Volume 10.4 fl (7.4-10.4); Monocytes Absolute Auto 0.7 K/mm3 (0.1-0.6); Neutrophils Absolute Auto 5.3 K/mm3 (1.3-6.7); Neutrophils Percent Auto 68.8 % (45.5-73.1); Platelet Count Result 231 k/mm3 (150-375); Red Blood Count 3.69 M/mm3 (4.2-5.4); Red Cell Distribution Width 16.2 % (11.5-14.5); White Blood Count 7.8 K/mm3 (4.5-10.0)
[2023-05-07 18:09] LABS: Alanine Aminotransferase 36 U/L (6-35); Albumin Level 3.7 g/dL (3.5-5.1); Alkaline Phosphatase 199 U/L (38-126); Anion Gap 12 mmol/L (8-16); Aspartate Amino Transferase 33 U/L (14-36); Bilirubin,Total 0.9 mg/dL (0.2-1.3); Blood Urea Nitrogen 23 mg/dL (7-17); Calcium 8.6 mg/dL (8.4-10.2); Carbon Dioxide 22 mmol/L (22-30); Chloride 108 mmol/L (98-107); Estimated CRCL calculation 61 ml/min; Estimated Glomerular Filt Rate > 60; Glucose 103 mg/dL (65-110); INR 1.5; Magnesium 1.9 mg/dL (1.6-2.3); Potassium 3.2 mmol/L (3.4-5.0); Prothrombin Time 18.6 Seconds (11.1-14.7); Sodium 142 mmol/L (137-145)
[2023-05-07 18:10] LABS: Partial Thromboplastin Time 32.6 SECONDS (22.3-36.8)
[2023-05-07 18:20] LABS: Troponin I < 0.012 ng/mL (0.000-0.034)
[2023-05-07 19:15] VITALS: BP 154/61; PULSE 82; RESP 21; O2SAT 97
--- NOTE | 2023-05-07 19:35 | PC.NURSE ---
Pt assisted to bedside commode for urine sample. Pt unable to void
--- NOTE | 2023-05-07 19:43 | PC.NURSE ---
Elis Boggs contacted at this time at [phone]. Confirmed that someone will come to this facility at an undetermined time to switch out life vest. States it may not be tonight, but they will call to set up an ETA once someone is assigned .
--- NOTE | 2023-05-07 20:17 | PC.NURSE ---
Attempted to straight cath pt at this time, unsuccessful. Another RN to try. IAN Vazquez notified.
[2023-05-07 20:18] VITALS: PULSE 81; RESP 19; O2SAT 96
[2023-05-07 21:12] LABS: Appearance Urine Cloudy (Clear); Bacteria Urine 4+ /hpf; Bilirubin Urine Negative (Negative); Blood Urine Negative (Negative); Color Urine Yellow (Yellow); Glucose Urine UA Negative (Negative); Ketones Urine Trace mg/dL (Negative); Leukocyte Esterase Ur 3+ LEU/UL (Negative); Nitrate Urine Positive (Negative); Non Pathogenic Casts 0-2; Protein Urine Trace mg/dL (Negative); Specific Grav Ur 1.019 (1.001-1.035); Squamous Epithelial Cell Urine None seen /hpf (Few); WBC Urine 51-100 /hpf; pH Urine 5.5 (5.0-9.0)
[2023-05-07 21:30] LABS: Add Urine Microscopic? YES
[2023-05-07 21:39] VITALS: BP 159/68; PULSE 86; RESP 20; O2SAT 97
[2023-05-07 23:25] VITALS: BP 146/59; PULSE 81; RESP 19
[2023-05-08] VITALS (14 sets, daily range): BP systolic 133–167; BP diastolic 52–70; PULSE 57–83; RESP 16–20; TEMP 36.4–36.9; O2SAT 95–98; BMI 27.8
[2023-05-08] MEDS: POTASSIUM CHLORIDE INJ 40 MEQ in SODIUM CHLORIDE 0.9% IV 500 ML 130 MEQ IVPB (00:46)
--- NOTE | 2023-05-08 02:03 | ADMGEN ---
This patient, Vika Duke, was admitted to Medical Room 246-. Patient/family oriented to hospital policies and general routines including ID bracelet, bed and alarms, visiting hours, pain management, procedures, bathroom and other care routines, personal items, smoking policy, room service/diet, and visiting hours. Information on how to activate the Rapid Response Team has been discussed. Patient/Family are encouraged to report perceived risks to care and to ask questions if they do not understand what they are told or what they should do.
[2023-05-08 07:37] LABS: Hematocrit 30.2 % (37.0-47.0); Hemoglobin 9.8 g/dL (12.0-15.0); Mean Corpuscular HGB Conc 32.5 g/dl (32-36); Mean Corpuscular Hemoglobin 30.6 pg (26-34); Mean Corpuscular Volume 94.4 fl (80-100); Platelet Count Result 191 k/mm3 (150-375); Red Cell Distribution Width 16.1 % (11.5-14.5); White Blood Count 5.6 K/mm3 (4.5-10.0)
[2023-05-08 07:46] LABS: Anion Gap 7 mmol/L (8-16); Blood Urea Nitrogen 18 mg/dL (7-17); Carbon Dioxide 24 mmol/L (22-30); Chloride 112 mmol/L (98-107); Estimated CRCL calculation 62 ml/min; Estimated Glomerular Filt Rate > 60; Glucose 103 mg/dL (65-110); Potassium 3.6 mmol/L (3.4-5.0); Sodium 143 mmol/L (137-145)
[2023-05-08] MEDS: POTASSIUM CHLORIDE 20 MEQ ER TABLET PO (08:31)
[2023-05-08] MEDS: DIGOXIN 250 MCG TABLET PO (08:31)
[2023-05-08] MEDS: METOPROLOL TARTRATE 50 MG TAB 100 MG PO ×2 (08:32→20:04)
[2023-05-08] MEDS: FUROSEMIDE 20 MG TABLET PO (08:32)
[2023-05-08] MEDS: levETIRAcetam 500 MG TABLET PO ×2 (10:00→20:04)
--- NOTE | 2023-05-08 10:41 | PM.IMHP ---
H&P: HPI History of Present Illness Date/Time: 05/08/23 10:41 Chief Complaint: Fall Narrative: This is a 78-year-old female with a past medical history of CHF, hypertension, AFib, prolonged QT interval that was recently admitted due to cardiac arrest due to QT prolongation. She was discharged to SNF on 05/05/2023 with a life vest. Patient had an unwitnessed fall at the assisted. Patient is encephalopathic post cardiac arrest in unable to accurately recall events. She is unsure as to why she is in the hospital. ER report states the patient thought she tripped and fell. When she arrived to the ED her life vest was beeping and nonfunctioning on arrival. The [employer] company was contacted and they are to come to the hospital to replace the life vest. CT head no acute intracranial finding or skull fracture, CT cervical and thoracic spine no fracture dislocation. Her labs and vital signs were stable although urine appeared infected. She was started on Rocephin and urine cultures sent. Most of HPI came from a previous charts and ER documentation. Review of Systems Review of Systems: All systems reviewed & are unremarkable except as noted in HPI and below PMFSH Past Medical History Medical History (Updated 05/08/23 @ 10:48 by Afshan Durant PA-C) Acute respiratory failure Chronic anticoagulation History of cardiac arrest (~04/2023) History of cervical cancer Hypertension Hypothyroidism KASSANDRA (obstructive sleep apnea) Paroxysmal atrial fibrillation Surgical History Surgical History History of History of colonoscopy with polypectomy History of open reduction and internal fixation (ORIF) procedure (03/16/22) Repair of left ankle fracture per Dr. Banerjee. History of partial hysterectomy For cervical cancer. Family History Family History Father Cancer Hypertension Mother Diabetes mellitus Hypertension Heart disease Sibling Heart disease Other Acute myocardial infarction Social History Social History Social History: The patient is and retired. She is a former smoker. Surrogate medical decision maker: Alejandra Parish, daughter. Code status: Full code. Smoking status: Former smoker Tobacco type: cigarettes Alcohol intake: never Substance use: never Lack of Transportation: No Lack of Food: Never True Current Housing: I Have Housing Concerned About Future Housing: No Difficulty Paying Gas/Electric Bills: No Difficulty Paying for Meds: No Currently Unemployed: No Education: High School Diploma/GED Difficulty w/ Childcare or Family Care: No Living arrangements: alone Additional living arrangements comments: [place]. Occupation/Education: retired Spiritual care concerns: No Meds Home Medications and Allergies Home Medications Medication Instructions Recorded Confirmed Type rivaroxaban 20 mg tablet (Xarelto) 20 mg PO DAILY@1700 30 days #30 03/18/22 05/08/23 Rx tabs furosemide 20 mg tablet (Lasix) 20 mg PO DAILY #30 tabs 03/09/23 05/08/23 Rx potassium chloride 20 mEq 20 meq PO DAILY #30 tabs 03/09/23 05/08/23 Rx tablet,extended release digoxin 250 mcg (0.25 mg) tablet 250 mcg PO QAM #30 tabs 05/05/23 05/08/23 Rx (Digitek) levetiracetam 500 mg tablet 500 mg PO Q12HR #60 tabs 05/05/23 05/08/23 Rx (Keppra) metoprolol tartrate 50 mg tablet 100 mg PO Q12HR #60 tabs 05/05/23 05/08/23 Rx Citroma 296 ml PO DAILY PRN Constipation 05/08/23 05/08/23 History Milk of Magnesia 30 ml PO DAILY PRN Constipation 05/08/23 05/08/23 History Allergies Allergy/AdvReac Type Severity Reaction Status Date / Time shellfish derived Allergy Hives Verified 03/05/23 09:14 Vital Signs Vital Signs - 24 hr 05/07/23 16:38 05/07/23 17:04 05/07/23 19:15 Temperature 98.6
[2023-05-08] MEDS: RIVAROXABAN 20 MG TABLET PO (16:56)
[2023-05-09] VITALS (10 sets, daily range): BP systolic 116–151; BP diastolic 46–60; PULSE 45–64; RESP 16–20; TEMP 35.9–36.7; O2SAT 94–98
[2023-05-09 05:37] LABS: Hematocrit 32.1 % (37.0-47.0); Mean Corpuscular HGB Conc 31.2 g/dl (32-36); Mean Corpuscular Volume 96.4 fl (80-100); Platelet Count Result 207 k/mm3 (150-375); Red Blood Count 3.33 M/mm3 (4.2-5.4); White Blood Count 5.2 K/mm3 (4.5-10.0)
[2023-05-09 05:38] LABS: Alanine Aminotransferase 26 U/L (6-35); Albumin Level 2.9 g/dL (3.5-5.1); Alkaline Phosphatase 164 U/L (38-126); Anion Gap 5 mmol/L (8-16); Aspartate Amino Transferase 25 U/L (14-36); Bilirubin,Total 0.6 mg/dL (0.2-1.3); Blood Urea Nitrogen 16 mg/dL (7-17); Calcium 8.1 mg/dL (8.4-10.2); Carbon Dioxide 26 mmol/L (22-30); Chloride 110 mmol/L (98-107); Estimated CRCL calculation 62 ml/min; Estimated Glomerular Filt Rate > 60; Glucose 93 mg/dL (65-110); Potassium 3.3 mmol/L (3.4-5.0); Sodium 141 mmol/L (137-145)
[2023-05-09] MEDS: POTASSIUM CHLORIDE 20 MEQ PACKET (FOR LIQUID) 40 MEQ PO (09:06)
[2023-05-09] MEDS: METOPROLOL TARTRATE 50 MG TAB 100 MG PO ×2 (09:06→22:17)
[2023-05-09] MEDS: POTASSIUM CHLORIDE 20 MEQ ER TABLET PO (09:06)
[2023-05-09] MEDS: FUROSEMIDE 20 MG TABLET PO (09:07)
[2023-05-09] MEDS: levETIRAcetam 500 MG TABLET PO ×2 (09:07→20:24)
[2023-05-09] MEDS: DIGOXIN 250 MCG TABLET PO (09:07)
--- NOTE | 2023-05-09 13:30 | PM.IMPN ---
Progress Note: A&P Assessment and Plan (1) Ground-level fall: Code(s): W18.30XA - Fall on same level, unspecified, initial encounter Status: Acute Assessment and Plan: patient believes she may have tripped and fell. CT of the head, cervical spine and thoracic spine are all negative for acute findings. Fall precautions initiated. Patient with no pain in her extremities and states that she is doing well. (2) UTI (urinary tract infection): Qualifiers: Hematuria presence: with hematuria Urinary tract infection type: acute cystitis Qualified Code(s): N30.01 - Acute cystitis with hematuria Code(s): N39.0 - Urinary tract infection, site not specified Status: Acute Assessment and Plan: UA with positive nitrates, 3+ leukocyte esterase, 3-5 RBCs, 51-100 wbc's and 4+ bacteria. Patient was treated for UTI on 04/20/2023 although urine culture came back negative. She started on Rocephin Q 24 Urine culture pending Adjust antibiotics to culture results. (3) Uses LifeVest defibrillator: Code(s): Z95.810 - Presence of automatic (implantable) cardiac defibrillator Status: Acute Assessment and Plan: LifeVest malfunctioning on arrival to the ED. [employer] contacted and they are to come to the hospital and fix the life vest. (4) Paroxysmal atrial fibrillation: Code(s): I48.0 - Paroxysmal atrial fibrillation Status: Acute Assessment and Plan: Patient on digoxin, metoprolol and Xarelto. Continue these medications. (5) History of cardiac arrest: Onset Date: ~04/2023 Code(s): Z86.74 - Personal history of sudden cardiac arrest Status: Inactive Assessment and Plan: Cardiac arrest on 04/20/2023. Is suspected that patient had prolonged QT interval due to sotalol. QT was prolonged at 5:15 a.m. millisecond on 1st EKG.? Patient was started on amiodarone.? Hypothermia protocol was also initiated.? Was also hypotensive needing vasopressor.? Echo with EF 43% moderate global hypokinesis.? Consulted commercial loan reviewer transvenous temporary pacemaker was inserted due to QT prolongation and bradycardia shock and decreased perfusion.? Temporary cap pacemaker discontinued on 04/24/2023.? Went into AFib with RVR.? Treated with diltiazem and metoprolol.? Extubated 04/26/2023.? underwent cardiac her stephenson on 05/01/2023 and LifeVest placed prior to discharge. She was discharged to SNF. Subjective Date/time seen: 05/09/23 13:30 Interval history: Patient resting comfortably no new complaints at this time. Awaiting urine culture to return. Review of Systems Review of Systems: All systems reviewed & are unremarkable except as noted in HPI and below Exam Narrative: GENERAL: Comfortable, no acute distress HENMT: moist mucous membranes EYES: EOM intact b/l NECK: no lymphadenopathy RESPIRATORY: clear to auscultation CARDIO: RRR GI: soft, nontender, bowel sounds present SKIN: no rashes EXTREMITIES: no edema, redness or tenderness Objective Data Vital Signs Vital Signs: Vital Signs - 24 hr 05/08/23 14:04 05/08/23 16:00 05/08/23 19:41 Temperature 98.4 F 97.6 F Pulse Rate 65 68 63 Respiratory Rate 16 20 Blood Pressure 167/65 H 147/52 H Pulse Oximetry 98 96 05/08/23 20:04 05/08/23 20:00 05/09/23 00:00 Temperature Pulse Rate 64 57 L 54 L Respiratory Rate Blood Pressure Pulse Oximetry 05/09/23 04:00 05/09/23 04:14 05/09/23 08:00 Temperature 97.6 F Pulse Rate 56 L 64 50 L Respiratory Rate 20 Blood Pressure 151/60 H Pulse Oximetry 96 05/09/23 12:00 Temperature Pulse Rate 45 L Respiratory Rate Blood Pressure Pulse Oximetry Intake/Output Intake/Output: Intake & Output 05/06/23 05/07/23 05/08/23 05/09/23 23:59 23:59 23:59 23:59 Intake Total 50 1074 600 Output Total 150 Balance 50 924 600 Meds/Results Medications: Active Medications Gene
[2023-05-09] MEDS: RIVAROXABAN 20 MG TABLET PO (16:53)
[2023-05-10] VITALS (12 sets, daily range): BP systolic 113–149; BP diastolic 49–60; PULSE 47–65; RESP 14–20; TEMP 35.8–36.4; O2SAT 95–99
[2023-05-10 05:41] LABS: Hematocrit 33.3 % (37.0-47.0); Hemoglobin 10.5 g/dL (12.0-15.0); Mean Corpuscular HGB Conc 31.5 g/dl (32-36); Mean Corpuscular Hemoglobin 30.6 pg (26-34); Mean Corpuscular Volume 97.1 fl (80-100); Mean Platelet Volume 10.7 fl (7.4-10.4); Platelet Count Result 200 k/mm3 (150-375); Red Blood Count 3.43 M/mm3 (4.2-5.4); Red Cell Distribution Width 16.2 % (11.5-14.5); White Blood Count 5.1 K/mm3 (4.5-10.0)
[2023-05-10 06:04] LABS: Alanine Aminotransferase 25 U/L (6-35); Albumin Level 3.2 g/dL (3.5-5.1); Alkaline Phosphatase 180 U/L (38-126); Anion Gap 7 mmol/L (8-16); Aspartate Amino Transferase 26 U/L (14-36); Bilirubin,Total 0.6 mg/dL (0.2-1.3); Blood Urea Nitrogen 14 mg/dL (7-17); Calcium 8.2 mg/dL (8.4-10.2); Carbon Dioxide 25 mmol/L (22-30); Chloride 109 mmol/L (98-107); Estimated CRCL calculation 55 ml/min; Estimated Glomerular Filt Rate > 60; Glucose 102 mg/dL (65-110); Potassium 3.6 mmol/L (3.4-5.0); Sodium 141 mmol/L (137-145)
[2023-05-10] MEDS: POTASSIUM CHLORIDE 20 MEQ ER TABLET PO (08:38)
[2023-05-10] MEDS: levETIRAcetam 500 MG TABLET PO ×2 (08:38→20:07)
[2023-05-10] MEDS: FUROSEMIDE 20 MG TABLET PO (08:38)
[2023-05-10] MEDS: DIGOXIN 250 MCG TABLET PO (08:38)
[2023-05-10] MEDS: METOPROLOL TARTRATE 50 MG TAB 100 MG PO (08:38)
--- NOTE | 2023-05-10 08:52 | ECG_ITS ---
Measurements Intervals Ashley Rate: 52 P: 66 NM: 159 QRS: -7 QRSD: 96 T: -43 QT: 416 QTc: 388 Interpretive Statements SINUS BRADYCARDIA WITH SINUS ARRHYTHMIA LOW QRS VOLTAGE IN PRECORDIAL LEADS LEFT VENTRICULAR HYPERTROPHY AND ST-T CHANGE BORDERLINE ST-T WAVE ABNORMALITY- ANTEROLAT/INF LEADS BORDERLINE ECG COMPARED TO ECG 05/07/2023 17:48:32 SINUS BRADYCARDIA NOW PRESENT SINUS ARRHYTHMIA NOW PRESENT LEFT VENTRICULAR HYPERTROPHY NOW PRESENT Electronically Signed On 05-10-2023 11:54:54 CDT by Max Malin D.O.
--- NOTE | 2023-05-10 09:14 | PM.CNCAR ---
Assessment and Plan Assessment and plan (1) Paroxysmal atrial fibrillation: Code(s): I48.0 - Paroxysmal atrial fibrillation Status: Acute Assessment and Plan: Currently maintaining sinus rhythm and sinus bradycardia heart rates in the 40s to 50s occasional upper 30s while asleep overnight. No high-grade AV block prolonged pauses. Atrial fibrillation or atrial flutter has not been identified this hospitalization. On 05/04/2023 digoxin level 1.1. Need to keep digoxin level well less than 1.0. I discussed narrow therapeutic range and risk for toxicity with acute renal insufficiency, electrolyte abnormality particularly hypokalemia. She remains at digoxin 0.25 mg daily. Repeat digoxin level return 0.8, however, this was from the durable medical equipment repairer lab draw prior to today's dose. Out of an abundance of caution and particularly given patient's resting bradycardia reduce digoxin to 0.125 mg daily. We can check digoxin level as an outpatient as appropriate. Repeat 12 lead ECG revealed sinus bradycardia with sinus arrhythmia LVH ST abnormality anterolateral leads QT corrected 388 milliseconds MI 159 milliseconds QRS 96 milliseconds. Continue systemic anticoagulation with Xarelto 20 mg at bedtime. Monitor for bleeding. Follow H&H. -continue metoprolol tartrate 100 mg twice daily as heart rate permits. Maintaining sinus rhythm on this regimen along with digoxin which has been reduced to 0.125 mg daily as above. Continue Xarelto 20 mg bedtime to reduce embolic stroke risk. Monitor for bleeding. ambulate with extreme caution to avoid risk for falls and injuries. If patient continues to have falls and or is deemed at ongoing significant risk for falls placing patient at high risk for severe potential catastrophic bleeding complications discussion with regards to pressures benefit of left atrial appendage occlusion device for prevention of stroke without any for systemic anticoagulation be addressed as an outpatient. This is a complicated scenario with further recommendations to follow based on patient's clinical course and recovery. (2) Ground-level fall: Code(s): W18.30XA - Fall on same level, unspecified, initial encounter Status: Acute Assessment and Plan: Patient presents with evidence of acute UTI and fall without reported loss of consciousness not related to arrhythmic contribution and or cardiac arrest. Troponins negative. No fracture, head injury or intracerebral hemorrhage. No evidence for CVA noted. MRI brain 05/03/2023 no acute infarct hemorrhage or mass lesion. Moderate chronic microvascular ischemic changes noted. (3) CAD (coronary artery disease): Qualifiers: Associated angina: without angina Coronary Disease-Associated Artery/Lesion type: [place] artery [place] vs. transplanted heart: [place] heart Qualified Code(s): I25.10 - Atherosclerotic heart disease of [place] coronary artery without angina pectoris Code(s): I25.10 - Atherosclerotic heart disease of [place] coronary artery without angina pectoris Status: Acute Assessment and Plan: [id number] nonobstructive 40-50% stenosis mid circumflex on [facility] April 2023. She needs to be maintained on statin therapy with goal LDL< 70 for stabilization underlying CAD and reduction cardiovascular risk myocardial infarction moving forward. While ideally would add aspirin 81 mg daily, however, will hold on aspirin with Xarelto 20 mg daily to reduce bleeding risk particularly given recent fall. (4) Congestive heart failure: Qualifiers: Heart failure type: diastolic Heart failure chronicity: chronic Qualified Code(s): I50.32 - Chronic diastolic (congestive) heart failure Code(s): I50.9 - Heart failure, unspecified Status: Chronic Assessment and Plan: History of LV dysfunction last hospitalization improved to EF 60% on [facility] is reported. Repeat echocardiogram as an outpatient within the next 2 months. Contin
[2023-05-10 09:28] LABS: Digoxin 0.8 ng/mL (0.8-2.0)
--- NOTE | 2023-05-10 11:15 | PM.IMPN ---
Progress Note: A&P Assessment and Plan (1) Ground-level fall: Code(s): W18.30XA - Fall on same level, unspecified, initial encounter Status: Acute Assessment and Plan: patient believes she may have tripped and fell. CT of the head, cervical spine and thoracic spine are all negative for acute findings. Fall precautions initiated. Patient with no pain in her extremities and states that she is doing well. PT/OT ordered (2) UTI (urinary tract infection): Qualifiers: Hematuria presence: with hematuria Urinary tract infection type: acute cystitis Qualified Code(s): N30.01 - Acute cystitis with hematuria Code(s): N39.0 - Urinary tract infection, site not specified Status: Acute Assessment and Plan: UA with positive nitrates, 3+ leukocyte esterase, 3-5 RBCs, 51-100 wbc's and 4+ bacteria. Patient was treated for UTI on 04/20/2023 although urine culture came back negative. Rocephin Q24H chnaged to cefdinir BID 300mg PO Urine culture grew Ecoli Adjust antibiotics to culture results. (3) Uses LifeVest defibrillator: Code(s): Z95.810 - Presence of automatic (implantable) cardiac defibrillator Status: Acute Assessment and Plan: LifeVest malfunctioning on arrival to the ED. LifeVest company contacted and they are to come to the hospital and fix the life vest (4) Paroxysmal atrial fibrillation: Code(s): I48.0 - Paroxysmal atrial fibrillation Status: Acute Assessment and Plan: Patient on digoxin, metoprolol and Xarelto. Continue these medications. Telemonitor continued Stable at this time. (5) History of cardiac arrest: Onset Date: ~04/2023 Code(s): Z86.74 - Personal history of sudden cardiac arrest Status: Acute Assessment and Plan: Cardiac arrest on 04/20/2023. Is suspected that patient had prolonged QT interval due to sotalol. QT was prolonged at 5:15 a.m. millisecond on 1st EKG.? Patient was started on amiodarone.? Hypothermia protocol was also initiated.? Was also hypotensive needing vasopressor.? Echo with EF 43% moderate global hypokinesis.? Consulted predatory hunter transvenous temporary pacemaker was inserted due to QT prolongation and bradycardia shock and decreased perfusion.? Temporary cap pacemaker discontinued on 04/24/2023.? Went into AFib with RVR.? Treated with diltiazem and metoprolol.? Extubated 04/26/2023.? underwent cardiac her stephenson on 05/01/2023 and LifeVest placed prior to discharge. She was discharged to SNF. Time Spent With Patient Time: 39 minutes Time with patient: Greater than 35 minutes Subjective Date/time seen: 05/10/23 1115 Interval history: Patient is a 78 year old female with a past medical history of a. fib, cardiac arrest, and seizures who presented to the ED for fall at the [facility]. Currently she is in bed. She seems to be doing well. She denies any current chest pain, shortness of breath, nausea, vomiting, diarrhea, constipation, sweats, fevers, and chills. Review of Systems Review of Systems: All systems reviewed & are unremarkable except as noted in HPI and below Exam Narrative: General: well-nourished, well-appearing 78-year-old female, sitting up in bed, comfortable, NARD Neuro: awake, alert and oriented x4, speech clear with teeth missing, no focal neuro deficits noted HEENMT: normocephalic, atraumatic, EOMI, sclerae anicteric, moist oral mucosa Respiratory: Clear to auscultation bilaterally without crackles, rhonchi or wheezes, nonlabored breathing Cardio: regular rate, regular rhythm with S1-S2 Abdomen: nondistended, normoactive bowel sounds, soft, nontender to palpation Extremities: no edema, erythema, or tenderness to palpation, DP pulses 2+ bilaterally Skin: no rashes or lesions, warm and dry Psych: appropriate mood and affect, judgment and insight intact Objective Data Vit
[2023-05-10] MEDS: RIVAROXABAN 20 MG TABLET PO (17:37)
[2023-05-10] MEDS: CEFDINIR 300 MG CAPSULE PO (20:07)
[2023-05-11] VITALS (7 sets, daily range): BP systolic 115–141; BP diastolic 44–53; PULSE 53–64; RESP 16; TEMP 36.4–36.7; O2SAT 94–97
[2023-05-11 06:01] LABS: Basophils Percent Auto 0.6 % (0.2-1.2); Eosinophils Absolute Auto 0.3 K/mm3 (0-0.3); Eosinophils Percent Auto 5.7 % (0-4.4); Hematocrit 33.8 % (37.0-47.0); Hemoglobin 10.8 g/dL (12.0-15.0); Immature Granulocyte Absolute 0.03 K/mm3 (0.00-0.031); Immature Granulocyte Percent A 0.6 % (0-0.5); Immature Platelet Fraction Pct 6.3 % (0.9-11.2); Lymphocytes Absolute Auto 1.85 K/mm3 (0.9-3.2); Lymphocytes Percent Auto 36.6 % (18.3-44.2); Mean Corpuscular Hemoglobin 30.8 pg (26-34); Mean Corpuscular Volume 96.3 fl (80-100); Mean Platelet Volume 11.4 fl (7.4-10.4); Monocytes Absolute Auto 0.5 K/mm3 (0.1-0.6); Monocytes Percent Auto 9.9 % (2.6-8.5); Neutrophils Absolute Auto 2.4 K/mm3 (1.3-6.7); Neutrophils Percent Auto 46.6 % (45.5-73.1); Platelet Count Result 174 k/mm3 (150-375); Red Blood Count 3.51 M/mm3 (4.2-5.4); White Blood Count 5.1 K/mm3 (4.5-10.0)
[2023-05-11 06:20] LABS: Alanine Aminotransferase 25 U/L (6-35); Albumin Level 3.3 g/dL (3.5-5.1); Alkaline Phosphatase 174 U/L (38-126); Anion Gap 5 mmol/L (8-16); Aspartate Amino Transferase 30 U/L (14-36); Bilirubin,Total 0.8 mg/dL (0.2-1.3); Blood Urea Nitrogen 16 mg/dL (7-17); Calcium 8.3 mg/dL (8.4-10.2); Carbon Dioxide 25 mmol/L (22-30); Chloride 110 mmol/L (98-107); Estimated CRCL calculation 62 ml/min; Estimated Glomerular Filt Rate > 60; Glucose 97 mg/dL (65-110); Magnesium 1.8 mg/dL (1.6-2.3); Potassium 3.8 mmol/L (3.4-5.0); Sodium 140 mmol/L (137-145)
[2023-05-11] MEDS: POTASSIUM CHLORIDE 20 MEQ ER TABLET PO (09:03)
[2023-05-11] MEDS: DIGOXIN TAB 125 MCG TABLET PO (09:03)
[2023-05-11] MEDS: levETIRAcetam 500 MG TABLET PO (09:03)
[2023-05-11] MEDS: CEFDINIR 300 MG CAPSULE PO (09:04)
[2023-05-11] MEDS: FUROSEMIDE 20 MG TABLET PO (09:04)
[2023-05-11] MEDS: METOPROLOL TARTRATE 50 MG TAB 100 MG PO (09:04)
--- NOTE | 2023-05-11 11:29 | PM.IMPN ---
Progress Note: A&P Assessment and Plan (1) Ground-level fall: Code(s): W18.30XA - Fall on same level, unspecified, initial encounter Status: Acute Assessment and Plan: patient believes she may have tripped and fell. CT of the head, cervical spine and thoracic spine are all negative for acute findings. Fall precautions initiated. Patient with no pain in her extremities and states that she is doing well. PT/OT ordered Most likely related to UTI (2) UTI (urinary tract infection): Qualifiers: Hematuria presence: with hematuria Urinary tract infection type: acute cystitis Qualified Code(s): N30.01 - Acute cystitis with hematuria Code(s): N39.0 - Urinary tract infection, site not specified Status: Acute Assessment and Plan: UA with positive nitrates, 3+ leukocyte esterase, 3-5 RBCs, 51-100 wbc's and 4+ bacteria. Patient was treated for UTI on 04/20/2023 although urine culture came back negative. Rocephin Q24H chnaged to cefdinir BID 300mg PO last dose 05/12/23 0901 Urine culture grew Ecoli Adjust antibiotics to culture results. (3) Uses LifeVest defibrillator: Code(s): Z95.810 - Presence of automatic (implantable) cardiac defibrillator Status: Acute Assessment and Plan: LifeVest malfunctioning on arrival to the ED. LifeVest company contacted and they are to come to the hospital and fix the life vest (4) Paroxysmal atrial fibrillation: Code(s): I48.0 - Paroxysmal atrial fibrillation Status: Acute Assessment and Plan: Patient on digoxin, metoprolol and Xarelto. Continue these medications. Digoxin also add per cardiology Cardiology consulted thank you for your help Telemonitor continued Stable at this time. (5) History of cardiac arrest: Onset Date: ~04/2023 Code(s): Z86.74 - Personal history of sudden cardiac arrest Status: Acute Assessment and Plan: Cardiac arrest on 04/20/2023. Is suspected that patient had prolonged QT interval due to sotalol. QT was prolonged at 5:15 a.m. millisecond on 1st EKG.? Patient was started on amiodarone.? Hypothermia protocol was also initiated.? Was also hypotensive needing vasopressor.? Echo with EF 43% moderate global hypokinesis.? Consulted java technical architect transvenous temporary pacemaker was inserted due to QT prolongation and bradycardia shock and decreased perfusion.? Temporary cap pacemaker discontinued on 04/24/2023.? Went into AFib with RVR.? Treated with diltiazem and metoprolol.? Extubated 04/26/2023.? underwent cardiac her stephenson on 05/01/2023 and LifeVest placed prior to discharge. She was discharged to SNF. Time Spent With Patient Time: 38 minutes Time with patient: 25 - 35 minutes Subjective Date/time seen: 05/11/23 11:29 Interval history: Patient is a 78 year old female with a past medical history of a. fib, cardiac arrest, and seizures who [facility]. Currently she is working with PT/OT and is doing ok. She currently feels fine and denies any chest pain, shortness of breath, nausea, vomiting, diarrhea, or constipations. She also denies any urinary disfunction including pain, burning, urgency or frequency. Review of Systems Review of Systems: All systems reviewed & are unremarkable except as noted in HPI and below Exam Narrative: General: well-nourished, well-appearing 78-year-old female, sitting up in bed, comfortable, NARD Neuro: awake, alert and oriented x4, speech clear with teeth missing, no focal neuro deficits noted HEENMT: normocephalic, atraumatic, EOMI, sclerae anicteric, moist oral mucosa Respiratory: Clear to auscultation bilaterally without crackles, rhonchi or wheezes, nonlabored breathing Cardio: regular rate, regular rhythm with S1-S2 Abdomen: nondistended, normoactive bowel sounds, soft, nontender to palpation Extremities: no
--- NOTE | 2023-05-11 11:55 | PM.PNCARD ---
Progress Note: A&P Assessment and Plan (1) Paroxysmal atrial fibrillation: Code(s): I48.0 - Paroxysmal atrial fibrillation Status: Acute Assessment and Plan: Currently maintaining sinus rhythm and sinus bradycardia heart rates in the 40s to 50s occasional upper 30s while asleep overnight. No high-grade AV block prolonged pauses. Atrial fibrillation or atrial flutter has not been identified this hospitalization. On 05/04/2023 digoxin level 1.1. Need to keep digoxin level well less than 1.0. I discussed narrow therapeutic range and risk for toxicity with acute renal insufficiency, electrolyte abnormality particularly hypokalemia. She remains at digoxin 0.25 mg daily. Repeat digoxin level return 0.8, however, this was from the scientific recruiter lab draw prior to today's dose. Out of an abundance of caution and particularly given patient's resting bradycardia reduce digoxin to 0.125 mg daily. We can check digoxin level as an outpatient as appropriate. Repeat 12 lead ECG revealed sinus bradycardia with sinus arrhythmia LVH ST abnormality anterolateral leads QT corrected 388 milliseconds TN 159 milliseconds QRS 96 milliseconds. Continue systemic anticoagulation with Xarelto 20 mg at bedtime. Monitor for bleeding. Follow H&H. -continue metoprolol tartrate but reduced to 50 mg twice daily due to persistent bradycardia and fall risk. While she is maintaining sinus rhythm on this regimen along with digoxin which has been reduced to 0.125 mg daily she remains at increased risk for recurrence of atrial fibrillation/flutter nonetheless. Continue Xarelto 20 mg bedtime to reduce embolic stroke risk. Monitor for bleeding. Ambulate with extreme caution to avoid risk for falls and injuries. If patient continues to have falls and or is deemed at ongoing significant risk for falls placing patient at high risk for severe potential catastrophic bleeding complications discussion with regards to pressures benefit of left atrial appendage occlusion device for prevention of stroke without any for systemic anticoagulation be addressed as an outpatient. This is a complicated scenario with further recommendations to follow based on patient's clinical course and recovery. Patient is otherwise stable for discharge from cardiac perspective. Will follow patient as an outpatient unless new issues arise. Please do not hesitate to contact us with any additional questions or concerns. (2) Ground-level fall: Code(s): W18.30XA - Fall on same level, unspecified, initial encounter Status: Acute Assessment and Plan: Patient presents with evidence of acute UTI and fall without reported loss of consciousness not related to arrhythmic contribution and or cardiac arrest. Troponins negative. No fracture, head injury or intracerebral hemorrhage. No evidence for CVA noted. MRI brain 05/03/2023 no acute infarct hemorrhage or mass lesion. Moderate chronic microvascular ischemic changes noted. (3) CAD (coronary artery disease): Qualifiers: Coronary Disease-Associated Artery/Lesion type: [place] artery [place] vs. transplanted heart: [place] heart Associated angina: without angina Qualified Code(s): I25.10 - Atherosclerotic heart disease of [place] coronary artery without angina pectoris Code(s): I25.10 - Atherosclerotic heart disease of [place] coronary artery without angina pectoris Status: Acute Assessment and Plan: [id number] nonobstructive 40-50% stenosis mid circumflex on [facility] April 2023. She needs to be maintained on statin therapy with goal LDL< 70 for stabilization underlying CAD and reduction cardiovascular risk myocardial infarction moving forward. While ideally would add aspirin 81 mg daily, however, will hold on aspirin with Xarelto 20 mg daily to reduce bleeding risk particularly given recent fall. Initiate atorvastatin 20 mg at bedtime. Check lipid panel. (4) Congestive heart failure: Qualifiers:
[2023-05-11 12:18] LABS: Cholesterol 158 mg/dL (0-200); HDL Direct 25 mg/dL; Triglycerides 152 mg/dL (<150)
[2023-05-11 12:28] LABS: LDL Cholesterol Direct 99 mg/dL
--- NOTE | 2023-05-11 13:59 | PCPTNOTE ---
On 05/11/23, the student, PARK Kenny, provided care and completed [facility] documentation on this patient. I have reviewed the student's documentation and agree with the findings.
--- NOTE | 2023-05-11 15:16 | PM.DS ---
DS: Admitting Diagnosis Discharge Date 05/11/23 1315 Admitting Diagnosis Fall, UTI, life vest disfunction DS: Discharge Diagnosis Discharge Diagnosis (1) Ground-level fall: Code(s): W18.30XA - Fall on same level, unspecified, initial encounter Status: Acute Assessment and Plan: patient believes she may have tripped and fell. CT of the head, cervical spine and thoracic spine are all negative for acute findings. Fall precautions initiated. Patient with no pain in her extremities and states that she is doing well. PT/OT ordered Most likely related to UTI (2) UTI (urinary tract infection): Qualifiers: Hematuria presence: with hematuria Urinary tract infection type: acute cystitis Qualified Code(s): N30.01 - Acute cystitis with hematuria Code(s): N39.0 - Urinary tract infection, site not specified Status: Acute Assessment and Plan: UA with positive nitrates, 3+ leukocyte esterase, 3-5 RBCs, 51-100 wbc's and 4+ bacteria. Patient was treated for UTI on 04/20/2023 although urine culture came back negative. Rocephin Q24H chnaged to cefdinir BID 300mg PO last dose 05/12/23 0901 Urine culture grew Ecoli Adjust antibiotics to culture results. (3) Uses LifeVest defibrillator: Code(s): Z95.810 - Presence of automatic (implantable) cardiac defibrillator Status: Acute Assessment and Plan: LifeVest malfunctioning on arrival to the ED. LifeVest company contacted and they are to come to the hospital and fix the life vest (4) Paroxysmal atrial fibrillation: Code(s): I48.0 - Paroxysmal atrial fibrillation Status: Acute Assessment and Plan: Patient on digoxin, metoprolol and Xarelto. Continue these medications. Digoxin also add per cardiology Cardiology consulted thank you for your help Telemonitor continued Stable at this time. (5) History of cardiac arrest: Onset Date: ~04/2023 Code(s): Z86.74 - Personal history of sudden cardiac arrest Status: Acute Assessment and Plan: Cardiac arrest on 04/20/2023. Is suspected that patient had prolonged QT interval due to sotalol. QT was prolonged at 5:15 a.m. millisecond on 1st EKG.? Patient was started on amiodarone.? Hypothermia protocol was also initiated.? Was also hypotensive needing vasopressor.? Echo with EF 43% moderate global hypokinesis.? Consulted steerer transvenous temporary pacemaker was inserted due to QT prolongation and bradycardia shock and decreased perfusion.? Temporary cap pacemaker discontinued on 04/24/2023.? Went into AFib with RVR.? Treated with diltiazem and metoprolol.? Extubated 04/26/2023.? underwent cardiac her stephenson on 05/01/2023 and LifeVest placed prior to discharge. She was discharged to SNF. DS: Summary Hospital Course Hospital Course: patient is an 88-year-old female with a past medical history of CHF, hypertension, AFib, cardiac arrest who presented to the ED with complaints a unwitnessed fall. Patient was recently added jail due to the extended stay and multiple cardiac arrest last visit. It was reported that the patient that she had tripped and fell however when she arrived to the ED it was noted that her life vest was beeping and nonfunctional at that time. CT of the head showed no intracranial findings, CT cervical thoracic spine showed no fracture dislocation urine did appear infected and she was started on ceftriaxone. Urine culture did grow E coli and ceftriaxone was converted to cefdinir p.o. cardiology was consulted and life vest has been repaired. PT and OT has worked with the patient patient has been doing okay. Patient is being discharged to snf at this time for further therapy. Currently patient is denying any chest pain, shortness a breath, nausea, vomiting, diarrhea constipation. She is urinating okay denies any current urinary dysfunction includin
[2023-05-11] MEDS: RIVAROXABAN 20 MG TABLET PO (16:28)
== END 2023-05-11 18:50 | disposition home or self-care (01) ==
LOC: ANHED 17:29 → ANH2MED 05-08 01:40
PROVIDERS: Internal Medicine Cardiovascular Disease; Internal Medicine Critical Care Medicine; Nurse Practitioner; Admitting Provider Internal Medicine; Emergency Provider Physician Assistant; PCP Internal Medicine; Visit Provider Chiropractor
DX: N30.01 Acute cystitis with hematuria (principal); B96.20 Unspecified Escherichia coli [E. coli] as the cause of diseases classified elsewhere; W18.30XA Fall on same level, unspecified, initial encounter; Z95.810 Presence of automatic (implantable) cardiac defibrillator; Z86.74 Personal history of sudden cardiac arrest; I48.0 Paroxysmal atrial fibrillation; I25.10 Atherosclerotic heart disease of native coronary artery without angina pectoris; I11.0 Hypertensive heart disease with heart failure; I50.32 Chronic diastolic (congestive) heart failure; R00.1 Bradycardia, unspecified; I42.2 Other hypertrophic cardiomyopathy; G47.33 Obstructive sleep apnea (adult) (pediatric); R94.31 Abnormal electrocardiogram [ECG] [EKG]; F03.90 Unspecified dementia, unspecified severity, without behavioral disturbance, psychotic disturbance, mood disturbance, and anxiety; M47.812 Spondylosis without myelopathy or radiculopathy, cervical region; M51.34 Other intervertebral disc degeneration, thoracic region; Z79.01 Long term (current) use of anticoagulants; Z79.899 Other long term (current) drug therapy
CPT/HCPCS: 36415; 70450; 72125; 72128; 80048; 80053; 80061; 80162; 81001; 83735; 84484; 85025; 85027; 85055; 85610; 85730; 87077; 87086; 87186; 93005; 96365; 96366; 96367; 97161; 97165; 97535; 99285; A9270; G0378; J0696; J3480; J7040

== ENCOUNTER 2023-05-13 10:44 | Emergency (ER) | payer MEDICARE, SELFPAY ==
[2023-05-13] VITALS (26 sets, daily range): BP systolic 116–153; BP diastolic 40–57; PULSE 46–68; RESP 13–25; O2SAT 92–100
--- NOTE | ~2023-05-13 | CT_ITS ---
EXAMINATION: CT cervical spine wo con DATE: 05/13/2023 13:01 INDICATION: Fall. TECHNIQUE: Computed tomography (CT) of the cervical spine was performed without intravenous contrast. Automated exposure control and iterative reconstruction technique were employed. Exam dose: 331.31 mGy-cm total exam DLP. COMPARISON: 05/07/2023 CT cervical spine FINDINGS: Prominent cervical spondylosis and upper thoracic spondylosis are again noted, including mo derately severe degenerative disease at C4-5, minimal to mild anterior subluxation at C5-6, C6-7 and C7-T1, severe degenerative disc disease at T1-T2 3. There is prominent degenerative change at the apophyseal joints. No fracture or dislocation or locked facet or prevertebral soft tissue swelling is evident.. IMPRESSION: No fracture or dislocation or significant change of cervical and upper thoracic spondylo sis since 05/07/2023 Reviewed, dictated and finalized at [facility]. Reviewed, dictated and finalized at [facility]. IMPRESSION: No fracture or dislocation or significant change of cervical and u pper thoracic spondylosis since 05/07/2023
--- NOTE | ~2023-05-13 | CT_ITS ---
EXAMINATION: CT brain wo con DATE: 05/13/2023 13:01 INDICATION: Fall. TECHNIQUE: Computed tomography (CT) of the head was performed without intravenous contrast. The mA wa s adjusted according to patient size. Iterative reconstruction technique was employed. Exam dose: 60 5.33 mGy-cm total exam DLP. COMPARISON: 05/07/2023 CT brain FINDINGS: There is cerebral and cerebellar atrophy. No intracranial mass lesion or hemorrhage, midlin e shift or mass effect is noted. Bilateral carotid siphon internal carotid artery calcifications. The re is nonspecific diminished attenuation of the cerebral white matter, likely due to chronic small ve ssel ischemic changes. No subdural or epidural hematoma. The mastoid air cells and included paranasal sinuses are unremarkable. No fracture or bone destruction of the cranial vault. IMPRESSION: No acute intracranial finding or skull fracture Reviewed, dictated and finalized at [facility]. Reviewed, dictated and finalized at [facility].
--- NOTE | ~2023-05-13 | XR_ITS ---
XR chest 1V DATE: 05/13/2023 13:06 INDICATION: Fall. TECHNIQUE: AP chest on 05/13/2020 01/12/2003 hours COMPARISON: 04/28/2023 portable AP chest FINDINGS: No pulmonary infiltrate or consolidation, pleural effusion or pulmonary vascular congestion or pneumothorax is evident. Heart size appears borderline, not optimally evaluated on AP projection because of magnification. Aortic arch calcification. Osteopenia. IMPRESSION: No active pulmonary disease Reviewed, dictated and finalized at [facility]. IMPRESSION: No active pulmonary disease
[2023-05-13 12:28] LABS: Glucose Point of Care 109 mg/dl (65-105)
[2023-05-13 12:46] LABS: Basophils Absolute Auto 0.1 K/mm3 (0.0-0.1); Basophils Percent Auto 0.8 % (0.2-1.2); Eosinophils Absolute Auto 0.2 K/mm3 (0-0.3); Eosinophils Percent Auto 3.7 % (0-4.4); Hemoglobin 11.4 g/dL (12.0-15.0); Immature Granulocyte Absolute 0.03 K/mm3 (0.00-0.031); Immature Granulocyte Percent A 0.5 % (0-0.5); Lymphocytes Absolute Auto 1.34 K/mm3 (0.9-3.2); Lymphocytes Percent Auto 22.7 % (18.3-44.2); Mean Corpuscular HGB Conc 31.7 g/dl (32-36); Mean Corpuscular Hemoglobin 30.4 pg (26-34); Mean Platelet Volume 10.3 fl (7.4-10.4); Monocytes Absolute Auto 0.5 K/mm3 (0.1-0.6); Monocytes Percent Auto 8.6 % (2.6-8.5); Neutrophils Absolute Auto 3.8 K/mm3 (1.3-6.7); Neutrophils Percent Auto 63.7 % (45.5-73.1); Platelet Count Result 191 k/mm3 (150-375); Red Blood Count 3.75 M/mm3 (4.2-5.4); Red Cell Distribution Width 16.2 % (11.5-14.5); White Blood Count 5.9 K/mm3 (4.5-10.0)
[2023-05-13 12:59] LABS: Anion Gap 4 mmol/L (8-16); Blood Urea Nitrogen 16 mg/dL (7-17); Calcium 8.5 mg/dL (8.4-10.2); Carbon Dioxide 29 mmol/L (22-30); Chloride 109 mmol/L (98-107); Estimated CRCL calculation 58 ml/min; Estimated Glomerular Filt Rate > 60; Glucose 106 mg/dL (65-110); Potassium 3.9 mmol/L (3.4-5.0); Sodium 142 mmol/L (137-145)
--- NOTE | 2023-05-13 13:01 | ED.GENADULT ---
HPI - General Adult General Chief complaint: Fall <Harini Nicholson February, - Last Filed: 05/13/23 15:02> Stated complaint: fall <Harini Nicholson February, - Last Filed: 05/13/23 15:02> Time Seen by Provider: 05/13/23 11:23 <Harini Nicholson February, - Last Filed: 05/13/23 15:02> History of Present Illness HPI narrative: Vika Duke is a 78 y/o female who presents via EMS from [place]. Per report pt had a fall on to her bottom at the [place] and sent here for further evaluation. Patient states that she is there to get stronger and she usually has help walking to the bathroom but today she had to go really bad and got up walked to the bathroom leaned up against the wall and slid down to get in to the bathroom but then was unable to get back up by her self. She denies hitting her head, denies LOC , denies having any pain anywhere. She is oriented to self/( with options) [facility] states a brick building/ confused with year/month - her records show that she was here on 05/07 and admitted and was oriented X 2 then with garbled speech - which I agree she has some garbled speech with dysarthria/aphasia <Harini Nicholson February, Last Filed: 05/13/23 15:02> Related Data Home medications: Home Medications Medication Instructions Recorded Confirmed Citroma 296 ml PO DAILY PRN Constipation 05/08/23 05/08/23 Milk of Magnesia 30 ml PO DAILY PRN Constipation 05/08/23 05/08/23 <Harini Nicholson February, - Last Filed: 05/13/23 15:02> Allergies/adverse reactions: Allergies Allergy/AdvReac Type Severity Reaction Status Date / Time shellfish derived Allergy Hives Verified 05/13/23 11:02 <Harini Nicholson February, - Last Filed: 05/13/23 15:02> Review of Systems Review of Systems: CONSTITUTIONAL: Denies fever, chills, or sweats. EYES: Denies visual changes, redness, or discharge. ENT: Denies rhinorrhea, congestion, sore throat, or otalgia. CARDIOVASCULAR: Denies chest pain, palpitations, or edema. RESPIRATORY: Denies cough or dyspnea. GASTROINTESTINAL: Denies abdominal pain, nausea, vomiting, or diarrhea. GENITOURINARY: Denies dysuria or hematuria. SKIN: Denies rash or itching. MUSCULOSKELETAL: Denies back pain, joint pain, or myalgia. NEUROLOGIC: Denies headache, numbness, dizziness, or weakness. PSYCHIATRIC: Denies anxiety or depression. <Harini Clayton APRN - Last Filed: 05/13/23 15:02> [facility] Past Medical History Medical History: Medical History Acute respiratory failure Chronic anticoagulation History of cardiac arrest (~04/2023) History of cervical cancer Hypertension Hypothyroidism KASSANDRA (obstructive sleep apnea) Paroxysmal atrial fibrillation <Harini Clayton APRN - Last Filed: 05/13/23 15:02> Surgical History Surgical History: Surgical History History of History of colonoscopy with polypectomy History of open reduction and internal fixation (ORIF) procedure (03/16/22) Repair of left ankle fracture per Dr. Banerjee. History of partial hysterectomy For cervical cancer. <Hraini Clayton APRN - Last Filed: 05/13/23 15:02> Family History Family History: Family History Father Cancer Hypertension Mother Diabetes mellitus Hypertension Heart disease Sibling Heart disease Other Acute myocardial infarction <Harini Clayton APRN - Last Filed: 05/13/23 15:02> Social History Social History: Social History Social History: The patient is and retired. She is a former smoker. Surrogate medical decision maker: Alejandra Parish, daughter. Code status: Full code. Smoking status: Former smoker Tobacco type: cigarettes Alcohol intake: never Substance use: never Lack of Transportation: No Lack of Food: Never True Current Housing: I Have Housing Concerned A
[2023-05-13 14:39] LABS: Appearance Urine Cloudy (Clear); Bacteria Urine None Seen /hpf; Bilirubin Urine Negative (Negative); Blood Urine 1+ (Negative); Color Urine Yellow (Yellow); Glucose Urine UA Negative (Negative); Ketones Urine Negative (Negative); Leukocyte Esterase Ur Trace LEU/UL (Negative); Need Manual Microscopic Reviewed; Nitrate Urine Negative (Negative); Non Pathogenic Casts 0-2; Protein Urine Negative (Negative); Specific Grav Ur 1.014 (1.001-1.035); Squamous Epithelial Cell Urine Occasional /hpf (Few); Urobilinogen Urine 0.2 mg/dL (<2.0); WBC Urine 0-5 /hpf; pH Urine 6.5 (5.0-9.0)
[2023-05-13 14:41] LABS: Add Urine Microscopic? YES
--- NOTE | 2023-05-13 15:09 | PC.NURSE ---
[facility] to [facility] radiologist on condition and test results.
== END 2023-05-13 18:14 ==
PROVIDERS: Emergency Provider Nurse Practitioner Family; PCP Internal Medicine
DX: Z04.3 Encounter for examination and observation following other accident (principal); N30.01 Acute cystitis with hematuria; I10 Essential (primary) hypertension; I48.0 Paroxysmal atrial fibrillation; E03.9 Hypothyroidism, unspecified; G47.33 Obstructive sleep apnea (adult) (pediatric); Z85.41 Personal history of malignant neoplasm of cervix uteri; Z87.891 Personal history of nicotine dependence; Z90.711 Acquired absence of uterus with remaining cervical stump; Z79.01 Long term (current) use of anticoagulants; Z79.899 Other long term (current) drug therapy; M47.812 Spondylosis without myelopathy or radiculopathy, cervical region; M47.814 Spondylosis without myelopathy or radiculopathy, thoracic region; W18.39XA Other fall on same level, initial encounter
CPT/HCPCS: 36415; 70450; 71045; 72125; 80048; 81001; 82948; 85025; 99284

== ENCOUNTER 2024-01-18 11:00 | Outpatient (RCR) | payer MEDICARE, SELFPAY ==
--- NOTE | 2023-12-12 09:52 | OPREHPOC ---
Outpatient Therapy Plan of Care This is a Multidisciplinary Plan of Care that may contain components documented by all disciplines (PT, OT, and ST.) PT Problem 1 PT Problem #1 Knowledge Deficit PT Goal 1 Goal 1* indep with HEP 2* safe transfer technique with sit/stand transfer PT Problem 2 PT Problem #2 Impaired Strength PT Goal 1 Goal improve strength of R and L LE, to improve balance and mobility skills: 1* pt perform standing exercises with 1 UE support x 20 reps 2* good control of motions with LE exercises 3* sit/stand without use of UE's and good control PT Problem 3 PT Problem #3 Impaired Functional Mobil PT Goal 1 Goal improve mobility to decrease use of wheel chair and increase safety to decrease risk of falls: 1* Tinetti balance/gait score of 24/28 2* 5 reps sit/stand time of 16 seconds 3* 2 minute walking test distance of 250'
--- NOTE | 2023-12-12 09:52 | PTOPEVAL1 ---
Assessment and note entered by Ann Marie Steele, PT Evaluation Information Assessment Status Evaluation Diagnosis decreased gait/balance; memory loss due to medical condition Onset Jun 2023 Subjective Information fell backwards in her home when trying to rearrange furniture, was using a wheeled walker and fell trying to use it; do not want to use a walker anymore, because it made her fall; had home health therapy- walked with them using the wheeled walker; Activity: live in assisted living facility, use w/ c for mobility; indep with showering and dressing; sleeps in recliner--not like the bed; facility provides cleaning, cooking; her daughter does laundry; GOAL: want to walk again and talk right again; Reported Pain Level Pain Score 0: Self Report Assessment PT Clinical Summary 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 She reports she had a fall in Jun and has declined since then. Stated she is afraid of falling again. Now uses a wheel chair for mobility and lives in assisted living facility. With the evaluation: Charisse has decreased motor control, L LE > R LE, with unsafe mobility and impulsive behaviors; decreased Tinetti balance score 14/28= high risk for falls; 2 minute walking test distance, with wheeled walker of 150' , with R foot drag with fatigue; she reports a fear of falling and is not doing any leg exercises at home. Skilled PT services are indicated for therapeutic exercises and activities to increase LE strength, sit/stand transfer, gait and mobility skills, to increase safety with education for HEP and safety education. Plan of Care Interventions Gait Training,Neuro Re-education,Patient/Caregiver Education,Therapeutic Activities,Therapeutic Exercise,Self-Care/Home Management PT Services Indicated Yes Treatment Frequency and
--- NOTE | 2023-12-12 11:00 | OTOPDC ---
Assessment and note entered by Seven Charles OTR/Candace, CHT Evaluation Information & Discharge Summary 12/12/23 Diagnosis cardiomyopathy, h/o cardiac arrest, memory loss, abnormality of gait Subjective Information Patient reports she lives in assisted living in her own apartment. She states she is independent with bathing, dressing, toileting, and making herself coffee. The facility provides meals and cleaning. Her daughter does her laundry. She reports her goal with therapy is to be able to walk and to talk better. She also would like to improve her handwriting. She reports she fell using her walker about a year ago and ever since she has been fearful to use a walker. Assessment OT Clinical Summary Patient presents for OT evaluation today reporting difficulties with handwriting. She presents with intact functional strength and fine motor coordination. Issued HEP for hand/intrinsic strengthening. Discussed adaptive techniques for handwriting also. No further skilled OT indicated at this time. D/C OT with HEP. Plan of Care OT Services Indicated No
--- NOTE | 2023-12-12 13:41 | STOPEVAL1 ---
Assessment and note entered by Vika Leong COVERING MACHINE OPERATOR HELPER Evaluation Information Assessment Status Evaluation Assessment Status Evaluation Assessment Status Evaluation Reported Pain Level Pain Score 0: Self Report Pain Score 0: Self Report Pain Score 0: Self Report Assessment ST Clinical Summary COMMUNICATION EVALUATION The patient was seen for a Communication Evaluation. She stated that was taken to the hospital, and that she began passing out; she was told that she had eight heart attacks but one physician told her that she did not actually have cardiac heart attack. She stated that a critical systems technician told her that she was passing out because a vein in her left side/shoulder/arm got clogged. She states that she entered [facility] in June 07. She reported that she noticed a pain in her right cheek and she started talking funny around June,. She stated that she had speech therapy and physical therapy at that time but that she did not feel she made progress in either area. She denies history of CVA. Patient was given an oral motor evaluation and a speech evaluation. She exhibited significant weakness in the lips and tongue when rapidly repeating speech sounds (diadochokinetic rates); rates were judged to be mildly reduced however speech sound imprecision ranged from mild to severe in spite of symmetrical labial and lingual and good rate and range of both lips and tongue. Those same sounds were judged to be within normal limits at the conversational level however the following errors were noted: /s-/ in /st/ blends ( sorm for storm ), /k-/ in /ks/ blends (i.e. ek -tra for extra ) and imprecise zh sound in words like measure (although she can produce a mildly impaired zh sound in isolation; difficulty sustaining the vibration). Patient will be seen twice weekly for eight visits to address the above-mentioned speech sound errors and to address overall strength and precision of articulatory movements, for example maintaining the vibra
--- NOTE | 2023-12-21 09:12 | OPREHPOC ---
Outpatient Therapy Plan of Care This is a Multidisciplinary Plan of Care that may contain components documented by all disciplines (PT, OT, and ST.) PT Problem 1 PT Problem #1 Knowledge Deficit PT Goal 1 Goal 1* indep with HEP 2* safe transfer technique with sit/stand transfer PT Problem 2 PT Problem #2 Impaired Strength PT Goal 1 Goal improve strength of R and L LE, to improve balance and mobility skills: 1* pt perform standing exercises with 1 UE support x 20 reps 2* good control of motions with LE exercises 3* sit/stand without use of UE's and good control PT Problem 3 PT Problem #3 Impaired Functional Mobil PT Goal 1 Goal improve mobility to decrease use of wheel chair and increase safety to decrease risk of falls: 1* Tinetti balance/gait score of 24/28 2* 5 reps sit/stand time of 16 seconds 3* 2 minute walking test distance of 250' ST Problem 1 ST Problem #[address] Goal 1 Goal 1. Patient will voice understanding of how consonant sounds and blends are produced and will use this information to improve and maintain clear speech. Target Visit [address] Problem #[address] Goal 1 Goal 1. Patient will complete labial/lingual/oral motor resistance tasks to improve the strength of the articulators, 10 repetitions with good strength and precision. 2. Patient will over-articulate labial/lingual consonant sounds at the mono- to poly-syllable length with 90% acc. 3. Patient will over-articulate phrases and sentences with 90% acc. with minimal therapist cues to follow speech sound precision guidelines. 4. Patient will improve diadochokinetic sound precision and rate by time of discharge by 3-4 reps per 5 seconds, and with improved precision. Target Visit 8
--- NOTE | 2024-01-18 11:01 | PTOPDC ---
Assessment and note entered by Ann Marie Steele, PT Discharge Information Assessment Status Discharge Diagnosis decreased gait/balance; memory loss due to medical condition Onset Jun 2023 Subjective Information feeling stronger; been doing the exercises at home no falls; being careful; Reported Pain Level Pain Score 0: Self Report Assessment PT Clinical Summary Vika has received 9 PT sessions. Compared to the initial evaluation: increase R and L LE strength with the exercises, but continues to have decreased motor control; Sit to stand 5 reps time is 2 seconds more; 2 minute walking test distance increased from 150' to 200'; gait pattern improved- still uses the walker but did not have R toe drag today; Tinetti balance score is the same at ; have not had any falls; sit/stand transfer is not safe--plops into the chair and uses both hands for transfer; education has been completed for safety and HEP. In the assisted living facility she uses the w/c for mobility and walks short distances in her room with the wheeled walker. The goals were partially achieved. Discharge PT. She is to continue with her HEP. Plan of Care PT Services Indicated No
--- NOTE | 2024-01-22 10:45 | STOPDC ---
Assessment and note entered by Vika Leong, GLOBAL PROCESS OWNER Assessment ST Clinical Summary TREATMENT SUMMARY AND DISCHARGE SUMMARY Patient was seen today for final visit after having been seen for a Speech Evaluation for dysarthria/reduced intelligibility and 9 treatment sessions. Patient was presented with oral motor exercises, words with specific speech sounds to address in order to improve the precision of speech sound productions, sentences, and conversational-type activities. Patient eventually admitted she was not performing the oral motor exercises but was concentrating on the speech tasks. Patient exhibited moderate labial/lingual weakness but tended to attribute it to having to hold her upper dentures in place. Patient's diadochokinetic rates were reassessed and mild imprecision noted in both labial/lingual sounds however all had improved by time of discharge. Additionally, patient also had improved her ability to repeat words/sentences and to orally read words/sentences. She reports she knows she needs to slow down and over-exaggerate sound productions and she did precisely that today. Patient is being discharged with all goals achieved at this time. Additionally, she was encouraged to either have upper dentures re- aligned or purchase new, better fitting upper dentures so that her tongue would be free to produce sounds more accurately. Nonetheless, she does exhibit weakness in the lips and tongue although she denies having a stroke; she reports she fell and hit her head (toward the back, right side) and was then diagnosed with dementia that would not progress as a result of the fall (denied a traumatic brain injury), and she feels that has contributed to her speech issue (not lip/ tongue weakness as observed). She may contact therapist or return after new set of dentures to determine if she would benefit from any additional Speech Therapy. Thank you for allowing this patient to have Speech Therapy. Plan of Care Services Indicated No
== END 2024-01-22 14:23 | disposition home or self-care (01) ==
LOC: ANHST 11:00
PROVIDERS: PCP Internal Medicine
DX: R47.1 Dysarthria and anarthria (principal); R41.3 Other amnesia; R26.89 Other abnormalities of gait and mobility; Z86.79 Personal history of other diseases of the circulatory system; Z86.74 Personal history of sudden cardiac arrest
CPT/HCPCS: 92507; 92522; 97110; 97116; 97161; 97165; 97530

== ENCOUNTER 2025-06-17 15:34 | Outpatient (CLI) | payer MEDICARE, SELFPAY ==
--- OUTSIDE RECORDS SUMMARY | 2025-06-17 15:00 | XMS_ITS | Encounter Summary ---
Author Organization [facility] Healthcare Address [address] [place] [address] Care Team Providers Care Corking Machine Operator Name Role Phone Oren Noriega MD Primary Care Provider Reason for Visit * Reason Comments Follow-up 6 M follow up Encounter Details Date Type Department Care Team (Late st Contact Info) Description 06/17/2025 3:00 PM CDT Office Visit 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 Gender Identity Not on file Sexual Orientation Not on file documented as of this encounter Last Filed Vital Signs Vital Sign Reading Time Taken Comments Blood Pressure 134/72 06/17/2025 2:59 PM CDT Pulse 65 06/17/2025 2:59 PM CDT Temperature - - Respiratory Rate 16 06/17/2025 2:59 PM CDT Oxygen Saturation 98% 06/17/2025 2:59 PM CDT Inhaled Oxygen Concentration - - Weight 73.5 kg (162 lb) 06/17/2025 2:59 PM CDT Height 160 cm (5' 3) 06/17/2025 2:59 PM CDT Body Mass Index 28.7 06/17/2025 2:59 PM CDT documented in this encounter Plan of Treatment Not on file documented as of this encounter Visit Diagnoses Diagnosis Paroxysmal atrial fibrillation (HCC)- Primary Atrial fibrillation Tachycardia-bradycardia syndrome Sinoatrial node dysfunction documented in this encounter Discontinued Medications Medication Sig Discontinue Reason Start Date End Da te lisinopriL (PRINIVIL,ZESTRIL) 5 mg tablet Take 1 tablet (5 mg total) by mouth daily No longer taking - Do not display on AVS 06/17/2025 documented as of this encounter Historical Medications * This list may reflect changes made after this encounter. solifenacin (VESIcare) 5 mg tablet Take 1 tablet (5 mg total) by mouth daily lisinopriL (PRINIVIL,ZESTRIL ) 5 mg tablet Take 1 tablet (5 mg total) by mouth daily 06/17/2025 added in this encounter Care Teams Corking Machine Operator Relationship Specialty Start Date End Date Oren Noriega MD PCP - General Internal Medicine 03/14/22 documented as of this encounter
--- OUTSIDE RECORDS SUMMARY | 2025-06-17 15:39 | XMS_ITS | Clinical Summary ---
Author Organization [facility] [address] Address [address] [place] [address] Care Team Providers Care Salvage Repairer Name Role Phone Oren Noriega MD Primary Care Provider [phone] Allergies Active Allergy Reactions Criticality Noted Date Comments Shellfish Containing Products Hives Medium 2021 Medications atorvastatin (LIPITOR) 20 mg tablet 3 Active furosemide (LASIX) 20 mg tablet 3 Active levETIRAcetam (KEPPRA) 500 mg tablet Take 1 tablet (500 mg total) by mouth daily 3 Active metoprolol (LOPRESSOR) 100 mg tablet Take 0.5 tablets (50 mg total) by mouth 2 (two) times a day 3 Active potassium chloride ER 20 mEq CR tablet 3 Active Xarelto 20 mg tabletIndication s:Paroxysmal atrial fibrillation (HCC) Take 1 tablet (20 mg total) by mouth daily 90 tablet 3 Active solifenacin (VESIcare) 5 mg tablet Take 1 tablet (5 mg total) by mouth daily Active lisinopriL (PRINIVIL,ZESTRI L) 5 mg tablet Take 1 tablet (5 mg total) by mouth daily 06/17/20 25 Discontinue d(No longer taking - Do not display on AVS) Active Problems Problem Noted Date Diagnosed Date Tachycardia-bradycardia syndrome 09/05/2023 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 07/05/2023 H/O cardiac arrest 07/05/2023 H/O cardiomyopathy 07/05/2023 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) 03/22/2023 Pulmonary hypertension 11/16/2022 Paroxysmal atrial fibrillation 08/03/2022 Primary hypertension 08/03/2022 Mixed hyperlipidemia 08/03/2022 Chronic anticoagulation 08/03/2022 KASSANDRA (obstructive sleep apnea) 08/03/2022 Encounters Date Type Department Care Team Description 06/17/2025 3:00 PM CDT Office Visit [facility] Medical [facility] Cardiology [address] [place] [address] Rosa Elena Sutherland NP Paroxysmal atrial fibrillation (HCC) (Primary Dx); Tachycardia-bradycard ia syndrome from Last 3 Months Surgical History Surgery Date Site/Laterality Comments SECTION HYSTERECTOMY partial CATARACT EXTRACTION 10/16/2021 - 10/15/2022 Medical History Medical History Date Comments Hypertension Atrial fibrillation (HCC) 03/15/2022 Family History Medical History Relation Name Comments Heart attack Brother 3 Cancer Father Relation Name Status Comments Brother 1 Alive Brother 2 Alive Brother 3 Father Mother Social History Tobacco Use Types Packs/Day Years Used Date Smoking Tobacco: Former Cigarettes Q uit: 04/02/1991 Tobacco Cessation:Counseling Given: Not Answered Comments Unknown Sex and Gender Information Value Date Recorded Sex Assigned at Not on file Legal 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 Gender Identity Not on file Sexual Orientation Not on file Obstetrics History Last Filed Vital Signs Vital Sign Reading [...] Mass Index 28.7 06/17/2025 2:59 PM CDT Plan of Treatment Health Maintenance Due Date Last Done Comments Depression Screening 1945 Fall Risk Assessment 1945 Hepatitis C Screening 1945 Osteoporosis Screening-Bone Density Scan 1945 Hepatitis B Screening 1965 Pneumococcal vaccine 65+ (1 of 2 - PCV) 1966 Zoster Vaccine (1 of 2) 1997 Well Visit 65+ 02/12/2012 Influenza Vaccine (#1) 2025 DTaP/Tdap/Td Vaccine (2 - Td or Tdap) 04/26/202809/2018 Insurance [facility] Address: [address] [address] [facility] Address: [address] [address] [place] [address] Care Teams Salvage Repairer Relationship Specialty Start Date End Date Oren Noriega MD PCP - General Internal Medicine 03/14/22
[2025-06-17 16:03] LABS: Hematocrit 43.0 % (37.0-47.0); Hemoglobin 13.9 g/dL (12.0-15.0); Immature Granulocyte Percent A 0.1 % (0-0.5); Lymphocytes Absolute Auto 2.26 K/mm3 (0.9-3.2); Mean Corpuscular HGB Conc 32.3 g/dl (32-36); Mean Corpuscular Hemoglobin 30.1 pg (26-34); Mean Corpuscular Volume 93.1 fl (80-100); Nucleated Red Blood Cells Absolute Auto 0.000 K/mm3 (0.0-0.012); Nucleated Red Blood Cells Perc 0.0 % (0.0-0.2); Platelet Count Result 141 k/mm3 (150-375); Red Blood Count 4.62 M/mm3 (4.2-5.4); White Blood Count 8.7 K/mm3 (4.5-10.0)
[2025-06-17 16:07] LABS: Add Urine Microscopic? YES; Appearance Urine Cloudy (Clear); Glucose Urine UA Negative (Negative); Leukocyte Esterase Ur 3+ LEU/UL (Negative); Nitrate Urine Negative (Negative); Specific Grav Ur 1.017 (1.001-1.035)
[2025-06-17 16:19] LABS: Alanine Aminotransferase 17 U/L (6-35); Albumin Level 4.3 g/dL (3.5-5.1); Alkaline Phosphatase 82 U/L (38-126); Anion Gap 8 mmol/L (4-12); Aspartate Amino Transferase 26 U/L (14-36); Bilirubin,Total 1.0 mg/dL (0.2-1.3); Blood Urea Nitrogen 27 mg/dL (7-17); Calcium 9.2 mg/dL (8.4-10.2); Carbon Dioxide 23 mmol/L (22-30); Chloride 109 mmol/L (98-107); Cholesterol 145 mg/dL (0-200); Estimated Glomerular Filt Rate 34; Glucose 99 mg/dL (65-110); HDL Direct 52 mg/dL; Potassium 4.2 mmol/L (3.4-5.0); Sodium 140 mmol/L (137-145); Total Protein 7.4 g/dL (6.3-8.2); Triglycerides 123 mg/dL (<150)
== END 2025-06-17 15:35 | disposition home or self-care (01) ==
PROVIDERS: PCP Internal Medicine; Referring Provider Nurse Practitioner Adult Health; Visit Provider Internal Medicine
DX: E78.5 Hyperlipidemia, unspecified (principal); I10 Essential (primary) hypertension; R32 Unspecified urinary incontinence; E55.9 Vitamin D deficiency, unspecified
CPT/HCPCS: 36415; 80053; 80061; 81001; 82306; 85025; 87086